=== PATIENT | male | born 1960 | race Caucasian/White ===

== ENCOUNTER 2017-11-21 15:53 | Emergency (ER) | payer OTHER ==
[~2017-11-21] VITALS: Ht 180.3 cm; Wt 107.5 kg
[2017-11-21 15:56] VITALS: PULSE 90; TEMP 36.7; Ht 180.3 cm; Wt 107.5 kg
--- NOTE | 2017-11-21 16:18 | EMERGENCY ROOM VISIT NOTE ---
History Report prepared by Lisa: Ramon Sampson Under the Supervision of: Dr. Ben Aaron M.D. First contact with patient: 16:08 Chief Complaint: OTHER COMPLAINT Stated Complaint: KNEE AND HERNIA History of Present Illness The patient is a 57 year old male who presents to the Emergency Room due to complaints of constant left knee pain that began yesterday after he slipped in the mud. Patient states that his body twisted when he slipped and his son caught him before he fell. He describes the knee pain as "burning". Patient adds that the pain radiates down his left leg. Patient adds that he has had a hernia since last May that he was worried would "burst" after the slipping incident. Patient states that the hernia was in mild pain after the fall. He awaiting to see his doctor about the hernia. He states that he has never seen a surgeon for his hernia. Patient states that he takes Oxycodone for pain. He adds that he has a history of a "bad liver". He denies a history of ulcers. Patient states that his last normal bowel movement was this morning. Patient adds that he sometimes has to push hard to have a bowel movement. Patient denies abdominal pain. Patient adds that his doctor for his knee is located in [place]. Source of History: patient Onset: Yesterday Position: leg (left), knee (left) Quality: burning Timing: constant Modifying Factors (Relieving): other (None) Associated Symptoms: No abdominal pain Review of Systems See HPI for pertinent positives and negatives. A total of ten systems were reviewed and were otherwise negative. Past Medical & Surgical Medical Problems: (1) Arthritis (2) Gout (3) Liver cirrhosis Family History No pertinent family history Social History Smoking Status: Never Smoker Alcohol Use: none Marital Status: Housing Status: lives with significant other Current/Historical Medications Scheduled Allopurinol (Allopurinol), 300 MG PO QAM Baclofen (Lioresal), 10 MG PO BID Furosemide (Lasix), 20 MG PO QAM Omeprazole (Prilosec), 20 MG PO QAM Spironolactone (Aldactone), 50 MG PO QAM Triamcinolone Acet (Triamcinolone Acetonide), 1 APPLN TOP BID Scheduled PRN Ondansetron Hcl (Zofran), 4 MG PO Q6H PRN for Nausea Oxycodone Hcl (Oxycodone Hcl), 15 MG PO Q4H PRN for Pain Allergies Coded Allergies: Hydrocodone (Verified Allergy, Severe, GI SYMPTOMS, 11/21/17) Ketorolac Tromethamine (Verified Allergy, Intermediate, makes sick, ) Penicillins (Verified Allergy, Unknown, 11/21/17) Tramadol (Verified Adverse Reaction, Unknown, vomiting, 11/21/17) Physical Exam Vital Signs Date Time Temp Pulse Resp B/P (MAP) Pulse Ox O2 Delivery O2 Flow Rate FiO2 11/21/17 17:25 18 115/75 95 Room Air 11/21/17 15:56 36.7 90 18 144/61 97 Room Air Physical Exam GENERAL: Awake, alert, well-appearing, in no distress HENT: Normocephalic, atraumatic. Oropharynx unremarkable. Dry mucous membranes EYES: Normal conjunctiva. Sclera non-icteric. NECK: Supple. No nuchal rigidity. FROM. No JVD. RESPIRATORY: Clear to auscultation. CARDIAC: Regular rate, normal rhythm. Extremities warm and well perfused. Pulses equal. ABDOMEN: Soft, easily reducible left indirect inguinal hernia. No tenderness to palpation. No rebound or guarding. No masses. RECTAL: Deferred. MUSCULOSKELETAL: Chest examination reveals no tenderness. The back is symmetrical on inspection without obvious abnormality. There is no CVA tenderness to palpation. No joint edema. LOWER EXTREMITIES: Mild tenderness of left knee to medial aspect. Positive James's sign. Calves are equal size bilaterally and non-tender. No edema. No discoloration. NEURO: Normal sensorium. No sensory or motor deficits noted. SKIN: No rash or jaundice noted. Medical Decision & Procedures ER Provider Diagnostic Interpretation: Radiology results as stated below per my review and radiologist interpretation: L KNEE 3 VIEWS HISTORY: 57 years-old Male left knee pain, twisting acute left knee pain status post twisting injury COMPARISON: Left knee radiographs 03/31/2016 TECHNIQUE: 3 views of the left knee FINDINGS: Tricompartmental osteoarthritis is noted, mild within the lateral compartment and moderate within the medial and patellofemoral compartments, progressed from comparison. Spurring of the tibial spines. Small knee joint effusion. No acute fracture or dislocation. No opaque foreign body. IMPRESSION: 1. Small joint effusion without fracture. 2. Tricompartmental osteoarthritis, progressed from comparison study. The above report was generated using voice recognition software. It may contain grammatical, syntax or spelling errors. Electronically signed by: Ranulfo Miles M.D. 11/21/2017 5:10 PM Medications Administered Medications (Trade) Dose Ordered Sig/Geovani Route Start Time Stop Time Status Last Admin Dose Admin Lidocaine (Lidoderm Patch 5%) 1 patch NOW STAT TD 11/21/17 17:18 11/21/17 17:20 DC 11/21/17 17:27 1 PATCH ED Course 1605: The patient was evaluated in room B2. A complete history and physical exam was performed. 1741: I reevaluated the patient. Discussed results and discharge instructions. He verbalized understanding and agreement. The patient is ready for discharge. Medical Decision I reviewed the patient's past medical history, medications, and the nursing notes as described above. The patient's presentation and history were concerning for fracture, dislocation , and meniscal injury. The patient is 57 y/o gentleman with a pmhx of cirrhosis presents to the emergency department with c/o of left knee pain and left inguinal hernia after nearly falling, slipping in the mud yesterday per HPI. On arrival the patient is relatively well-appearing in NAD, AFVSS. On exam the patient has a soft reducible left inguinal hernia that is NTTP. No discoloration. Left knee with mild ttp to medial aspect with FROM that causes mild pain. +James sign c/w likely meniscal injury. Xray negative for fx. Plan for outpatient f/u. Findings and plan for follow-up reviewed with patient. Patient agreeable and d/c'd per discharge instructions. Medication Reconcilliation Current Medication List: was personally reviewed by me Blood Pressure Screening Patient's blood pressure: Normal blood pressure Blood pressure disposition: Did not require urgent referral Impression Primary Impression: Left knee sprain Additional Impression: Left inguinal hernia Scribe Attestation The scribe's documentation has been prepared under my direction and personally reviewed by me in its entirety. I confirm that the note above accurately reflects all work, treatment, procedures, and medical decision making performed by me. Departure Information Dispostion Home / Self-Care Referrals No Doctor, Assigned (PCP) Leandro Lopez D.O. Davidson, Matthew D. D.O. Forms HOME CARE DOCUMENTATION FORM, IMPORTANT VISIT INFORMATION, WORK / SCHOOL INSTRUCTIONS Patient Instructions ED Hernia Inguinal, ED Meniscal Injury Knee Poss, ED Sprain Knee, [facility] Additional Instructions Please follow up with your primary care physician in the next 1-3 days for re- evaluation. We will also give you contact information for general surgery to have your inguinal hernia evaluated and also for orthopedics to reevaluate your knee if pain persist. Otherwise, your exam and xray did not show signs of an emergent condition at this time. Continue your current medications. Lidoderm patch for additional knee pain relief. Drink plenty of fluids to ensure hydration. Return to the emergency department for worsening symptoms as described in the accompanying instructions. Problem Qualifiers
[2017-11-21] MEDS ORDERED: SPIR25TA89 PO (17:04)
[2017-11-21] MEDS ORDERED: OXY/15 PO (17:04)
[2017-11-21] MEDS ORDERED: BACL1TAB PO (17:04)
[2017-11-21] MEDS ORDERED: ALL300 PO (17:04)
[2017-11-21] MEDS ORDERED: FURO-85 PO (17:04)
[2017-11-21] MEDS ORDERED: OMEP20CA9 PO (17:04)
[2017-11-21] MEDS ORDERED: TRMCR515 TOP (17:04)
[2017-11-21] MEDS ORDERED: ONDA4TAB46 PO (17:04)
--- NOTE | 2017-11-21 17:11 | DIAGNOSTIC IMAGING REPORT ---
L KNEE 3 VIEWS HISTORY: 57 years-old Male left knee pain, twisting acute left knee pain status post twisting injury COMPARISON: Left knee radiographs 03/31/2016 TECHNIQUE: 3 views of the left knee FINDINGS: Tricompartmental osteoarthritis is noted, mild within the lateral compartment and moderate within the medial and patellofemoral compartments, progressed from comparison. Spurring of the tibial spines. Small knee joint effusion. No acute fracture or dislocation. No opaque foreign body. IMPRESSION: 1. Small joint effusion without fracture. 2. Tricompartmental osteoarthritis, progressed from comparison study. The above report was generated using voice recognition software. It may contain grammatical, syntax or spelling errors. Electronically signed by: Ranulfo Miles M.D. 11/21/2017 5:10 PM Dictated Date/Time: 11/21/2017 5:08 PM
[2017-11-21] MEDS ORDERED: LIDODERM (LIDOCAINE) PATCH 5% TD STA (17:18)
[2017-11-21 17:25] VITALS: BP 115/75; O2SAT 95
== END 2017-11-21 17:47 | disposition home or self-care (01) ==
LOC: C.EDB 15:56
DX: S83.92XA Sprain of unspecified site of left knee, initial encounter (principal); W18.40XA Slipping, tripping and stumbling without falling, unspecified, initial encounter; K40.90 Unilateral inguinal hernia, without obstruction or gangrene, not specified as recurrent; M10.9 Gout, unspecified; K74.60 Unspecified cirrhosis of liver; Z79.899 Other long term (current) drug therapy; Z88.0 Allergy status to penicillin; Z88.5 Allergy status to narcotic agent; Z88.8 Allergy status to other drugs, medicaments and biological substances; M17.12 Unilateral primary osteoarthritis, left knee

== ENCOUNTER 2019-09-16 08:20 | Observation (INO) ==
[2019-09-16] MEDS ORDERED: MoRPHine SULFATE 10 MG/ML CARP/VIAL IV STA (08:33)
--- NOTE | 2019-09-16 08:42 | Emergency Department Note ---
History of Present Illness General Chief complaint: Dental/Oral Stated complaint: DRY SOCKET, CONGESTION IN CHEST S/P 12 TEETH EXTRA Time Seen by Provider: 09/16/19 08:26 History of Present Illness Maximum Pain Intensity: 10 This is a 59-year-old male that presents to the emergency department via private vehicle with complaints of "dry socket, congestion and chest status post 12 teeth extracted". The patient stated this past Wednesday his dentist, Dr. Guevara, extracted all of the patient's lower dentition. This was 12 teeth. Patient has been doing well and doing the salt water rinses as directed and was on clindamycin for his upper teeth but notes that now he had an increase of pain and swelling into the neck. Pain is a 10/10. He has been taking oxycodone as he was previously prescribed without relief. He is also been using Chloraseptic spray. He is concerned that now he has dry socket. He notes intermittent fever/chills. He also states he has had chest congestion for the past 1 to 2 months. There is a cough with this. There is some shortness of breath. No chest pain at rest but there is with the cough. He denies smoking. Home Medications Home Medications Medication Instructions Recorded Confirmed Type allopurinol 300 mg PO QAM 05/28/18 09/16/19 History baclofen 10 mg PO BID 05/28/18 09/16/19 History omeprazole 20 mg PO QAM 05/28/18 09/16/19 History oxycodone 15 mg PO Q4H PRN 05/28/18 09/16/19 History triamcinolone acetonide 1 applic TOPICAL BID PRN 05/28/18 09/16/19 History acetaminophen [Tylenol 8 Hour] 1,300 mg PO Q12H PRN 09/16/19 09/16/19 History Allergies Allergy/AdvReac Type Severity Reaction Status Date / Time hydrocodone Allergy Severe GI SYMPTOMS Verified 09/16/19 09:07 ketorolac Allergy Intermediate makes sick Verified 09/16/19 09:07 Penicillins Allergy Unknown Unknown Verified 09/16/19 09:07 tramadol AdvReac Intermediate vomiting Verified 09/16/19 09:07 Past Med/Surg History Medical History Alcoholism (Acute) Arthritis (Chronic) Chronic pain syndrome Cirrhosis (Acute) Gout (Chronic) Hepatitis C (Acute) Surgical History (Updated 09/16/19 @ 11:15 by Micky Hung PA-C) Hx of tooth extraction Family History Mother Diabetes Brother Liver disease Social History Preferred Language: Cuban Communication Ability: Effective 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 Beliefs That Will Affect Care: None Current Living Situation: Spouse Other Information That Helps Us Care for You: No Feels Safe at Home: Yes Safety Concerns: Feels Safe At This Time Smoking Status: Never smoker Second Hand Exposure: No ; Hx Alcohol Use: No Hx Substance Use: Yes substance use type: opiates and prescription drug Substance Use Type Other:: prescribed oxycodone Last Used Substance: Just Prior to Arrival Review of Systems A total of 10 systems reviewed and were otherwise negative Physical Exam Vital Signs Vital Signs - 24 hr 09/16/19 08:24 09/16/19 09:02 09/16/19 10:41 Temperature 36.9 C Temperature Source Oral Pulse Rate 98 H Pulse Rate [Finger] 84 84 Pulse Rhythm [Finger] Regular Regular Respiratory Rate 20 18 18 Respiratory Effort / Characteristics Non-Labored Spontaneous Non-Labored Non-Labored Respiratory Depth Normal Normal Normal Respiratory Pattern Blood Pressure 208/68 H Blood Pressure [Left Arm] 141/84 H 138/61 Blood Pressure Mean 114 Blood Pressure Mean [Left Arm] 103 86 Blood Pressure Position [Left Arm] Sitting Sitting Pulse Oximetry 96 95 96 Oxygen Delivery Method Room Air Room Air Room Air Sepsis Recent Fever Within 48 Hours No Sepsis New/Unexplained Change in Mental Status No Sepsis Action Taken by Nursing No Action Required 09/16/19 11:33 Temperature Temperature Source Pulse Rate Pulse Rate [Finger] 94 H Pulse Rhythm [Finger] Regular Respiratory Rate 22 Respiratory Effort / Characteristics Non-Labored Spontaneous Respiratory Depth Normal Respiratory Pattern Regular Blood Pressure Blood Pressure [Left Arm] 146/84 H Blood Pressure Mean Blood Pressure Mean [Left Arm] 104 Blood Pressure Position [Left Arm] Lying Pulse Oximetry 96 Oxygen Delivery Method Room Air Sepsis Recent Fever Within 48 Hours Sepsis New/Unexplained Change in Mental Status Sepsis Action Taken by Nursing VITAL SIGNS - Vital signs and nursing notes were reviewed. Hypertensive, borderline tachycardic, afebrile. Otherwise stable. GENERAL -59-year-old male appearing his stated age who is in no acute distress. Communicates well with provider and answers questions appropriately. SKIN - Without rashes. No meningeal or petechial rash. There is edema noted to the neck that is visible once the radnall is lifted. It is not visible secondary to the randall when not lifted. HEAD - NC/AT. EYES - PERRL with EOMI bilaterally. Sclera anicteric. Palpebral conjunctiva pink and moist with no injection noted. EARS - No deformities of external structures noted on gross examination bilaterally. No pain elicited with palpation of the tragus bilaterally. External auditory canals without discharge or otorrhea. Tympanic membranes pearly orr without retraction or bulging. No fluid or purulent material visualized behind the TM. Handle of malleus, umbo, cone of light, pars tensa/flaccid all easily visualized. NOSE - Midline and without cyanosis. No epistaxis or purulent drainage noted. Septum midline without deviation or septal hematoma noted. MOUTH/OROPHARYNX - Without perioral cyanosis. Patient has a few superior denti tion left, and there is evidence of recent extraction of all of the patient's lower dentition. There is no bleeding. There is no evidence of dry socket. There is some yellowish biofilm-like substance in the anterior inferior lower sockets. NECK - Neck with FROM. Supple to palpation. There is tenderness as well as edema noted to the patient's bilateral anterior neck/cervical region. Bilateral anterior cervical lymphadenopathy noted. No nuchal rigidity. LUNGS - Chest wall symmetric without accessory muscle use, intercostals retractions, or central cyanosis. There is some mild wheezing/congestion noted bilaterally to auscultation. CARDIAC - RRR with S1/S2. No murmur, rubs, or gallops appreciated. EXTREMITIES - No clubbing or peripheral cyanosis. +5/5 strength noted in UE/LE bilaterally. NEUROLOGIC - Cranial nerves II through XII grossly intact. PSYCH - A&Ox3 and cooperates fully with examiner. Pt is very pleasant and interacts well with examiner. Course Administered Medications Clindamycin Phosphate 600 mg/ (Dextrose) 54 mls @ 100 mls/hr IV Q8H [facility] Stop: 09/18/19 11:14 Last Infusion: 09/16/19 12:10 Dose: 0 mls/hr Documented by: [id number] Admin: 09/16/19 11:41 Dose: 100 mls/hr Documented by: [id number] Acetaminophen (Ofirmev) 1,000 mg in 100 mls @ 400 mls/hr IV Q8 [facility] Stop: 09/17/19 06:14 Last Admin: 09/16/19 13:29 Dose: 400 mls/hr Documented by: [id number] Ioversol (Optiray 320 100ml) 92 ml IV ONCE PRN PRN Reason: Interaction Checking Stop: 09/20/19 10:09 Last Admin: 09/16/19 10:11 Dose: 92 ml Documented by: [id number] Sodium Chloride ([place] Nasal) 2 sprays NA QID [facility] Stop: 10/16/19 12:59 Last Admin: 09/16/19 13:35 Dose: 2 sprays Documented by: [id number] Discontinued Medications Sodium Chloride (Nss 1000ml) 1,000 mls @ 999 mls/hr IV .Q1H1M [facility] Stop: 09/16/19 10:30 Last Infusion: 09/16/19 10:46 Dose: 0 mls/hr Documented by: [id number] Admin: 09/16/19 09:43 Dose: 999 mls/hr Documented by: [id number] Lorazepam (Ativan) 1 mg in 2 mls @ 2 mls/min IV NOW STA Stop: 09/16/19 11:22 Last Admin: 09/16/19 11:41 Dose: 2 mls/min Documented by: [id number] Morphine Sulfate (Morphine Sulfate) 10 mg IV NOW STA Stop: 09/16/19 08:34 Last Admin: 09/16/19 08:50 Dose: 10 mg Documented by: [id number] Morphine Sulfate (Morphine Sulfate) 4 mg IV NOW STA Stop: 09/16/19 10:43 Last Admin: 09/16/19 10:46 Dose: 4 mg Documented by: [id number] Medical Decision Making Laboratory Data Result diagrams: 09/16/19 08:50 09/16/19 08:50 Lab Results 09/16/19 09/16/19 Range/Units 08:50 08:50 WBC 7.38 (4.8-10.8) K/uL RBC 3.77 L (4.7-6.1) M/uL Hgb 11.8 L (14.0-18.0) g/dL Hct 34.2 L (42-52) % MCV 90.7 (80-100) fL MCH 31.3 (25-34) pg MCHC 34.5 (32-36) g/dL RDW Std Deviation 44.3 (36.4-46.3) fL RDW Coeff of Bharat 13.7 (11.5-14.5) % Plt Count 226 (130-400) K/uL MPV 10.5 H (7.4-10.4) fL Immature Gran % (Auto) 0.1 % Neut % (Auto) 52.2 % Lymph % (Auto) 24.3 % [place] % (Auto) 13.6 % Eos % (Auto) 9.3 % Baso % (Auto) 0.5 % Immature Gran # (Auto) 0.01 (0.00-0.02) K/uL Neut # (Auto) 3.85 (1.4-6.5) K/uL Lymph # (Auto) 1.79 (1.2-3.4) K/uL [place] # (Auto) 1.00 H (0.11-0.59) K/uL Eos # (Auto) 0.69 H (0-0.5) K/uL Baso # (Auto) 0.04 (0-0.2) K/uL Sodium 139 (136-145) mmol/L Potassium 3.4 L (3.5-5.1) mmol/L Chloride 112 H (98-107) mmol/L Carbon Dioxide 22 (21-32) mmol/L Anion Gap 6.0 (3-11) BUN 26 H (7-18) mg/dl Creatinine 1.07 (0.6-1.4) mg/dl Est Cr Clr Drug Dosing 101.4 ml/min Est GFR ( Amer) 88.8 Est GFR (Non-Af Amer) 76.7 BUN/Creatinine Ratio 24.5 H (10-20) Glucose 103 H (70-99) mg/dl Calcium 9.2 (8.5-10.1) mg/dl Magnesium 2.1 (1.8-2.4) mg/dl Total Bilirubin 1.2 H (0.2-1) mg/dl AST 121 H (15-37) U/L ALT 74 (12-78) U/L Alkaline Phosphatase 66 (45-117) U/L Troponin I < 0.015 (0-0.045) ng/ml Total Protein 7.7 (6.4-8.2) gm/dl Albumin 3.9 (3.4-5.0) gm/dl Globulin 3.8 (2.5-4.0) gm/dl Albumin/Globulin Ratio 1.0 (0.9-2) Imaging Data Radiologist's Impression: XR chest 1V portable HISTORY: cough, chest congestion COMPARISON: Chest 05/28/2018. FINDINGS: The lungs are clear. Cardiac silhouette is normal in size. No pleural effusions. No pneumothorax. IMPRESSION: No acute process. ACT 112: Negative or not required by law. Electronically signed by: Rafael Carrizales M.D. 09/16/2019 9:[address] soft tissue neck w con HISTORY: Dental extraction Wednesday, increase of edema, jaw pain. Left neck pain and swelling. TECHNIQUE: Multiaxial CT images of the neck were performed following the use of intravenous contrast. COMPARISON STUDY: None. FINDINGS: Focal groundglass density within the right upper lobe anteriorly best seen on image 84. This measures 2.9 x 2.5 cm. The left lung apex is clear. The trachea is midline and patent. Degenerative changes within the cervical spine. The mastoid air cells are clear. No suspicious lytic are blastic osseous lesions. Near-complete opacification of the ethmoid air cells and moderate mucosal thickening of the maxillary sinuses containing small fluid levels. This is consistent with acute paranasal sinusitis. The orbits and visualized brain parenchyma are unremarkable. The major cervical vessels enhance normally. There are 2 hypodense lesions within the left lower lobe with the largest measuring 7 mm. Mildly enlarged bilateral submandibular lymph nodes. Dominant lymph node on the left measures 1.6 x 0.8 cm. These may also be reactive to the recent postoperative change. The parotid and submandibular glands are symmetric. Prevertebral soft tissues and the epiglottis are normal in thickness. The no loculated fluid collections to suggest an abscess. Multiple extracted multiple extracted teeth primarily within the mandible. Mild soft tissue swelling/edema surrounding and deep to the angle of the left hemimandible. This extends into the left parapharyngeal fat space this results in partial effacement of the left piriform sinus. However, the airway remains patent. There is a single root of the left distal mandibular molar remaining. The remaining portions of the tooth are extracted. There is a tiny incomplete fracture along the medial cortex of the body of the left hemimandible adjacent to the left over molar root within the left hemimandible. This is best seen on image 130. This is likely subacute as the edges appear to be partially sclerotic. IMPRESSION: 1. Acute paranasal sinusitis as described above. 2. No loculated fluid collections to suggest an abscess. 3. Status post multiple teeth extraction. 4. Mild soft tissue swelling/edema surrounding and deep to the angle of the left hemimandible. This extends into the left parapharyngeal fat space and results in partial effacement of the left piriform sinus. However, the airway remains patent. This may be reactive to the postsurgical change. Inflammatory/infectious process is considered less likely but not entirely excluded.. 5. Mildly enlarged left cervical/mandibular lymph nodes. This may be reactive. 6. There is a tiny incomplete fracture along the medial cortex of the body of the left hemimandible adjacent to the left over molar root within the left hemimandible. This is likely subacute as the edges appear to be partially sclerotic. ACT 112: Negative or not required by law. Electronically signed by: Rafael Carrizales M.D. 09/16/2019 10:27 AM MDM Narrative Patient was seen and evaluated as above in room a 11. Review was performed of nursing notes and vital signs. After obtaining a thorough history and physical examination the above work up was performed. He presents to us today status post complete dental extraction of the lower dentition this past Wednesday. He is hypertensive on exam. He is borderline tachycardic. He is afebrile here. He does appear to be in pain on exam. He is already prescribed oxycodone at home. Patient does have a fair amount of edema to the anterior neck. Although this certainly could be postoperative, given the patient's increase of pain over the past few days, and amount of edema, it is felt that further work-up is warranted. Labs were drawn. Chest x-ray was also obtained secondary to the patient's complaint of chest congestion for the past 1 to 2 months. Given that the patient is on chronic opioids, I did start with a morphine dose of 10 mg as he did appear to be in a fair amount of pain. Blood pressure was retaken and it tremendously improved, therefore I believe this is reflecting that he likely had his hypertensive presentation secondary to pain. I was then notified by the nursing staff that he would like something else for pain as the pain that began to wear off. 4 mg of morphine was ordered. CT scan was performed. Results as above. There is acute paranasal sinusitis, no abscess, as well as some soft tissue/edema surrounding the and deep to the angle of the left hemimandible. This does extend into the left parapharyngeal fat space and results in partial effacement of the left piriform sinus. Patient is quite tender in the left anterior neck. The swelling has began over the past few days and was not pr esent initially. Although this certainly could just be postoperative edema, given the patient's voice change, level of pain, and CT scan findings it is felt that further evaluation and management may be warranted in the inpatient setting. I discussed these findings with the attending physician as well as the on-call oral maxillofacial surgeon, Dr. Ahmadi. He will come to evaluate the patient. We were in agreement with plan. I spoke with the hospitalist team, IV clindamycin chosen. It was felt that given the patient's documented penicillin allergy I would refrain from attempting such in this setting. Fluids were also provided here. Please refer to further documentation regarding his stay. Case was discussed with the attending physician and we agreed upon management as well as admission. EKG was obtained as the patient was complaining of some congestion in the chest and this reveals normal sinus rhythm, rate of 82 bpm. No ectopy or ischemic change. QTc 481. I attest that I have personally reviewed the patient medication list. GCS: 15 In the evaluation and treatment of this patient, the following differential diagnoses were considered: Periapical Abscess, Osteonecrosis of the Jaw, Dental Fracture, Dental Caries, Gold's Angina, Vincent's Angina, Facial Cellulitis. Impression & Plan S/P tooth extraction, Neck swelling, Sinusitis Discharge Plan Visit Data *Final* Discharge Date/Time: 09/16/19 12:22 Chief Complaint: Dental/Oral Stated Complaint: DRY SOCKET, CONGESTION IN CHEST S/P 12 TEETH EXTRA ED Provider: [facility] ED Midlevel Provider: Micky Hung Discharge Problem: S/P tooth extraction, Neck swelling, Sinusitis Patient Disposition: Admitted As Inpatient Condition: Good Discharge Instructions Interventions: ED Discharge Assessment Last Done: 09/16/19 12:22
[2019-09-16 09:01] LABS: Basophils # (auto) 0.04 K/uL (0-0.2); Basophils % (auto) 0.5 %; Eosinophils # (auto) 0.69 K/uL (0-0.5); Eosinophils % (auto) 9.3 %; Hematocrit (blood only) 34.2 % (42-52); Hemoglobin 11.8 g/dL (14.0-18.0); Immature Granulocytes # (auto) 0.01 K/uL (0.00-0.02); Immature Granulocytes % (auto) 0.1 %; Lymphocytes # (auto) 1.79 K/uL (1.2-3.4); Lymphocytes % (auto) 24.3 %; Mean Corpuscular Hemoglobin 31.3 pg (25-34); Mean Corpuscular Hgb Conc 34.5 g/dL (32-36); Mean Corpuscular Volume 90.7 fL (80-100); Mean Platelet Volume 10.5 fL (7.4-10.4); Monocytes % (auto) 13.6 %; Neutrophils # (auto) 3.85 K/uL (1.4-6.5); Neutrophils % (auto) 52.2 %; Platelet Count 226 K/uL (130-400); RDW Coefficient of Variation 13.7 % (11.5-14.5); RDW Standard Deviation 44.3 fL (36.4-46.3); Red Blood Count 3.77 M/uL (4.7-6.1); White Blood Count 7.38 K/uL (4.8-10.8)
--- NOTE | 2019-09-16 09:23 | XRay Report ---
XR chest 1V portable HISTORY: cough, chest congestion COMPARISON: Chest 05/28/2018. FINDINGS: The lungs are clear. Cardiac silhouette is normal in size. No pleural effusions. No pneumot horax. IMPRESSION: No acute process. ACT 112: Negative or not required by law. Electronically signed by: Rafael Carrizales M.D. 09/16/2019 9:22 AM
[2019-09-16 09:27] LABS: Alanine Aminotransferase 74 U/L (12-78); Albumin Level 3.9 gm/dl (3.4-5.0); Aspartate Aminotransferase 121 U/L (15-37); BUN Creatinine Ratio 24.5 (10-20); Blood Urea Nitrogen 26 mg/dl (7-18); Calcium 9.2 mg/dl (8.5-10.1); Carbon Dioxide 22 mmol/L (21-32); Chloride 112 mmol/L (98-107); Creatinine Clr Calc Pharmacy 101.4 ml/min; Est GFR (African American) 88.8; Est GFR (Non-African American) 76.7; Glucose 103 mg/dl (70-99); Magnesium 2.1 mg/dl (1.8-2.4); Potassium 3.4 mmol/L (3.5-5.1); Sodium 139 mmol/L (136-145)
[2019-09-16] MEDS ORDERED: SODIUM CHLORIDE 0.9% 1000ML 1,000 ML IV SCH (09:30)
[2019-09-16 09:32] LABS: Alkaline Phosphatase 66 U/L (45-117); Bilirubin,Total 1.2 mg/dl (0.2-1); Globulin 3.8 gm/dl (2.5-4.0); Total Protein 7.7 gm/dl (6.4-8.2); Troponin I < 0.015 ng/ml (0-0.045)
[2019-09-16] MEDS ORDERED: IOVERSOL 100ml IV PRN (10:10)
--- NOTE | 2019-09-16 10:28 | CT Scan Report ---
CT soft tissue neck w con HISTORY: Dental extraction Samuel, increase of edema, jaw pain. Left neck pain and swelling. TECHNIQUE: Multiaxial CT images of the neck were performed following the use of intravenous contrast. COMPARISON STUDY: None. FINDINGS: Focal groundglass density within the right upper lobe anteriorly best seen on image 84. Thi s measures 2.9 x 2.5 cm. The left lung apex is clear. The trachea is midline and patent. Degenerative changes within the cervical spine. The mastoid air cells are clear. No suspicious lytic are blastic osseous lesions. Near-complete opacification of the ethmoid air cells and moderate mucosal thickening of the maxillary sinuses containing small fluid levels. This is consistent with acute paranasal sinu sitis. The orbits and visualized brain parenchyma are unremarkable. The major cervical vessels enhanc e normally. There are 2 hypodense lesions within the left lower lobe with the largest measuring 7 mm. Mildly enlarged bilateral submandibular lymph nodes. Dominant lymph node on the left measures 1.6 x 0.8 cm. These may also be reactive to the recent postoperative change. The parotid and submandibular glands are symmetric. Prevertebral soft tissues and the epiglottis are normal in thickness. The no lo culated fluid collections to suggest an abscess. Multiple extracted multiple extracted teeth primaril y within the mandible. Mild soft tissue swelling/edema surrounding and deep to the angle of the left hemimandible. This extends into the left parapharyngeal fat space this results in partial effacement of the left piriform sinus. However, the airway remains patent. There is a single root of the left di stal mandibular molar remaining. The remaining portions of the tooth are extracted. There is a tiny i ncomplete fracture along the medial cortex of the body of the left hemimandible adjacent to the left over molar root within the left hemimandible. This is best seen on image 130. This is likely subacute as the edges appear to be partially sclerotic. IMPRESSION: 1. Acute paranasal sinusitis as described above. 2. No loculated fluid collections to suggest an abscess. 3. Status post multiple teeth extraction. 4. Mild soft tissue swelling/edema surrounding and deep to the angle of the left hemimandible. This e xtends into the left parapharyngeal fat space and results in partial effacement of the left piriform sinus. However, the airway remains patent. This may be reactive to the postsurgical change. Inflammat ory/infectious process is considered less likely but not entirely excluded.. 5. Mildly enlarged left cervical/mandibular lymph nodes. This may be reactive. 6. There is a tiny incomplete fracture along the medial cortex of the body of the left hemimandible a djacent to the left over molar root within the left hemimandible. This is likely subacute as the edge s appear to be partially sclerotic. ACT 112: Negative or not required by law. Electronically signed by: Rafael Carrizales M.D. 09/16/2019 10:27 AM
[2019-09-16] MEDS ORDERED: MoRPHine SULFATE 4 MG/ML 1 ML CARP\\VIAL IV STA (10:42)
--- NOTE | 2019-09-16 11:01 | Emergency Department Note ---
ED Visit Note This patient comes in as described above. He has complaint of some left-sided neck pain he has had recent teeth removal. We did do a CAT scan and there is some swelling without any definite abscess. My exam, he is well-appearing and appears in no distress. he does have some mild hoarseness other does have a sinus infection. We will give him IV Decadron as well as IV antibiotics. We have discussed case with Dr. Ahmadi from oral facial will also see him in the hospital. .
[2019-09-16] MEDS ORDERED: LORazepam 1 MG/2 ML VIAL IV STA (11:21)
[2019-09-16] MEDS: CLINDAMYCIN 600 MG in DEXTROSE 5% 50 ML IV SCH ×2 (11:41→19:51)
--- NOTE | 2019-09-16 12:16 | History & Physical Report ---
Date of Service September 16, 2019 Assessment & Plan (1) Neck swelling: Recent extraction of lower teeth. Now with submandibular swelling/pain. CT demonstrates soft tissue changes without apparent abscess. Reported allergy to penicillin. IV antibiotic therapy with clindamycin and levofloxacin. Consult Oral Maxillofacial Surgery. (2) Sinusitis: IV antibiotic therapy with clindamycin and levofloxacin. ? need for surgical intervention. Will await input from Oral Maxillofacial Surgery. (3) Cirrhosis: Compensated. (4) Gout: Quiescent. (5) Chronic pain syndrome: Chronic pain due to musculoskeletal problems. Intolerant of tramadol and ketorolac. Continue usual dose of oxycodone. Having significant facial / oral pain. IV acetaminophen x 3 doses while NPO. IV hydrocodone as needed for extremely severe pain not relieved by above measures. (6) DVT prophylaxis: Low risk for VTE per IMPROVE Risk Assessment Model. VTE prophylaxis not indicated. (7) Discharge planning issues: Anticipated discharge to home. Family Medicine follow-up with Dr. Robbie Elizabeth. History of Present Illness Chief Complaint: facial / jaw pain Primary Care Provider: Robbie Elizabeth, 59-year-old male followed by Dr. Robbie Elizabeth for Family Medicine. History of alcoholism in remission, cirrhosis, chronic pain syndrome on maintenance oxycodone, and other problems as noted below. Has been having problems with multiple dental caries. Extraction of an upper tooth was performed about 2 weeks ago; received a course of oral clindamycin. Lower teeth were extracted on September 11. Now experiencing severe submandibular pain as well as right maxillary pain. No fever, but experiencing some chills. He has tried using mouthwash without improvement. He continues taking his usual maintenance dose of oxycodone without relief. Allergies Allergy/AdvReac Type Severity Reaction Status Date / Time hydrocodone Allergy Severe GI SYMPTOMS Verified 09/16/19 09:07 ketorolac Allergy Intermediate makes sick Verified 09/16/19 09:07 Penicillins Allergy Unknown Unknown Verified 09/16/19 09:07 tramadol AdvReac Intermediate vomiting Verified 09/16/19 09:07 Home Medications Home Medications Medication Instructions Recorded Confirmed Type allopurinol 300 mg PO QAM 05/28/18 09/16/19 History baclofen 10 mg PO BID 05/28/18 09/16/19 History furosemide 20 mg PO QAM 05/28/18 09/16/19 History omeprazole 20 mg PO QAM 05/28/18 09/16/19 History ondansetron HCl 4 mg PO Q6H PRN 05/28/18 09/16/19 History oxycodone 15 mg PO Q4H PRN 05/28/18 09/16/19 History triamcinolone acetonide 1 applic TOPICAL BID PRN 05/28/18 09/16/19 History acetaminophen [Tylenol 8 Hour] 1,300 mg PO Q12H PRN 09/16/19 09/16/19 History Past Med/Surg History Medical History Alcoholism (Acute) Arthritis (Chronic) Chronic pain syndrome Cirrhosis (Acute) Gout (Chronic) Hepatitis C (Acute) Surgical History (Updated 09/16/19 @ 11:15 by Micky Hung PA-C) Hx of tooth extraction Family History (Updated 09/16/19 @ 12:23 by Jacky Chacon MD) Mother Diabetes Brother Liver disease Social History (Updated 09/16/19 @ 12:23 by Jacky Chacon MD) Preferred Language: Urdu Feels Safe at Home: Yes Smoking Status: Never smoker Hx Alcohol Use: Yes (alcoholism in remission) Review of Systems Constitutional: + chills and + weight gain; no fever Eyes: no diplopia and no worsening vision chronic problems with left eye due to trauma Ear, Nose, Mouth, Throat: as per Subjective / HPI Respiratory: + cough; no dyspnea Cardiovascular: no chest pain Gastrointestinal: no nausea, no vomiting, no constipation, no diarrhea/loose stools, no blood in stools and no melena Genitourinary: + urinary hesitancy; no dysuria and no hematuria Musculoskeletal: + joint pain Integumentary: no rash and no new lesions Neurologic: no headache(s) Endocrine: no polydipsia and no polyuria Hematologic / Lymphatic: + easy bleeding; no easy bruising and no lymphadenopathy Physical Exam Constitutional: WD/WN, vitals as above no acute distress Eyes: + anicteric sclerae left pupil eccentric; right pupil round, reactive ENMT: poor dentition; multiple caries; submandibular tenderness Neck: trachea midline, no thyromegaly Respiratory: Auscultation: + rhonchi and + wheezes Cardiovascular: Rate/Rhythm: regular rate Heart Sounds: no gallop, no murmur and no cardiac rub Vessels: no JVD Extremities: normal capillary refill; no calf tenderness and no edema Gastrointestinal (Abdomen): normal bowel sounds, soft, nontender, no hepatosplenomegaly Musculoskeletal: Head/Neck/Chest: neck supple Extremities: no cyanosis and no clubbing Skin: no rashes, warm and dry Psychiatric: Orientation: alert and oriented x 3 Affect: euthymic affect Lymphatic: + cervical lymphadenopathy Results & Data Vital Signs (Past 12 Hours) Vital Signs Temp Pulse Pulse Resp BP BP Pulse Ox 09/16/19 11:33 94 H 22 146/84 H 96 09/16/19 10:41 84 18 138/61 96 09/16/19 09:02 84 18 141/84 H 95 09/16/19 08:24 36.9 C 98 H 20 208/68 H 96 Laboratory Results Laboratory Results - last 24 hr 09/16/19 09/16/19 08:50 08:50 WBC 7.38 RBC 3.77 L Hgb 11.8 L Hct 34.2 L MCV 90.7 MCH 31.3 MCHC 34.5 RDW Std Deviation 44.3 RDW Coeff of Bharat 13.7 Plt Count 226 MPV 10.5 H Immature Gran % (Auto) 0.1 Neut % (Auto) 52.2 Lymph % (Auto) 24.3 Bonner % (Auto) 13.6 Eos % (Auto) 9.3 Baso % (Auto) 0.5 Immature Gran # (Auto) 0.01 Neut # (Auto) 3.85 Lymph # (Auto) 1.79 Bonner # (Auto) 1.00 H Eos # (Auto) 0.69 H Baso # (Auto) 0.04 Sodium 139 Potassium 3.4 L Chloride 112 H Carbon Dioxide 22 Anion Gap 6.0 BUN 26 H Creatinine 1.07 Est Cr Clr Drug Dosing 101.4 Est GFR ( Amer) 88.8 Est GFR (Non-Af Amer) 76.7 BUN/Creatinine Ratio 24.5 H Glucose 103 H Calcium 9.2 Magnesium 2.1 Total Bilirubin 1.2 H AST 121 H ALT 74 Alkaline Phosphatase 66 Troponin I < 0.015 Total Protein 7.7 Albumin 3.9 Globulin 3.8 Albumin/Globulin Ratio 1.0 Diagnostic Findings PORTABLE CHEST X-RAY FINDINGS: The lungs are clear. Cardiac silhouette is normal in size. No pleural effusions. No pneumothorax. IMPRESSION: No acute process. ACT 112: Negative or not required by law. Electronically signed by: Rafael Carrizales M.D. 09/16/2019 9:[address] SOFT TISSUE NECK FINDINGS: Focal groundglass density within the right upper lobe anteriorly best seen on image 84. This measures 2.9 x 2.5 cm. The left lung apex is clear. The trachea is midline and patent. Degenerative changes within the cervical spine. The mastoid air cells are clear. No suspicious lytic are blastic osseous lesions. Near-complete opacification of the ethmoid air cells and moderate mucosal thickening of the maxillary sinuses containing small fluid levels. This is consistent with acute paranasal sinusitis. The orbits and visualized brain parenchyma are unremarkable. The major cervical vessels enhance normally. There are 2 hypodense lesions within the left lower lobe with the largest measuring 7 mm. Mildly enlarged bilateral submandibular lymph nodes. Dominant lymph node on the left measures 1.6 x 0.8 cm. These may also be reactive to the recent postoperative change. The parotid and submandibular glands are symmetric. Prevertebral soft tissues and the epiglottis are normal in thickness. The no loculated fluid collections to suggest an abscess. Multiple extracted multiple extracted teeth primarily within the mandible. Mild soft tissue swelling/edema surrounding and deep to the angle of the left hemimandible. This extends into the left parapharyngeal fat space this results in partial effacement of the left piriform sinus. However, the airway remains patent. There is a single root of the left distal mandibular molar remaining. The remaining portions of the tooth are extracted. There is a tiny incomplete fracture along the medial cortex of the body of the left hemimandible adjacent to the left over molar root within the left hemimandible. This is best seen on image 130. This is likely subacute as the edges appear to be partially sclerotic. IMPRESSION: 1. Acute paranasal sinusitis as described above. 2. No loculated fluid collections to suggest an abscess. 3. Status post multiple teeth extraction. 4. Mild soft tissue swelling/edema surrounding and deep to the angle of the left hemimandible. This extends into the left parapharyngeal fat space and results in partial effacement of the left piriform sinus. However, the airway remains patent. This may be reactive to the postsurgical change. Inflammatory/infectious process is considered less likely but not entirely excluded.. 5. Mildly enlarged left cervical/mandibular lymph nodes. This may be reactive. 6. There is a tiny incomplete fracture along the medial cortex of the body of the left hemimandible adjacent to the left over molar root within the left hemimandible. This is likely subacute as the edges appear to be partially sclerotic. ACT 112: Negative or not required by law. Electronically signed by: Rafael Carrizales M.D. 09/16/2019 10:27 AM ECG Additional Comments: EKG performed at 0840 reviewed and demonstrated NSR at 80 / min, no acute changes. Code Status & VTE Plan VTE Prophylaxis Plan VTE Prophylaxis will be ordered: No
[2019-09-16] MEDS ORDERED: ONDANSETRON INJ 2 MG/ML 2 ML VIAL IV PRN (12:51)
[2019-09-16] MEDS: ACETAMINOPHEN 1,000 MG/100 ML VIAL IV SCH ×2 (13:29→21:48)
[2019-09-16] MEDS: SODIUM CHLORIDE 0.65% NA SOLN 45 ML (OCEAN) SCH ×3 (13:35→19:52)
[2019-09-16] MEDS: D5W AND 1/2NSS + 20MEQ KCL 20 MEQ/1,000 ML BAG IV SCH ×2 (13:54→20:59)
[2019-09-16] MEDS ORDERED: LEVOFLOXACIN/D5W 750 MG/150 ML BAG IV SCH (14:00)
--- NOTE | 2019-09-16 17:42 | Surgery Consultation ---
Date of Consultation Sep 16 2019 Oral Maxillofacial surgery Consult Present Complaint: left submandibular edema and acute sinus congestion. A detailed oral exam was completed. Soft tissue---all the tissue is WNL, evidence of recent dental extractions of lower teeth Sep 11 and upper right cuspid tooth in late August 2019. Oral Care---Overall oral care is fair Occlusion---Class I with many missing teeth ( all lower teeth) TMJ exam---No pop, clicking, pain, good ROM Periodontal exam--- healing extraction sites, no evidence of gingival or dental (post op infection) The soft tissue of the tongue, floor of mouth, gingival, palate (hard/soft) all WNL. Soft edema and tenderness left submandibular area and angle of the left jaw. This swelling is very soft, no abscess formation, no area for drainage. Neck is supple, FROM, Able to extend and flex neck w/o difficulty, no masses, no abnormalities other then the soft tissue reaction to recent dental extractions The lower left wisdom tooth (by history and CT scan evidence) looks to have been a difficult extraction, The most likely cause of his swelling and left submandibular gland tenderness. Sinus---He has a history of chronic sinus issues, He relates to an increase in symptoms of congestion, discharge and facial pressure after the August extraction of upper right cuspid tooth (# 6). This tooth is NOT related to the maxillary sinus. Plan: I reviewed the CT scan personally and agree with the report. There is no indication for any surgical intervention at this time ( no drainable pus)--The IV antibiotics should resolve the swelling/edema and help with the acute exacerbation of the sinus issues. The use of sinus nasal spray OCEAN 2 spray at least 3-4 x a day in each nostril is important in the management of the sinus issues. Arrangements for future ENT evaluation for considerations a endoscopic nasal procedure for the pansinusitis would be appropriate. I will follow Dr Flores as long as he is an in-patient. Once his symptoms begin to improve out patient management can be considered with oral antibiotics and continuation of the ocean nasal spray. September 16, 2019 History of Present Illness Attending Physician: Jakcy Chacon MD Allergies Allergy/AdvReac Type Severity Reaction Status Date / Time hydrocodone Allergy Severe GI SYMPTOMS Verified 09/16/19 09:07 ketorolac Allergy Intermediate makes sick Verified 01/11/20 09:07 Penicillins Allergy Unknown Unknown Verified 09/16/19 09:07 tramadol AdvReac Intermediate vomiting Verified 09/16/19 09:07 Home Medications Home Medications Medication Instructions Recorded Confirmed Type allopurinol 300 mg PO QAM 05/28/18 09/16/19 History baclofen 10 mg PO BID 05/28/18 09/16/19 History omeprazole 20 mg PO QAM 05/28/18 09/16/19 History oxycodone 15 mg PO Q4H PRN 05/28/18 09/16/19 History triamcinolone acetonide 1 applic TOPICAL BID PRN 05/28/18 09/16/19 History acetaminophen [Tylenol 8 Hour] 1,300 mg PO Q12H PRN 09/16/19 09/16/19 History Patient History Medical History Alcoholism (Acute) Arthritis (Chronic) Chronic pain syndrome Cirrhosis (Acute) Gout (Chronic) Hepatitis C (Acute) Surgical History (Updated 09/16/19 @ 11:15 by Micky Hung PA-C) Hx of tooth extraction Family History Mother Diabetes Brother Liver disease Social History Preferred Language: Ukrainian Communication Ability: Effective Director Internal Communications Required: No Beliefs That Will Affect Care: None Current Living Situation: Spouse Other Information That Helps Us Care for You: No Feels Safe at Home: Yes Safety Concerns: Feels Safe At This Time Smoking Status: Never smoker Second Hand Exposure: No ; Hx Alcohol Use: No Hx Substance Use: Yes substance use type: opiates and prescription drug Substance Use Type Other:: prescribed oxycodone Last Used Substance: Just Prior to Arrival Results & Data Vital Signs (Past 12 Hours) Vital Signs Temp Pulse Pulse Resp BP BP Pulse Ox 09/16/19 15:01 36.7 C 73 16 123/70 94 09/16/19 12:54 37.4 C 76 14 124/73 95 09/16/19 11:33 94 H 22 146/84 H 96 09/16/19 10:41 84 18 138/61 96 09/16/19 09:02 84 18 141/84 H 95 09/16/19 08:24 36.9 C 98 H 20 208/68 H 96 PG Care Time/CCT Total # of Minutes Spent Total Time Spent with Patient: Total time spent is greater than 50% in coordination of care (as documented) at patient's floor/unit and/or counseling patient:
[2019-09-16] MEDS: OXYCODONE HCL IR 5 MG TAB (IMMEDIATE RELEASE) PO PRN (18:00)
[2019-09-16] MEDS: HYDROmorphone INJ 2 MG/ML SYR/VIAL IV PRN (19:51)
[2019-09-16] MEDS: BACLOFEN 10 MG TAB PO SCH (21:47)
[2019-09-17] MEDS: OXYCODONE HCL IR 5 MG TAB (IMMEDIATE RELEASE) PO PRN ×3 (02:32→11:50)
[2019-09-17] MEDS: D5W AND 1/2NSS + 20MEQ KCL 20 MEQ/1,000 ML BAG IV SCH (03:29)
[2019-09-17] MEDS: HYDROmorphone INJ 2 MG/ML SYR/VIAL IV PRN ×2 (03:31→09:42)
[2019-09-17] MEDS: CLINDAMYCIN 600 MG in DEXTROSE 5% 50 ML IV SCH (03:35)
[2019-09-17] MEDS: ACETAMINOPHEN 1,000 MG/100 ML VIAL IV SCH (05:32)
--- NOTE | 2019-09-17 05:53 | Electrocardiogram Report ---
Test Reason : Blood Pressure : / mmHG Vent. Rate : 082 BPM Atrial Rate : 082 BPM P-R Int : 148 ms QRS Dur : 080 ms QT Int : 412 ms P-R-T Axes : 012 013 024 degrees QTc Int : 481 ms Normal sinus rhythm Prolonged QT Abnormal ECG When compared with ECG of 06-JUL-2008 10:20, T wave amplitude has decreased in Anterolateral leads QT has lengthened Confirmed by Daniel Reese ([id number]) on 09/17/2019 5:53:26 AM Referred By: REFERRED SELF Confirmed By:Daniel Reese
[2019-09-17] MEDS: BACLOFEN 10 MG TAB PO SCH (07:53)
[2019-09-17] MEDS: SODIUM CHLORIDE 0.65% NA SOLN 45 ML (OCEAN) SCH (07:54)
[2019-09-17] MEDS ORDERED: CLINDAMYCIN 600 MG in DEXTROSE 5% 50 ML IV SCH (08:00)
[2019-09-17] MEDS ORDERED: allopurinoL 300 MG TAB PO SCH (09:00)
[2019-09-17] MEDS ORDERED: PANTOprazole 40 MG TAB PO SCH (09:00)
[2019-09-17] MEDS ORDERED: FUROSEMIDE 20 MG TAB PO SCH (09:00)
--- NOTE | 2019-09-17 09:01 | Hospitalist Progress Note ---
Date of Service September 17, 2019 Assessment & Plan (1) Neck swelling: Recent extraction of lower teeth. Now with submandibular swelling/pain. CT demonstrates soft tissue changes without apparent abscess. Reported allergy to penicillin. IV antibiotic therapy with clindamycin, Levaquin DCd for prolonged QTc. Dr Ahmadi on case Inpatient stutus, likely her 2 more MNs (2) Sinusitis: DC on 7 days clindamycin po, f/u c pcp, ent outpatient (3) Cirrhosis: Compensated. (4) Gout: Quiescent. (5) Chronic pain syndrome: Chronic pain due to musculoskeletal problems. Intolerant of tramadol and ketorolac. Continue usual dose of oxycodone. Having significant facial / oral pain. (6) DVT prophylaxis: Low risk for VTE per IMPROVE Risk Assessment Model. VTE prophylaxis not indicated. (7) Discharge planning issues: Anticipated discharge to home today. Family Medicine follow-up with Dr. Robbie Elizabeth. Outpatient ENT eval Follow up DDS labs checked ROS-No Headache, No Visual Changes, No Nausea, No Vomiting, No Fever, No Chills, No Neck Pain or Stiffness, No Chest Pain, No Palpitations, No SOB, No REYES, No Cough, No Sputum, No Wheezing, No Abdominal Pain, No Diarrhea, No Hematemesis, No Hemoptysis, No Unexpected Weight Loss, No Flank pain, No Melena, No Hematochezia, No Frequency, No Urgency, No Burning, No Hematuria, No Rashes, No Diaphoresis. Appetite is Normal, Sore mouth Physical Exam Gen-AAO x 3, NAD, Afebrile, obese Head-NCAT, EOMI, PERRLA, Anicteric Sclera, No Posterior Pharyngeal Erythema Neck-Supple, No JVD, No Thyromegaly, No Masses, No LAD, No Bruits Lungs-Clear to Auscultation Bilaterally, No Rales, No Rhonchi, No Wheezing, No Crepitus Chest-No S4, +S1, +S2, No S3, No Murmurs, No Rubs, No Gallops, No Ectopy Abdomen-Soft, Bowel Sounds Present, Non Tender, Non Distended, No Hepatomegaly, No Splenomegaly, No Palpable Masses, No Rebound, No Rigidity, No Guarding Musculoskeletal-Full Range of Motion Bilaterally, No CVAT Extremities-No Cyanosis, No Clubbing, No Edema Nuero-Cranial Nerves II-XII grossly intact, Motor WNL, DTRs WNL, Strength WNL, Non Focal Psych-Normal Mood Results & Data Vital Signs (Past 12 Hours) Vital Signs Temp Pulse Resp BP Pulse Ox 09/16/19 23:15 36.6 C 68 18 132/76 95
--- NOTE | 2019-09-17 09:12 | Discharge Summary ---
Date of Service September 17, 2019 Admission HPI Per Admitting Provider 59-year-old male followed by Dr. Robbie Elizabeth for [facility] Medicine. History of alcoholism in remission, cirrhosis, chronic pain syndrome on maintenance oxycodone, and other problems as noted below. Has been having problems with multiple dental caries. Extraction of an upper tooth was performed about 2 weeks ago; received a course of oral clindamycin. Lower teeth were extracted on September 11. Now experiencing severe submandibular pain as well as right maxillary pain. No fever, but experiencing some chills. He has tried using mouthwash without improvement. He continues taking his usual maintenance dose of oxycodone without relief. Admission Exam Per Admitting Provider Constitutional: WD/WN, vitals as above no acute distress Eyes: + anicteric sclerae left pupil eccentric; right pupil round, reactive ENMT: poor dentition; multiple caries; submandibular tenderness Neck: trachea midline, no thyromegaly Respiratory: Auscultation: + rhonchi and + wheezes Cardiovascular: Rate/Rhythm: regular rate Heart Sounds: no gallop, no murmur and no cardiac rub Vessels: no JVD Extremities: normal capillary refill; no calf tenderness and no edema Gastrointestinal (Abdomen): normal bowel sounds, soft, nontender, no hepatosplenomegaly Musculoskeletal: Head/Neck/Chest: neck supple Extremities: no cyanosis and no clubbing Skin: no rashes, warm and dry Psychiatric: Orientation: alert and oriented x 3 Affect: euthymic affect Lymphatic: + cervical lymphadenopathy Principal Diagnosis Oral pain from tooth extraction (1) Neck swelling: (2) Sinusitis: (3) Cirrhosis: (4) Gout: (5) Chronic pain syndrome: Discharge Exam Gen-AAO x 3, NAD, Afebrile, obese Head-NCAT, EOMI, PERRLA, Anicteric Sclera, No Posterior Pharyngeal Erythema Neck-Supple, No JVD, No Thyromegaly, No Masses, No LAD, No Bruits Lungs-Clear to Auscultation Bilaterally, No Rales, No Rhonchi, No Wheezing, No Crepitus Chest-No S4, +S1, +S2, No S3, No Murmurs, No Rubs, No Gallops, No Ectopy Abdomen-Soft, Bowel Sounds Present, Non Tender, Non Distended, No Hepatomegaly, No Splenomegaly, No Palpable Masses, No Rebound, No Rigidity, No Guarding Musculoskeletal-Full Range of Motion Bilaterally, No CVAT Extremities-No Cyanosis, No Clubbing, No Edema Nuero-Cranial Nerves II-XII grossly intact, Motor WNL, DTRs WNL, Strength WNL, Non Focal Psych-Normal Mood Discharge Data Allergies Allergy/AdvReac Type Severity Reaction Status Date / Time hydrocodone Allergy Severe GI SYMPTOMS Verified 09/16/19 09:07 ketorolac Allergy Intermediate makes sick Verified 09/16/19 09:07 Penicillins Allergy Unknown Unknown Verified 09/16/19 09:07 tramadol AdvReac Intermediate vomiting Verified 09/16/19 09:07 Consultations 09/16/19 11:06 ED Decision to Admit Stat 09/16/19 12:51 Consult Oromaxillofacial Surgery Routine Ordered Studies 09/16/19 08:33 CT soft tissue neck w con Stat Current Diagnoses Chronic pain syndrome (09/16/19) Chronic sinusitis, unspecified (09/16/19) Unspecified cirrhosis of liver (09/16/19) Gout, unspecified (09/16/19) Localized swelling, mass and lump, neck (09/16/19) Encounter for administrative examinations, unspecified (09/16/19) Encounter for prophylactic measures, unspecified (09/16/19) Allergies hydrocodone Allergy (Severe, Verified 09/16/19 09:07) GI SYMPTOMS ketorolac Allergy (Intermediate, Verified 09/16/19 09:07) makes sick Penicillins Allergy (Unknown, Verified 09/16/19 09:07) Unknown tramadol Adverse Reaction (Intermediate, Verified 09/16/19 09:07) vomiting Height/Weight/Isolation Height 5 ft 11 in Weight 122.4 kg Chemistry 09/16/19 08:50 Sodium 139 Potassium 3.4 L Chloride 112 H Carbon Dioxide 22 Anion Gap 6.0 BUN 26 H Creatinine 1.07 Glucose 103 H Hospital Course (1) Neck swelling: Recent extraction of lower teeth. Now with submandibular swelling/pain. CT demonstrates soft tissue changes without apparent abscess. Reported allergy to penicillin. IV antibiotic therapy with clindamycin, Levaquin DCd for prolonged QTc. DC on PO Clnda x [address] Ahmadi on case, no surgery needed (2) Sinusitis: DC on 7 days clindamycin po, f/u c pcp, ent outpatient Titus Nasal, Netti pot or Navage (3) Cirrhosis: Compensated. (4) Gout: Quiescent. (5) Chronic pain syndrome: Chronic pain due to musculoskeletal problems. Intolerant of tramadol and ketorolac. Continue usual dose of oxycodone. Having significant facial / oral pain. (6) DVT prophylaxis: Low risk for VTE per IMPROVE Risk Assessment Model. VTE prophylaxis not indicated. (7) Discharge planning issues: Anticipated discharge to home today. Family Medicine follow-up with Dr. Robbie Elizabeth. Outpatient ENT eval Follow up c DDS labs checked Total Time Total Time Spent Total Time Spent (In Minutes): 40 mins Total Time Includes: Examination of the Patient, Discharge Planning, Medication Reconciliation and Communication With Other Providers Discharge Plan Discharge Items Patient Disposition: Home - Self-Care Reason For Visit: MANDIBULAR SOFT TISSUE INFECTION Discharge Diagnosis: Oral pain from tooth extraction (1) Neck swelling: (2) Sinusitis: (3) Cirrhosis: (4) Gout: (5) Chronic pain syndrome: Condition on Discharge: Good Activity: Resume your previous activity Lifting: Gradually increase as tolerated Bathing: No limitations Sexual Activity: When tolerated Exercise/Sports: Gradually increase as tolerated Driving/Machine Use: No limitations Weightbearing: Full weightbearing Non-emergency contact: Primary Care Provider and Surgeon Call non-emergency contact if: you have any medication questions Follow-up/Referrals: Robbie Elizabeth, DO [Primary Care Provider] - Diet: Regular Addtl Attending Provider Instructions: Call Dr Elizabeth for an appointment and Ear, Nose, and Throat referral Pending Studies at Discharge: No Stand-Alone Forms: My [facility] [employer], Smoking Cessation, Opioid Pain Management Medications and DC Order Prescriptions: New sodium chloride [Saline Mist] 0.65 % Aerosol,Sheldon 2 spry NA QID Qty: 10 RF: 0 clindamycin HCl 300 mg capsule 300 mg PO Q6H 7 Days Qty: 28 RF: 0 clindamycin HCl 300 mg capsule 300 mg PO Q6H 7 Days Qty: 28 RF: 0 Continued oxycodone 15 mg Tablet 15 mg PO Q4H PRN (Reason: Pain) RF: 0 baclofen 10 mg Tablet 10 mg PO BID RF: 0 omeprazole 20 mg Capsule,Delayed Release(Dr/Ec) 20 mg PO QAM RF: 0 allopurinol 300 mg Tablet 300 mg PO QAM RF: 0 triamcinolone acetonide 0.025 % Cream 1 applic TOPICAL BID PRN (Reason: Itching) RF: 0 acetaminophen [Tylenol 8 Hour] 650 mg Tablet Extended Release 1,300 mg PO Q12H PRN (Reason: Pain) RF: 0 Discharge Orders: Discharge Order (Routine); Ordered 09/17/19 Ordered By: Eric Jung Admission Data Admit Date/Time: 09/16/19 12:41 Attending Provider: Eric Jung Admit Provider: Jacky Chacon Primary Care Provider: Robbie Elizabeth Other Providers: Jacky Chacon ; Cortez Ahmadi
== END 2019-09-17 12:15 | disposition home or self-care (01) ==
LOC: 3N 08:20 → ED 08:20 → 3N 12:22 → SUATTDRO 12:41

== ENCOUNTER 2019-10-09 13:18 | Inpatient (IN) ==
[2019-10-09] MEDS ORDERED: LORazepam 1 MG/2 ML VIAL IV STA ×2 (14:05→15:26)
--- NOTE | 2019-10-09 14:27 | Electrocardiogram Report ---
Test Reason : Blood Pressure : / mmHG Vent. Rate : 091 BPM Atrial Rate : 091 BPM P-R Int : 140 ms QRS Dur : 078 ms QT Int : 390 ms P-R-T Axes : 042 048 054 degrees QTc Int : 479 ms Poor data quality, interpretation may be adversely affected Normal sinus rhythm Normal ECG When compared with ECG of 16-SEP-2019 08:40, Nonspecific T wave abnormality no longer evident in Inferior leads Confirmed by Nitesh Alfaro ([id number]) on 10/09/2019 2:27:10 PM Referred By: Confirmed By:Nitehs Alfaro
--- NOTE | 2019-10-09 14:36 | Emergency Department Note ---
Entered by Dino Lim acting as a scribe for History of Present Illness General Chief complaint: Hypertension Stated complaint: BLOOD PRESSURE HIGH, DRUG REACTION Time Seen by Provider: 10/09/19 13:52 Source: patient Limitations: no limitations History of Present Illness Onset (ago): hour(s) (RN ADMIT) Location: head Pain Consistency: + constant Maximum Pain Intensity: 8 Quality: + constant Associated symptoms: no headaches and no nausea/vomiting The patient is a 59 year old male who presents to the Emergency Room after being referred to the ED by ENT. The patient states he was in the ED last week and was admitted. He states he takes Bactrim for muscle spasms. He notes he was given steroids for his sinuses. He notes he follows with RE Lopez, for his sinuses. He states he was in the ENT office today and was referred to the ED because he had a high BP. The patient denies having headaches, nausea, vomiting, history of high BP, and taking medications for his BP. He states his PCP is Dr. Elizabeth. Home Medications Home Medications Medication Instructions Recorded Confirmed Type allopurinol 300 mg PO QAM 05/28/18 10/09/19 History baclofen 10 mg PO BID 05/28/18 10/09/19 History omeprazole 20 mg PO QAM 05/28/18 10/09/19 History oxycodone 15 mg PO QID PRN 05/28/18 10/09/19 History triamcinolone acetonide 1 applic TOPICAL BID PRN 05/28/18 10/09/19 History acetaminophen [Tylenol 8 Hour] 1,300 mg PO Q12H PRN 09/16/19 10/09/19 History sodium chloride [Saline Mist] 2 spry NA QID #10 ml 09/17/19 10/09/19 Rx albuterol sulfate 2 puff INHALATION Q4 PRN 10/09/19 10/09/19 History ferrous sulfate 325 mg PO DAILY 10/09/19 10/09/19 History fluticasone propionate [Flonase 2 spray INTRANASAL DAILY PRN 10/09/19 10/09/19 History Allergy Relief] Allergies Allergy/AdvReac Type Severity Reaction Status Date / Time hydrocodone Allergy Severe GI SYMPTOMS Verified 10/09/19 15:14 ketorolac Allergy Intermediate makes sick Verified 10/09/19 15:14 Penicillins Allergy Unknown Unknown Verified 10/09/19 15:14 tramadol AdvReac Intermediate vomiting Verified 10/09/19 15:14 Past Med/Surg History Medical History 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) last reported drink in 2008 Arthritis (Chronic) Chronic pain syndrome Gout (Chronic) Hepatitis C (Acute) Surgical History (Updated 10/09/19 @ 18:04 by Mercy Cary PA-C) H/O hernia repair Hx of tooth extraction Family History Mother Diabetes Brother Liver disease Social History Preferred Language: Guamanian Communication Ability: Effective Calibration Checker Required: No Beliefs That Will Affect Care: None Current Living Situation: Spouse Other Information That Helps Us Care for You: No Feels Safe at Home: Yes Safety Concerns: Feels Safe At This Time Smoking Status: Unknown if ever smoked Hx Alcohol Use: No Hx Substance Use: Yes substance use type: opiates Substance Use Type Other:: prescribed oxycodone Last Used Substance: Hours (ago) Last Used Substance Other:: prescribed oxy QID Review of Systems See HPI for pertinent positives & negatives. and A total of 10 systems reviewed and were otherwise negative Physical Exam Vital Signs Vital Signs - 24 hr 10/09/19 13:35 10/09/19 14:05 10/09/19 16:30 Temperature 37.3 C Temperature Source Oral Pulse Rate 101 H Pulse Rate [Finger] 93 H Respiratory Rate 20 22 Respiratory Effort / Characteristics Non-Labored Spontaneous Accessory Muscle Use Gasping/Agonal Respiratory Depth Normal Respiratory Pattern Regular Blood Pressure 161/75 H Blood Pressure [Right Arm] 135/75 Blood Pressure Mean 103 Blood Pressure Mean [Right Arm] 95 Blood Pressure Position [Right Arm] Lying Pulse Oximetry 95 96 94 Oxygen Delivery Method Room Air Room Air Room Air Sepsis Recent Fever Within 48 Hours No Sepsis Action Taken by Nursing No Action Required GENERAL: Patient is awake, alert, and in no acute distress.the patient is mildly anxious appearing but overall comfortable. EYES: The conjunctivae are clear. The pupils are round and reactive. EARS, NOSE, MOUTH AND THROAT: The nose is without any evidence of any deformity. Mucous membranes are moist.Tongue is midline NECK: The neck is nontender and supple. RESPIRATORY: Normal respiratory effort is noted. There is no evidence of wheezing rhonchi or rales to auscultation. CARDIOVASCULAR: Regular rate and rhythm noted. There no murmurs rubs or gallops normal S1 normal S2 GASTROINTESTINAL: The abdomen is soft. Bowel sounds are present in all quadrants. Abdomen is nontender. MUSCULOSKELETAL/EXTREMITIES: There is no evidence of gross deformity. Full range of motion is noted in the hips and shoulders. SKIN: There is no obvious evidence of any rash. There are no petechiae, pallor or cyanosis noted. NEUROLOGIC: Patient is awake alert and oriented x3. Patellar tendon reflexes are 3+ bilaterally. Course Course 1400: The patient was evaluated in room A11B, and a complete history and physical examination were performed. 1414: I spoke with GWEN Lopez. He states the patient is not normally as fidgety and anxious. Jessica states the patient has a history fo alcohol use and is prescription medication use. Jessica states the patient had pain going into his left shoulder and Jessica was concerned for a heart attack. 1549: I discussed the patient's case with Mercy Simmons PA-C. Dr. Phuong Simmons Hospitalist, will evaluate the patient for further management. Administered Medications Lorazepam (Ativan) 1 mg in 2 mls @ 2 mls/min IV Q4H PRN PRN Reason: Agitation Stop: 11/08/19 17:24 Last Admin: 10/09/19 20:36 Dose: 2 mls/min Documented by: [id number] Sodium Bicarbonate 75 meq/ (Dextrose) 1,075 mls @ 100 mls/hr IV .[id number] Stop: 11/08/19 19:11 Last Admin: 10/09/19 20:08 Dose: 100 mls/hr Documented by: [id number] Oxycodone HCl (Roxicodone Immediate Rel) 10 mg PO QID PRN PRN Reason: Pain Stop: 10/23/19 19:25 Last Admin: 10/09/19 20:38 Dose: 10 mg Documented by: [id number] Discontinued Medications Lorazepam (Ativan) 1 mg in 2 mls @ 2 mls/min IV NOW STA Stop: 10/09/19 14:06 Last Admin: 10/09/19 14:37 Dose: 2 mls/min Documented by: [id number] Lorazepam (Ativan) 1 mg in 2 mls @ 2 mls/min IV NOW STA Stop: 10/09/19 15:27 Last Admin: 10/09/19 15:31 Dose: 2 mls/min Documented by: [id number] Sodium Chloride (Nss 1000ml) 1,000 mls @ 999 mls/hr IV .Q1H1M ONE Stop: 10/09/19 16:35 Last Infusion: 10/09/19 16:55 Dose: 0 mls/hr Documented by: [id number] Admin: 10/09/19 15:55 Dose: 999 mls/hr Documented by: [id number] Sodium Chloride (Nss 1000ml) 1,000 mls @ 999 mls/hr IV .Q1H1M ONE Stop: 10/09/19 16:49 Last Infusion: 10/09/19 17:37 Dose: 0 mls/hr Documented by: [id number] Admin: 10/09/19 16:54 Dose: 999 mls/hr Documented by: [id number] Medical Decision Making Differential Diagnosis Differential diagnoses includes but is not limited to acute coronary syndrome, myocardial infarction, pericarditis, pulmonary embolus, aortic dissection, pneumonia, pneumothorax, musculoskeletal, shingles, esophageal. Medical Records Attestation: I reviewed the patient's medical records. Home Medications Current Medication List: was personally reviewed by me Laboratory Data Attestation: I reviewed the patient's lab results. Result diagrams: 10/09/19 14:24 10/09/19 14:24 Lab Results 10/09/19 10/09/19 10/09/19 Range/Units 14:24 14:24 14:24 WBC 10.37 (4.8-10.8) K/uL RBC 3.97 L (4.7-6.1) M/uL Hgb 12.4 L (14.0-18.0) g/dL Hct 35.8 L (42-52) % MCV 90.2 (80-100) fL MCH 31.2 (25-34) pg MCHC 34.6 (32-36) g/dL RDW Std Deviation 42.7 (36.4-46.3) fL RDW Coeff of Bharat 13.0 (11.5-14.5) % Plt Count 283 (130-400) K/uL MPV 10.2 (7.4-10.4) fL Immature Gran % (Auto) 0.2 % Neut % (Auto) 66.6 % Lymph % (Auto) 24.0 % [place] % (Auto) 8.3 % Eos % (Auto) 0.6 % Baso % (Auto) 0.3 % Immature Gran # (Auto) 0.02 (0.00-0.02) K/uL Neut # (Auto) 6.91 H (1.4-6.5) K/uL Lymph # (Auto) 2.49 (1.2-3.4) K/uL [place] # (Auto) 0.86 H (0.11-0.59) K/uL Eos # (Auto) 0.06 (0-0.5) K/uL Baso # (Auto) 0.03 (0-0.2) K/uL ESR (0-14) mm/hr PT 11.9 (9.0-12.0) Seconds INR 1.2 H (0.9-1.1) APTT 26.9 (21.0-31.0) Seconds PTT Ratio 1.0 Sodium 136 (136-145) mmol/L Potassium 4.3 (3.5-5.1) mmol/L Chloride 107 (98-107) mmol/L Carbon Dioxide 17 L (21-32) mmol/L Anion Gap 12.0 H (3-11) BUN 71 H (7-18) mg/dl Creatinine 4.55 H* (0.6-1.4) mg/dl Est Cr Clr Drug Dosing 23.1 ml/min Est GFR ( Amer) 15.4 Est GFR (Non-Af Amer) 13.3 BUN/Creatinine Ratio 15.5 (10-20) Glucose 100 H (70-99) mg/dl Osmolality (280-300) mOsm/kg Calcium 9.6 (8.5-10.1) mg/dl Magnesium 2.8 H (1.8-2.4) mg/dl Total Bilirubin 1.0 (0.2-1) mg/dl AST 141 H (15-37) U/L ALT 75 (12-78) U/L Alkaline Phosphatase 84 (45-117) U/L Troponin I < 0.015 (0-0.045) ng/ml C-Reactive Protein 2.38 H (0-0.29) mg/dl Total Protein 8.9 H (6.4-8.2) gm/dl Albumin 5.1 H (3.4-5.0) gm/dl Globulin 3.8 (2.5-4.0) gm/dl Albumin/Globulin Ratio 1.3 (0.9-2) Procalcitonin (0-0.5) ng/ml TSH 1.330 (0.300-4.500) uIu/ml Urine Color Urine Appearance (Clear) Urine pH (4.5-7.5) Ur Specific [place] (1.000-1.030) Urine Protein (Negative) Urine Glucose (UA) (Negative) Urine Ketones (Negative) Urine Blood (Negative) Urine Nitrite (Negative) Urine Bilirubin (Negative) Urine Urobilinogen (Negative) Ur Leukocyte Esterase (Negative) Urine WBC (Auto) (0-5) /hpf Urine RBC (Auto) (0-4) /hpf U Hyaline Cast (Auto) (0-5) /lpf U Epithel Cells (Auto) (0-5) /lpf Urine Bacteria (Auto) (Negative) Ur Random Creatinine mg/dl U Random Total Protein (0-11.9) mg/dl Ur Random Sodium mmol/L Protein/Creatinin Ratio (0-0.2) Salicylates (2.8-20) mg/dl Urine Opiates Screen (Neg) Ur Methadone, Qual (Neg) Acetaminophen (10-30) ug/ml Urine Barbiturates (Neg) Ur Phencyclidine (PCP) (Neg) U Amphetamin/Meth Scrn (Neg) MDMA (Ecstasy) Screen (Neg) U Benzodiazepines Scrn (Neg) Ur Cocaine Metabolite (Neg) U Marijuana (THC) Screen (Neg) Ethyl Alcohol mg/dL (0-3) mg/dl 10/09/19 10/09/19 10/09/19 Range/Units 14:24 14:24 14:24 WBC (4.8-10.8) K/uL RBC (4.7-6.1) M/uL Hgb (14.0-18.0) g/dL Hct (42-52) % MCV (80-100) fL MCH (25-34) pg MCHC (32-36) g/dL RDW Std Deviation (36.4-46.3) fL RDW Coeff of Bharat (11.5-14.5) % Plt Count (130-400) K/uL MPV (7.4-10.4) fL Immature Gran % (Auto) % Neut % (Auto) % Lymph % (Auto) % [place] % (Auto) % Eos % (Auto) % Baso % (Auto) % Immature Gran # (Auto) (0.00-0.02) K/uL Neut # (Auto) (1.4-6.5) K/uL Lymph # (Auto) (1.2-3.4) K/uL [place] # (Auto) (0.11-0.59) K/uL Eos # (Auto) (0-0.5) K/uL Baso # (Auto) (0-0.2) K/uL ESR 32 H (0-14) mm/hr PT (9.0-12.0) Seconds INR (0.9-1.1) APTT (21.0-31.0) Seconds PTT Ratio Sodium (136-145) mmol/L Potassium (3.5-5.1) mmol/L Chloride (98-107) mmol/L Carbon Dioxide (21-32) mmol/L Anion Gap (3-11) BUN (7-18) mg/dl Creatinine (0.6-1.4) mg/dl Est Cr Clr Drug Dosing ml/min Est GFR ( Amer) Est GFR (Non-Af Amer) BUN/Creatinine Ratio (10-20) Glucose (70-99) mg/dl Osmolality (280-300) mOsm/kg Calcium (8.5-10.1) mg/dl Magnesium (1.8-2.4) mg/dl Total Bilirubin (0.2-1) mg/dl AST (15-37) U/L ALT (12-78) U/L Alkaline Phosphatase (45-117) U/L Troponin I (0-0.045) ng/ml C-Reactive Protein Cancelled (0-0.29) mg/dl Total Protein (6.4-8.2) gm/dl Albumin (3.4-5.0) gm/dl Globulin (2.5-4.0) gm/dl Albumin/Globulin Ratio (0.9-2) Procalcitonin (0-0.5) ng/ml TSH (0.300-4.500) uIu/ml Urine Color Urine Appearance (Clear) Urine pH (4.5-7.5) Ur Specific [place] (1.000-1.030) Urine Protein (Negative) Urine Glucose (UA) (Negative) Urine Ketones (Negative) Urine Blood (Negative) Urine Nitrite (Negative) Urine Bilirubin (Negative) Urine Urobilinogen (Negative) Ur Leukocyte Esterase (Negative) Urine WBC (Auto) (0-5) /hpf Urine RBC (Auto) (0-4) /hpf U Hyaline Cast (Auto) (0-5) /lpf U Epithel Cells (Auto) (0-5) /lpf Urine Bacteria (Auto) (Negative) Ur Random Creatinine mg/dl U Random Total Protein (0-11.9) mg/dl Ur Random Sodium mmol/L Protein/Creatinin Ratio (0-0.2) Salicylates < 1.7 L (2.8-20) mg/dl Urine Opiates Screen (Neg) Ur Methadone, Qual (Neg) Acetaminophen 2 L (10-30) ug/ml Urine Barbiturates (Neg) Ur Phencyclidine (PCP) (Neg) U Amphetamin/Meth Scrn (Neg) MDMA (Ecstasy) Screen (Neg) U Benzodiazepines Scrn (Neg) Ur Cocaine Metabolite (Neg) U Marijuana (THC) Screen (Neg) Ethyl Alcohol mg/dL (0-3) mg/dl 10/09/19 10/09/19 10/09/19 Range/Units 14:24 14:30 14:30 WBC (4.8-10.8) K/uL RBC (4.7-6.1) M/uL Hgb (14.0-18.0) g/dL Hct (42-52) % MCV (80-100) fL MCH (25-34) pg MCHC (32-36) g/dL RDW Std Deviation (36.4-46.3) fL RDW Coeff of Bharat (11.5-14.5) % Plt Count (130-400) K/uL MPV (7.4-10.4) fL Immature Gran % (Auto) % Neut % (Auto) % Lymph % (Auto) % [place] % (Auto) % Eos % (Auto) % Baso % (Auto) % Immature Gran # (Auto) (0.00-0.02) K/uL Neut # (Auto) (1.4-6.5) K/uL Lymph # (Auto) (1.2-3.4) K/uL [place] # (Auto) (0.11-0.59) K/uL Eos # (Auto) (0-0.5) K/uL Baso # (Auto) (0-0.2) K/uL ESR (0-14) mm/hr PT (9.0-12.0) Seconds INR (0.9-1.1) APTT (21.0-31.0) Seconds PTT Ratio Sodium (136-145) mmol/L Potassium (3.5-5.1) mmol/L Chloride (98-107) mmol/L Carbon Dioxide (21-32) mmol/L Anion Gap (3-11) BUN (7-18) mg/dl Creatinine (0.6-1.4) mg/dl Est Cr Clr Drug Dosing ml/min Est GFR ( Amer) Est GFR (Non-Af Amer) BUN/Creatinine Ratio (10-20) Glucose (70-99) mg/dl Osmolality (280-300) mOsm/kg Calcium (8.5-10.1) mg/dl Magnesium (1.8-2.4) mg/dl Total Bilirubin (0.2-1) mg/dl AST (15-37) U/L ALT (12-78) U/L Alkaline Phosphatase (45-117) U/L Troponin I (0-0.045) ng/ml C-Reactive Protein (0-0.29) mg/dl Total Protein (6.4-8.2) gm/dl Albumin (3.4-5.0) gm/dl Globulin (2.5-4.0) gm/dl Albumin/Globulin Ratio (0.9-2) Procalcitonin (0-0.5) ng/ml TSH (0.300-4.500) uIu/ml Urine Color Dark Yellow Urine Appearance Clear (Clear) Urine pH 5.0 (4.5-7.5) Ur Specific [place] 1.026 (1.000-1.030) Urine Protein 1+ H (Negative) Urine Glucose (UA) Negative (Negative) Urine Ketones Trace H (Negative) Urine Blood 3+ H (Negative) Urine Nitrite Negative (Negative) Urine Bilirubin Negative (Negative) Urine Urobilinogen Negative (Negative) Ur Leukocyte Esterase Trace H (Negative) Urine WBC (Auto) 1-5 (0-5) /hpf Urine RBC (Auto) 0-4 (0-4) /hpf U Hyaline Cast (Auto) 5-10 H (0-5) /lpf U Epithel Cells (Auto) 0-5 (0-5) /lpf Urine Bacteria (Auto) Negative (Negative) Ur Random Creatinine mg/dl U Random Total Protein (0-11.9) mg/dl Ur Random Sodium mmol/L Protein/Creatinin Ratio (0-0.2) Salicylates (2.8-20) mg/dl Urine Opiates Screen Pos H (Neg) Ur Methadone, Qual Neg (Neg) Acetaminophen (10-30) ug/ml Urine Barbiturates Neg (Neg) Ur Phencyclidine (PCP) Neg (Neg) U Amphetamin/Meth Scrn Neg (Neg) MDMA (Ecstasy) Screen Pos H (Neg) U Benzodiazepines Scrn Neg (Neg) Ur Cocaine Metabolite Neg (Neg) U Marijuana (THC) Screen Neg (Neg) Ethyl Alcohol mg/dL < 3.0 (0-3) mg/dl 10/09/19 10/09/19 10/09/19 Range/Units 14:30 14:30 14:34 WBC (4.8-10.8) K/uL RBC (4.7-6.1) M/uL Hgb (14.0-18.0) g/dL Hct (42-52) % MCV (80-100) fL MCH (25-34) pg MCHC (32-36) g/dL RDW Std Deviation (36.4-46.3) fL RDW Coeff of Bharat (11.5-14.5) % Plt Count (130-400) K/uL MPV (7.4-10.4) fL Immature Gran % (Auto) % Neut % (Auto) % Lymph % (Auto) % [place] % (Auto) % Eos % (Auto) % Baso % (Auto) % Immature Gran # (Auto) (0.00-0.02) K/uL Neut # (Auto) (1.4-6.5) K/uL Lymph # (Auto) (1.2-3.4) K/uL [place] # (Auto) (0.11-0.59) K/uL Eos # (Auto) (0-0.5) K/uL Baso # (Auto) (0-0.2) K/uL ESR (0-14) mm/hr PT (9.0-12.0) Seconds INR (0.9-1.1) APTT (21.0-31.0) Seconds PTT Ratio Sodium (136-145) mmol/L Potassium (3.5-5.1) mmol/L Chloride (98-107) mmol/L Carbon Dioxide (21-32) mmol/L Anion Gap (3-11) BUN (7-18) mg/dl Creatinine (0.6-1.4) mg/dl Est Cr Clr Drug Dosing ml/min Est GFR ( Amer) Est GFR (Non-Af Amer) BUN/Creatinine Ratio (10-20) Glucose (70-99) mg/dl Osmolality (280-300) mOsm/kg Calcium (8.5-10.1) mg/dl Magnesium (1.8-2.4) mg/dl Total Bilirubin (0.2-1) mg/dl AST (15-37) U/L ALT (12-78) U/L Alkaline Phosphatase (45-117) U/L Troponin I (0-0.045) ng/ml C-Reactive Protein (0-0.29) mg/dl Total Protein (6.4-8.2) gm/dl Albumin (3.4-5.0) gm/dl Globulin (2.5-4.0) gm/dl Albumin/Globulin Ratio (0.9-2) Procalcitonin 0.23 (0-0.5) ng/ml TSH (0.300-4.500) uIu/ml Urine Color Urine Appearance (Clear) Urine pH (4.5-7.5) Ur Specific [place] (1.000-1.030) Urine Protein (Negative) Urine Glucose (UA) (Negative) Urine Ketones (Negative) Urine Blood (Negative) Urine Nitrite (Negative) Urine Bilirubin (Negative) Urine Urobilinogen (Negative) Ur Leukocyte Esterase (Negative) Urine WBC (Auto) (0-5) /hpf Urine RBC (Auto) (0-4) /hpf U Hyaline Cast (Auto) (0-5) /lpf U Epithel Cells (Auto) (0-5) /lpf Urine Bacteria (Auto) (Negative) Ur Random Creatinine 346.0 mg/dl U Random Total Protein 63.9 H (0-11.9) mg/dl Ur Random Sodium 19 Cancelled mmol/L Protein/Creatinin Ratio 0.2 (0-0.2) Salicylates (2.8-20) mg/dl Urine Opiates Screen (Neg) Ur Methadone, Qual (Neg) Acetaminophen (10-30) ug/ml Urine Barbiturates (Neg) Ur Phencyclidine (PCP) (Neg) U Amphetamin/Meth Scrn (Neg) MDMA (Ecstasy) Screen (Neg) U Benzodiazepines Scrn (Neg) Ur Cocaine Metabolite (Neg) U Marijuana (THC) Screen (Neg) Ethyl Alcohol mg/dL (0-3) mg/dl 10/09/19 Range/Units 14:34 WBC (4.8-10.8) K/uL RBC (4.7-6.1) M/uL Hgb (14.0-18.0) g/dL Hct (42-52) % MCV (80-100) fL MCH (25-34) pg MCHC (32-36) g/dL RDW Std Deviation (36.4-46.3) fL RDW Coeff of Bharat (11.5-14.5) % Plt Count (130-400) K/uL MPV (7.4-10.4) fL Immature Gran % (Auto) % Neut % (Auto) % Lymph % (Auto) % [place] % (Auto) % Eos % (Auto) % Baso % (Auto) % Immature Gran # (Auto) (0.00-0.02) K/uL Neut # (Auto) (1.4-6.5) K/uL Lymph # (Auto) (1.2-3.4) K/uL [place] # (Auto) (0.11-0.59) K/uL Eos # (Auto) (0-0.5) K/uL Baso # (Auto) (0-0.2) K/uL ESR (0-14) mm/hr PT (9.0-12.0) Seconds INR (0.9-1.1) APTT (21.0-31.0) Seconds PTT Ratio Sodium (136-145) mmol/L Potassium (3.5-5.1) mmol/L Chloride (98-107) mmol/L Carbon Dioxide (21-32) mmol/L Anion Gap (3-11) BUN (7-18) mg/dl Creatinine (0.6-1.4) mg/dl Est Cr Clr Drug Dosing ml/min Est GFR ( Amer) Est GFR (Non-Af Amer) BUN/Creatinine Ratio (10-20) Glucose (70-99) mg/dl Osmolality 310 H (280-300) mOsm/kg Calcium (8.5-10.1) mg/dl Magnesium (1.8-2.4) mg/dl Total Bilirubin (0.2-1) mg/dl AST (15-37) U/L ALT (12-78) U/L Alkaline Phosphatase (45-117) U/L Troponin I (0-0.045) ng/ml C-Reactive Protein (0-0.29) mg/dl Total Protein (6.4-8.2) gm/dl Albumin (3.4-5.0) gm/dl Globulin (2.5-4.0) gm/dl Albumin/Globulin Ratio (0.9-2) Procalcitonin (0-0.5) ng/ml TSH (0.300-4.500) uIu/ml Urine Color Urine Appearance (Clear) Urine pH (4.5-7.5) Ur Specific [place] (1.000-1.030) Urine Protein (Negative) Urine Glucose (UA) (Negative) Urine Ketones (Negative) Urine Blood (Negative) Urine Nitrite (Negative) Urine Bilirubin (Negative) Urine Urobilinogen (Negative) Ur Leukocyte Esterase (Negative) Urine WBC (Auto) (0-5) /hpf Urine RBC (Auto) (0-4) /hpf U Hyaline Cast (Auto) (0-5) /lpf U Epithel Cells (Auto) (0-5) /lpf Urine Bacteria (Auto) (Negative) Ur Random Creatinine mg/dl U Random Total Protein (0-11.9) mg/dl Ur Random Sodium mmol/L Protein/Creatinin Ratio (0-0.2) Salicylates (2.8-20) mg/dl Urine Opiates Screen (Neg) Ur Methadone, Qual (Neg) Acetaminophen (10-30) ug/ml Urine Barbiturates (Neg) Ur Phencyclidine (PCP) (Neg) U Amphetamin/Meth Scrn (Neg) MDMA (Ecstasy) Screen (Neg) U Benzodiazepines Scrn (Neg) Ur Cocaine Metabolite (Neg) U Marijuana (THC) Screen (Neg) Ethyl Alcohol mg/dL (0-3) mg/dl Imaging Data Radiologist's Impression: Radiology results as stated below per my review and the radiologist's interpretation: SINGLE VIEW CHEST CLINICAL HISTORY: Cough. Chest congestion. FINDINGS: 2 AP, portable, upright chest radiographs are compared to study dated 09/16/2019. Correlation is made with CT of the neck dated 09/16/2019. The cardiomediastinal silhouette is unremarkable. Chronic interstitial thickening is similar to previous. No airspace consolidation or large pleural effusion is identified. No pneumothorax is seen. The bony thorax is grossly intact. IMPRESSION: 1. No acute cardiopulmonary abnormality. 2. A right apical groundglass focus was seen on the recent neck CT. Correlation with a chest CT is recommended to document resolution. ACT 112: Negative or not required by law. Electronically signed by: Smooth Hernandez M.D. 10/09/2019 2:[address] head/brain wo con CLINICAL HISTORY: 59 years-old Male with altered. Acutely altered mental status TECHNIQUE: Multiple axial CT images of the head were obtained without contrast. A dose lowering technique was utilized adhering to the principles of ALARA. COMPARISON: CT soft tissue neck 09/16/2019 FINDINGS: No acute intracranial hemorrhage, midline shift, intracranial mass, hydrocephalus, territorial ischemia or abnormal extra-axial collection. The calvarium is intact. Mastoid air cells are clear. Moderate mucosal thickening of the visualized ethmoid air cells with air-fluid level of the right sphenoid sinus. Soft tissues and orbits are unremarkable. IMPRESSION: No acute intracranial abnormality. ACT 112: Negative or not required by law. The above report was generated using voice recognition software. It may contain grammatical, syntax or spelling errors. Electronically signed by: Ranulfo Miles M.D. 10/09/2019 3:[address] chest wo con CT DOSE: 3196.76 mGy.cm CLINICAL HISTORY: 59 years-old Male with chest mass. Acute chest congestion with possible chest mass TECHNIQUE: Multiaxial CT images of the chest were performed without contrast. A dose lowering technique was utilized adhering to the principles of ALARA. COMPARISON: CT abdomen and pelvis of same day, CT soft tissue neck 09/16/2019 FINDINGS: There is near complete resolution of the previously described groundglass opacity of the anterior segment right upper lobe which previously measured approximately 3.2 cm. Now there is a linear area of pleural parenchymal scarring within this distribution measuring 3.1 cm. No suspicious mass identified. No pneumothorax, pleural effusion or overt pulmonary edema. Patchy consolidative and bronchovascular distribution of nodular and tree-in-bud opacities about the right lower lobe. The remaining lung berrios appear clear. Central airways are patent. Unremarkable thyroid. Mildly prominent subcarinal lymph nodes are likely reactive. Trace pericardial effusion. Mild coronary arterial calcifications. No thoracic aortic aneurysm. No acute abnormality of the imaged upper abdomen. Hepatic steatosis. Indeterminate 5 mm hypodense focus of the hepatic dome. Soft tissues are unremarkable. Degenerative changes of the shoulders and spine. No suspicious bone lesions or acute fracture. IMPRESSION: 1. Near complete resolution of the previously noted groundglass opacity of the anterior segment right upper lobe, now with minimal linear pleural parenchymal scarring within this distribution. 2. Right lower lobe opacities suggest bronchopneumonia with bronchiolitis. 3. Hepatic steatosis. 4. No pleural effusion. ACT 112: Negative or not required by law. Electronically signed by: Ranulfo Miles M.D. 10/09/2019 4:31 PM ABDOMEN AND PELVIS CT WITHOUT CONTRAST CT DOSE: HISTORY: Acute renal failure. TECHNIQUE: Multiaxial CT images of the abdomen and pelvis were performed without contrast. A dose lowering technique was utilized adhering to the principles of ALARA. COMPARISON STUDY: Abdomen and pelvis CT 05/28/2018. FINDINGS: Patchy nodular groundglass densities within the right lower lobe. No pneumoperitoneum. No pneumatosis. Mild motion artifact. No suspicious lytic are blastic osseous lesions. Mild hepatic steatosis. The unenhanced gallbladder, spleen, adrenal glands, pancreas, and kidneys appear unremarkable. No renal or ureteral stones. No hydronephrosis. No retroperitoneal lymphadenopathy. Surgical clips within the left inguinal region. The unenhanced bladder is unremarkable. Suboptimal evaluation for bowel pathology due to the lack of intravenous and oral contrast. However, there is no definite bowel wall thickening or obstruction. IMPRESSION: 1. Suboptimal study due to the motion artifact. 2. No definite bowel wall thickening or obstruction. 3. No renal or ureteral stones. No hydronephrosis. 4. Hepatic steatosis. 5. Patchy densities within the right lower lobe likely representing pneumonia. ACT 112: Negative or not required by law. Electronically signed by: Rafael Carrizales M.D. 10/09/2019 4:32 PM ECG Data Attestation: I personally reviewed and interpreted this ECG as follows: Indication: + chest pain Rate (beats per minute): 91 Rhythm: + normal sinus ECG ST segments: + Nonspecific ST abnormalities (inferior and lateral) ECG Findings: no PACs and no PVCs Comparison ECG Date: from (09/16/19) Change: no significant change Blood Pressure Blood Pressure Findings: Elevated blood pressure Blood Pressure Disposition: Referred to patients primary care provider TATIANA Narrative The patient is a 59-year-old male who presented to the emergency department with alteration in mental status. The patient was recently being treated for sinusitis. He was at the ENT office for follow-up when the provider noticed the patient was acting very erratically. According to his significant other he has been very agitated and having difficulty throughout the last few days. The patient did not have a fever. He has no meningismus. He is awake alert and oriented x3 to my exam. He does show signs of psychomotor agitation and is currently on steroids. He was also found to have signs of renal failure on laboratory studies. I discussed the patient's laboratory and radiographic studies with him. He was treated with IV fluids in the emergency department. Because of his condition I discussed this case with the on-call [facility] hospitalist group. Additional information was obtained from the provider at the ENT office. I discussed the patient's condition with his significant other as well. Impression & Plan Acute renal failure, Hypertension, Dehydration, Chest pain Discharge Plan Visit Data *Final* Discharge Date/Time: 10/09/19 18:22 Chief Complaint: Hypertension Stated Complaint: BLOOD PRESSURE HIGH, DRUG REACTION ED Provider: Nitesh Cummings Discharge Problem: Acute renal failure, Hypertension, Dehydration, Chest pain Patient Disposition: Admitted As Inpatient Discharge Instructions Interventions: ED Discharge Assessment Last Done: 10/09/19 18:22 Discharge Problem: Acute renal failure Qualifiers: Acute renal failure type: unspecified Qualified Code(s): N17.9 - Acute kidney failure, unspecified The scribe's documentation has been prepared under my direction and personally reviewed by me in its entirety. I confirm that the note above accurately reflects all work, treatment, procedures, and medical decision making performed by me.
[2019-10-09 14:45] LABS: Basophils # (auto) 0.03 K/uL (0-0.2); Basophils % (auto) 0.3 %; Eosinophils # (auto) 0.06 K/uL (0-0.5); Eosinophils % (auto) 0.6 %; Hematocrit (blood only) 35.8 % (42-52); Hemoglobin 12.4 g/dL (14.0-18.0); Immature Granulocytes # (auto) 0.02 K/uL (0.00-0.02); Immature Granulocytes % (auto) 0.2 %; Lymphocytes # (auto) 2.49 K/uL (1.2-3.4); Mean Corpuscular Hemoglobin 31.2 pg (25-34); Mean Corpuscular Hgb Conc 34.6 g/dL (32-36); Mean Corpuscular Volume 90.2 fL (80-100); Mean Platelet Volume 10.2 fL (7.4-10.4); Monocytes # (auto) 0.86 K/uL (0.11-0.59); Monocytes % (auto) 8.3 %; Neutrophils # (auto) 6.91 K/uL (1.4-6.5); Neutrophils % (auto) 66.6 %; Platelet Count 283 K/uL (130-400); RDW Standard Deviation 42.7 fL (36.4-46.3); Red Blood Count 3.97 M/uL (4.7-6.1); White Blood Count 10.37 K/uL (4.8-10.8)
--- NOTE | 2019-10-09 14:45 | XRay Report ---
SINGLE VIEW CHEST CLINICAL HISTORY: Cough. Chest congestion. FINDINGS: 2 AP, portable, upright chest radiographs are compared to study dated 09/16/2019. Correlatio n is made with CT of the neck dated 09/16/2019. The cardiomediastinal silhouette is unremarkable. Safety Associate juan antonio interstitial thickening is similar to previous. No airspace consolidation or large pleural effusi on is identified. No pneumothorax is seen. The bony thorax is grossly intact. IMPRESSION: 1. No acute cardiopulmonary abnormality. 2. A right apical groundglass focus was seen on the recent neck CT. Correlation with a chest CT is re commended to document resolution. ACT 112: Negative or not required by law. Electronically signed by: Smooth Hernandez M.D. 10/09/2019 2:44 PM
[2019-10-09 14:55] LABS: INR 1.2 (0.9-1.1); Partial Thromboplastin Time 26.9 Seconds (21.0-31.0); Prothrombin Time 11.9 Seconds (9.0-12.0)
[2019-10-09 14:59] LABS: Appearance Urine Clear (Clear); Bacteria Urine Automated Negative (Negative); Blood Urine 3+ (Negative); Color Urine Dark Yellow; Epithelial Cell Urine Auto 0-5 /lpf (0-5); Glucose Urine UA Negative (Negative); Ketones Urine Trace (Negative); Leukocyte Esterase Urine Trace (Negative); Nitrite Urine Negative (Negative); Protein Urine 1+ (Negative); Specific Gravity Urine 1.026 (1.000-1.030); Urobilinogen Urine Negative (Negative)
[2019-10-09 15:02] LABS: Acetaminophen 2 ug/ml (10-30); Salicylate < 1.7 mg/dl (2.8-20)
[2019-10-09 15:07] LABS: Bilirubin Urine Negative (Negative); Ictotest Urine Negative (Negative)
[2019-10-09 15:25] LABS: RBC Urine Automated 0-4 /hpf (0-4)
[2019-10-09 15:31] LABS: Amphetamines+Metham, Urine Neg (Neg); Barbiturates, Urine Neg (Neg); Benzodiazepine, Urine Neg (Neg); Cocaine, Urine Neg (Neg); MDMA (Ecstacy), Urine Pos (Neg); Methadone, Urine Neg (Neg); Opiate, Urine Pos (Neg); Phencyclidine, Urine Neg (Neg)
[2019-10-09 15:33] LABS: Alanine Aminotransferase 75 U/L (12-78); Albumin Level 5.1 gm/dl (3.4-5.0); Aspartate Aminotransferase 141 U/L (15-37); C Reactive Protein 2.38 mg/dl (0-0.29); Calcium 9.6 mg/dl (8.5-10.1); Chloride 107 mmol/L (98-107); Creatinine Clr Calc Pharmacy 23.1 ml/min; Est GFR (African American) 15.4; Est GFR (Non-African American) 13.3; Glucose 100 mg/dl (70-99)
[2019-10-09 15:34] LABS: Albumin Globulin Ratio 1.3 (0.9-2); Alkaline Phosphatase 84 U/L (45-117); BUN Creatinine Ratio 15.5 (10-20); Blood Urea Nitrogen 71 mg/dl (7-18); Carbon Dioxide 17 mmol/L (21-32); Globulin 3.8 gm/dl (2.5-4.0); Magnesium 2.8 mg/dl (1.8-2.4); Potassium 4.3 mmol/L (3.5-5.1); Sodium 136 mmol/L (136-145); Total Protein 8.9 gm/dl (6.4-8.2); Troponin I < 0.015 ng/ml (0-0.045)
[2019-10-09] MEDS ORDERED: SODIUM CHLORIDE 0.9% 1000ML 1,000 ML IV ONE ×2 (15:35→15:49)
--- NOTE | 2019-10-09 15:55 | CT Scan Report ---
CT head/brain wo con CLINICAL HISTORY: 59 years-old Male with altered. Acutely altered mental status TECHNIQUE: Multiple axial CT images of the head were obtained without contrast. A dose lowering tech nique was utilized adhering to the principles of ALARA. COMPARISON: CT soft tissue neck 09/16/2019 FINDINGS: No acute intracranial hemorrhage, midline shift, intracranial mass, hydrocephalus, territorial ischem ia or abnormal extra-axial collection. The calvarium is intact. Mastoid air cells are clear. Moderate mucosal thickening of the visualized ethmoid air cells with air-fluid level of the right sphenoid sinus. Soft tissues and orbits are unrem arkable. IMPRESSION: No acute intracranial abnormality. ACT 112: Negative or not required by law. The above report was generated using voice recognition software. It may contain grammatical, syntax o r spelling errors. Electronically signed by: Ranulfo Miles M.D. 10/09/2019 3:54 PM
--- NOTE | 2019-10-09 16:32 | CT Scan Report ---
CT chest wo con CT DOSE: 3196.76 mGy.cm CLINICAL HISTORY: 59 years-old Male with chest mass. Acute chest congestion with possible chest mass TECHNIQUE: Multiaxial CT images of the chest were performed without contrast. A dose lowering techni que was utilized adhering to the principles of ALARA. COMPARISON: CT abdomen and pelvis of same day, CT soft tissue neck 09/16/2019 FINDINGS: There is near complete resolution of the previously described groundglass opacity of the anterior seg ment right upper lobe which previously measured approximately 3.2 cm. Now there is a linear area of p leural parenchymal scarring within this distribution measuring 3.1 cm. No suspicious mass identified. No pneumothorax, pleural effusion or overt pulmonary edema. Patchy consolidative and bronchovascular distribution of nodular and tree-in-bud opacities about the right lower lobe. The remaining lung fie lds appear clear. Central airways are patent. Unremarkable thyroid. Mildly prominent subcarinal lymph nodes are likely reactive. Trace pericardial effusion. Mild coronary arterial calcifications. No thoracic aortic aneurysm. No acute abnormality of the imaged upper abdomen. Hepatic steatosis. Indeterminate 5 mm hypodense focus of the hepatic dome. Soft tissues are unremarkable. Degenerative changes of the shoulders and spine. No suspicious bone l esions or acute fracture. IMPRESSION: 1. Near complete resolution of the previously noted groundglass opacity of the anterior segment right upper lobe, now with minimal linear pleural parenchymal scarring within this distribution. 2. Right lower lobe opacities suggest bronchopneumonia with bronchiolitis. 3. Hepatic steatosis. 4. No pleural effusion. ACT 112: Negative or not required by law. Electronically signed by: Ranulfo Miles M.D. 10/09/2019 4:31 PM
--- NOTE | 2019-10-09 16:33 | CT Scan Report ---
ABDOMEN AND PELVIS CT WITHOUT CONTRAST CT DOSE: HISTORY: Acute renal failure. TECHNIQUE: Multiaxial CT images of the abdomen and pelvis were performed without contrast. A dose lo wering technique was utilized adhering to the principles of ALARA. COMPARISON STUDY: Abdomen and pelvis CT 05/28/2018. FINDINGS: Patchy nodular groundglass densities within the right lower lobe. No pneumoperitoneum. No p neumatosis. Mild motion artifact. No suspicious lytic are blastic osseous lesions. Mild hepatic steat osis. The unenhanced gallbladder, spleen, adrenal glands, pancreas, and kidneys appear unremarkable. No renal or ureteral stones. No hydronephrosis. No retroperitoneal lymphadenopathy. Surgical clips wi thin the left inguinal region. The unenhanced bladder is unremarkable. Suboptimal evaluation for lakes[place] l pathology due to the lack of intravenous and oral contrast. However, there is no definite bowel wal l thickening or obstruction. IMPRESSION: 1. Suboptimal study due to the motion artifact. 2. No definite bowel wall thickening or obstruction. 3. No renal or ureteral stones. No hydronephrosis. 4. Hepatic steatosis. 5. Patchy densities within the right lower lobe likely representing pneumonia. ACT 112: Negative or not required by law. Electronically signed by: Rafael Carrizales M.D. 10/09/2019 4:32 PM
--- NOTE | 2019-10-09 17:11 | History & Physical Report ---
Date of Service October 09, 2019 Assessment & Plan (1) Abnormal behavior: This is a 59-year-old male with a PMH of pansinusitis, history of alcoholism in remission, chronic pain syndrome on oxycodone, chronic HCV, cirrhosis, BPH and other medical problems listed below who presents from [facility] [place] with abnormal behavior and was found to have acute kidney injury. -Erratic behavior, constant movement, limited attention span, diaphoresis and mood changes since completing 7 day bactrim course 4 days ago. Also recently completed prednisone taper as of Oct 01 -H/o alcoholism and drug use but U tox negative for etoh, cocaine, marijuana, PCP. Positive for opiates (prescribed for chronic pain) and MDMA- denies use, awaiting reference labs -CT head without acute abnormality -Evidence of metabolic acidosis per BMP with anion gap of 12, bicarb of 17 -In the setting of acute renal failure. ABG, blood cultures, procalcitonin, lactate, serum osm and urine labwork pending per discussion with nephro -Holding Baclofen. Decrease Oxycodone from 15 to 10mg QID PRN. Ativan 1mg Q4H PRN for agitation (2) Acute renal failure: Cr of 4.55 (baseline Cr ~0.7), BUN of 71 -In setting of recent 7d Bactrim course, completed 4 days ago. Concern for intri nsic kidney injury -Given 2L NSS in ED. Continue fluids with D5W + 75 meq of bicarb, per discussion with Dr. Gallegos -Urine Na, protein to creat ratio, urine eosinophils pending -Bladder scan pending to evaluate for obstruction but no renal or ureteral stones or hydronephrosis on CT abd/pelvis (3) Sinusitis: Recently treated for delaney sinusitis when admitted with clinda and levaquin. Discharged on Clinda and then transitioned to 7 day Bactrim course due clinda resistance on sinus culture -Discussed with ENT who do not recommend further abx at this time -Will need follow up for discussion of nasal and sinus surgical endoscopy at [place] following admission (4) Alcoholism in remission: Serum etoh negative. Denies drink since 2008 -History of cirrhosis. No ascites on exam, CT abd/pelvis with mild hepatic steatosis (5) Chronic pain syndrome: Reduced oxycodone dose to 10mg QID PRN while receiving IV ativan -Continue to montior closely DVT Ppx: SQ heparin Code status: FULL PCP: Elaine Elizabeth Dispo: Admitted to [facility]. Plan to return home once medically stable. Patient seen in collaboration with Dr. Bhatt. Please see addendum. History of Present Illness Chief Complaint: Agitation, mood changes, RICK Primary Care Provider: Robbie Elizabeth DO This is a 59-year-old male with a PMH of pansinusitis, history of alcoholism in remission, chronic pain syndrome on oxycodone, chronic HCV, cirrhosis, BPH and other medical problems listed below who presents from ENT clinic with hypertension and abnormal behavior. Patient was admitted to our service a month ago for left submandibular edema and acute sinusitis. Was evaluated by oral maxillofacial surgery about left neck swelling, which was felt to be an reaction to recent tooth extraction. Was discharged on 7-day course of p.o. clindamycin. Patient followed up with ENT at [facility], found to be resistant to clindamycin and was switched to 7-day course of Bactrim, which patient completed on October 05. Also completed prednisone taper on October 01. Ever since completion of Bactrim 4 days ago, patient has been acting erratically and "cannot sit still". Has been anxious and agitated but denies any confusion or acute pain. Has chronic pain syndrome for which he is prescribed oxycodone HCL 15mg QID PRN and received a refill yesterday, per PDMP review. Denies any recent alcohol or drug use including cocaine, heroin or ecstasy. monitors medication and states he has been receiving 4 oxycodone pills a day as usual. Denies any NSAID use or ingestion of other unusual substances. Endorses chills, intermittent sweating, anxiety and agitation. Also denies decreased urinary output despite drinking adequate amount of fluids. Normal appetite. Denies any fever, lightheadedness, visual changes, coughing, chest pain, palpitations, shortness of breath, wheezing, nausea, vomiting, abdominal pain, diarrhea or constipation. Allergies Allergy/AdvReac Type Severity Reaction Status Date / Time hydrocodone Allergy Severe GI SYMPTOMS Verified 10/09/19 15:14 ketorolac Allergy Intermediate makes sick Verified 10/09/19 15:14 Penicillins Allergy Unknown Unknown Verified 10/09/19 15:14 tramadol AdvReac Intermediate vomiting Verified 10/09/19 15:14 Home Medications Home Medications Medication Instructions Recorded Confirmed Type allopurinol 300 mg PO QAM 05/28/18 10/09/19 History baclofen 10 mg PO BID 05/28/18 10/09/19 History omeprazole 20 mg PO QAM 05/28/18 10/09/19 History oxycodone 15 mg PO QID PRN 05/28/18 10/09/19 History triamcinolone acetonide 1 applic TOPICAL BID PRN 05/28/18 10/09/19 History acetaminophen [Tylenol 8 Hour] 1,300 mg PO Q12H PRN 09/16/19 10/09/19 History sodium chloride [Saline Mist] 2 spry NA QID #10 ml 09/17/19 10/09/19 Rx albuterol sulfate 2 puff INHALATION Q4 PRN 10/09/19 10/09/19 History ferrous sulfate 325 mg PO DAILY 10/09/19 10/09/19 History fluticasone propionate [Flonase 2 spray INTRANASAL DAILY PRN 10/09/19 10/09/19 History Allergy Relief] Past Med/Surg History Medical History 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) last reported drink in 2008 Arthritis (Chronic) Chronic pain syndrome Gout (Chronic) Hepatitis C (Acute) Surgical History (Updated 10/09/19 @ 18:04 by Mercy Cary PA-C) H/O hernia repair Hx of tooth extraction Family History Mother Diabetes Brother Liver disease Social History Preferred Language: Hong Konger Communication Ability: Effective Datastage Developer Required: No Beliefs That Will Affect Care: None Current Living Situation: Spouse Other Information That Helps Us Care for You: No Feels Safe at Home: Yes Safety Concerns: Feels Safe At This Time Smoking Status: Unknown if ever smoked Hx Alcohol Use: No Hx Substance Use: Yes substance use type: opiates Substance Use Type Other:: prescribed oxycodone Last Used Substance: Hours (ago) Last Used Substance Other:: prescribed oxy QID Review of Systems Review of Systems: At least ten systems reviewed and negative except as noted in the HPI. Physical Exam Physical Exam: General Appearance: WD/WN, vitals as above, obese, appears anxious, difficulty paying attention to questions, pleasant, constantly fidgeting during interview Head: normocephalic, atraumatic Eyes: normal inspection, PERRL, conjunctivae normal, anicteric sclerae ENT: external ear and nose normal, oropharynx normal Neck: trachea midline, no thyromegaly normal visual inspection Respiratory: lungs clear to auscultation, no wheeze, rales, rhonchi. Normal insp/exp effort, no accessory muscle use Cardiovascular: regular rate, rhythm, no murmur, normal peripheral pulses. Vessels: no JVD or carotid bruit Chest: normal inspection of chest Abdomen/GI: normal bowel sounds, soft, nontender, no hepatosplenomegaly Extremities/Musculoskelatal: no cyanosis or clubbing, extremities motor strength 5/5 Neurologic: PERRL, EOMI, accommodation nl, no face palsy, no dysarthria, CN's II-XI intact bilaterally and moves all extremities Psychiatric: A+Ox4, anxious and easily distracted, moving constantly, difficulty paying attention unless directly addressed Skin: no rashes, normal color, warm/dry Results & Data Vital Signs (Past 12 Hours) Vital Signs Temp Pulse Pulse Resp BP BP Pulse Ox 10/09/19 16:30 93 H 22 135/75 94 10/09/19 14:05 96 10/09/19 13:35 37.3 C 101 H 20 161/75 H 95 Laboratory Results Short CBC 10/09/19 Range/Units 14:24 WBC 10.37 (4.8-10.8) K/uL Hgb 12.4 L (14.0-18.0) g/dL Hct 35.8 L (42-52) % Plt Count 283 (130-400) K/uL BMP 10/09/19 14:24 Sodium 136 Potassium 4.3 Chloride 107 Carbon Dioxide 17 L BUN 71 H Creatinine 4.55 H* Glucose 100 H Calcium 9.6 Cardiac Enzymes 10/09/19 Range/Units 14:24 Troponin I < 0.015 (0-0.045) ng/ml Liver Function 10/09/19 Range/Units 14:24 Total Bilirubin 1.0 (0.2-1) mg/dl AST 141 H (15-37) U/L ALT 75 (12-78) U/L Alkaline Phosphatase 84 (45-117) U/L Albumin 5.1 H (3.4-5.0) gm/dl Urine 10/09/19 Range/Units 14:30 Urine Color Dark Yellow Urine Appearance Clear (Clear) Urine pH 5.0 (4.5-7.5) Ur Specific [place] 1.026 (1.000-1.030) Urine Protein 1+ H (Negative) Urine Glucose (UA) Negative (Negative) Diagnostic Findings Head CT: IMPRESSION: No acute intracranial abnormality. CXR: IMPRESSION: 1. No acute cardiopulmonary abnormality. 2. A right apical groundglass focus was seen on the recent neck CT. Correlation with a chest CT is recommended to document resolution. CT chest: IMPRESSION: 1. Near complete resolution of the previously noted groundglass opacity of the anterior segment right upper lobe, now with minimal linear pleural parenchymal scarring within this distribution. 2. Right lower lobe opacities suggest bronchopneumonia with bronchiolitis. 3. Hepatic steatosis. 4. No pleural effusion. CT abd/pelvis: IMPRESSION: 1. Suboptimal study due to the motion artifact. 2. No definite bowel wall thickening or obstruction. 3. No renal or ureteral stones. No hydronephrosis. 4. Hepatic steatosis. 5. Patchy densities within the right lower lobe likely representing pneumonia. ECG Rhythm: normal sinus Supervising Physician Co-Signing Physician Notes Care coordinated with Mercy Cary PA-C. Agree with above note. Patient seen and examined. Please refer to her notes for full details. Vital signs reviewed. Physical exam: General exam: Drowsy. Not in acute distress. CVS: S1 and S2 heard, regular rate and rhythm, no murmurs. RS: Clear to auscultation, no wheezing or crackles. ABD: Soft, bowel sounds present, nontender, no distention. RABBLER: drowsy EXT: No edema, no erythema. Labs: Reviewed. Assessment and plan: 59 Y M who recently in hospital for sinusitis and left mandibular edema thought to be from recent tooth extraction and was discharged on clindamycin followed with ENT. Clindamycin was changed to bactrim based on cultures and finished the bactrim one week course about 4 days ago. Last few days he was having some erratic behaviour as per . Was sweating. Went to ENT office because hios erratic behaviour and eleavted BP was sent to ER. In the Er received ativan and currently drowsy. LAbs showed cr 4.5. As per no fevers. He was taking his pain pills daily and he took them yesterday and also today morning. Acute metabolic encephalopathy secondary to Rick and meds(On oxycodone and baclofen ) Rick mostly from recent bactrim use Anion gap metabolic acidosis from Rick Bladder scan Young cat placement Bicarb drip as per nephrology close monitor follow labs closely Hx of alcoholism but in remission. Other diagnosis and plan of care as per Luis Daniel Madrid PA-C. Jitendra diane MD. (1) Acute renal failure Acute renal failure type: unspecified Qualified Code(s): N17.9 - Acute kidney failure, unspecified
[2019-10-09 17:31] LABS: Protein Creatinine Ratio Urine 0.2 (0-0.2); Total Protein Urine Random 63.9 mg/dl (0-11.9)
[2019-10-09 17:55] LABS: Base Excess ABG -10.1 mEq/L (-9-1.8); HCO3 ABG 15 mmol/L (19-24); Oxygen Saturation ABG 96.1 % (90-95); PCO2 ABG 33 mmHg (35-46); PO2 ABG 86 mmHg (80-95); pH ABG 7.29 (7.35-7.45)
[2019-10-09] MEDS ORDERED: ACETAMINOPHEN 325 MG TAB PO PRN (19:12)
[2019-10-09] MEDS: SODIUM BICARBONATE 8.4% 75 MEQ in DEXTROSE 5% 1,000 ML IV SCH (20:08)
[2019-10-09] MEDS: LORazepam 1 MG/2 ML VIAL IV PRN (20:36)
[2019-10-09] MEDS: OXYCODONE HCL IR 5 MG TAB (IMMEDIATE RELEASE) PO PRN (20:38)
[2019-10-09 21:02] LABS: Allen Test POS (Pos)
--- NOTE | 2019-10-09 21:21 | Hospitalist Progress Note ---
Date of Service October 09, 2019 Subjective Question of pneumonia on Ct scan. Afebrile. No leukocytsois. Will monitor for n ow and may start abx if develops symptoms. Results & Data ([facility]) Vital Signs (Past 12 Hours) Vital Signs Temp Pulse Pulse Resp BP BP Pulse Ox 10/09/19 19:00 36.5 C 90 20 149/67 H 95 10/09/19 18:00 99 H 20 147/69 H 95 10/09/19 16:30 93 H 22 135/75 94 10/09/19 14:05 96 10/09/19 13:35 37.3 C 101 H 20 161/75 H 95
[2019-10-09] MEDS: SODIUM CHLORIDE 0.65% NA SOLN 45 ML (OCEAN) SCH (23:25)
[2019-10-10] MEDS: LORazepam 1 MG/2 ML VIAL IV PRN ×3 (01:25→14:10)
[2019-10-10] MEDS: OXYCODONE HCL IR 5 MG TAB (IMMEDIATE RELEASE) PO PRN ×4 (01:57→22:25)
[2019-10-10] MEDS: SODIUM BICARBONATE 8.4% 75 MEQ in DEXTROSE 5% 1,000 ML IV SCH (06:22)
[2019-10-10 07:43] LABS: Hemoglobin 11.5 g/dL (14.0-18.0); Mean Corpuscular Hemoglobin 31.2 pg (25-34); Mean Corpuscular Hgb Conc 33.8 g/dL (32-36); Mean Corpuscular Volume 92.1 fL (80-100); Mean Platelet Volume 9.9 fL (7.4-10.4); Platelet Count 232 K/uL (130-400); RDW Coefficient of Variation 13.3 % (11.5-14.5); RDW Standard Deviation 44.7 fL (36.4-46.3); Red Blood Count 3.69 M/uL (4.7-6.1); White Blood Count 6.78 K/uL (4.8-10.8)
[2019-10-10 08:21] LABS: BUN Creatinine Ratio 31.1 (10-20); Calcium 8.9 mg/dl (8.5-10.1); Creatinine Clr Calc Pharmacy 62.2 ml/min; Est GFR (African American) 50.8; Est GFR (Non-African American) 43.8; Potassium 4.1 mmol/L (3.5-5.1)
--- NOTE | 2019-10-10 08:56 | Nephrology Consultation ---
Date of Consultation October 10, 2019 Assessment & Plan (1) Acute renal failure: baseline creatinine 0.7; presenting creatinine 4.6. improving prerenal process w/ creatinine down to 1.7 today after 2LNS then 75 mEq/L Na bicarbonate in D5W at 100 mL/hr. oxycodone and baclofen clearances both decrease w/ renal impairment; ? if w/ his renal failure his customary regimen was suddenly became enough to cause MS/behavior changes; no evidence of respiratory depression however such as one would expect to see w/ marked increase on plasma oxycodone concentration. -daily bmp -strict I/O -cont nsaid and nephrotoxin avoidance Present on Admission?: Yes (2) Metabolic acidosis: improving/resolved with bicarb rich fluid. AG now wnl; likely was from ketoacidosis +/- renal failure -at this point change to normosol d/t hyperchloremia and since acidemia resolved Present on Admission?: Yes (3) Abnormal behavior: ? related to higher oxycodone/baclofen serum concentrations as above; else per primary service -defer to primary service consideration of modifying dosages of these meds temporarily until renal function normalizes --baclofen on hold and oxy dose reduced Present on Admission?: Yes History of Present Illness Reason for Consultation: acidosis, RICK Requesting Physician: Dr Baca Attending Physician: Mi Frederick, DO History of Present Illness 59 y/o M whom I'm asked to see for acidosis and rick was admitted last evening for RICK after he was sent from ENT clinic w/ HTN and erratic behavior/agitation. PMH includes pansinusitis, alcoholic cirrhosis, EtOH abuse in remission, chronic pain on oxycodone, chronic HCV, protstatic hypertrophy, gout. His baseline creatinine is 0.7; His presenting creatinine was 4.6 w/ bicarb 17. He does have a hx of substance abuse as above and including past use of cocaine but screens for this were negative; denies hx of recent use of these or of ecstasy. Denies nsaid use. Admitted here 1 month back for L submandibular edema and sinusitis; ENT f/u was for monitoring of L neck swelling attributed to recent tooth extraction. He finished a prednisone taper on 10/01/29; finished a course of bactrim on 10/05/19. ever since completing bactrim he reported anxiety, agitation, chills, inability " to sit still." No n/v/F/voiding complaints/diarrhea. Has been taking oxycodone per routine as OP; monitored luz maria sely by his on this given substance hx. Allergies Allergy/AdvReac Type Severity Reaction Status Date / Time hydrocodone Allergy Severe GI SYMPTOMS Verified 10/09/19 15:14 ketorolac Allergy Intermediate makes sick Verified 10/09/19 15:14 Penicillins Allergy Unknown Unknown Verified 10/09/19 15:14 tramadol AdvReac Intermediate vomiting Verified 10/09/19 15:14 Home Medications Home Medications Medication Instructions Recorded Confirmed Type allopurinol 300 mg PO QAM 05/28/18 10/09/19 History baclofen 10 mg PO BID 05/28/18 10/09/19 History omeprazole 20 mg PO QAM 05/28/18 10/09/19 History oxycodone 15 mg PO QID PRN 05/28/18 10/09/19 History triamcinolone acetonide 1 applic TOPICAL BID PRN 05/28/18 10/09/19 History acetaminophen [Tylenol 8 Hour] 1,300 mg PO Q12H PRN 09/16/19 10/09/19 History sodium chloride [Saline Mist] 2 spry NA QID #10 ml 09/17/19 10/09/19 Rx albuterol sulfate 2 puff INHALATION Q4 PRN 10/09/19 10/09/19 History ferrous sulfate 325 mg PO DAILY 10/09/19 10/09/19 History fluticasone propionate [Flonase 2 spray INTRANASAL DAILY PRN 10/09/19 10/09/19 History Allergy Relief] Patient History Medical History 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) last reported drink in 2008 Arthritis (Chronic) Chronic pain syndrome Gout (Chronic) Hepatitis C (Acute) Surgical History (Updated 10/09/19 @ 18:04 by Mercy Cary PA-C) H/O hernia repair Hx of tooth extraction Family History Mother Diabetes Brother Liver disease Social History Preferred Language: Citizen Of [place] Communication Ability: Effective Wardrobe Manager Required: No Beliefs That Will Affect Care: None Current Living Situation: Spouse Other Information That Helps Us Care for You: No Feels Safe at Home: Yes Safety Concerns: Feels Safe At This Time Smoking Status: Unknown if ever smoked Hx Alcohol Use: No Hx Substance Use: Yes substance use type: opiates Substance Use Type Other:: prescribed oxycodone Last Used Substance: Hours (ago) Last Used Substance Other:: prescribed oxy QID Review of Systems Review of Systems: All systems reviewed & are unremarkable except as noted in HPI & below and Other (ROS limited by pt concentration/perseverance) Constitutional: + chills, + anorexia and + insomnia; no fever and no body aches Eyes: no worsening vision Ear, Nose, Mouth, Throat: no ear pain, no dizziness, no sore throat and no dysphagia Respiratory: no cough and no dyspnea Cardiovascular: no chest pain, no palpitations and no edema Gastrointestinal: no heartburn and no change in bowel habits Genitourinary: no dysuria, no difficulty urinating, no urinary frequency, no urinary hesitancy and no decreased urination Musculoskeletal: + neck pain; no back pain, no stiffness, no myalgia, no muscle weakness and no body aches Integumentary: no rash Neurologic: no gait abnormality, no unsteadiness, no generalized weakness, no lack of coordination, no headache(s) and no confusion Psychiatric: + behavioral changes, + anxiety and + difficulty concentrating; no confusion and no substance abuse Physical Exam Constitutional: well developed, well nourished, + obese, + altered mental status (agitated, can't sit/stay seated; follows me down hallway) and cooperative Eyes: EOM intact bilaterally ENMT: Ears: no external ear abnormality Nose: no external nose abnormality Mouth: + dry oral mucous membranes Neck: no nuchal rigidity Respiratory: normal respiratory effort; no respiratory distress and no labored breathing Auscultation: lungs clear to auscultation bilaterally and + dim inished lung sounds Cardiovascular: RRR, no murmur, no edema Gastrointestinal (Abdomen): Inspection/Auscultation: normal bowel sounds Percussion/Palpation: abdomen soft; abdomen nontender Musculoskeletal: no cyanosis or clubbing, extremities motor strength 5/5 Extremities: strength 5/5 throughout Skin: no rashes, warm and dry Neurologic: [place], fluent speech, no tremor Psychiatric: Orientation: alert, oriented x 3 and cooperative Eye Contact: good eye contact Speech: + pressured speech Affect: + anxious affect Mood: + anxious mood Thought Process: + tangential thought process, + looseness of associations and + perseveration Thought Content: + obsessions Insight: + limited insight Judgement: + limited judgement Genitourinary: no fitzgerald Results & Data Vital Signs (Past 12 Hours) Vital Signs Temp Pulse Pulse Resp BP Pulse Ox 10/10/19 07:42 36.5 C 87 20 135/73 98 10/10/19 00:08 105 H 10/09/19 23:51 103 H 10/09/19 23:35 36.6 C 92 H 20 137/67 94 Laboratory Results 10/10/19 07:23 10/10/19 07:23 Urine dipstick 1+ protein, 3+ blood, trace ketones and LE. pr/creat 200 ABG last evening 7.29/33/ 86/ 15 on RA ESR 32 serum osms 310 last evening AG 12 > 6 Diagnostic Findings cxr 1. No acute cardiopulmonary abnormality. 2. A right apical groundglass focus was seen on the recent neck CT. Correlation with a chest CT is recommended to document resolution. head CT no acute IC abnormality chest CT non con There is near complete resolution of the previously described groundglass opacity of the anterior segment right upper lobe which previously measured approximately 3.2 cm. Now there is a linear area of pleural parenchymal scarring within this distribution measuring 3.1 cm. No suspicious mass identified. No pneumothorax, pleural effusion or overt pulmonary edema. Patchy consolidative and bronchovascular distribution of nodular and tree-in-bud opacities about the right lower lobe. The remaining lung berrios appear clear. Central airways are patent. Unremarkable thyroid. Mildly prominent subcarinal lymph nodes are likely reactive. Trace pericardial effusion. Mild coronary arterial calcifications. No thoracic aortic aneurysm. No acute abnormality of the imaged upper abdomen. Hepa tic steatosis. Indeterminate 5 mm hypodense focus of the hepatic dome. Soft tissues are unremarkable. Degenerative changes of the shoulders and spine. No suspicious bone lesions or acute fracture. IMPRESSION: 1. Near complete resolution of the previously noted groundglass opacity of the anterior segment right upper lobe, now with minimal linear pleural parenchymal scarring within this distribution. 2. Right lower lobe opacities suggest bronchopneumonia with bronchiolitis. 3. Hepatic steatosis. 4. No pleural effusion CT abd/pelvis non con FINDINGS: Patchy nodular groundglass densities within the right lower lobe. No pneumoperitoneum. No pneumatosis. Mild motion artifact. No suspicious lytic are blastic osseous lesions. Mild hepatic steatosis. The unenhanced gallbladder, spleen, adrenal glands, pancreas, and kidneys appear unremarkable. No renal or ureteral stones. No hydronephrosis. No retroperitoneal lymphadenopathy. Surgical clips within the left inguinal region. The unenhanced bladder is unremarkable. Suboptimal evaluation for bowel pathology due to the lack of intravenous and or al contrast. However, there is no definite bowel wall thickening or obstruction. IMPRESSION: 1. Suboptimal study due to the motion artifact. 2. No definite bowel wall thickening or obstruction. 3. No renal or ureteral stones. No hydronephrosis. 4. Hepatic steatosis. 5. Patchy densities within the right lower lobe likely representing pneumonia. (1) Acute renal failure Acute renal failure type: unspecified Qualified Code(s): N17.9 - Acute kidney failure, unspecified
[2019-10-10] MEDS: SODIUM CHLORIDE 0.65% NA SOLN 45 ML (OCEAN) SCH ×4 (09:11→20:48)
[2019-10-10] MEDS: ALBUTEROL HFA 8 GM INHALER INH PRN ×3 (09:41→22:26)
[2019-10-10] MEDS: NORMOSOL-R 1,000 ML IV SCH ×2 (09:43→20:13)
--- NOTE | 2019-10-10 18:59 | Hospitalist Progress Note ---
Date of Service October 10, 2019 Assessment & Plan (1) Abnormal behavior: Increase in prevalence of abnormal behaviors and anxiety per . Recent course of prednisone followed by a course of Bactrim resulting in RICK that has improved with fluids overnight. The patient is still exhibiting impulsivity but he is mentating well. Theoretically his RICK may have prevented clearance of some of the medications he is taking contributing to his abnormal behavior and altered mentation in recent days. This is expected to improve with improvement in renal failure. was at bedside and all questions were answered. He is notably on oxycodone for chronic pain and has a history of alcoholism and drug use. Urine tox screen was negative for everything but opiates. (2) Acute renal failure: Appreciate nephrology recommendations. Will stop bicarb now as acidosis has resolved and switch to Normosol with repeat BMP in the morning. RICK is improved. Continue to trend BMP and avoid nephrotoxic substances. Renally dose meds as needed. (3) Metabolic acidosis: Resolved with bicarb drip overnight. (4) Sinusitis: Recently treated for delaney sinusitis when admitted with clinda and levaquin. Discharged on Clinda and then transitioned to 7 day Bactrim course due clinda resistance on sinus culture. This likely contributed to his RICK. -Admitting provider discussed with ENT who do not recommend further abx at this time -Will need follow up for discussion of nasal and sinus surgical endoscopy at [place] following admission (5) Alcoholism in remission: Serum etoh negative. Denies drink since 2008 -History of cirrhosis. No ascites on exam, CT abd/pelvis with mild hepatic steatosis (6) Liver cirrhosis: History of treated hepatitis C virus and history of alcoholism. Compensated. (7) Chronic pain syndrome: Reduced oxycodone dose to 10mg QID PRN while receiving IV ativan. Patient is improved and feels the difference. Will restart home regimen of baclofen 10 twice daily and oxycodone 15 mg p.o. 4 times daily as needed pain. (8) DVT prophylaxis: DVT Ppx: SQ heparin Code status: FULL Dispo-remain on telemetry 1 more night. Mi Frederick [facility]. Subjective 59-year-old man who is jumpy and fidgety and difficult to obtain history from. He has tangential speech and storytelling. states his abnormal behavior and tangential stories have been worsening and he has been not been sleeping well. He has intermittent confusion. Overall he appears better today and renal function has improved. He is tolerating p.o. and denies any worsening acute pain. He does have chronic pain that is managed with oxycodone and baclofen. Review of Systems Review of Systems: All systems reviewed & are unremarkable except as noted in Subjective Physical Exam Physical Exam: CONSTITUTIONAL: WNWD, vitals as above, generally well- appearing, hyperactive EYES: normal conjunctivae, no scleral icterus, multiple missing teeth ENT: external ear and nose normal, MMM RESPIRATORY: clear to auscultation bilaterally, no crackles, rales or wheezes, normal respiratory effort CARDIOVASCULAR: regular rate and rhythm, S1 and 2 heard without murmurs, gallops or rubs, no JVD, no peripheral edema GASTROINTESTINAL: normal bowel sounds, soft, nontender, nondistended, no guarding. MUSCULOSKELETAL: strength 5/5 throughout, head is normocephalic and atraumatic, ambulatory SKIN: warm and dry NEUROLOGIC: CN 2-12 grossly intact, normal cognition, normal speech, +hyperactivity PSYCHIATRIC: alert cooperative and oriented to person, place and time. Results & Data ([facility]) Vital Signs (Past 12 Hours) Vital Signs Temp Pulse Pulse Resp BP Pulse Ox 10/10/19 16:00 87 10/10/19 13:47 122 H 18 142/84 H 95 10/10/19 08:00 73 10/10/19 07:42 36.5 C 87 20 135/73 98 Laboratory Results Short CBC 10/10/19 Range/Units 07:23 WBC 6.78 (4.8-10.8) K/uL Hgb 11.5 L (14.0-18.0) g/dL Hct 34.0 L (42-52) % Plt Count 232 (130-400) K/uL BMP 10/10/19 07:23 Sodium 139 Potassium 4.1 Chloride 111 H Carbon Dioxide 22 BUN 53 H Creatinine 1.70 H D Glucose 128 H Calcium 8.9 Medications Administered Current Inpatient Medications Acetaminophen (Tylenol) 650 mg PO Q4H PRN PRN Reason: Pain or Fever Stop: 11/08/19 19:11 Albuterol (Ventolin Hfa) 2 puffs INH Q4 PRN PRN Reason: Shortness Of Breath Or Wheezin Stop: 11/08/19 19:11 Last Admin: 10/10/19 17:07 Dose: 2 puffs Documented by: Lorazepam (Ativan) 1 mg in 2 mls @ 2 mls/min IV Q4H PRN PRN Reason: Agitation Stop: 11/08/19 17:24 Last Admin: 10/10/19 14:10 Dose: 2 mls/min Documented by: Parenteral Electrolytes (Normosol-R) 1,000 mls @ 125 mls/hr IV .Q8H [facility] Stop: 11/09/19 09:44 Last Admin: 10/10/19 09:43 Dose: 125 mls/hr Documented by: Oxycodone HCl (Roxicodone Immediate Rel) 10 mg PO QID PRN PRN Reason: Pain Stop: 10/23/19 19:25 Last Admin: 10/10/19 17:02 Dose: 10 mg Documented by: Sodium Chloride ([place] Nasal) 2 sprays NA QID LEVI Stop: 11/08/19 20:59 Last Admin: 10/10/19 17:02 Dose: 2 sprays Documented by: (1) Acute renal failure Acute renal failure type: unspecified Qualified Code(s): N17.9 - Acute kidney failure, unspecified
[2019-10-11 05:40] LABS: Hemoglobin 10.4 g/dL (14.0-18.0); Mean Corpuscular Hemoglobin 30.6 pg (25-34); Mean Corpuscular Hgb Conc 33.5 g/dL (32-36); Mean Corpuscular Volume 91.2 fL (80-100); Platelet Count 202 K/uL (130-400); RDW Coefficient of Variation 13.2 % (11.5-14.5); RDW Standard Deviation 44.3 fL (36.4-46.3); White Blood Count 5.78 K/uL (4.8-10.8)
[2019-10-11 06:26] LABS: BUN Creatinine Ratio 34.8 (10-20); Calcium 8.8 mg/dl (8.5-10.1); Creatinine Clr Calc Pharmacy 106.2 ml/min; Est GFR (African American) 95.3; Est GFR (Non-African American) 82.2; Potassium 3.7 mmol/L (3.5-5.1)
[2019-10-11] MEDS: SODIUM CHLORIDE 0.65% NA SOLN 45 ML (OCEAN) SCH ×3 (07:36→17:01)
[2019-10-11] MEDS ORDERED: PANTOprazole 40 MG TAB PO SCH (09:00)
[2019-10-11] MEDS ORDERED: BACLOFEN 10 MG TAB PO SCH (09:00)
[2019-10-11] MEDS: OXYCODONE HCL IR 5 MG TAB (IMMEDIATE RELEASE) PO PRN ×2 (09:03→16:59)
[2019-10-11] MEDS: ALBUTEROL HFA 8 GM INHALER INH PRN (09:03)
--- NOTE | 2019-10-11 12:21 | Hospitalist Progress Note ---
Date of Service October 11, 2019 Assessment & Plan (1) Acute metabolic encephalopathy: Admitted with confusion, hypervigilant, agitation, severe anxiety/behavior change Possible metabolic encephalopathy due to combination of, metabolic acidosis, decreased clearance of patient's chronic pain meds oxycodone and baclofen also feels patient had severe psychomotor agitation secondary to prednisone which was started for acute sinusitis/bronchitis acute renal has resolved, metabolic acidosis corrected Symptom has completely resolved, awake and oriented, conversing appropriately, no confusion, no agitation noted-mental status to approximate baseline present at bedside, comfortable with current improvement of patient's behavior changes, Feels patient is at his baseline mental status, Stable to be discharged home today (2) Acute renal failure: Baseline creatinine 0.7, presented with creatinine 4.6 with metabolic acidosis, possible combination of dehydration/recent antibiotic treatment with Bactrim Appreciate input from nephrology, patient treated with IV fluids, later bicarb drip, creatinine improved to:1.01 today with resolution of anion gap, no metabolic acidosis Stable to be discharged home, Bactrim listed in the allergy profile (3) Metabolic acidosis: Anion gap metabolic acidosis, secondary to acute renal failure, appreciate input from nephrology, patient treated with bicarb drip, this morning resolution of acidosis normal anion gap, bicarb drip discontinued, stable to be discharged home (4) Sinusitis: Recently treated for delaney sinusitis when admitted with clinda and levaquin. Discharged on Clinda and then transitioned to 7 day Bactrim course due clinda resistance on sinus culture. This likely contributed to his RICK. -Admitting provider discussed with ENT who do not recommend further abx at this time -Will need follow up for discussion of nasal and sinus surgical endoscopy at [place] Patient developed severe psychomotor agitation with prednisone, acute renal failure with metabolic acidosis with Bactrim, both of the meds are added to patient's allergy profile/adverse reaction (5) Alcoholism in remission: Serum etoh negative. Denies drink since 2008 -History of cirrhosis. No ascites on exam, CT abd/pelvis with mild hepatic steatosis (6) Liver cirrhosis: History of treated hepatitis C virus and history of alcoholism. Compensated. (7) Chronic pain syndrome: Resumed home regimen of baclofen 10 twice daily and oxycodone 15 mg p.o. 4 times daily as needed pain. (8) DVT prophylaxis: DVT Ppx: SQ heparin Code status: FULL Disposition: Stable to be discharged home today Subjective awake , alert and oriented no sign of confusion or behavioral disturbance noted eager to be discharged home denies of any pain or discomfort renal function back to baseline Review of Systems Review of Systems: All systems reviewed & are unremarkable except as noted in HPI & below At least ten systems reviewed and negative except as noted in the HPI. Psychiatric: no behavioral changes, no anxiety and no confusion Physical Exam Constitutional: WD/WN, vitals as above no acute distress Eyes: PERRL, conjunctivae normal, anicteric sclerae ENMT: external ear and nose normal, oropharynx normal Neck: trachea midline, no thyromegaly Respiratory: normal respiratory effort, lungs clear to auscultation Cardiovascular: RRR, no murmur, no edema Gastrointestinal (Abdomen): normal bowel sounds, soft, nontender, no hepatosplenomegaly Musculoskeletal: no cyanosis or clubbing, extremities motor strength 5/5 Skin: no rashes, warm and dry Neurologic: PERRL, EOMI, accommodation nl, no face palsy, no dysarthria Psychiatric: Orientation: alert and oriented x 3 Affect: euthymic affect Results & Data ([facility]) Vital Signs (Past 12 Hours) Vital Signs Temp Pulse Pulse Resp BP Pulse Ox 10/11/19 11:20 37.1 C 89 18 135/75 94 10/11/19 08:33 79 10/11/19 07:25 36.2 C L 98 H 20 129/65 95 10/11/19 03:41 36.8 C 95 H 20 140/76 97 (1) Acute renal failure Acute renal failure type: unspecified Qualified Code(s): N17.9 - Acute kidney failure, unspecified
--- NOTE | 2019-10-11 17:48 | Discharge Summary ---
Date of Service October 11, 2019 Admission HPI Per Admitting Provider This is a 59-year-old male with a PMH of pansinusitis, history of alcoholism in remission, chronic pain syndrome on oxycodone, chronic HCV, cirrhosis, BPH and other medical problems listed below who presents from ENT clinic with hypertension and abnormal behavior. Patient was admitted to our service a month ago for left submandibular edema and acute sinusitis. Was evaluated by oral maxillofacial surgery about left neck swelling, which was felt to be an reaction to recent tooth extraction. Was discharged on 7-day course of p.o. clindamycin. Patient followed up with ENT at [facility], found to be resistant to clindamycin and was switched to 7-day course of Bactrim, which patient completed on October 05. Also completed prednisone taper on October 01. Ever since completion of Bactrim 4 days ago, patient has been acting erratically and "cannot sit still". Has been anxious and agitated but denies any confusion or acute pain. Has chronic pain syndrome for which he is prescribed oxycodone HCL 15mg QID PRN and received a refill yesterday, per PDMP review. Denies any recent alcohol or drug use including cocaine, heroin or ecstasy. monitors medication and states he has been receiving 4 oxycodone pills a day as usual. Denies any NSAID use or ingestion of other unusual substances. Endorses chills, intermittent sweating, anxiety and agitation. Also denies decreased urinary output despite drinking adequate amount of fluids. Normal appetite. Denies any fever, lightheadedness, visual changes, coughing, chest pain, palpitations, shortness of breath, wheezing, nausea, vomiting, abdominal pain, diarrhea or constipation. Principal Diagnosis Acute renal failure: Resolved Confusion/agitation, possible secondary to metabolic acidosis/renal failure: Resolved Discharge Exam Constitutional WD/WN, vitals as above no acute distress Eyes PERRL, conjunctivae normal, anicteric sclerae ENMT external ear and nose normal, oropharynx normal Neck trachea midline, no thyromegaly Respiratory normal respiratory effort, lungs clear to auscultation Cardiovascular RRR, no murmur, no edema Gastrointestinal (Abdomen) normal bowel sounds, soft, nontender, no hepatosplenomegaly Musculoskeletal no cyanosis or clubbing, extremities motor strength 5/5 Skin no rashes, warm and dry Neurologic PERRL, EOMI, accommodation nl, no face palsy, no dysarthria Psychiatric Orientation: alert and oriented x 3 Affect: euthymic affect Discharge Data Allergies Allergy/AdvReac Type Severity Reaction Status Date / Time hydrocodone Allergy Severe GI SYMPTOMS Verified 10/09/19 15:14 ketorolac Allergy Intermediate makes sick Verified 10/09/19 15:14 Penicillins Allergy Unknown Unknown Verified 10/09/19 15:14 sulfamethoxazole AdvReac Severe confusion Verified 10/11/19 16:52 [From Bactrim] trimethoprim [From Bactrim] AdvReac Severe confusion Verified 10/11/19 16:52 tramadol AdvReac Intermediate vomiting Verified 10/09/19 15:14 prednisone AdvReac Confusion Verified 10/11/19 18:02 Consultations 10/09/19 15:49 ED Decision to Admit Stat 10/09/19 17:28 Consult Nephrology Routine Ordered Studies 10/09/19 14:15 CT head/brain wo con Stat 10/09/19 15:35 CT chest wo con Stat 10/09/19 15:41 CT abd pelvis wo con Stat Hospital Course (1) Acute metabolic encephalopathy: Admitted with confusion, hypervigilant, agitation, severe anxiety/behavior change Possible metabolic encephalopathy due to combination of, metabolic acidosis, decreased clearance of patient's chronic pain meds oxycodone and baclofen also feels patient had severe psychomotor agitation secondary to prednisone which was started for acute sinusitis/bronchitis acute renal has resolved, metabolic acidosis corrected Symptom has completely resolved, awake and oriented, conversing appropriately, no confusion, no agitation noted-mental status to approximate baseline present at bedside, comfortable with current improvement of patient's behavior changes, Feels patient is at his baseline mental status, Stable to be discharged home today (2) Acute renal failure: Baseline creatinine 0.7, presented with creatinine 4.6 with metabolic acidosis, possible combination of dehydration/recent antibiotic treatment with Bactrim Appreciate input from nephrology, patient treated with IV fluids, later bicarb drip, creatinine improved to:1.01 today with resolution of anion gap, no metabolic acidosis Stable to be discharged home, Bactrim listed in the allergy profile (3) Metabolic acidosis: Anion gap metabolic acidosis, secondary to acute renal failure, appreciate input from nephrology, patient treated with bicarb drip, this morning resolution of acidosis normal anion gap, bicarb drip discontinued, stable to be discharged home (4) Sinusitis: Recently treated for delaney sinusitis when admitted with clinda and levaquin. Discharged on Clinda and then transitioned to 7 day Bactrim course due clinda resistance on sinus culture. This likely contributed to his RIKC. -Admitting provider discussed with ENT who do not recommend further abx at this time -Will need follow up for discussion of nasal and sinus surgical endoscopy at [place] Patient developed severe psychomotor agitation with prednisone, acute renal failure with metabolic acidosis with Bactrim, both of the meds are added to patient's allergy profile/adverse reaction (5) Alcoholism in remission: Serum etoh negative. Denies drink since 2008 -History of cirrhosis. No ascites on exam, CT abd/pelvis with mild hepatic steatosis (6) Liver cirrhosis: History of treated hepatitis C virus and history of alcoholism. Compensated. (7) Chronic pain syndrome: Resumed home regimen of baclofen 10 twice daily and oxycodone 15 mg p.o. 4 times daily as needed pain. (8) DVT prophylaxis: DVT Ppx: SQ heparin Code status: FULL Disposition: Stable to be discharged home today Total Time Total Time Spent Total Time Spent (In Minutes): Approximately 35 minutes Total Time Includes: Examination of the Patient, Discharge Planning and Medication Reconciliation Discharge Plan Discharge Items Patient Disposition: Home - Self-Care Reason For Visit: RICK, AGITATION Discharge Diagnosis: Acute renal failure: Resolved Confusion/agitation, possible secondary to metabolic acidosis/renal failure: Resolved Activity: Resume your previous activity Non-emergency contact: Primary Care Provider Call non-emergency contact if: you have any medication questions Follow-up/Referrals: Robbie Elizabeth DO [Primary Care Provider] - 10/16/19 1:05 pm Diet: Low Sodium (2gm) Addtl Attending Provider Instructions: Do not take Bactrim: For any future infection Added to your allergy list: Please update your pharmacy and family physician Do not take high-dose aspirin, Advil, Aleve, Motrin, naproxen, ibuprofen- disorder drugs can cause worsening of your kidney function/kidney failure Pending Studies at Discharge: No Stand-Alone Forms: My [employer], Smoking Cessation Medications and DC Order Prescriptions: Continued albuterol sulfate 90 mcg/actuation HFA aerosol inhaler 2 puff INHALATION Q4 PRN (Reason: Shortness Of Breath Or Wheezing) RF: 0 fluticasone propionate [Flonase Allergy Relief] 50 mcg/actuation spray,suspension 2 spray INTRANASAL DAILY PRN (Reason: Nasal Congestion) RF: 0 ferrous sulfate 325 mg (65 mg iron) Tablet 325 mg PO DAILY RF: 0 oxycodone 15 mg Tablet 15 mg PO QID PRN (Reason: Pain) RF: 0 baclofen 10 mg Tablet 10 mg PO BID RF: 0 omeprazole 20 mg Capsule,Delayed Release(Dr/Ec) 20 mg PO QAM RF: 0 allopurinol 300 mg Tablet 300 mg PO QAM RF: 0 triamcinolone acetonide 0.025 % Cream 1 applic TOPICAL BID PRN (Reason: Itching) RF: 0 acetaminophen [Tylenol 8 Hour] 650 mg Tablet Extended Release 1,300 mg PO Q12H PRN (Reason: Pain) RF: 0 sodium chloride [Saline Mist] 0.65 % Aerosol,[place] 2 spry NA QID Qty: 10 RF: 0 Discharge Orders: Discharge Order (Routine); Ordered 10/11/19 Ordered By: Amanda Deutsch Admission Data Admit Date/Time: 10/09/19 16:46 Attending Provider: Amanda Deutsch Admit Provider: Jitendra Baca Primary Care Provider: Robbie Elizabeth Other Providers: Jitendra Baca ; Bridgette Gallegos Other Interventions: Discharge Summary Assessment (RN) Last Done: 10/11/19 17:46 DC Date/Time DO NOT enter until pt leaves facility: 10/11/19 18:03
[2019-10-13 09:29] LABS: Codeine Urine NEGATIVE ng/mL (<50); Hydrocodone Urine NEGATIVE ng/mL (<50); Hydromor Urine NEGATIVE ng/mL (<50); MDA negative; MDEA negative; MDMA (Ecstasy) Urine, Confirm negative; Morphine Urine NEGATIVE ng/mL (<50); Norhydrocodone Conf Ur NEGATIVE ng/mL (<50); Noroxycodone Urine 550 ng/mL (<50); Oxycodone Urine 245 ng/mL (<50); Oxymorph Urine NEGATIVE ng/mL (<50)
== END 2019-10-11 18:03 | disposition home or self-care (01) | DRG 682 ==
LOC: ED 13:18 → 2N 16:46 → SUATTDRO 16:46 → 2N 18:22

== ENCOUNTER 2022-03-09 12:55 | Inpatient (IN) ==
[2022-03-09] MEDS ORDERED: LORazepam 2 MG/1 ML VIAL IV STA ×2 (13:14→13:23)
[2022-03-09] MEDS ORDERED: MULTI-VITAMIN INFUSION 10 ML, THIAMINE HCL 100 MG, FOLIC ACID 1 MG in SODIUM CHLORIDE 0... IV ONE (13:17)
[2022-03-09] MEDS ORDERED: SODIUM CHLORIDE 0.9% 1000ML 1,000 ML IV ONE (13:17)
[2022-03-09 14:02] LABS: Basophils # (auto) 0.02 K/uL (0-0.2); Basophils % (auto) 0.2 %; Hematocrit (blood only) 41.1 % (42-52); Hemoglobin 14.4 g/dL (14.0-18.0); Immature Granulocytes # (auto) 0.03 K/uL (0.00-0.02); Immature Granulocytes % (auto) 0.2 %; Lymphocytes # (auto) 1.05 K/uL (1.2-3.4); Lymphocytes % (auto) 8.1 %; Mean Corpuscular Hemoglobin 30.7 pg (25-34); Mean Corpuscular Volume 87.6 fL (80-100); Mean Platelet Volume 10.6 fL (7.4-10.4); Monocytes # (auto) 0.84 K/uL (0.11-0.59); Monocytes % (auto) 6.5 %; Neutrophils # (auto) 11.02 K/uL (1.4-6.5); Platelet Count 336 K/uL (130-400); RDW Coefficient of Variation 13.7 % (11.5-14.5); RDW Standard Deviation 43.8 fL (36.4-46.3); Red Blood Count 4.69 M/uL (4.7-6.1); White Blood Count 12.96 K/uL (4.8-10.8)
[2022-03-09 14:05] LABS: Albumin Globulin Ratio 1.4 (0.9-2); Albumin Level 5.1 gm/dl (3.4-5.0); Bilirubin,Total 1.3 mg/dl (0.2-1.0); Calcium 9.9 mg/dl (8.5-10.1); Creatinine Clr Calc Pharmacy 24.3 ml/min; Est GFR (African American) 19.2 ml/min; Est GFR (Non-African American) 16.5 ml/min; Globulin 3.7 gm/dl (2.5-4.0); Potassium 4.1 mmol/L (3.5-5.1); Total Protein 8.8 gm/dl (6.0-8.3)
[2022-03-09 14:14] LABS: Amphetamines+Metham, Urine Neg (Neg); Barbiturates, Urine Neg (Neg); Benzodiazepine, Urine Neg (Neg); Cocaine, Urine Neg (Neg); MDMA (Ecstacy), Urine Neg (Neg); Methadone, Urine Neg (Neg); Opiate, Urine Neg (Neg); Phencyclidine, Urine Neg (Neg)
--- NOTE | 2022-03-09 14:39 | CT Scan Report ---
CT head/brain wo con CLINICAL HISTORY: 61 years-old Male with AMS. Acutely altered mental status TECHNIQUE: Multiple axial CT images of the head were obtained without contrast. A dose lowering tech nique was utilized adhering to the principles of ALARA. CT DOSE: 687.98 mGy.cm COMPARISON: Head CT 10/09/2019. FINDINGS: No acute intracranial hemorrhage, midline shift, intracranial mass, hydrocephalus, territorial ischem ia or abnormal extra-axial collection. The calvarium is intact. The mastoid air cells are clear. Moderate to extensive mucosal thickening o f the paranasal sinuses with aerosolized secretions of the maxillary sinuses. Unremarkable soft tissu es and orbits. IMPRESSION: 1. No acute intracranial abnormality. 2. Paranasal sinus disease as above. ACT 112: Negative or not required by law. The above report was generated using voice recognition software. It may contain grammatical, syntax o r spelling errors. Electronically signed by: Eulalio Miles M.D. 03/09/2022 2:37 PM
[2022-03-09] MEDS ORDERED: MAGNESIUM HYDROXIDE SUSP 30 ML UDC PO PRN (15:33)
[2022-03-09] MEDS ORDERED: ACETAMINOPHEN 325 MG TAB PO PRN ×2 (15:33→16:24)
[2022-03-09] MEDS: SODIUM CHLORIDE 0.9% 1000ML 1,000 ML IV SCH ×2 (15:41→19:53)
--- NOTE | 2022-03-09 15:57 | History & Physical Report ---
Date of Service March 09, 2022 Assessment & Plan (1) Acute metabolic encephalopathy: Plan: #. Acute metabolic encephalopathy #. RICK #. Increased blood lactic acid level Patient was aggressive/belligerent at presentation which worsened requiring Ativan 2 mg IV x2 for sedation in the ED. 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 Also had vomiting multiple times since yesterday evening. Patient was found to have RICK likely prerenal given hemoconcentration in admitting labs and presentation scenario. Patient does have history of belligerent behavior with RICK in the past per chart review. Admitting CT head with no acute finding Admitting CTAP: Pending Admitting creatinine of 3.76, BUN 64, outpatient chart review with creatinine baseline around 0.9 Admitting lactate 2.2, follow until normal Admitting CPK 969, follow in a.m. Hemoconcentration noted in the admitting lab, follow-up labs in a.m. f/u procal BMP in a.m., continue with IV fluids, continue to monitor. #. Other chronic medical conditions: Gout, reflux esophagitis, chronic sinusitis Continue with/resume home meds as and when able. Hold neuropsychotropic drugs until mentation clears #. Diet n.p.o. except for meds until mental status improves, then advance diet as tolerated. #. DVT prophylaxis: Heparin #. Full code History of Present Illness Chief Complaint: aggressive behaviour Primary Care Provider: Robbie Elizabeth DO 61-year-old gentleman with PMH of RICK associated with metabolic encephalopathy/aggressive behavior, gout, chronic sinusitis, hypertrophy of both inferior nasal turbinates, reflux esophagitis, chronic viral hepatitis C, BPH with obstruction/LUTS, cervical DDD, history of alcohol abuse and chronic pain syndrome on Oxycodone (10-15 mg TID) presented to our hospital 03/09 with complaint of agitation/? Delirium and was found to have RICK. At bedside exam, patient was sedated due to agitated behavior at presentation, on 3 L nasal cannula oxygen, most of the information were obtained from ER physician, RN, chart review and patient's over the phone. Apparently patient was very agitated/delirious but was fairly conversive and cooperative at the beginning and was mentioning that " his RICK" is a problem for his behavior. Due to worsening agitation, patient was given 2 mg IV Ativan x2. Upon chart review, patient had behavioral agitation during his presentation with RICK in October 2019. Per ER doctor patient has not had any alcohol in last 2 weeks and has not been drinking much in the last 2 years. Outpatient chart review with creatinine around 0.9. Patient does not use home oxygen. ROS could not be elaborated due to patient's sedated status. Per patient's , patient had been out in the sun in the last 3 days prior to arrival and he easily gets very sweaty requiring change of clothes very frequently. Also patient had some cough with sputum a week ago prior to arrival but has improved in the last few days. Also according to his , patient was confused with bizarre behavior since yesterday evening and was also complaining of cramps everywhere. Patient also had multiple vomiting since yesterday evening, concern of noting blood in the vomitus once. Per his , patient does not smoke tobacco, occasionally drinks [but not like before, was "heavy drinker" in the past], last drink was 2 weeks ago, no use of recreational drugs. Patient does have allergies to Bactrim, penicillin, tramadol. Patient does have a history of cocaine abuse and alcohol abuse. Patient does have history of total right knee replacement. Full code, per discussion with patient's . Allergies Allergy/AdvReac Type Severity Reaction Status Date / Time hydrocodone Allergy Severe GI SYMPTOMS Verified 03/09/22 15:41 ketorolac Allergy Intermediate makes sick Verified 03/09/22 15:41 Penicillins Allergy Unknown Unknown Verified 03/09/22 15:41 prednisone AdvReac Severe Confusion Verified 03/09/22 15:41 sulfamethoxazole AdvReac Severe confusion Verified 03/09/22 15:41 [From Bactrim] trimethoprim [From Bactrim] AdvReac Severe confusion Verified 03/09/22 15:41 tramadol AdvReac Intermediate vomiting Verified 03/09/22 15:41 Home Medications Medication Instructions Recorded Confirmed Type allopurinol 300 mg tablet 300 mg PO QAM 05/28/18 10/09/19 History baclofen 10 mg tablet 10 mg PO BID 05/28/18 10/09/19 History omeprazole 20 mg capsule,delayed 20 mg PO QAM 05/28/18 10/09/19 History release oxycodone 15 mg tablet 15 mg PO QID PRN 05/28/18 10/09/19 History triamcinolone acetonide 0.025 % 1 applic TOPICAL BID PRN 05/28/18 10/09/19 History topical cream acetaminophen 650 mg 1,300 mg PO Q12H PRN 09/16/19 10/09/19 History tablet,extended release (Tylenol 8 Hour) sodium chloride 0.65 % nasal spray 2 spry NA QID #10 ml 09/17/19 10/09/19 Rx aerosol (Saline Mist) albuterol sulfate 90 mcg/actuation 2 puff INHALATION Q4 PRN 10/09/19 10/09/19 History aerosol inhaler ferrous sulfate 325 mg (65 mg 325 mg PO DAILY 10/09/19 10/09/19 History iron) tablet fluticasone propionate 50 2 spray INTRANASAL DAILY PRN 10/09/19 10/09/19 History mcg/actuation nasal spray,suspension (Flonase Allergy Relief) oxycodone 10 mg tablet 10 mg PO TID PRN 03/09/22 03/09/22 History 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 Arthritis Chronic pain syndrome Gout Hepatitis C Surgical History (Updated 10/09/19 @ 18:04 by Mercy Cary PA-C) H/O hernia repair Hx of tooth extraction Family History Mother Diabetes Brother Liver disease Social History Smoking Status: Former smoker Second Hand Exposure: No; Hx Alcohol Use: No Hx Substance Use: Yes Last Used Substance: Hours (ago) Last Used Substance Other:: prescribed oxy QID Substance Use Type Other:: prescribed oxycodone Preferred Language: Filipino Communication Ability: Effective 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 NAD, on 3L NC O2. HEENT: No pallor, no icterus. Anisocoria (lt pupil irregular). Oral mucosa moist. NECK: No JVD, no neck masses. HEART: S1 and S2 heard. Regular rate and rhythm. No murmur, no gallop. RESPIRATORY SYSTEM: Normal AP diameter. No accessory muscle use. No wheezing, no crackles. ABDOMEN: Soft, bowel sounds present, no grimmacing, no distention. CENTRAL NERVOUS SYSTEM: No facial droop. Rest n/a EXTREMITIES: No edema, no erythema seen. Rt knee healed surgical scar. Results & Data Results & Data ([facility]) Vital Signs (Past 12 Hours) Vital Signs Temp Pulse Pulse Resp BP BP Pulse Ox 03/09/22 14:32 80 16 131/68 94 03/09/22 13:57 85 16 113/75 94 03/09/22 12:42 37.5 C 116 H 115 H 16 134/82 134/82 94 Code Status & VTE Plan VTE Prophylaxis Plan VTE Prophylaxis will be ordered: Yes
--- NOTE | 2022-03-09 16:18 | CT Scan Report ---
ABDOMEN AND PELVIS CT WITHOUT CONTRAST CT DOSE: 1372.10 mGy.cm HISTORY: Acute renal failure ARF, elevated lactate, AMS TECHNIQUE: Multiaxial CT images of the abdomen and pelvis were performed without contrast. A dose lo wering technique was utilized adhering to the principles of ALARA. COMPARISON STUDY: CT abdomen and pelvis 10/09/2019 FINDINGS: Limited study secondary to upper extremity positioning contrast. Mild cardiomegaly with trace pericar dial effusion. Trace pleural effusions with mild subsegmental bibasilar atelectasis. There is no pneu matosis or pneumoperitoneum. The unenhanced spleen, pancreas, gallbladder, adrenal glands and liver appear unremarkable. There is a subcentimeter hypodensity of the hepatic dome which is too small to characterize however appears st able and is likely benign. Punctate nonobstructing calculus of the superior pole right kidney. No ureteral calculi or hydronephr osis. No significant perinephric inflammatory stranding. Mild prostamegaly. Decompressed urinary blad roxanne with mild wall thickening and perivesicular stranding. Surgical clips anterior to the urinary mirna dder and left inguinal distribution. Atherosclerosis of the abdominal aorta without aneurysm. No lymp hadenopathy identified. Mild nonspecific distal esophageal wall thickening. No bowel obstruction or bowel wall thickening. Mi ld fecal retention. The appendix is not definitively seen. No secondary signs of acute appendicitis. Unremarkable soft tissues. Gynecomastia. Degenerative changes of the spine, pelvis and hips. Endplate irregularity at T10-T11 is unchanged from the prior study and likely on a degenerative basis IMPRESSION: 1. Right nephrolithiasis. No ureteral calculi or hydronephrosis. 2. No bowel obstruction or bowel wall thickening. 3. Additional findings as above. ACT 112: Negative or not required by law. The above report was generated using voice recognition software. It may contain grammatical, syntax o r spelling errors. Electronically signed by: Eulalio Miles M.D. 03/09/2022 4:16 PM
[2022-03-09] MEDS: SODIUM CHLORIDE 0.65% NA SOLN 45 ML (OCEAN) SCH ×2 (17:02→19:50)
[2022-03-09] MEDS: HEPARIN SOD 5,000 UNIT/0.5 ML VIAL SQ SCH (19:50)
[2022-03-09] MEDS: BACLOFEN 10 MG TAB PO SCH (19:50)
[2022-03-09] MEDS: oxyCODONE HCL IR 5 MG TAB (IMMEDIATE RELEASE) PO PRN (22:58)
[2022-03-09] MEDS: LORazepam 0.5 MG in SYRINGE 0.25 ML IV PRN (23:08)
[2022-03-10] MEDS: SODIUM CHLORIDE 0.9% 1000ML 1,000 ML IV SCH ×2 (01:07→05:45)
[2022-03-10] MEDS: LORazepam 0.5 MG in SYRINGE 0.25 ML IV PRN (06:19)
[2022-03-10] MEDS: oxyCODONE HCL IR 5 MG TAB (IMMEDIATE RELEASE) PO PRN ×3 (06:23→23:06)
[2022-03-10 06:53] LABS: Hemoglobin 12.2 g/dL (14.0-18.0); Mean Corpuscular Hemoglobin 30.5 pg (25-34); Mean Corpuscular Hgb Conc 33.9 g/dL (32-36); Mean Platelet Volume 9.7 fL (7.4-10.4); Platelet Count 224 K/uL (130-400); RDW Coefficient of Variation 13.8 % (11.5-14.5); RDW Standard Deviation 45.3 fL (36.4-46.3); White Blood Count 8.77 K/uL (4.8-10.8)
[2022-03-10 07:25] LABS: BUN Creatinine Ratio 34.9 (10-20); Calcium 8.6 mg/dl (8.5-10.1); Creatinine Clr Calc Pharmacy 55.3 ml/min; Est GFR (African American) 50.4 ml/min; Est GFR (Non-African American) 43.5 ml/min; Magnesium 2.3 mg/dl (1.7-2.4); Phosphorus 2.8 mg/dl (2.5-4.9)
[2022-03-10 07:51] LABS: Estimated Average Glucose 100 mg/dl; Hemoglobin A1C 5.1 % (4.5-5.6)
[2022-03-10] MEDS: FERROUS SULFATE 325 MG TAB PO SCH (08:57)
[2022-03-10] MEDS: allopurinoL 300 MG TAB PO SCH (08:57)
[2022-03-10] MEDS: SODIUM CHLORIDE 0.65% NA SOLN 45 ML (OCEAN) SCH ×4 (08:58→20:18)
[2022-03-10] MEDS: HEPARIN SOD 5,000 UNIT/0.5 ML VIAL SQ SCH ×2 (08:58→20:18)
[2022-03-10] MEDS: PANTOprazole 40 MG TAB PO SCH (08:58)
[2022-03-10] MEDS: BACLOFEN 10 MG TAB PO SCH ×2 (08:58→20:18)
[2022-03-10] MEDS ORDERED: OLANZapine 10 MG/2.1 ML SDV IM STA (09:18)
[2022-03-10] MEDS ORDERED: LORazepam 1 MG in SYRINGE 0.5 ML IV PRN ×2 (09:39→11:00)
--- NOTE | 2022-03-10 19:39 | Hospitalist Progress Note ---
Date of Service March 10, 2022 Assessment & Plan (1) Acute metabolic encephalopathy: Plan: RICK Patient was aggressive/belligerent at presentation which worsened requiring Ativan 2 mg IV x2 for sedation in the ED. 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 Also had vomiting multiple times since yesterday evening. Patient does have history of belligerent behavior with RICK in the past per chart review. Creatinine on admission 3.7, creatinine baseline around 0.9 Received IVF creatinine improved to 1.6 today Continue monitor BMP Acute metabolic encephalopathy Mostly due to RICK in the setting of narcotic CT head showed no acute intracranial abnormality. Clinically improved Elevated lactic acid Mostly due to elevate creatinine No evidence of infection Procalcitonin negative received IVF Lactic acid normalized Nausea/vomiting CT abd/plevis showed No bowel obstruction or bowel wall thickening. diet advanced, tolerated clinically stable Other chronic medical conditions: Gout, reflux esophagitis, chronic sinusitis Continue with/resume home meds as and when able. DVT prophylaxis: Heparin Full code Disposition Will discharge once medically stable PT/OT eval Admission and Anticipated Discharge Date Admission Date: March 09, 2022 Subjective Pt was seen and examined for follow up of RICK Lying in bed with no acute distress This morning staff said pt was agitated, but when i saw him he was calm and follow command He was not too happy because he was on clear liquid diet and had a fitzgerald I spoke to she said pt has not been himself in the past week said that pt sweat alot and drink alot of water due to dry mouth Pt said that since his PCP cut down from his narcotic that he has been having more spasm and pain said that she was testing today negative for COVID 19 Denies any chest pain, palpitation, dizziness and SOB Review of Systems Review of Systems: All systems reviewed & are unremarkable except as noted in Subjective Physical Exam Physical Exam: General- No acute distress Head- atraumatic Eyes- PERRL, EOMI, ENT- oropharynx clear Neck- supple, no JVD Lungs- clear to auscultation Heart- regular rhythm; no murmur Abdomen- normal bowel sounds, soft, nontender Extremities- no calf tenderness Neuro- alert, oriented x 3; PERRL, EOMI; no facial palsy; no dysarthria Skin- warm & dry Results & Data Results & Data ([facility]) Vital Signs (Past 12 Hours) Vital Signs Temp Pulse Pulse Resp BP BP Pulse Ox 03/10/22 15:49 70 03/10/22 15:28 36.7 C 65 20 129/62 98 03/10/22 11:03 36.7 C 71 18 156/71 H 98 03/10/22 07:44 77 03/10/22 07:41 37.3 C 74 18 144/65 H 93
--- NOTE | 2022-03-10 21:13 | Electrocardiogram Report ---
Test Reason : Blood Pressure : / mmHG Vent. Rate : 100 BPM Atrial Rate : 100 BPM P-R Int : 130 ms QRS Dur : 076 ms QT Int : 374 ms P-R-T Axes : 059 051 053 degrees QTc Int : 482 ms Poor data quality, interpretation may be adversely affected Normal sinus rhythm Prolonged QT Abnormal ECG When compared with ECG of 09-OCT-2019 13:47, No significant change was found Confirmed by Daniel Reese ([id number]) on 03/10/2022 9:12:47 PM Referred By: REFERRED SELF Confirmed By:Daniel Reese
--- NOTE | 2022-03-11 06:46 | Emergency Department Note ---
ED Provider Note CHIEF COMPLAINT: [] HISTORY OF PRESENT ILLNESS: This [] patient presents to the emergency department [] REVIEW OF SYSTEMS: A review of systems was performed with positives and pertinent negatives listed in the history of present illness. 10 systems were reviewed and are otherwise negative. ALLERGIES: see below MEDICATIONS: see below PMH: see below SOCIAL HISTORY: see below DDx: [] PHYSICAL EXAM: Vital signs reviewed. General: Well-appearing, in no significant distress. HEENT: No scleral icterus, PERRLA, neck supple. Atraumatic. Cardiovascular: Regular rate and rhythm, no extra sounds. Pulmonary: Clear to auscultation bilaterally, normal work of breathing. Abdomen: Soft, nontender, nondistended, positive bowel sounds. Musculoskeletal: Atraumatic, no peripheral edema. Neurologic: Patient awake alert and oriented x 3, speech is clear Skin: Warm, dry, no rash EMERGENCY DEPARTMENT COURSE/MDM: [] MONITORING: An order for cardiac monitoring was placed and the patient is noted to be in a [] at [] beats per minute. RADIOLOGY: EKG: DISPOSITION: 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 Arthritis Chronic pain syndrome Gout Hepatitis C Surgical History (Updated 10/09/19 @ 18:04 by Mercy Cary PA-C) H/O hernia repair Hx of tooth extraction Family History Mother Diabetes Brother Liver disease Social History Smoking Status: Unknown if ever smoked Preferred Language: Andorran Communication Ability: Effective Conveyor Tender Required: No Beliefs That Will Affect Care: None marital status: Current Living Situation: Spouse Current Living Situation Comment: Couldn't provide assessment information due to somulence. How many Children do You have: 2 Feels Safe at Home: Yes Assistive Devices: Cane and Walker Allergies Allergies Allergy/AdvReac Type Severity Reaction Status Date / Time hydrocodone Allergy Severe GI SYMPTOMS Verified 03/09/22 15:41 ketorolac Allergy Intermediate makes sick Verified 03/09/22 15:41 Penicillins Allergy Unknown Unknown Verified 03/09/22 15:41 prednisone AdvReac Severe Confusion Verified 03/09/22 15:41 sulfamethoxazole AdvReac Severe confusion Verified 03/09/22 15:41 [From Bactrim] trimethoprim [From Bactrim] AdvReac Severe confusion Verified 03/09/22 15:41 tramadol AdvReac Intermediate vomiting Verified 03/09/22 15:41 Home Meds Home Medications Medication Instructions Recorded Confirmed allopurinol 300 mg tablet 300 mg PO QAM 05/28/18 03/09/22 baclofen 10 mg tablet 10 mg PO BID 05/28/18 03/09/22 omeprazole 20 mg capsule,delayed 20 mg PO QAM 05/28/18 03/09/22 release oxycodone 15 mg tablet 15 mg PO DAILY PRN 05/28/18 03/09/22 triamcinolone acetonide 0.025 % 1 applic TOPICAL BID PRN 05/28/18 03/09/22 topical cream acetaminophen 650 mg 1,300 mg PO Q12H PRN 09/16/19 03/09/22 tablet,extended release (Tylenol 8 Hour) albuterol sulfate 90 mcg/actuation 2 puff INHALATION Q4 PRN 10/09/19 03/09/22 aerosol inhaler ferrous sulfate 325 mg (65 mg 325 mg PO DAILY 10/09/19 03/09/22 iron) tablet fluticasone propionate 50 2 spray INTRANASAL DAILY PRN 10/09/19 03/09/22 mcg/actuation nasal spray,suspension (Flonase Allergy Relief) oxycodone 10 mg tablet 10 mg PO TID PRN 03/09/22 03/09/22 Previous Rx's Medication Instructions Recorded sodium chloride 0.65 % nasal spray 2 spry NA QID #10 ml 09/17/19 aerosol (Saline Mist) Results & Data (ED) Laboratory Data Result diagrams: 03/10/22 06:28 03/10/22 06:28 Lab Results 03/09/22 03/09/22 03/09/22 Range/Units 13:13 13:13 13:13 WBC 12.96 H (4.8-10.8) K/uL RBC 4.69 L (4.7-6.1) M/uL Hgb 14.4 (14.0-18.0) g/dL Hct 41.1 L (42-52) % MCV 87.6 (80-100) fL MCH 30.7 (25-34) pg MCHC 35.0 (32-36) g/dL RDW Std Deviation 43.8 (36.4-46.3) fL RDW Coeff of Bharat 13.7 (11.5-14.5) % Plt Count 336 (130-400) K/uL MPV 10.6 H (7.4-10.4) fL Immature Gran % (Auto) 0.2 % Neut % (Auto) 85.0 % Lymph % (Auto) 8.1 % [place] % (Auto) 6.5 % Eos % (Auto) 0.0 % Baso % (Auto) 0.2 % Neut # (Auto) 11.02 H (1.4-6.5) K/uL Lymph # (Auto) 1.05 L (1.2-3.4) K/uL [place] # (Auto) 0.84 H (0.11-0.59) K/uL Eos # (Auto) 0.00 (0-0.5) K/uL Baso # (Auto) 0.02 (0-0.2) K/uL Immature Gran # (Auto) 0.03 H (0.00-0.02) K/uL Sodium 142 (136-145) mmol/L Potassium 4.1 (3.5-5.1) mmol/L Chloride 106 (98-107) mmol/L Carbon Dioxide 17 L (21-32) mmol/L Anion Gap 19 H (3-11) BUN 64 H (6-23) mg/dl Creatinine 3.76 H (0.6-1.4) mg/dl Est Cr Clr Drug Dosing 24.3 ml/min Est GFR ( Amer) 19.2 ml/min Est GFR (Non-Af Amer) 16.5 ml/min BUN/Creatinine Ratio 17.0 (10-20) Glucose 144 H (70-99(Fasting)) mg/dl Lactate (0.4-2.0) mmol/L Calcium 9.9 (8.5-10.1) mg/dl Total Bilirubin 1.3 H (0.2-1.0) mg/dl AST 45 H (13-39) U/L ALT 31 (7-52) U/L Alkaline Phosphatase 77 (34-104) U/L Total Creatine Kinase 969 H (30-223) U/L Total Protein 8.8 H (6.0-8.3) gm/dl Albumin 5.1 H (3.4-5.0) gm/dl Globulin 3.7 (2.5-4.0) gm/dl Albumin/Globulin Ratio 1.4 (0.9-2) Procalcitonin (0-0.5) ng/ml Urine Opiates Screen (Neg) Ur Methadone, Qual (Neg) Urine Barbiturates (Neg) Ur Phencyclidine (PCP) (Neg) U Amphetamin/Meth Scrn (Neg) MDMA (Ecstasy) Screen (Neg) U Benzodiazepines Scrn (Neg) Ur Cocaine Metabolite (Neg) U Marijuana (THC) Screen (Neg) Ethyl Alcohol mg/dL < 10.0 (<10.0) mg/dl SARS-CoV-2, RNA, NAAT (NEGATIVE) 03/09/22 03/09/22 03/09/22 Range/Units 13:13 13:23 13:29 WBC (4.8-10.8) K/uL RBC (4.7-6.1) M/uL Hgb (14.0-18.0) g/dL Hct (42-52) % MCV (80-100) fL MCH (25-34) pg MCHC (32-36) g/dL RDW Std Deviation (36.4-46.3) fL RDW Coeff of Bharat (11.5-14.5) % Plt Count (130-400) K/uL MPV (7.4-10.4) fL Immature Gran % (Auto) % Neut % (Auto) % Lymph % (Auto) % [place] % (Auto) % Eos % (Auto) % Baso % (Auto) % Neut # (Auto) (1.4-6.5) K/uL Lymph # (Auto) (1.2-3.4) K/uL [place] # (Auto) (0.11-0.59) K/uL Eos # (Auto) (0-0.5) K/uL Baso # (Auto) (0-0.2) K/uL Immature Gran # (Auto) (0.00-0.02) K/uL Sodium (136-145) mmol/L Potassium (3.5-5.1) mmol/L Chloride (98-107) mmol/L Carbon Dioxide (21-32) mmol/L Anion Gap (3-11) BUN (6-23) mg/dl Creatinine (0.6-1.4) mg/dl Est Cr Clr Drug Dosing ml/min Est GFR ( Amer) ml/min Est GFR (Non-Af Amer) ml/min BUN/Creatinine Ratio (10-20) Glucose (70-99(Fasting)) mg/dl Lactate 2.2 H* (0.4-2.0) mmol/L Calcium (8.5-10.1) mg/dl Total Bilirubin (0.2-1.0) mg/dl AST (13-39) U/L ALT (7-52) U/L Alkaline Phosphatase (34-104) U/L Total Creatine Kinase (30-223) U/L Total Protein (6.0-8.3) gm/dl Albumin (3.4-5.0) gm/dl Globulin (2.5-4.0) gm/dl Albumin/Globulin Ratio (0.9-2) Procalcitonin 0.27 (0-0.5) ng/ml Urine Opiates Screen (Neg) Ur Methadone, Qual (Neg) Urine Barbiturates (Neg) Ur Phencyclidine (PCP) (Neg) U Amphetamin/Meth Scrn (Neg) MDMA (Ecstasy) Screen (Neg) U Benzodiazepines Scrn (Neg) Ur Cocaine Metabolite (Neg) U Marijuana (THC) Screen (Neg) Ethyl Alcohol mg/dL (<10.0) mg/dl SARS-CoV-2, RNA, NAAT NEGATIVE (NEGATIVE) 03/09/22 Range/Units 13:40 WBC (4.8-10.8) K/uL RBC (4.7-6.1) M/uL Hgb (14.0-18.0) g/dL Hct (42-52) % MCV (80-100) fL MCH (25-34) pg MCHC (32-36) g/dL RDW Std Deviation (36.4-46.3) fL RDW Coeff of Bharat (11.5-14.5) % Plt Count (130-400) K/uL MPV (7.4-10.4) fL Immature Gran % (Auto) % Neut % (Auto) % Lymph % (Auto) % [place] % (Auto) % Eos % (Auto) % Baso % (Auto) % Neut # (Auto) (1.4-6.5) K/uL Lymph # (Auto) (1.2-3.4) K/uL [place] # (Auto) (0.11-0.59) K/uL Eos # (Auto) (0-0.5) K/uL Baso # (Auto) (0-0.2) K/uL Immature Gran # (Auto) (0.00-0.02) K/uL Sodium (136-145) mmol/L Potassium (3.5-5.1) mmol/L Chloride (98-107) mmol/L Carbon Dioxide (21-32) mmol/L Anion Gap (3-11) BUN (6-23) mg/dl Creatinine (0.6-1.4) mg/dl Est Cr Clr Drug Dosing ml/min Est GFR ( Amer) ml/min Est GFR (Non-Af Amer) ml/min BUN/Creatinine Ratio (10-20) Glucose (70-99(Fasting)) mg/dl Lactate (0.4-2.0) mmol/L Calcium (8.5-10.1) mg/dl Total Bilirubin (0.2-1.0) mg/dl AST (13-39) U/L ALT (7-52) U/L Alkaline Phosphatase (34-104) U/L Total Creatine Kinase (30-223) U/L Total Protein (6.0-8.3) gm/dl Albumin (3.4-5.0) gm/dl Globulin (2.5-4.0) gm/dl Albumin/Globulin Ratio (0.9-2) Procalcitonin (0-0.5) ng/ml Urine Opiates Screen Neg (Neg) Ur Methadone, Qual Neg (Neg) Urine Barbiturates Neg (Neg) Ur Phencyclidine (PCP) Neg (Neg) U Amphetamin/Meth Scrn Neg (Neg) MDMA (Ecstasy) Screen Neg (Neg) U Benzodiazepines Scrn Neg (Neg) Ur Cocaine Metabolite Neg (Neg) U Marijuana (THC) Screen Neg (Neg) Ethyl Alcohol mg/dL (<10.0) mg/dl SARS-CoV-2, RNA, NAAT (NEGATIVE) Administered Medications Allopurinol (Allopurinol 300 Mg Tab) 300 mg PO QAM LEVI Stop: 04/09/22 08:59 Last Admin: 03/10/22 08:57 Dose: Not Given Documented by: [id number] Baclofen (Baclofen 10 Mg Tab) 10 mg PO BID [facility] Stop: 04/08/22 20:59 Last Admin: 03/10/22 20:18 Dose: 10 mg Documented by: [id number] Admin: 03/10/22 08:58 Dose: 10 mg Documented by: [id number] Admin: 03/09/22 19:50 Dose: Not Given Documented by: [id number] Ferrous Sulfate (Ferrous Sulfate 325 Mg Tab) 325 mg PO DAILY [facility] Stop: 04/09/22 08:59 Last Admin: 03/10/22 08:57 Dose: 325 mg Documented by: [id number] Heparin Sodium (Porcine) (Heparin Sod 5,000 Unit/0.5 Ml Vial) 5,000 units SQ Q12 [facility] Stop: 04/08/22 20:59 Last Admin: 03/10/22 20:18 Dose: 5,000 units Documented by: [id number] Admin: 03/10/22 08:58 Dose: Not Given Documented by: [id number] Admin: 03/09/22 19:50 Dose: Not Given Documented by: [id number] Lorazepam 1 mg/ Syringe 1 mls @ 2 mls/min IV Q4H PRN PRN Reason: Anxiety/agitation Stop: 04/09/22 10:59 Last Admin: 03/10/22 20:18 Dose: 2 mls/min Documented by: [id number] Oxycodone HCl (Oxycodone Hcl Ir 5 Mg Tab (Immediate Release)) 10 mg PO TID PRN PRN Reason: Pain Stop: 03/23/22 16:34 Last Admin: 03/10/22 23:06 Dose: 10 mg Documented by: [id number] Admin: 03/10/22 14:38 Dose: 10 mg Documented by: [id number] Pantoprazole Sodium (Pantoprazole 40 Mg Tab) 40 mg PO QAM [facility] Stop: 04/09/22 08:59 Last Admin: 03/10/22 08:58 Dose: 40 mg Documented by: [id number] Sodium Chloride (Sodium Chloride 0.65% Na Soln 45 Ml ([place])) 1 sprays NA QID [facility] Stop: 04/08/22 16:59 Last Admin: 03/10/22 20:18 Dose: Not Given Documented by: [id number] Admin: 03/10/22 16:09 Dose: 1 sprays Documented by: [id number] Admin: 03/10/22 12:07 Dose: 1 sprays Documented by: [id number] Admin: 03/10/22 08:58 Dose: Not Given Documented by: [id number] Admin: 03/09/22 19:50 Dose: Not Given Documented by: [id number] Admin: 03/09/22 17:02 Dose: Not Given Documented by: [id number] Discontinued Medications Sodium Chloride (Nss 1000ml) 1,000 mls @ 999 mls/hr IV .Q1H1M ONE Stop: 03/09/22 14:17 Last Infusion: 03/09/22 16:45 Dose: 0 mls/hr Documented by: [id number] Admin: 03/09/22 13:21 Dose: 999 mls/hr Documented by: [id number] Multivitamins 10 ml/ Thiamine HCl 100 mg/ Folic Acid 1 mg/Sodium Chloride 1,011.2 mls @ 1,011.2 mls/hr IV .Q1H ONE Stop: 03/09/22 14:16 Last Infusion: 03/09/22 16:45 Dose: 0 mls/hr Documented by: [id number] Admin: 03/09/22 13:54 Dose: 1,011.2 mls/hr Documented by: [id number] Sodium Chloride (Nss 1000ml) 1,000 mls @ 200 mls/hr IV .Q5H LEVI Stop: 03/10/22 11:14 Last Infusion: 03/10/22 10:49 Dose: 0 mls/hr Documented by: [id number] Admin: 03/10/22 05:45 Dose: 200 mls/hr Documented by: [id number] Infusion: 03/10/22 05:45 Dose: 200 mls/hr Documented by: [id number] Admin: 03/10/22 01:07 Dose: 200 mls/hr Documented by: [id number] Infusion: 03/10/22 00:53 Dose: 200 mls/hr Documented by: [id number] Admin: 03/09/22 19:53 Dose: 200 mls/hr Documented by: [id number] Infusion: 03/09/22 19:53 Dose: 200 mls/hr Documented by: [id number] Admin: 03/09/22 15:41 Dose: 200 mls/hr Documented by: [id number] Lorazepam 0.5 mg/ Syringe 0.5 mls @ 2 mls/min IV Q6H PRN PRN Reason: Anxiety/agitation Stop: 03/10/22 17:04 Last Admin: 03/10/22 06:19 Dose: 2 mls/min Documented by: [id number] Admin: 03/09/22 23:08 Dose: 2 mls/min Documented by: [id number] Lorazepam (Lorazepam 2 Mg/1 Ml Vial) 2 mg IV NOW STA; Protocol Stop: 03/09/22 13:15 Last Admin: 03/09/22 13:21 Dose: 2 mg Documented by: [id number] Lorazepam (Lorazepam 2 Mg/1 Ml Vial) 2 mg IV NOW STA; Protocol Stop: 03/09/22 13:24 Last Admin: 03/09/22 13:24 Dose: 2 mg Documented by: [id number] Olanzapine (Olanzapine 10 Mg/2.1 Ml Sdv) 5 mg IM NOW STA Stop: 03/10/22 09:19 Last Admin: 03/10/22 09:47 Dose: 5 mg Documented by: [id number] Oxycodone HCl (Oxycodone Hcl Ir 5 Mg Tab (Immediate Release)) 5 mg PO TID PRN PRN Reason: Pain Stop: 03/23/22 16:34 Last Admin: 03/10/22 06:23 Dose: 5 mg Documented by: [id number] Admin: 03/09/22 22:58 Dose: 5 mg Documented by: [id number] Discharge Plan Visit Data Chief Complaint: Altered Mental Status ED Provider: Radha Holliday Patient Disposition: Admitted As Inpatient Discharge Instructions Interventions: ED Discharge Assessment Last Done: 03/09/22 16:09
[2022-03-11 06:59] LABS: BUN Creatinine Ratio 34.9 (10-20); Calcium 8.8 mg/dl (8.5-10.1); Est GFR (Non-African American) 94.9 ml/min; Potassium 4.1 mmol/L (3.5-5.1)
[2022-03-11] MEDS: oxyCODONE HCL IR 5 MG TAB (IMMEDIATE RELEASE) PO PRN ×2 (08:19→13:38)
[2022-03-11] MEDS: FERROUS SULFATE 325 MG TAB PO SCH (08:20)
[2022-03-11] MEDS: BACLOFEN 10 MG TAB PO SCH (08:20)
[2022-03-11] MEDS: PANTOprazole 40 MG TAB PO SCH (08:20)
[2022-03-11] MEDS: SODIUM CHLORIDE 0.65% NA SOLN 45 ML (OCEAN) SCH ×2 (08:20→12:10)
[2022-03-11] MEDS: HEPARIN SOD 5,000 UNIT/0.5 ML VIAL SQ SCH (08:20)
[2022-03-11] MEDS: allopurinoL 300 MG TAB PO SCH (08:20)
--- NOTE | 2022-03-11 11:44 | Discharge Summary ---
Date of Service March 11, 2022 Admission HPI Per Admitting Provider 61-year-old gentleman with PMH of RICK associated with metabolic encephalopathy/aggressive behavior, gout, chronic sinusitis, hypertrophy of both inferior nasal turbinates, reflux esophagitis, chronic viral hepatitis C, BPH with obstruction/LUTS, cervical DDD, history of alcohol abuse and chronic pain syndrome on Oxycodone (10-15 mg TID) presented to our hospital 03/09 with complaint of agitation/? Delirium and was found to have RICK. At bedside exam, patient was sedated due to agitated behavior at presentation, on 3 L nasal cannula oxygen, most of the information were obtained from ER physician, RN, chart review and patient's over the phone. Apparently patient was very agitated/delirious but was fairly conversive and cooperative at the beginning and was mentioning that " his RICK" is a problem for his behavior. Due to worsening agitation, patient was given 2 mg IV Ativan x2. Upon chart review, patient had behavioral agitation during his presentation with RICK in October 2019. Per ER doctor patient has not had any alcohol in last 2 weeks and has not been drinking much in the last 2 years. Outpatient chart review with creatinine around 0.9. Patient does not use home oxygen. ROS could not be elaborated due to patient's sedated status. Per patient's , patient had been out in the sun in the last 3 days prior to arrival and he easily gets very sweaty requiring change of clothes very freq uently. Also patient had some cough with sputum a week ago prior to arrival but has improved in the last few days. Also according to his , patient was confused with bizarre behavior since yesterday evening and was also complaining of cramps everywhere. Patient also had multiple vomiting since yesterday evening, concern of noting blood in the vomitus once. Per his , patient does not smoke tobacco, occasionally drinks [but not like before, was "heavy drinker" in the past], last drink was 2 weeks ago, no use of recreational drugs. Patient does have allergies to Bactrim, penicillin, tramadol. Patient does have a history of cocaine abuse and alcohol abuse. Patient does have history of total right knee replacement. Full code, per discussion with patient's . Admission Exam Per Admitting Provider GENERAL: Sedated. NAD, on 3L NC O2. HEENT: No pallor, no icterus. Anisocoria (lt pupil irregular). Oral mucosa moist. NECK: No JVD, no neck masses. HEART: S1 and S2 heard. Regular rate and rhythm. No murmur, no gallop. RESPIRATORY SYSTEM: Normal AP diameter. No accessory muscle use. No wheezing, no crackles. ABDOMEN: Soft, bowel sounds present, no grimmacing, no distention. CENTRAL NERVOUS SYSTEM: No facial droop. Rest n/a EXTREMITIES: No edema, no erythema seen. Rt knee healed surgical scar. Principal Diagnosis Metabolic encephalopathy Acute kidney injury Discharge Exam Constitutional + well hydrated; no acute distress Eyes PERRL, conjunctivae normal, anicteric sclerae ENMT external ear and nose normal, oropharynx normal Respiratory normal respiratory effort, lungs clear to auscultation Cardiovascular Rate/Rhythm: regular rate and regular rhythm S1 S2 Gastrointestinal (Abdomen) normal bowel sounds, soft, nontender, no hepatosplenomegaly Musculoskeletal No pedal edema Neurologic PERRL, EOMI, accommodation nl, no face palsy, no dysarthria Psychiatric A+Ox3, euthymic affect Discharge Data Allergies Allergy/AdvReac Type Severity Reaction Status Date / Time hydrocodone Allergy Severe GI SYMPTOMS Verified 03/09/22 15:41 ketorolac Allergy Intermediate makes sick Verified 03/09/22 15:41 Penicillins Allergy Unknown Unknown Verified 03/09/22 15:41 prednisone AdvReac Severe Confusion Verified 03/09/22 15:41 sulfamethoxazole AdvReac Severe confusion Verified 03/09/22 15:41 [From Bactrim] trimethoprim [From Bactrim] AdvReac Severe confusion Verified 03/09/22 15:41 tramadol AdvReac Intermediate vomiting Verified 03/09/22 15:41 Consultations 03/09/22 15:14 ED Decision to Admit Stat Ordered Studies 03/09/22 13:32 CT head/brain wo con Stat 03/09/22 15:01 CT abd pelvis wo con Stat Hospital Course (1) Acute metabolic encephalopathy: RICK Patient was aggressive/belligerent at presentation which worsened requiring Ativan 2 mg IV x2 for sedation in the ED. Patient was out in the sun 3 days in a row prior to presentation, gets very sweaty with need to change clothes frequently per his . Also had vomiting multiple times since the day prior to resentation Patient does have history of belligerent behavior with RICK in the past per chart review. Creatinine on admission 3.7, creatinine baseline around 0.9 Received IVF RICK resolved. Cr is 0.86 today Acute metabolic encephalopathy Mostly due to RICK in the setting of narcotic CT head showed no acute intracranial abnormality. Resolved Patient advised to stop taking oxycodone 15mg daily prn and only take the oxycodone 10mg tid prn as he was taking in the hospital Elevated lactic acid Likely due to RICK Lactate mildly elevated at 2.2 No evidence of infection Procalcitonin negative Lactic acid normalized with IVF Nausea/vomiting CT abd/plevis showed No bowel obstruction or bowel wall thickening. Resolved Tolerating diet well Other chronic medical conditions: Gout, reflux esophagitis, chronic sinusitis Continue with/resume home meds as and when able. Total Time Total Time Spent Total Time Spent (In Minutes): 45 Total Time Includes: Examination of the Patient, Discharge Planning and Medication Reconciliation Discharge Plan Discharge Items Patient Disposition: Home - Self-Care Reason For Visit: AGGRESSIVE BEHAVIOR Discharge Diagnosis: Metabolic encephalopathy Acute kidney injury Activity: Resume your previous activity Non-emergency contact: Primary Care Provider Call non-emergency contact if: you have any medication questions and your symptoms worsen Follow-up/Referrals: Robbie Elizabeth DO [Primary Care Provider] - (Date & Time 03/16/2022 10:00 AM Provider Robbie Elizabeth DO Department [facility] ) Diet: Heart Healthy Addtl Attending Provider Instructions: Mr Saunders You were brought to the hospital due to change in your normal behavior. You were evaluated and noted to have acute kidney injury. This was managed and the acute kidney injury resolved. Please ensure follow up with your Primary Doctor. Please stop taking the oxycodone 15mg for now. Continue taking only the ox ycodone 10mg as needed until follow up with your Primary Doctor. It was a pleasure taking care of you. Pending Studies at Discharge: No Stand-Alone Forms: My [facility] [employer], Smoking Cessation Medications and DC Order Prescriptions: Continued albuterol sulfate 90 mcg/actuation HFA aerosol inhaler 2 puff INHALATION Q4 PRN (Reason: Shortness Of Breath Or Wheezing) RF: 0 fluticasone propionate [Flonase Allergy Relief] 50 mcg/actuation spray,suspension 2 spray INTRANASAL DAILY PRN (Reason: Nasal Congestion) RF: 0 ferrous sulfate 325 mg (65 mg iron) Tablet 325 mg PO DAILY RF: 0 baclofen 10 mg Tablet 10 mg PO BID RF: 0 omeprazole 20 mg Capsule,Delayed Release(Dr/Ec) 20 mg PO QAM RF: 0 allopurinol 300 mg Tablet 300 mg PO QAM RF: 0 triamcinolone acetonide 0.025 % Cream 1 applic TOPICAL BID PRN (Reason: Itching) RF: 0 acetaminophen [Tylenol 8 Hour] 650 mg Tablet Extended Release 1,300 mg PO Q12H PRN (Reason: Pain) RF: 0 Saline Mist 0.65 % Aerosol,[place] 2 spry NA QID Qty: 10 RF: 0 oxycodone 10 mg tablet 10 mg PO TID PRN (Reason: Pain) RF: 0 Discontinued oxycodone 15 mg Tablet 15 mg PO DAILY PRN (Reason: Pain) RF: 0 Discharge Orders: Discharge Order (Routine); Ordered 03/11/22 Ordered By: Rosario Lundberg Admission Data Admit Date/Time: 03/09/22 15:34 Attending Provider: Rosario Lundberg I. Admit Provider: Annie Gonzalez Primary Care Provider: Robbie Elizabeth Other Providers: Annie Gonzalez ; Aster Amezquita ; [facility] Other Interventions: Discharge Summary Assessment (RN) Last Done: 03/11/22 12:07
== END 2022-03-11 13:53 | disposition home or self-care (01) | DRG 682 ==
LOC: ED 12:55 → SUATTDRO 15:34 → 2N 15:34

== ENCOUNTER 2022-03-30 18:44 | Inpatient (IN) ==
[2022-03-30] MEDS ORDERED: MIDAZOLAM HCL 5 MG/ML VIAL ONE (18:54)
[2022-03-30 19:12] LABS: Basophils # (auto) 0.04 K/uL (0-0.2); Basophils % (auto) 0.5 %; Hemoglobin 12.5 g/dl (14.0-18.0); Immature Granulocytes # (auto) 0.03 K/uL (0.00-0.02); Immature Granulocytes % (auto) 0.3 %; Lymphocytes # (auto) 0.79 K/uL (1.2-3.4); Mean Corpuscular Hemoglobin 30.6 pg (25.0-34.0); Mean Corpuscular Hgb Conc 34.7 g/dL (32.0-36.0); Mean Platelet Volume 10.1 fL (9.4-12.4); Monocytes # (auto) 0.62 K/uL (0.24-0.82); Monocytes % (auto) 7.1 %; Neutrophils # (auto) 7.26 K/uL (1.4-6.5); Neutrophils % (auto) 83.1 %; Platelet Count 250 K/uL (130-400); RDW Coefficient of Variation 13.2 % (11.5-14.5); RDW Standard Deviation 42.3 fL (36.4-46.3); Red Blood Count 4.09 M/uL (4.63-6.08); White Blood Count 8.74 K/ul (4.8-10.8)
[2022-03-30 19:32] LABS: Acetaminophen < 3 ug/ml (10-30); Salicylate < 3.0 mg/dl (3.0-30)
--- NOTE | 2022-03-30 19:34 | Emergency Department Note ---
History of Present Illness General Chief complaint: Mental Health Evaluation Time Seen by Provider: 03/30/22 18:49 Source: EMS History of Present Illness Provider complaint: Mental Health evaluation 61-year-old male presents emergency department via EMS for mental health evaluation. Per EMS the patient was very aggressive and breaking things at his home so making suicidal threats as well as homicidal threats against his . Patient was given Versed prior to arrival due to his aggressive behavior. Home Medications Medication Instructions Recorded Confirmed Type allopurinol 300 mg tablet 300 mg PO QAM 05/28/18 03/30/22 History omeprazole 20 mg capsule,delayed 20 mg PO QAM 05/28/18 03/30/22 History release triamcinolone acetonide 0.025 % 1 applic topical BID PRN Itching 05/28/18 03/30/22 History topical cream albuterol sulfate 90 mcg/actuation 2 puff inhalation Q4 PRN Shortness 10/09/19 03/30/22 History aerosol inhaler Of Breath Or Wheezing fluticasone propionate 50 2 spray intranasal DAILY 10/09/19 03/30/22 History mcg/actuation nasal spray,suspension (Flonase Allergy Relief) oxycodone 10 mg tablet 10 mg PO Q6H PRN Pain 03/09/22 03/30/22 History baclofen 20 mg tablet 20 mg PO TID 03/30/22 03/30/22 History duloxetine 20 mg capsule,delayed 20 mg PO QAM 03/30/22 03/30/22 History release tajjumfp-gcnwfxoe-cemfj acid 400 1 tab PO DAILY 03/30/22 03/30/22 History mcg-vit K 20 mcg-lycop 300 mcg tablet (Men's Multivitamin) Allergies Allergy/AdvReac Type Severity Reaction Status Date / Time hydrocodone Allergy Severe GI SYMPTOMS Verified 03/30/22 21:05 ketorolac Allergy Intermediate makes sick Verified 03/30/22 21:05 Penicillins Allergy Unknown HAPPENED Verified 03/30/22 21:05 A CHILD prednisone AdvReac Severe Confusion Verified 03/30/22 21:05 sulfamethoxazole AdvReac Severe confusion Verified 03/30/22 21:05 [From Bactrim] trimethoprim [From Bactrim] AdvReac Severe confusion Verified 03/30/22 21:05 tramadol AdvReac Intermediate vomiting Verified 03/30/22 21:05 NSAIDS (Non-Steroidal AdvReac Unknown D/T LIVER Verified 03/30/22 21:05 Anti-Inflamma ISSUES 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 How many Children do You have: 2 Feels Safe at Home: No Is there a partner from a previous relationship who is making you feel unsafe now?: No Assistive Devices: Cane and Walker Review of Systems Unobtainable due to mental health condition Physical Exam Vital Signs Vital Signs - 24 hr 03/30/22 18:50 03/30/22 19:11 03/30/22 19:41 Temperature 37.8 C H Temperature Source Axillary Pulse Rate 95 H Pulse Rate [Bilateral Apical] 89 86 Respiratory Rate 27 H 20 20 Respiratory Effort / Characteristics Non-Labored Spontaneous Respiratory Depth Normal Respiratory Pattern Regular Blood Pressure 164/98 H Blood Pressure [Left Arm] 150/74 H Blood Pressure Mean 120 Blood Pressure Mean [Left Arm] 99 Blood Pressure Position Lying Pulse Oximetry 96 95 95 Oxygen Delivery Method Room Air Room Air Room Air Sepsis Recent Fever Within 48 Hours No Sepsis New/Unexplained Change in Mental Status N/A Sepsis Action Taken by Nursing No Action Required 03/30/22 20:37 03/30/22 21:12 Temperature Temperature Source Pulse Rate Pulse Rate [Bilateral Apical] 86 80 Respiratory Rate 20 20 Respiratory Effort / Characteristics Respiratory Depth Respiratory Pattern Blood Pressure Blood Pressure [Left Arm] 137/68 159/76 H Blood Pressure Mean Blood Pressure Mean [Left Arm] 91 103 Blood Pressure Position Pulse Oximetry 96 96 Oxygen Delivery Method Room Air Room Air Sepsis Recent Fever Within 48 Hours Sepsis New/Unexplained Change in Mental Status Sepsis Action Taken by Nursing Physical Exam GENERAL: Patient is somnolent status post administration of Versed via EMS. HENT: Exam performed. - Head: Normocephalic and atraumatic. - Right Ear: External ear normal. No mastoid tenderness. - Left Ear: External ear normal. No mastoid tenderness. - Mouth/Throat: The oropharynx is clear and moist. No trismus in the jaw. No dental abscesses or uvula swelling. No oropharyngeal exudate or tonsillar abscesses. EYES:Pupils are equal, round, and reactive to light CV: Normal rate, regular rhythm, normal heart sounds and intact distal pulses. There is no peripheral edema. Palpable radial pulses bue. PULM/CHEST: Effort normal and breath sounds normal. No respiratory distress. No stridor. He has no wheezes. He has no rales. - Chest Wall: He exhibits no tenderness. ABD: The abdomen is soft. Bowel sounds are normal. He has no distension. No mass is present. There is no tenderness. There is no rebound, no guarding, no Guy's sign and no tenderness at McBurney's point. Rovsig negative. MUSC/SKEL: Normal range of motion. There is no peripheral edema, tenderness or deformity. LYMPH: No cervical adenopathy. NEURO: GCS eye subscore is 2. GCS verbal subscore is 2. GCS motor subscore is 5. Course Course 1848: The patient was evaluated in room A5. A complete history and physical exam was performed Cardiac monitoring: An order was placed for continuous cardiac monitoring. The monitor shows a rate of 90 with sinus rhythm 2049: Vital signs stable. Patient's labs show an elevated creatinine level greater than baseline. Discussed case with Dr. Marcie Valedz [facility] hospitalist who will evaluate the patient for admission. Medical Decision Making Laboratory Data Result diagrams: 03/30/22 18:58 03/30/22 18:58 Lab Results 03/30/22 03/30/22 03/30/22 Range/Units 18:58 18:58 18:58 WBC 8.74 (4.8-10.8) K/ul RBC 4.09 L (4.63-6.08) M/uL Hgb 12.5 L (14.0-18.0) g/dl Hct 36.0 L (40.1-51.0) % MCV 88.0 (80.0-100.0) fL MCH 30.6 (25.0-34.0) pg MCHC 34.7 (32.0-36.0) g/dL RDW Std Deviation 42.3 (36.4-46.3) fL RDW Coeff of Bharat 13.2 (11.5-14.5) % Plt Count 250 (130-400) K/uL MPV 10.1 (9.4-12.4) fL Immature Gran % (Auto) 0.3 % Neut % (Auto) 83.1 % Lymph % (Auto) 9.0 % [place] % (Auto) 7.1 % Eos % (Auto) 0.0 % Baso % (Auto) 0.5 % Neut # (Auto) 7.26 H (1.4-6.5) K/uL Lymph # (Auto) 0.79 L (1.2-3.4) K/uL [place] # (Auto) 0.62 (0.24-0.82) K/uL Eos # (Auto) 0.00 (0-0.50) K/uL Baso # (Auto) 0.04 (0-0.2) K/uL Immature Gran # (Auto) 0.03 H (0.00-0.02) K/uL Sodium 142 (136-145) mmol/L Potassium 3.3 L (3.5-5.1) mmol/L Chloride 109 H (98-107) mmol/L Carbon Dioxide 21 (21-32) mmol/L Anion Gap 12 H (3-11) BUN 34 H (6-23) mg/dl Creatinine 2.14 H (0.6-1.4) mg/dl Est Cr Clr Drug Dosing Not Reportable Est GFR ( Amer) 37.9 ml/min Est GFR (Non-Af Amer) 32.7 ml/min BUN/Creatinine Ratio 15.9 (10-20) Glucose 164 H (70-99(Fasting)) mg/dl Calcium 9.7 (8.5-10.1) mg/dl Total Bilirubin 1.5 H (0.2-1.0) mg/dl AST 72 H (13-39) U/L ALT 46 (7-52) U/L Alkaline Phosphatase 74 (34-104) U/L Total Protein 7.8 (6.0-8.3) gm/dl Albumin 4.5 (3.4-5.0) gm/dl Globulin 3.3 (2.5-4.0) gm/dl Albumin/Globulin Ratio 1.4 (0.9-2) TSH 0.572 (0.300-4.500) uIu/ml Salicylates (3.0-30) mg/dl Acetaminophen (10-30) ug/ml Ethyl Alcohol mg/dL (<10.0) mg/dl SARS-CoV-2, RNA, NAAT (NEGATIVE) 03/30/22 03/30/22 03/30/22 Range/Units 18:58 18:58 19:10 WBC (4.8-10.8) K/ul RBC (4.63-6.08) M/uL Hgb (14.0-18.0) g/dl Hct (40.1-51.0) % MCV (80.0-100.0) fL MCH (25.0-34.0) pg MCHC (32.0-36.0) g/dL RDW Std Deviation (36.4-46.3) fL RDW Coeff of Bharat (11.5-14.5) % Plt Count (130-400) K/uL MPV (9.4-12.4) fL Immature Gran % (Auto) % Neut % (Auto) % Lymph % (Auto) % [place] % (Auto) % Eos % (Auto) % Baso % (Auto) % Neut # (Auto) (1.4-6.5) K/uL Lymph # (Auto) (1.2-3.4) K/uL [place] # (Auto) (0.24-0.82) K/uL Eos # (Auto) (0-0.50) K/uL Baso # (Auto) (0-0.2) K/uL Immature Gran # (Auto) (0.00-0.02) K/uL Sodium (136-145) mmol/L Potassium (3.5-5.1) mmol/L Chloride (98-107) mmol/L Carbon Dioxide (21-32) mmol/L Anion Gap (3-11) BUN (6-23) mg/dl Creatinine (0.6-1.4) mg/dl Est Cr Clr Drug Dosing Est GFR ( Amer) ml/min Est GFR (Non-Af Amer) ml/min BUN/Creatinine Ratio (10-20) Glucose (70-99(Fasting)) mg/dl Calcium (8.5-10.1) mg/dl Total Bilirubin (0.2-1.0) mg/dl AST (13-39) U/L ALT (7-52) U/L Alkaline Phosphatase (34-104) U/L Total Protein (6.0-8.3) gm/dl Albumin (3.4-5.0) gm/dl Globulin (2.5-4.0) gm/dl Albumin/Globulin Ratio (0.9-2) TSH (0.300-4.500) uIu/ml Salicylates < 3.0 L (3.0-30) mg/dl Acetaminophen < 3 L (10-30) ug/ml Ethyl Alcohol mg/dL < 10.0 (<10.0) mg/dl SARS-CoV-2, RNA, NAAT NEGATIVE (NEGATIVE) Imaging Data Radiologist's Impression: Head CT 03/30/22 18:51 CT OF THE HEAD WITHOUT CONTRAST CLINICAL HISTORY: Altered mental status. COMPARISON STUDY: Head CT March 09, 2022. CT DOSE: 2719.00 mGycm TECHNIQUE: Helical axial images of the head were obtained without IV contrast. Automated exposure control was utilized for the study. A dose lowering technique was utilized adhering to the principles of ALARA. FINDINGS: This exam is mildly compromised by artifact. No acute intracranial hemorrhage, midline shift or mass effect is present. Ventricular system is stable. Slight asymmetry of the lateral ventricles is unchanged and likely congenital. Basal cisterns are patent. There are no extra axial collections. There are no findings to suggest acute dural sinus thrombosis or acute territorial infarct. Appearance of the brain is unchanged. Moderate ethmoid sinus mucosal thickening is noted. There are secretions within the bilateral maxillary sinuses with tiny left maxillary sinus air-fluid level. These findings have improved since CT of March 09, 2022. No acute calvarial fracture IMPRESSION: 1. No acute intracranial findings. 2. Interval improvement in paranasal sinus disease since CT of March 09, 2022. ACT 112: Negative or not required by law. Electronically signed by: Cain Sanchez M.D. 03/30/2022 7:40 PM ECG Data Indication: + other (ams) Rate (beats per minute): 94 Rhythm: + normal sinus ECG Intervals/blocks: + Normal QRS, + Normal [place] and + Normal QT-c ECG ST segments: + Normal ST segments ECG Findings: + PVCs MDM Narrative Vital signs stable. Patient's labs show an elevated creatinine level greater than baseline. [facility] who will evaluate the patient for admission. Impression & Plan Acute renal failure, Aggressive behavior, Suicidal ideation Discharge Plan Visit Data Chief Complaint: Mental Health Evaluation ED Provider: Ajay Mckay Discharge Problem: Acute renal failure, Aggressive behavior, Suicidal ideation Patient Disposition: Admitted As Inpatient Forms Stand Alone Forms: My [facility], Suicide Prevention Resources Prescriptions Prescriptions: No Action albuterol sulfate 90 mcg/actuation HFA aerosol inhaler 2 puff INHALATION Q4 PRN (Reason: Shortness Of Breath Or Wheezing) fluticasone propionate [Flonase Allergy Relief] 50 mcg/actuation spray,suspension 2 spray INTRANASAL DAILY omeprazole 20 mg Capsule,Delayed Release(Dr/Ec) 20 mg PO QAM allopurinol 300 mg Tablet 300 mg PO QAM triamcinolone acetonide 0.025 % Cream 1 applic TOPICAL BID PRN (Reason: Itching) Rx Instructions: APPLY NEEDED AND DIRECTED TO LEGS oxycodone 10 mg tablet 10 mg PO Q6H PRN (Reason: Pain) baclofen 20 mg tablet 20 mg PO TID duloxetine 20 mg capsule,delayed release(DR/EC) 20 mg PO QAM Men's Multivitamin 400-20-300 mcg Tablet 1 tab PO DAILY Referrals Referrals: Robibe Elizabeth DO [Primary Care Provider] -
[2022-03-30 19:35] LABS: Alanine Aminotransferase 46 U/L (7-52); Albumin Globulin Ratio 1.4 (0.9-2); Albumin Level 4.5 gm/dl (3.4-5.0); Alkaline Phosphatase 74 U/L (34-104); Anion Gap 12 (3-11); Aspartate Aminotransferase 72 U/L (13-39); BUN Creatinine Ratio 15.9 (10-20); Bilirubin,Total 1.5 mg/dl (0.2-1.0); Blood Urea Nitrogen 34 mg/dl (6-23); Calcium 9.7 mg/dl (8.5-10.1); Carbon Dioxide 21 mmol/L (21-32); Chloride 109 mmol/L (98-107); Est GFR (African American) 37.9 ml/min; Est GFR (Non-African American) 32.7 ml/min; Globulin 3.3 gm/dl (2.5-4.0); Glucose 164 mg/dl (70-99(Fasting)); Potassium 3.3 mmol/L (3.5-5.1); Sodium 142 mmol/L (136-145); Total Protein 7.8 gm/dl (6.0-8.3)
--- NOTE | 2022-03-30 19:42 | CT Scan Report ---
CT OF THE HEAD WITHOUT CONTRAST CLINICAL HISTORY: Altered mental status. COMPARISON STUDY: Head CT March 09, 2022. CT DOSE: 2719.00 mGycm TECHNIQUE: Helical axial images of the head were obtained without IV contrast. Automated exposure con trol was utilized for the study. A dose lowering technique was utilized adhering to the principles o f ALARA. FINDINGS: This exam is mildly compromised by artifact. No acute intracranial hemorrhage, midline shif t or mass effect is present. Ventricular system is stable. Slight asymmetry of the lateral ventricles is unchanged and likely congenital. Basal cisterns are patent. There are no extra axial collections. There are no findings to suggest acute dural sinus thrombosis or acute territorial infarct. Appearan ce of the brain is unchanged. Moderate ethmoid sinus mucosal thickening is noted. There are secretion s within the bilateral maxillary sinuses with tiny left maxillary sinus air-fluid level. These findin gs have improved since CT of March 09, 2022. No acute calvarial fracture IMPRESSION: 1. No acute intracranial findings. 2. Interval improvement in paranasal sinus disease since CT of March 09, 2022. ACT 112: Negative or not required by law. Electronically signed by: Cain Sanchez M.D. 03/30/2022 7:40 PM
[2022-03-30] MEDS ORDERED: ACETAMINOPHEN 325 MG TAB PO PRN (22:41)
[2022-03-30] MEDS ORDERED: NITROGLYCERIN SL 0.4 MG/TAB TAB SL PRN (22:41)
[2022-03-30] MEDS ORDERED: CEFEPIME 2,000 MG in SYRINGE 0 ML IV STA (22:41)
[2022-03-30] MEDS ORDERED: ALBUTEROL HFA 8 GM INHALER INH PRN (22:41)
[2022-03-30] MEDS ORDERED: TRIAMCINOLONE ACET 0.025% CR 15 GM TUBE TOP PRN (22:41)
[2022-03-30] MEDS ORDERED: POLYETHYLENE (MIRALAX) 17 GM PACK PO PRN (22:41)
[2022-03-30] MEDS: SODIUM CHLORIDE 0.9% 1000ML 1,000 ML IV SCH (23:11)
[2022-03-30] MEDS ORDERED: LORazepam 1 MG in SYRINGE 0.5 ML IV PRN (23:17)
[2022-03-30] MEDS ORDERED: LORazepam 0.5 MG TAB PO PRN (23:17)
[2022-03-31] MEDS: LORazepam 2 MG/1 ML VIAL IV PRN ×2 (00:14→08:03)
--- NOTE | 2022-03-31 01:20 | History and Physical Report ---
DATE OF ADMISSION: 03/30/2022. CHIEF COMPLAINT: Agitation, confusion. HISTORY OF PRESENT ILLNESS: A 61-year-old male with past medical history significant for gout, history of chronic sinusitis, uncomplicated asthma, reflux esophagitis, chronic viral hepatitis C, BPH, degenerative disc disease, history of alcohol abuse, seems to be in remission, history of chronic pain syndrome, history of immunity to hepatitis B, history of cocaine abuse, who lives with his , presents with confusion, hallucinations, symptoms of aggressive behavior. The patient was recently in the hospital, was with metabolic encephalopathy with aggressive behavior, and found to be in RICK, thought encephalopathy from RICK and possible with medications. He was discharged home. said he initially did fine after going home. As per for one whole week he slept.Then he started to feel better and wanted go outside the house. In he sun he started to get sweating and started drinking a lot of water and he started getting confused. Since last couple of days, he is seeing some lady and he was thinking of hurting himself, running under the train and seems also was threatening the as per the ER. says he also had fever.He was eating okay. As per whenever he gets this episode, he is constipated and has difficulty micturating. The says, recently on 03/16/2022 his baclofen was upped to 20 mg and he was also started on duloxetine. EMS was called today for his aggressive behavior and he was given Versed and currently is sleeping. As per the , he did not go anywhere, they do not have car and is not drinking alcohol and did not do any drugs. Could not get any history from the patient as currently he is sedated. ALLERGIES: NSAIDS, HYDROCODONE, KETOROLAC, PENICILLINS, PREDNISONE, BACTRIM, TRAMADOL. PAST MEDICAL HISTORY: As mentioned above. PAST SURGICAL HISTORY: Right knee arthroplasty, right carpal tunnel surgery, colonoscopy, EGD, EGD with biopsy, laparoscopic left inguinal hernia repair. MEDICATIONS: The patient is on albuterol 2 puffs inhalation q. 4 hours p.r.n., allopurinol 300 mg p.o. a.m., baclofen 20 mg p.o. t.i.d., duloxetine 20 mg p.o. a.m., Flonase 2 sprays intranasal daily, multivitamins 1 tablet p.o. daily, omeprazole 20 mg p.o. a.m., oxycodone 10 mg p.o. q. 6 hours p.r.n., triamcinolone topical b.i.d. p.r.n. FAMILY HISTORY: Significant for father has alcoholism, arthritis, gout: Mother has diabetes, alcoholism; brother has alcoholism. SOCIAL HISTORY: , no smoking. Currently, no alcohol. Currently no drugs. REVIEW OF SYSTEMS: Unobtainable as the patient is sedated. PHYSICAL EXAMINATION: GENERAL: The patient is drowsy. VITAL SIGNS: Temperature 37.8, pulse 86, respiratory rate 20, blood pressure 126/66, oxygen 97% on room air. HEENT: Atraumatic. No facial droop seen. NECK: No JVD or neck masses seen. CARDIOVASCULAR: S1 and S2 heard. Regular rate and rhythm. No murmur, no gallop. RESPIRATORY SYSTEM: Normal AP diameter. No accessory muscle use. No wheezing, crackles. ABDOMEN: Soft, bowel sounds present, nontender, no distention. CENTRAL NERVOUS SYSTEM: Currently sedated. On touching, the patient seems to getting anxious and shaky. EXTREMITIES: No edema, no erythema. LABORATORY DATA: WBC 8.7, hemoglobin 12.5, hematocrit 36, platelets 250. Sodium 142, potassium 3.3, chloride 109, bicarbonate 21, BUN 34, creatinine 2.1, serum glucose 164, calcium 9.7, total bilirubin 1.5, AST 72, ALT 46, alkaline phosphatase 74. TSH 0.5. Salicylate less than 3, acetaminophen less than 3, ethyl alcohol less than 10. SARS-CoV-2 rapid test negative. IMAGING DATA: CT of the head, no acute findings. EKG: Sinus rhythm with occasional PVCs at a rate of 94, prolonged QTc at 482. ASSESSMENT AND PLAN: A 61-year-old male presents with confusion and agitation. 1. Confusion, agitation, recent metabolic encephalopathy, was admitted in the hospital recently. Having hallucinations.He has some mild fever, rule out infection. Empirically started on cefepime. Ordered blood cultures and urine cultures. May need lumbar puncture. Neurology consulted. CT head is okay. Also, this could be from medications. Recently, his baclofen was upped to 20 mg. We are holding baclofen. He was recently started on duloxetine, questionable underlying bipolar disorder causing manic episodes. Also holding also oxycodone, could be contributing. Closely monitor in the [employer] tele. IV fluids. We will also consult psych. 2. Acute kidney injury. Getting fluids. We will follow the repeat labs in the a.m. If worsening, we will consult nephrology . 3. History of gout. Continue allopurinol. 4. History of GERD. Continue omeprazole. 5. History of chronic pain syndrome. We are holding oxycodone, baclofen can restart at low-dose if needed. 6. History of hepatitis C. Needs followup. 7. History of cocaine abuse, history of alcohol abuse. Seems not taking them currently. We will follow the urine drug screen. 8. Deep venous thrombosis prophylaxis: Placed on sequential compression devices for now. DISPOSITION: Closely monitor in the [employer] tele. Level 1 full code. Expect to discharge home and follow with family doctor. Social service to help with discharge planning. Job ID: [id number]
[2022-03-31 06:08] LABS: Basophils # (auto) 0.06 K/uL (0-0.2); Basophils % (auto) 0.7 %; Eosinophils % (auto) 1.1 %; Hematocrit (blood only) 37.2 % (40.1-51.0); Hemoglobin 12.4 g/dl (14.0-18.0); Immature Granulocytes # (auto) 0.02 K/uL (0.00-0.02); Immature Granulocytes % (auto) 0.2 %; Lymphocytes # (auto) 2.29 K/uL (1.2-3.4); Mean Corpuscular Hemoglobin 30.2 pg (25.0-34.0); Mean Corpuscular Hgb Conc 33.3 g/dL (32.0-36.0); Mean Corpuscular Volume 90.5 fL (80.0-100.0); Mean Platelet Volume 10.2 fL (9.4-12.4); Monocytes # (auto) 1.11 K/uL (0.24-0.82); Monocytes % (auto) 12.1 %; Neutrophils # (auto) 5.58 K/uL (1.4-6.5); Neutrophils % (auto) 60.9 %; Platelet Count 224 K/uL (130-400); RDW Coefficient of Variation 13.2 % (11.5-14.5); RDW Standard Deviation 43.7 fL (36.4-46.3); Red Blood Count 4.11 M/uL (4.63-6.08); White Blood Count 9.16 K/ul (4.8-10.8)
[2022-03-31 06:53] LABS: Calcium 9.4 mg/dl (8.5-10.1); Creatinine Clr Calc Pharmacy 68.7 ml/min; Est GFR (African American) 68.6 ml/min; Est GFR (Non-African American) 59.2 ml/min; Magnesium 2.5 mg/dl (1.7-2.4); Potassium 3.5 mmol/L (3.5-5.1)
[2022-03-31] MEDS: SODIUM CHLORIDE 0.9% 1000ML 1,000 ML IV SCH ×3 (07:10→21:58)
[2022-03-31] MEDS ORDERED: oxyCODONE HCL IR 5 MG TAB (IMMEDIATE RELEASE) ONE (07:59)
[2022-03-31] MEDS: oxyCODONE HCL IR 5 MG TAB (IMMEDIATE RELEASE) PO PRN (08:03)
[2022-03-31] MEDS ORDERED: CEFEPIME 2,000 MG in SYRINGE 0 ML IV SCH (09:00)
[2022-03-31] MEDS ORDERED: CEFEPIME 1,000 MG in SYRINGE 0 ML IV SCH (09:00)
[2022-03-31] MEDS: CEFEPIME 2,000 MG/20 ML VIAL ONE ×2 (09:16→09:22)
[2022-03-31] MEDS: allopurinoL 300 MG TAB PO SCH (09:21)
[2022-03-31] MEDS: CEROVITE ADV FORMULA TAB PO SCH (09:21)
[2022-03-31] MEDS: PANTOprazole 40 MG TAB PO SCH (09:22)
[2022-03-31] MEDS: FLUTICASONE PROPIONATE NA SPR 16 GM BTL SCH (09:23)
--- NOTE | 2022-03-31 12:32 | Neurology Consultation ---
Date of Consultation March 31, 2022 Assessment & Plan (1) Acute metabolic encephalopathy: 1. MRI brain with and without - r/o stroke/lesions 2. EEG- if not already ordered 3. trend CK over time 4. baclofen ? if was taking ( abruptly stopped)? 5. check thiamine level, b12, folate, TSH if not already done 6. psychiatry involved. Supervising Physician Co-Signing Physician Notes A 61 year year old male admitted with behavioral changes, confusion, hypersomnolence, and encephalopathy. Recently admitted for metabollic encephalopathy and RICK. Ck elevated on admission concerning rhabdomyolysis possibly from being down. Recommend IVF and trending CK. Ddx includes encephalitis Vs FTD Vs substance induce or pharmacy Vs psychiatric. Recent CT abdomen and pelvis review - No mass. Recommend MRI brain w/wo to evaluate for signs of enhancement or PRES Recommend routine EEG Blood cultures pending Recommend checking sed rate, crp, RPR, lyme, anti-TPO, thiamine, folic acid, lactic acid, procalcitonin Psychiatric recommendations noted History of Present Illness Reason for Consultation: confusion, hallucination, Requesting Physician: Anshul Pantoja MD Attending Physician: Anshul Pantoja MD History of Present Illness Jacky is a 61 year old male with PMH- gout, chronic sinusitis, uncomplicated asthma, reflux esophagitis, chronic viral hepatitis C, BPH, DDD, history of alcohol abuse, seems to be in remission, chronic pain syndrome, immunity to hepatitis B, history of cocaine abuse, who lives with his , presents to [facility] 03/31/22 with confusion, hallucinations, symptoms of aggressive behavior. He w as recently in the hospital, was with metabolic encephalopathy with aggressive behavior, and found to be in RICK, thought encephalopathy from RICK and possible with medications. He was discharged home and initially did fine after going home but slept for a whole week. Then he started to feel better and wanted go outside the house. In he sun he started to sweat and started drinking a lot of water and he started getting confused. Since last couple of days, he is seeing some lady and he was thinking of hurting himself, running under the train and seems also was threatening the . He also had fever .He was eating okay. when he gets this episode, he is constipated and has difficulty micturating. He was on baclofen 03/16/2022 which was upped to 20 mg and he was also started on duloxetine. They do not have car and is not drinking alcohol and did not do any drugs. He is sleeping when entering he room but awakes easily. He is very cooperative and does not seem to be delirious His only complain is leg pain which he states is chronic. Allergies Allergy/AdvReac Type Severity Reaction Status Date / Time hydrocodone Allergy Severe GI SYMPTOMS Verified 03/30/22 21:05 ketorolac Allergy Intermediate makes sick Verified 03/30/22 21:05 Penicillins Allergy Unknown HAPPENED Verified 03/30/22 21:05 A CHILD prednisone AdvReac Severe Confusion Verified 03/30/22 21:05 sulfamethoxazole AdvReac Severe confusion Verified 03/30/22 21:05 [From Bactrim] trimethoprim [From Bactrim] AdvReac Severe confusion Verified 03/30/22 21:05 tramadol AdvReac Intermediate vomiting Verified 03/30/22 21:05 NSAIDS (Non-Steroidal AdvReac Unknown D/T LIVER Verified 03/30/22 21:05 Anti-Inflamma ISSUES Home Medications Medication Instructions Recorded Confirmed Type allopurinol 300 mg tablet 300 mg PO QAM 05/28/18 03/30/22 History omeprazole 20 mg capsule,delayed 20 mg PO QAM 05/28/18 03/30/22 History release triamcinolone acetonide 0.025 % 1 applic topical BID PRN Itching 05/28/18 03/30/22 History topical cream albuterol sulfate 90 mcg/actuation 2 puff inhalation Q4 PRN Shortness 10/09/19 03/30/22 History aerosol inhaler Of Breath Or Wheezing fluticasone propionate 50 2 spray intranasal DAILY 10/09/19 03/30/22 History mcg/actuation nasal spray,suspension (Flonase Allergy Relief) oxycodone 10 mg tablet 10 mg PO Q6H PRN Pain 03/09/22 03/30/22 History baclofen 20 mg tablet 20 mg PO TID 03/30/22 03/30/22 History duloxetine 20 mg capsule,delayed 20 mg PO QAM 03/30/22 03/30/22 History release jgwjbusk-twihwkax-vhark acid 400 1 tab PO DAILY 03/30/22 03/30/22 History mcg-vit K 20 mcg-lycop 300 mcg tablet (Men's Multivitamin) Patient History Medical History 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 Arthritis Chronic pain syndrome Delirium Gout Hepatitis C Surgical History H/O hernia repair Hx of tooth extraction Family History Mother Diabetes Brother Liver disease Social History Smoking Status: Unknown if ever smoked Preferred Language: Czech Communication Ability: Effective Vest Maker Required: No Beliefs That Will Affect Care: None marital status: Current Living Situation: Spouse Current Living Situation Comment: Couldn't provide assessment information due to somulence. How many Children do You have: 2 Feels Safe at Home: Yes Assistive Devices: Cane and Walker Review of Systems Review of Systems: All systems reviewed & are unremarkable except as noted in HPI & below Physical Exam Physical Exam: Physical Exam: Constitutional: appearance nourished, healthy Ears, Nose, Mouth and Throat: mucous membranes moist, no injection and skin normal, eyes normal Cardiovascular: normal S-1 and S-2 and regular rate and rhythm Respiratory: course breath sounds Musculoskeletal: no peripheral edema Skin: no stigmata of neurocutaneous disease noted and normal and intact Eyes: extraocular muscles intact (EOMI) and pupils equal, round and reactive to light (PERRL) NEUROLOGIC EXAMINATION: Mental status: Alert and interactive he knows he is in [facility] Oriented to person Speech fluent with no evidence of aphasia Cranial Nerves smile eye brow raise symmetric Reflexes: Deep tendon reflexes were symmetrical decreased through out Sensory: light cool vibration intact Coordination: finger to nose Gait/Stance: Posture lying in bed Motor: Negative for pronator drift of out stretched arms with eyes closed. Strength: hand sr. consultant biceps triceps 5/5, hip flex 5/5 plantar flex ext 5/5 Results & Data ([facility]) Vital Signs (Past 12 Hours) Vital Signs Pulse Resp BP Pulse Ox O2 Del Method 03/31/22 07:00 84 22 125/62 98 Room Air 03/31/22 05:15 67 18 135/75 100 Room Air 03/31/22 05:00 76 18 113/68 96 Room Air Laboratory Results Abnormal lab results 03/30/22 03/30/22 03/30/22 Range/Units 18:58 18:58 18:58 RBC 4.09 L (4.63-6.08) M/uL Hgb 12.5 L (14.0-18.0) g/dl Hct 36.0 L (40.1-51.0) % Neut # (Auto) 7.26 H (1.4-6.5) K/uL Lymph # (Auto) 0.79 L (1.2-3.4) K/uL Rooks # (Auto) (0.24-0.82) K/uL Immature Gran # (Auto) 0.03 H (0.00-0.02) K/uL Potassium 3.3 L (3.5-5.1) mmol/L Chloride 109 H (98-107) mmol/L Anion Gap 12 H (3-11) BUN 34 H (6-23) mg/dl Creatinine 2.14 H (0.6-1.4) mg/dl BUN/Creatinine Ratio (10-20) Glucose 164 H (70-99(Fasting)) mg/dl Magnesium (1.7-2.4) mg/dl Total Bilirubin 1.5 H (0.2-1.0) mg/dl Direct Bilirubin (0-0.2) mg/dl AST 72 H (13-39) U/L Total Creatine Kinase (30-223) U/L Salicylates < 3.0 L (3.0-30) mg/dl Acetaminophen < 3 L (10-30) ug/ml 03/31/22 03/31/22 03/31/22 Range/Units 05:27 05:27 12:53 RBC 4.11 L (4.63-6.08) M/uL Hgb 12.4 L (14.0-18.0) g/dl Hct 37.2 L (40.1-51.0) % Neut # (Auto) (1.4-6.5) K/uL Lymph # (Auto) (1.2-3.4) K/uL Rooks # (Auto) 1.11 H (0.24-0.82) K/uL Immature Gran # (Auto) (0.00-0.02) K/uL Potassium (3.5-5.1) mmol/L Chloride 108 H (98-107) mmol/L Anion Gap (3-11) BUN 34 H (6-23) mg/dl Creatinine (0.6-1.4) mg/dl BUN/Creatinine Ratio 26.0 H (10-20) Glucose (70-99(Fasting)) mg/dl Magnesium 2.5 H (1.7-2.4) mg/dl Total Bilirubin 2.0 H (0.2-1.0) mg/dl Direct Bilirubin 0.5 H (0-0.2) mg/dl AST 91 H (13-39) U/L Total Creatine Kinase 1525 H (30-223) U/L Salicylates (3.0-30) mg/dl Acetaminophen (10-30) ug/ml Diagnostic Findings CT head-No acute intracranial findings. Interval improvement in paranasal sinus disease since CT of March 09, 2022.
--- NOTE | 2022-03-31 12:42 | Hospitalist Progress Note ---
Date of Service March 31, 2022 Assessment & Plan (1) Aggressive behavior: Plan: - reportedly from , acting aggressive and bizarre behavior - could be related to recent medication changes and dehydration - will hold baclofen and duloxetine at this time - patient has psychomotor agitation but is otherwise cooperative with exam - denies SI/HI - is able to recall events accurately laid out in H&P HPI - psychiatry evaluation pending (2) Acute renal failure: Plan: - Cr 2.1 on admission with baseline around 0.9 - likely due to dehydration - receiving IVF - Cr improved to 1.31 with IVF indicating likely prerenal etiology - continue IVF for now - strict I/O (3) Elevated LFTs: Plan: - elevated AST top 72 - denies recent alcohol use as does - could be in the setting of mild rhabdo due to dehydration - will repeat LFTs and get CK - if still elevated, consider RUQ US although has had evidence of hepatic steatosis on previous CT scans - monitor for now Plan DVT ppx: lovenox Full Code Anshul Pantoja MD Hospital Medicine Admission and Anticipated Discharge Date Admission Date: March 30, 2022 Subjective A 61-year-old male with past medical history significant for gout, history of chronic sinusitis, uncomplicated asthma, reflux esophagitis, chronic viral hepatitis C, BPH, degenerative disc disease, history of alcohol use disorder that seems to be in remission, history of chronic pain syndrome, history of cocaine use disorder who lives with his , presents with confusion, hallucinations, symptoms of aggressive behavior. Recently increased baclofen 10-->20mg, started duloxetine. Appears to have been dehydrated and may have acute delierum/agitation from medication increase and dehydration. Found to have RICK. Patient has psychomotor agitation on exam. Reports remember events of yesterday and says he is not trying to hurt himself and that was not his plan for going under the bridge. Denied chest pain, fevers or chills, nausea or vomiting, diarrhea. Acknowledges above medications changes. Says he and his got into an argument when he tried to go inside to get cool and she told him to go back outside, which he noted was hot. Otherwise, he is oriented x4, waiting for psychiatrist evaluation. Review of Systems Review of Systems: All systems reviewed & are unremarkable except as noted in Subjective Physical Exam Constitutional: + obese Eyes: PERRL, conjunctivae normal, anicteric sclerae ENMT: external ear and nose normal, oropharynx normal Neck: trachea midline, no thyromegaly Respiratory: normal respiratory effort, lungs clear to auscultation Cardiovascular: RRR, no murmur, no edema Gastrointestinal (Abdomen): normal bowel sounds, soft, nontender, no hepatosplenomegaly Musculoskeletal: no cyanosis or clubbing, extremities motor strength 5/5 Skin: no rashes, warm and dry Neurologic: patellar DTR's 2+ bilat, sensation intact and PERRL, EOMI, accommodation nl, no face palsy, no dysarthria Psychiatric: Orientation: alert and oriented x 3 Eye Contact: good eye contact Motor Behavior: steady gait and station and + psychomotor agitation Speech: + loud speech Affect: + elated affect Suicidal Thoughts: denies suicidal thoughts Cognition: recent memory grossly intact Results & Data Results & Data ([facility]) Vital Signs (Past 12 Hours) Vital Signs Pulse Resp BP Pulse Ox O2 Del Method 03/31/22 07:00 84 22 125/62 98 Room Air 03/31/22 05:15 67 18 135/75 100 Room Air 03/31/22 05:00 76 18 113/68 96 Room Air Laboratory Results Short CBC 03/30/22 03/31/22 Range/Units 18:58 05:27 WBC 8.74 9.16 (4.8-10.8) K/ul Hgb 12.5 L 12.4 L (14.0-18.0) g/dl Hct 36.0 L 37.2 L (40.1-51.0) % Plt Count 250 224 (130-400) K/uL BMP 03/30/22 03/31/22 18:58 05:27 Sodium 142 142 Potassium 3.3 L 3.5 Chloride 109 H 108 H Carbon Dioxide 21 27 BUN 34 H 34 H Creatinine 2.14 H 1.31 D Glucose 164 H 93 Calcium 9.7 9.4 Liver Function 03/30/22 Range/Units 18:58 Total Bilirubin 1.5 H (0.2-1.0) mg/dl AST 72 H (13-39) U/L ALT 46 (7-52) U/L Alkaline Phosphatase 74 (34-104) U/L Albumin 4.5 (3.4-5.0) gm/dl Medications Administered Current Inpatient Medications Acetaminophen (Acetaminophen 325 Mg Tab) 650 mg PO Q4H PRN PRN Reason: Pain or Fever Stop: 04/29/22 22:40 Last Admin: 03/31/22 00:14 Dose: 650 mg Albuterol (Albuterol Hfa 8 Gm Inhaler) 2 puffs INH Q4 PRN PRN Reason: Shortness Of Breath Or Wheezing Stop: 04/29/22 22:40 Allopurinol (Allopurinol 300 Mg Tab) 300 mg PO QAM [facility] Stop: 04/30/22 08:59 Last Admin: 03/31/22 09:21 Dose: 300 mg Fluticasone Propionate (Fluticasone Propionate Na Spr 16 Gm Btl) 2 sprays NA DAILY LEVI Stop: 04/30/22 08:59 Last Admin: 03/31/22 09:23 Dose: 2 sprays Sodium Chloride (Nss 1000ml) 1,000 mls @ 125 mls/hr IV .Q8H LEVI Stop: 04/29/22 22:40 Last Admin: 03/31/22 07:10 Dose: 125 mls/hr Lorazepam 1 mg/ Syringe 1 mls @ 2 mls/min IV Q4H PRN PRN Reason: Anxiety/Agitation Stop: 04/29/22 23:16 Cefepime HCl 2,000 mg/ Syringe 20 mls @ 5 mls/min IV Q12H [facility]; Protocol Stop: 04/02/22 08:59 Last Admin: 03/31/22 09:24 Dose: Not Given Lorazepam (Lorazepam 0.5 Mg Tab) 0.5 mg PO HS PRN PRN Reason: Insomnia Stop: 04/29/22 23:16 Lorazepam (Lorazepam 2 Mg/1 Ml Vial) 1 mg IV Q4H PRN PRN Reason: ANXIETY/AGITATION Stop: 04/29/22 23:29 Last Admin: 03/31/22 08:03 Dose: 1 mg Multivitamins/Minerals (Cerovite Adv Formula Tab) 1 tab PO DAILY LEVI Stop: 04/30/22 08:59 Last Admin: 03/31/22 09:21 Dose: 1 tab Nitroglycerin (Nitroglycerin Sl 0.4 Mg/Tab Tab) 0.4 mg SL UD PRN PRN Reason: Chest Pain Stop: 04/29/22 22:40 Oxycodone HCl (Oxycodone Hcl Ir 5 Mg Tab (Immediate Release)) 10 mg PO Q6 PRN PRN Reason: Pain Stop: 04/14/22 07:50 Last Admin: 03/31/22 08:03 Dose: 10 mg Pantoprazole Sodium (Pantoprazole 40 Mg Tab) 40 mg PO QAM [facility] Stop: 04/30/22 08:59 Last Admin: 03/31/22 09:22 Dose: 40 mg Polyethylene Glycol (Polyethylene (Miralax) 17 Gm Pack) 17 gm PO DAILY PRN PRN Reason: Constipation Stop: 04/29/22 22:40 Triamcinolone Acetonide (Triamcinolone Acet 0.025% Cr 15 Gm Tube) 1 appln TOP BID PRN PRN Reason: Itching Stop: 04/29/22 22:40 (1) Acute renal failure Acute renal failure type: unspecified Qualified Code(s): N17.9 - Acute kidney failure, unspecified
[2022-03-31 13:38] LABS: Albumin Level 3.9 gm/dl (3.4-5.0); Bilirubin Direct 0.5 mg/dl (0-0.2); Total Protein 6.6 gm/dl (6.0-8.3)
--- NOTE | 2022-03-31 14:37 | Electrocardiogram Report ---
Test Reason : Blood Pressure : / mmHG Vent. Rate : 094 BPM Atrial Rate : 094 BPM P-R Int : 146 ms QRS Dur : 082 ms QT Int : 386 ms P-R-T Axes : 016 047 058 degrees QTc Int : 482 ms Sinus rhythm with occasional Premature ventricular complexes Prolonged QT Abnormal ECG When compared with ECG of 09-MAR-2022 13:28, Premature ventricular complexes are now Present Confirmed by Bello Blackwell ([id number]) on 03/31/2022 2:36:34 PM Referred By: REFERRED SELF Confirmed By:Bello Blackwell
--- NOTE | 2022-03-31 15:53 | Psychiatric Consultation ---
Date of Consultation March 31, 2022 Impression / Recommendations Impression 61-year-old man with history of metabolic encephalopathy in the context of RICK re-presents on 302 warrant with visual hallucinations, statements of SI/HI and behavioral dysregulation consistent with likely agitated delirium. We will keep 302 warrant for now until a psychiatric liaison can confirm no known psychiatric history and rule out any history of BPAD/acute ean with his . Agree with holding duloxetine. (1) Delirium: Plan - Would limit use of lorazepam as this can worsen acute delirium -Continue medical workup to rule out and treat any underlying causes contributing to potential delirium, avoid or limit use of deliriogenic medications (benzodiazepines, opioids, anticholinergics) -Continue with delirium prevention measures: raising blinds during the day, closing at night, frequent re-orientation, contact with family/friends, explaining procedures/nursing care measures prior to physical contact, correct any hearing and visual impairments -For behavioral emergency: olanzapine 5 mg po or IM x 1 (DO NOT exceed 10mg per 24 hours, check EKG if IM dose required, NEVER co-administer with IM or IV benzodiazepines). -Psych liason to get collateral -Requires 1-on-1 on medical floor due to 302 warrant, cannot leave AMA; will re- eval necessity of warrant once collateral history confirmed, if symptoms driven by underlying medical condition then warrant will need to be dispositioned Risk Factors Assessment Do You Have Access To A Gun?: No Psych History Identifying Data 61-year-old man with multiple chronic medical conditions and history of recent admission for metabolic encephalopathy in early March 2022 due to MELANY who presented on a 302 warrant for agitated behavior and statements of SI and HI admitted medically due to concern for acute kidney injury. Psychiatry consulted for risk assessment and recommendations. Chief Complaint "I might have said something to the graphic arts technician about my dog and I going down by the tracks but I would never do that I was just frustrated with all this medical stuff". History of Present Illness Jacky presented to the ED via EMS on a 302 warrant after altered behavior at home, reportedly significantly different from his typical baseline, and making statements of SI and HI towards his with whom he lives. The 302 petition was completed by his Jackelin and reads "Has been very delusional. 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 March 09 2022 due to heat. 3rd today due to being in heat for 3 days with no sleep. Very dehydrated drinks gallons of water for dehydration which makes the cramps worse. Today 03-30-22, he was seeing his mom and been talking to brother for 2 days. He seen the witch of today and his solution was to jump in front of the train." His 's 302 petitioning statement sounds like he was experiencing visual hallucinations at home prior to presenting to the ED. On route to the ED he became very agitated requiring sedating medication. Review of hospitalist H&P his endorsed he had a possible fever in recent days possible dehydration with increased water consumption constipation difficulty with urination and recent medication changes including increase in baclofen and initiation of duloxetine 20 mg daily. Per collateral from his there is no concern for any recent substance use. Today Jacky presents initially sleeping but awakens with my verbal prompts. He is oriented to being in the hospital knows the city month and year. He cannot recall becoming agitated and denies that this would have occurred. He did describe to the psychiatric liaison that sometimes he and his get into arguments and says he may have gotten upset at her but denies making any specific threats to harm her. He also adamantly denies any current suicidal thoughts stating that he has a new granddaughter and many reasons to live. States that he made the statement of "going down by the tracks" because he is frustrated with his medical conditions and frequent kidney issues but adamantly denies that he would ever attempt suicide. He denies any symptoms of depression or anxiety. Denies any prior attempts or any history of prior psychiatric hospitalization. Firmed his baclofen was recently increased and that he recently started Cymbalta. He is eager to leave but understands that the medical team wants to continue to monitor his kidneys and ensure his health is improving. He denies any current visual or auditory hallucinations. 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 Agrees to let psychiatric liaison contact his for further collateral. Past Psychiatric History Outpatient Services: none Previous Psych Admissions: Denies Do You Have Access To A Gun?: No History of Previous Suicide Attempt: No Allergies Allergy/AdvReac Type Severity Reaction Status Date / Time hydrocodone Allergy Severe GI SYMPTOMS Verified 03/30/22 21:05 ketorolac Allergy Intermediate makes sick Verified 03/30/22 21:05 Penicillins Allergy Unknown HAPPENED Verified 03/30/22 21:05 A CHILD prednisone AdvReac Severe Confusion Verified 03/30/22 21:05 sulfamethoxazole AdvReac Severe confusion Verified 03/30/22 21:05 [From Bactrim] trimethoprim [From Bactrim] AdvReac Severe confusion Verified 03/30/22 21:05 tramadol AdvReac Intermediate vomiting Verified 03/30/22 21:05 NSAIDS (Non-Steroidal AdvReac Unknown D/T LIVER Verified 03/30/22 21:05 Anti-Inflamma ISSUES Home Medications Medication Instructions Recorded Confirmed Type allopurinol 300 mg tablet 300 mg PO QAM 05/28/18 03/30/22 History omeprazole 20 mg capsule,delayed 20 mg PO QAM 05/28/18 03/30/22 History release triamcinolone acetonide 0.025 % 1 applic topical BID PRN Itching 05/28/18 03/30/22 History topical cream albuterol sulfate 90 mcg/actuation 2 puff inhalation Q4 PRN Shortness 10/09/19 03/30/22 History aerosol inhaler Of Breath Or Wheezing fluticasone propionate 50 2 spray intranasal DAILY 10/09/19 03/30/22 History mcg/actuation nasal spray,suspension (Flonase Allergy Relief) oxycodone 10 mg tablet 10 mg PO Q6H PRN Pain 03/09/22 03/30/22 History baclofen 20 mg tablet 20 mg PO TID 03/30/22 03/30/22 History duloxetine 20 mg capsule,delayed 20 mg PO QAM 03/30/22 03/30/22 History release imdiznjv-hwwsezsf-ssrgs acid 400 1 tab PO DAILY 03/30/22 03/30/22 History mcg-vit K 20 mcg-lycop 300 mcg tablet (Men's Multivitamin) Family History Father had a history of depression and alcohol use disorder and attempted suicide Substance Abuse History Endorses history of significant alcohol use in the past but none for greater than 10 years. Denies any other current substance use. Personal History Living Arrangements: Home Employment Status: Disabled Marital Status: Beliefs That Will Affect Care: None Patient History Medical History 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 Arthritis Chronic pain syndrome Delirium Gout Hepatitis C Surgical History H/O hernia repair Hx of tooth extraction Family History Mother Diabetes Brother Liver disease Social History Smoking Status: Unknown if ever smoked Preferred Language: Croatian Communication Ability: Effective Director Bioinformatics Required: No Beliefs That Will Affect Care: None marital status: Current Living Situation: Spouse Current Living Situation Comment: Couldn't provide assessment information due to somulence. How many Children do You have: 2 Feels Safe at Home: Yes Assistive Devices: Cane and Walker Physical Exam Psychiatric: Orientation: alert and oriented x 3 Apperance: + disheveled Eye Contact: + fair eye contact Motor Behavior: + psychomotor agitation; n EPS and n tremor Speech: + loud speech; + abnormal rate/rhythm/volume of speech (fast but non pressured) Affect: + labile affect (elevated) Mood: no depressed mood, no anxious mood and no irritable mood Thought Process: + tangential thought process and + looseness of associations Thought Content: reality based without delusions Suicidal Thoughts: denies suicidal thoughts Homicidal Thoughts: denies homicidal thoughts Hallucinations: no auditory hallucinations and no visual hallucinations Cognition: remote memory grossly intact and language grossly intact; + recent memory not intact and + attention not intact Estimated Intelligence: consistent with education level Insight: + impaired insight Judgement: + impaired judgement Vital Signs (Past 24 Hours): Last Vital Signs Temp 37.8 C H 03/30/22 18:50 Pulse 81 03/31/22 14:50 Resp 20 03/31/22 14:50 BP 125/62 03/31/22 07:00 Pulse Ox 100 03/31/22 14:50 O2 Del Method 03/31/22 14:50 Review of Systems All systems reviewed & are unremarkable except as noted in HPI & below Results & Data (PSY) Laboratory Results Normal sodium and normal ammonia, QTC 482 MS on EKG from 03/30/2022 Medications Administered Acetaminophen (Acetaminophen 325 Mg Tab) 650 mg PO Q4H PRN PRN Reason: Pain or Fever Stop: 04/29/22 22:40 Last Admin: 03/31/22 00:14 Dose: 650 mg Documented By: SHAQUILLE Allopurinol (Allopurinol 300 Mg Tab) 300 mg PO QAM LEVI Stop: 04/30/22 08:59 Last Admin: 03/31/22 09:21 Dose: 300 mg Documented By: MAHAD Fluticasone Propionate (Fluticasone Propionate Na Spr 16 Gm Btl) 2 sprays NA DAILY LEVI Stop: 04/30/22 08:59 Last Admin: 03/31/22 09:23 Dose: 2 sprays Documented By: MAHAD Sodium Chloride (Nss 1000ml) 1,000 mls @ 125 mls/hr IV .Q8H LEVI Stop: 04/29/22 22:40 Last Admin: 03/31/22 14:34 Dose: 125 mls/hr Documented By: Infusion: 03/31/22 14:21 Dose: 0 mls/hr Documented By: Admin: 03/31/22 07:10 Dose: 125 mls/hr Documented By: Infusion: 03/31/22 07:10 Dose: 125 mls/hr Documented By: Admin: 03/30/22 23:11 Dose: 125 mls/hr Documented By: SHAQUILLE Lorazepam (Lorazepam 2 Mg/1 Ml Vial) 1 mg IV Q4H PRN PRN Reason: ANXIETY/AGITATION Stop: 04/29/22 23:29 Last Admin: 03/31/22 08:03 Dose: 1 mg Documented By: Admin: 03/31/22 00:14 Dose: 1 mg Documented By: SHAQUILLE Multivitamins/Minerals (Cerovite Adv Formula Tab) 1 tab PO DAILY LEVI Stop: 04/30/22 08:59 Last Admin: 03/31/22 09:21 Dose: 1 tab Documented By: MAHAD Oxycodone HCl (Oxycodone Hcl Ir 5 Mg Tab (Immediate Release)) 10 mg PO Q6 PRN PRN Reason: Pain Stop: 04/14/22 07:50 Last Admin: 03/31/22 08:03 Dose: 10 mg Documented By: MAHAD Pantoprazole Sodium (Pantoprazole 40 Mg Tab) 40 mg PO QAM LEVI Stop: 04/30/22 08:59 Last Admin: 03/31/22 09:22 Dose: 40 mg Documented By: MAHAD Coding Level of Care Code 10035 Inpt Consult Level 3 Diagnoses Delirium R41.0
[2022-03-31] MEDS ORDERED: OLANZapine 10 MG/2.1 ML SDV IM PRN (16:10)
[2022-04-01 03:36] LABS: Appearance Urine Clear (Clear); Bacteria Urine Automated Negative (Negative); Bilirubin Urine Negative (Negative); Blood Urine Negative (Negative); Color Urine Dark Yellow; Glucose Urine UA Negative (Negative); Ketones Urine Trace (Negative); Leukocyte Esterase Urine Negative (Negative); Nitrite Urine Negative (Negative); Protein Urine 1+ (Negative); RBC Urine Automated 0-4 /hpf (0-4); Specific Gravity Urine 1.031 (1.000-1.030); Urobilinogen Urine Negative (Negative)
[2022-04-01] MEDS: oxyCODONE HCL IR 5 MG TAB (IMMEDIATE RELEASE) PO PRN ×3 (04:02→22:15)
[2022-04-01 04:25] LABS: Amphetamines+Metham, Urine Pos (Neg); Barbiturates, Urine Neg (Neg); Benzodiazepine, Urine Pos (Neg); Cocaine, Urine Neg (Neg); MDMA (Ecstacy), Urine Pos (Neg); Methadone, Urine Neg (Neg); Opiate, Urine Neg (Neg); Phencyclidine, Urine Neg (Neg)
[2022-04-01 05:52] LABS: Basophils # (auto) 0.04 K/uL (0-0.2); Basophils % (auto) 0.8 %; Eosinophils # (auto) 0.23 K/uL (0-0.50); Eosinophils % (auto) 4.4 %; Hematocrit (blood only) 33.7 % (40.1-51.0); Hemoglobin 11.6 g/dl (14.0-18.0); Immature Granulocytes # (auto) 0.02 K/uL (0.00-0.02); Immature Granulocytes % (auto) 0.4 %; Lymphocytes # (auto) 1.22 K/uL (1.2-3.4); Lymphocytes % (auto) 23.3 %; Mean Corpuscular Hemoglobin 30.7 pg (25.0-34.0); Mean Corpuscular Hgb Conc 34.4 g/dL (32.0-36.0); Mean Corpuscular Volume 89.2 fL (80.0-100.0); Mean Platelet Volume 10.6 fL (9.4-12.4); Monocytes # (auto) 0.47 K/uL (0.24-0.82); Neutrophils # (auto) 3.25 K/uL (1.4-6.5); Neutrophils % (auto) 62.1 %; Platelet Count 178 K/uL (130-400); RDW Coefficient of Variation 13.1 % (11.5-14.5); RDW Standard Deviation 42.7 fL (36.4-46.3); Red Blood Count 3.78 M/uL (4.63-6.08); White Blood Count 5.23 K/ul (4.8-10.8)
[2022-04-01 06:31] LABS: Albumin Globulin Ratio 1.3 (0.9-2); Albumin Level 3.5 gm/dl (3.4-5.0); BUN Creatinine Ratio 27.1 (10-20); Calcium 8.5 mg/dl (8.5-10.1); Creatinine Clr Calc Pharmacy 105.9 ml/min; Est GFR (African American) 110.5 ml/min; Est GFR (Non-African American) 95.4 ml/min; Globulin 2.7 gm/dl (2.5-4.0); Magnesium 1.9 mg/dl (1.7-2.4); Phosphorus 2.3 mg/dl (2.5-4.9); Total Protein 6.2 gm/dl (6.0-8.3)
[2022-04-01 06:38] LABS: Folate (Folic Acid) 17.91 ng/ml (>5.38)
[2022-04-01] MEDS: SODIUM CHLORIDE 0.9% 1000ML 1,000 ML IV SCH ×3 (06:45→23:34)
[2022-04-01] MEDS: POTASSIUM CHLORIDE CRTAB 20 MEQ TABCR PO SCH ×2 (09:00→14:32)
[2022-04-01] MEDS: allopurinoL 300 MG TAB PO SCH (09:01)
[2022-04-01] MEDS: CEROVITE ADV FORMULA TAB PO SCH (09:02)
[2022-04-01] MEDS: ENOXAPARIN INJ 40 MG/0.4 ML SYR SQ SCH (09:02)
[2022-04-01] MEDS: PANTOprazole 40 MG TAB PO SCH (09:03)
[2022-04-01] MEDS: FLUTICASONE PROPIONATE NA SPR 16 GM BTL SCH (09:08)
--- NOTE | 2022-04-01 13:39 | Psychiatric Progress Note ---
Date of Service April 01, 2022 Impression / Recommendations Impression 61-year-old man with history of metabolic encephalopathy in the context of RICK. Diagnostically consistent with acute delirium, no history of psychiatric symptoms and no further visual hallucinations, SI or HI since receiving medical treatment. Would continue to monitor for possible alcohol withdrawal given reported history of use, amount and frequency unclear, per his 's collateral. Given that he has no underlying psychiatric conditions, no current SI/HI/ean/nor psychosis I have disposition'd his 302 and he remains willing to continue to receive voluntary medical treatment. He is safe for discharge from a psychiatric standpoint once medically stable, acute risk of self-harm is low given denial of SI and no prior attempts or depression symptoms and acute risk of harm to others is low given denial of HI and no evidence of aggression now that delirium is being treated. Given his delirium he does not currently have decision making capacity regarding leaving AMA as he cannot state any of the risks/benefits/alternatives/state a clear choice or provide rationale but this would need to be re-evaluated as his delirium improves. (1) Delirium: Plan -Consider AWSS/monitor for signs of alcohol withdrawal given unclear recent use, if showing signs of withdrawal then would advise using lorazepam per protocol -Continue medical workup to rule out and treat any underlying causes contributing to potential delirium, avoid or limit use of deliriogenic medications (benzodiazepines, opioids, anticholinergics) -Continue with delirium prevention measures: raising blinds during the day, closing at night, frequent re-orientation, contact with family/friends, explaining procedures/nursing care measures prior to physical contact, correct any hearing and visual impairments -For behavioral emergency: olanzapine 5 mg po or IM x 1 (DO NOT exceed 10mg per 24 hours, check EKG if IM dose required, NEVER co-administer with IM or IV benzodiazepines). -Psych liason to get collateral -No longer requires 1-on-1, no longer on 302, cannot leave AMA as does not have decision making capacity Risk Factors Assessment Do You Have Access To A Gun?: No Interval History Identifying Information 61-year-old man with multiple chronic medical conditions and history of recent admission for metabolic encephalopathy in early March 2022 due to MELANY who presented on a 302 warrant for agitated behavior and statements of SI and HI admitted medically due to concern for acute kidney injury. Chief Complaint "I'm good". Review of Systems Notes slept last night, eating Subjective Subjective Patient was seen & assessed and interval progress reviewed. Jacky reports his mood is "good". He is fully alert and oriented. He is laying in bed appears to have less psychomotor agitation today and his voice is softer. He continues to deny suicidal ideation and homicidal ideation again stating strong deterrent to this/reason for living as his new granddaughter and family. I asked him again about alcohol use he continues to deny any recent alcohol or other substance use. He remains eager to leave the hospital and wonders how much longer he will need to stay but is in agreement with continuing to seek treatment for his kidney injury. He is otherwise unable to describe why he is in the hospital, benefits of continuing to receive care, any risks of not receiving care, any alternatives, or any risks of returning home. Collateral information from his that the psychiatric liaison gathered was reviewed. Notable for no psychiatric history other than his 's concern that he may have been drinking within the last week as his son brought him a jug of liquor. He has no prior history of any suicide attempts. Further collateral per psych liason note on 03/31/22. Physical Exam Psychiatric Orientation: alert and oriented x 3 Apperance: appropriately dressed and appropriately groomed Eye Contact: good eye contact Motor Behavior: no abnormal motor movements Speech: normal rate/rhythm/volume of speech Affect: euthymic affect Mood: no depressed mood, no anxious mood and no irritable mood Thought Process: + concrete thought process Thought Content: reality based without delusions Suicidal Thoughts: denies suicidal thoughts Homicidal Thoughts: denies homicidal thoughts Hallucinations: no auditory hallucinations and no visual hallucinations Cognition: remote memory grossly intact and language grossly intact; + recent memory not intact and + attention not intact Estimated Intelligence: consistent with education level Insight: + impaired insight Judgement: + impaired judgement Vital Signs (Past 24 Hours) Last Vital Signs Temp 36.8 C 04/01/22 11:22 Pulse 63 04/01/22 11:22 Resp 20 04/01/22 11:22 BP 153/99 H 04/01/22 11:22 Pulse Ox 99 04/01/22 11:22 O2 Del Method 04/01/22 06:00 Results & Data ([facility]) Laboratory Results Laboratory Results - last 24 hr 04/01/22 04/01/22 04/01/22 03:16 03:16 03:16 WBC RBC Hgb Hct MCV MCH MCHC RDW Std Deviation RDW Coeff of Bharat Plt Count MPV Immature Gran % (Auto) Neut % (Auto) Lymph % (Auto) Osborne % (Auto) Eos % (Auto) Baso % (Auto) Neut # (Auto) Lymph # (Auto) Osborne # (Auto) Eos # (Auto) Baso # (Auto) Immature Gran # (Auto) Sodium Potassium Chloride Carbon Dioxide Anion Gap BUN Creatinine Est Cr Clr Drug Dosing Est GFR ( Amer) Est GFR (Non-Af Amer) BUN/Creatinine Ratio Glucose Calcium Phosphorus Magnesium Total Bilirubin AST ALT Alkaline Phosphatase Total Creatine Kinase Total Protein Albumin Globulin Albumin/Globulin Ratio Vitamin B12 Folate Urine Color Dark Yellow Urine Appearance Clear Urine pH 6.0 Ur Specific [place] 1.031 H Urine Protein 1+ H Urine Glucose (UA) Negative Urine Ketones Trace H Urine Blood Negative Urine Nitrite Negative Urine Bilirubin Negative Urine Urobilinogen Negative Ur Leukocyte Esterase Negative Urine WBC (Auto) 1-5 Urine RBC (Auto) 0-4 U Hyaline Cast (Auto) 1-5 U Epithel Cells (Auto) 5-10 H Urine Bacteria (Auto) Negative Urine Opiates Screen Neg Ur Methadone, Qual Neg Urine Barbiturates Neg Ur Phencyclidine (PCP) Neg U Amphetamines Confirm Pending U Amphetamin/Meth Scrn Pos H U Methamphetamin Confrm Pending Urine MDEA Pending MDMA (Ecstasy) Screen Pos H MDMA Pending Urine MDMA Pending U OH-Alprazolam Confrm Pending U Benzodiazepines Scrn Pos H 7-Amino Clonazepam Pending Ur Nordiazepam Confirm Pending U OH-ethylflurazepam Pending U Lorazepam Cnf GC/MS Pending U Oxazepam Confm GC/MS Pending Ur Temazepam Confirm Pending U OH-Triazolam Confirm Pending U OH-Midazolam Confirm Pending Ur Cocaine Metabolite Neg U Marijuana (THC) Screen Pos H U Marijuana THC Carboxy Pending Drug Screen Comment Pending 04/01/22 04/01/22 04/01/22 05:18 05:18 05:18 WBC 5.23 RBC 3.78 L Hgb 11.6 L Hct 33.7 L MCV 89.2 MCH 30.7 MCHC 34.4 RDW Std Deviation 42.7 RDW Coeff of Bharat 13.1 Plt Count 178 MPV 10.6 Immature Gran % (Auto) 0.4 Neut % (Auto) 62.1 Lymph % (Auto) 23.3 Osborne % (Auto) 9.0 Eos % (Auto) 4.4 Baso % (Auto) 0.8 Neut # (Auto) 3.25 Lymph # (Auto) 1.22 Osborne # (Auto) 0.47 Eos # (Auto) 0.23 Baso # (Auto) 0.04 Immature Gran # (Auto) 0.02 Sodium 139 Potassium 3.0 L Chloride 109 H Carbon Dioxide 23 Anion Gap 7 BUN 23 Creatinine 0.85 D Est Cr Clr Drug Dosing 105.9 Est GFR ( Amer) 110.5 Est GFR (Non-Af Amer) 95.4 BUN/Creatinine Ratio 27.1 H Glucose 114 H Calcium 8.5 Phosphorus 2.3 L Magnesium 1.9 Total Bilirubin 1.0 D AST 65 H ALT 47 Alkaline Phosphatase 58 Total Creatine Kinase 599 H Total Protein 6.2 Albumin 3.5 Globulin 2.7 Albumin/Globulin Ratio 1.3 Vitamin B12 563 Folate 17.91 Urine Color Urine Appearance Urine pH Ur Specific [place] Urine Protein Urine Glucose (UA) Urine Ketones Urine Blood Urine Nitrite Urine Bilirubin Urine Urobilinogen Ur Leukocyte Esterase Urine WBC (Auto) Urine RBC (Auto) U Hyaline Cast (Auto) U Epithel Cells (Auto) Urine Bacteria (Auto) Urine Opiates Screen Ur Methadone, Qual Urine Barbiturates Ur Phencyclidine (PCP) U Amphetamines Confirm U Amphetamin/Meth Scrn U Methamphetamin Confrm Urine MDEA MDMA (Ecstasy) Screen MDMA Urine MDMA U OH-Alprazolam Confrm U Benzodiazepines Scrn 7-Amino Clonazepam Ur Nordiazepam Confirm U OH-ethylflurazepam U Lorazepam Cnf GC/MS U Oxazepam Confm GC/MS Ur Temazepam Confirm U OH-Triazolam Confirm U OH-Midazolam Confirm Ur Cocaine Metabolite U Marijuana (THC) Screen U Marijuana THC Carboxy Drug Screen Comment Current Inpatient Medications Current Inpatient Medications: Current Inpatient Medications Acetaminophen (Acetaminophen 325 Mg Tab) 650 mg PO Q4H PRN PRN Reason: Pain or Fever Stop: 04/29/22 22:40 Last Admin: 03/31/22 00:14 Dose: 650 mg Albuterol (Albuterol Hfa 8 Gm Inhaler) 2 puffs INH Q4 PRN PRN Reason: Shortness Of Breath Or Wheezing Stop: 04/29/22 22:40 Allopurinol (Allopurinol 300 Mg Tab) 300 mg PO QAM ON LICENSE OF [facility] Stop: 04/30/22 08:59 Last Admin: 04/01/22 09:01 Dose: 300 mg Enoxaparin Sodium (Enoxaparin Inj 40 Mg/0.4 Ml Syr) 40 mg SQ QAM LEVI Stop: 05/01/22 08:59 Last Admin: 04/01/22 09:02 Dose: 40 mg Fluticasone Propionate (Fluticasone Propionate Na Spr 16 Gm Btl) 2 sprays NA DAILY LEVI Stop: 04/30/22 08:59 Last Admin: 04/01/22 09:08 Dose: Not Given Sodium Chloride (Nss 1000ml) 1,000 mls @ 125 mls/hr IV .Q8H LEVI Stop: 04/29/22 22:40 Last Admin: 04/01/22 06:45 Dose: 125 mls/hr Multivitamins/Minerals (Cerovite Adv Formula Tab) 1 tab PO DAILY LEVI Stop: 04/30/22 08:59 Last Admin: 04/01/22 09:02 Dose: 1 tab Nitroglycerin (Nitroglycerin Sl 0.4 Mg/Tab Tab) 0.4 mg SL UD PRN PRN Reason: Chest Pain Stop: 04/29/22 22:40 Olanzapine (Olanzapine 10 Mg/2.1 Ml Sdv) 5 mg IM Q6 PRN PRN Reason: Agitation Stop: 04/30/22 17:59 Oxycodone HCl (Oxycodone Hcl Ir 5 Mg Tab (Immediate Release)) 10 mg PO Q6 PRN PRN Reason: Pain Stop: 04/14/22 07:50 Last Admin: 04/01/22 04:02 Dose: 10 mg Pantoprazole Sodium (Pantoprazole 40 Mg Tab) 40 mg PO QAM LEVI Stop: 04/30/22 08:59 Last Admin: 04/01/22 09:03 Dose: 40 mg Polyethylene Glycol (Polyethylene (Miralax) 17 Gm Pack) 17 gm PO DAILY PRN PRN Reason: Constipation Stop: 04/29/22 22:40 Potassium Chloride (Potassium Chloride Crtab 20 Meq Tabcr) 40 meq PO Q6H LEVI Stop: 04/01/22 14:16 Last Admin: 04/01/22 09:00 Dose: 40 meq Triamcinolone Acetonide (Triamcinolone Acet 0.025% Cr 15 Gm Tube) 1 appln TOP BID PRN PRN Reason: Itching Stop: 04/29/22 22:40
[2022-04-01 15:11] LABS: Appearance Urine Clear (Clear); Bacteria Urine Automated Negative (Negative); Bilirubin Urine Negative (Negative); Blood Urine Negative (Negative); Color Urine Dark Yellow; Epithelial Cell Urine Auto 0-5 /lpf (0-5); Glucose Urine UA Negative (Negative); Ketones Urine Trace (Negative); Leukocyte Esterase Urine Negative (Negative); Nitrite Urine Negative (Negative); Protein Urine Trace (Negative); Specific Gravity Urine 1.026 (1.000-1.030); Urobilinogen Urine Negative (Negative)
--- NOTE | 2022-04-01 15:15 | Electroencephalogram ---
EEG Procedure Note Date of Service April 01, 2022 Start / End Times Start Time: 08:31 End Time: 08:51 Referring Physician Herb Moses DO History A 61-year-old male admitted with episodes of confusion, agitation, and autonomic instability. EEG performed for evaluation epileptiform activity. Home Medication List Medication Instructions Recorded Confirmed Type allopurinol 300 mg tablet 300 mg PO QAM 05/28/18 03/30/22 History omeprazole 20 mg capsule,delayed 20 mg PO QAM 05/28/18 03/30/22 History release triamcinolone acetonide 0.025 % 1 applic topical BID PRN Itching 05/28/18 03/30/22 History topical cream albuterol sulfate 90 mcg/actuation 2 puff inhalation Q4 PRN Shortness 10/09/19 03/30/22 History aerosol inhaler Of Breath Or Wheezing fluticasone propionate 50 2 spray intranasal DAILY 10/09/19 03/30/22 History mcg/actuation nasal spray,suspension (Flonase Allergy Relief) oxycodone 10 mg tablet 10 mg PO Q6H PRN Pain 03/09/22 03/30/22 History baclofen 20 mg tablet 20 mg PO TID 03/30/22 03/30/22 History duloxetine 20 mg capsule,delayed 20 mg PO QAM 03/30/22 03/30/22 History release vvqzysnk-jspmrfji-yfaqu acid 400 1 tab PO DAILY 03/30/22 03/30/22 History mcg-vit K 20 mcg-lycop 300 mcg tablet (Men's Multivitamin) Inpatient Medication List Acetaminophen (Acetaminophen 325 Mg Tab) 650 mg PO Q4H PRN PRN Reason: Pain or Fever Stop: 04/29/22 22:40 Last Admin: 03/31/22 00:14 Dose: 650 mg Documented By: SHAQUILLE Allopurinol (Allopurinol 300 Mg Tab) 300 mg PO QAM [facility] Stop: 04/30/22 08:59 Last Admin: 04/01/22 09:01 Dose: 300 mg Documented By: Admin: 03/31/22 09:21 Dose: 300 mg Documented By: MAHAD Enoxaparin Sodium (Enoxaparin Inj 40 Mg/0.4 Ml Syr) 40 mg SQ QAM [facility] Stop: 05/01/22 08:59 Last Admin: 04/01/22 09:02 Dose: 40 mg Documented By: GOGO Fluticasone Propionate (Fluticasone Propionate Na Spr 16 Gm Btl) 2 sprays NA DAILY LEVI Stop: 04/30/22 08:59 Last Admin: 04/01/22 09:08 Dose: Not Given Documented By: Admin: 03/31/22 09:23 Dose: 2 sprays Documented By: MAHAD Sodium Chloride (Nss 1000ml) 1,000 mls @ 125 mls/hr IV .Q8H LEVI Stop: 04/29/22 22:40 Last Admin: 04/01/22 14:00 Dose: 125 mls/hr Documented By: Infusion: 04/01/22 14:00 Dose: 0 mls/hr Documented By: Admin: 04/01/22 06:45 Dose: 125 mls/hr Documented By: Infusion: 04/01/22 04:56 Dose: 0 mls/hr Documented By: Admin: 03/31/22 21:58 Dose: 125 mls/hr Documented By: Infusion: 03/31/22 21:58 Dose: 0 mls/hr Documented By: Admin: 03/31/22 14:34 Dose: 125 mls/hr Documented By: Infusion: 03/31/22 14:21 Dose: 0 mls/hr Documented By: Admin: 03/31/22 07:10 Dose: 125 mls/hr Documented By: Infusion: 03/31/22 07:10 Dose: 125 mls/hr Documented By: Admin: 03/30/22 23:11 Dose: 125 mls/hr Documented By: SHAQUILLE Multivitamins/Minerals (Cerovite Adv Formula Tab) 1 tab PO DAILY LEVI Stop: 04/30/22 08:59 Last Admin: 04/01/22 09:02 Dose: 1 tab Documented By: Admin: 03/31/22 09:21 Dose: 1 tab Documented By: MAHAD Oxycodone HCl (Oxycodone Hcl Ir 5 Mg Tab (Immediate Release)) 10 mg PO Q6 PRN PRN Reason: Pain Stop: 04/14/22 07:50 Last Admin: 04/01/22 04:02 Dose: 10 mg Documented By: Admin: 03/31/22 08:03 Dose: 10 mg Documented By: MAHAD Pantoprazole Sodium (Pantoprazole 40 Mg Tab) 40 mg PO QAM LEVI Stop: 04/30/22 08:59 Last Admin: 04/01/22 09:03 Dose: 40 mg Documented By: Admin: 03/31/22 09:22 Dose: 40 mg Documented By: MAHAD Discontinued Medications Cefepime HCl (Cefepime 2,000 Mg/20 Ml Vial) Confirm Administered Dose 2,000 mg .ROUTE .STK-MED ONE Stop: 03/31/22 09:05 Last Admin: 03/31/22 09:22 Dose: 2,000 mg Documented By: MAHAD Cefepime HCl 2,000 mg/ Syringe 20 mls @ 5 mls/min IV NOW STA; Protocol Stop: 03/30/22 22:44 Last Admin: 03/30/22 23:05 Dose: 5 mls/min Documented By: SHAQUILLE Cefepime HCl 2,000 mg/ Syringe 20 mls @ 5 mls/min IV Q12H LEVI; Protocol Stop: 04/02/22 08:59 Last Admin: 03/31/22 09:24 Dose: Not Given Documented By: MAHAD Lorazepam (Lorazepam 2 Mg/1 Ml Vial) 1 mg IV Q4H PRN PRN Reason: ANXIETY/AGITATION Stop: 04/29/22 23:29 Last Admin: 03/31/22 08:03 Dose: 1 mg Documented By: Admin: 03/31/22 00:14 Dose: 1 mg Documented By: SHAQUILLE Midazolam HCl (Midazolam Hcl 5 Mg/Ml Vial) Confirm Administered Dose 10 mg .ROUTE .STK-MED ONE Stop: 03/30/22 18:55 Last Admin: 03/31/22 19:22 Dose: Not Given Documented By: AFSHIN Oxycodone HCl (Oxycodone Hcl Ir 5 Mg Tab (Immediate Release)) Confirm Administered Dose 10 mg .ROUTE .STK-MED ONE Stop: 03/31/22 08:00 Last Admin: 03/31/22 08:03 Dose: Not Given Documented By: MAHAD Potassium Chloride (Potassium Chloride Crtab 20 Meq Tabcr) 40 meq PO Q6H LEVI Stop: 04/01/22 14:16 Last Admin: 04/01/22 14:32 Dose: 40 meq Documented By: Admin: 04/01/22 09:00 Dose: 40 meq Documented By: GOGO Description This is a 21 electrode EEG with a single channel dedicated to limited EKG. The electrodes were placed in accordance with the International 10-20 system. REPORT: At the onset of the EEG the patient appears drowsy. The background is symmetric with a normal anterior to posterior gradient. The posterior dominant rhythm is 8.5-9 Hz. Drowsiness is characterized by increased theta activity, roving eye movements,reduced blink rate, decreased myogenic artifact. photic stimulation does not induce any abnormalities. No stage 2 sleep transients are seen. No epileptiform discharges are noted. Interpretation REPORT: This is a normal drowsy routine EEG. There is no evidence of focal slowing or epileptiform activity.
--- NOTE | 2022-04-01 17:46 | Hospitalist Progress Note ---
Date of Service April 01, 2022 Assessment & Plan (1) Aggressive behavior: Plan: - reportedly from , acting aggressive and bizarre behavior - could be related to recent medication changes and dehydration - cont to hold baclofen and add back duloxetine now-noted chronic neck pain - denies SI/HI -302 was removed -patient is not delirious at this point and is oriented. -will want to speak with regarding how things looks from her perspective tomorrow prior to discharging him home. (2) Delirium: Plan: Appears to be resolved. Patient is following commands and is oriented at this time. Plan as above. (3) Acute renal failure: Plan: - Cr 2.1 on admission with baseline around 0.9 - likely due to dehydration - receiving IVF - creat has resolved to 0.85 - continue IVF for now given elevated CK 600 - strict I/O (4) Elevated LFTs: Plan: - elevated AST top 72 - denies recent alcohol use as does - could be in the setting of mild rhabdo due to dehydration - will repeat LFTs and get CK - if still elevated, consider RUQ US although has had evidence of hepatic steatosis on previous CT scans - monitor for now--likely just repeat in outpatient setting when he is improved. Plan DVT ppx: lovenox Full Code Dispo-transfer off tele, psych removed 302 at this point. Likely to home tomorrow pending feedback and clinical picture. 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 Recently increased baclofen 10-->20mg, started duloxetine. Appears to have been dehydrated and may have acute delierum/agitation from medication increase and dehydration. Found to have RICK. Agitation appears to have resolved and he is calm and oriented today. Recalls the events that led him to the hospital. Suspects his medication changes and dehydration because it was hot outside and he was clearing out his shed, had something to do with his agitation. He also notes that he is upset that a doctor has been trying to wean down his oxycodone which he had at 15mg five times daily. He reports that over the past 6 months, his doctors have taken him to 10mg QID and "this doesn't even touch my pain." He reports chronic MSK aches and pains. Denies any SI or HI and 302 was removed by psych today. Review of Systems Review of Systems: All systems were reviewed and negative except as indicated above. Physical Exam Physical Exam: CONSTITUTIONAL: WNWD, vitals as above, generally well-appeari ng, NAD EYES: pupils are round and eequal bilaterally, normal conjunctivae, no scleral icterus, ENT: external ear and nose normal, MMM NECK: trachea midline, RESPIRATORY: clear to auscultation bilaterally, no crackles, rales or wheezes, normal respiratory effort CARDIOVASCULAR: regular rate and rhythm, S1 and 2 heard without murmurs, gallops or rubs, no JVD, no peripheral edema CHEST: inspection of chest was normal GASTROINTESTINAL: soft, nontender, ND, no guarding MUSCULOSKELETAL: strength 5/5 throughout, head is normocephalic and atraumatic SKIN: warm and dry NEUROLOGIC: CN 2-12 grossly intact, no sensory deficit, normal cognition, normal speech, no tremor PSYCHIATRIC: alert cooperative and oriented to person, place and time. Euthymic mood, makes good eye contact, language grossly intact, recent and remote memory grossly intact. Results & Data Results & Data ([facility]) Vital Signs (Past 12 Hours) Vital Signs Temp Pulse Pulse Resp BP BP Pulse Ox 04/01/22 11:22 36.8 C 63 20 153/99 H 99 04/01/22 10:00 71 23 132/75 98 04/01/22 09:00 65 19 98 04/01/22 08:00 67 22 135/73 96 04/01/22 07:00 69 21 98 04/01/22 06:00 67 22 137/76 98 O2 Del Method 04/01/22 11:22 04/01/22 10:00 04/01/22 09:00 04/01/22 08:00 04/01/22 07:00 04/01/22 06:00 Room Air Laboratory Results Short CBC 04/01/22 Range/Units 05:18 WBC 5.23 (4.8-10.8) K/ul Hgb 11.6 L (14.0-18.0) g/dl Hct 33.7 L (40.1-51.0) % Plt Count 178 (130-400) K/uL BMP 04/01/22 05:18 Sodium 139 Potassium 3.0 L Chloride 109 H Carbon Dioxide 23 BUN 23 Creatinine 0.85 D Glucose 114 H Calcium 8.5 Cardiac Enzymes 04/01/22 Range/Units 05:18 Total Creatine Kinase 599 H (30-223) U/L Liver Function 04/01/22 Range/Units 05:18 Total Bilirubin 1.0 D (0.2-1.0) mg/dl AST 65 H (13-39) U/L ALT 47 (7-52) U/L Alkaline Phosphatase 58 (34-104) U/L Albumin 3.5 (3.4-5.0) gm/dl Urine 04/01/22 04/01/22 Range/Units 03:16 14:42 Urine Color Dark Yellow Dark Yellow Urine Appearance Clear Clear (Clear) Urine pH 6.0 6.0 (4.5-7.5) Ur Specific [place] 1.031 H 1.026 (1.000-1.030) Urine Protein 1+ H Trace H (Negative) Urine Glucose (UA) Negative Negative (Negative) Medications Administered Current Inpatient Medications Acetaminophen (Acetaminophen 325 Mg Tab) 650 mg PO Q4H PRN PRN Reason: Pain or Fever Stop: 04/29/22 22:40 Last Admin: 03/31/22 00:14 Dose: 650 mg Albuterol (Albuterol Hfa 8 Gm Inhaler) 2 puffs INH Q4 PRN PRN Reason: Shortness Of Breath Or Wheezing Stop: 04/29/22 22:40 Allopurinol (Allopurinol 300 Mg Tab) 300 mg PO QAM [facility] Stop: 04/30/22 08:59 Last Admin: 04/01/22 09:01 Dose: 300 mg Enoxaparin Sodium (Enoxaparin Inj 40 Mg/0.4 Ml Syr) 40 mg SQ QAM LEVI Stop: 05/01/22 08:59 Last Admin: 04/01/22 09:02 Dose: 40 mg Fluticasone Propionate (Fluticasone Propionate Na Spr 16 Gm Btl) 2 sprays NA DAILY LEVI Stop: 04/30/22 08:59 Last Admin: 04/01/22 09:08 Dose: Not Given Sodium Chloride (Nss 1000ml) 1,000 mls @ 125 mls/hr IV .Q8H LEVI Stop: 04/29/22 22:40 Last Admin: 04/01/22 14:00 Dose: 125 mls/hr Multivitamins/Minerals (Cerovite Adv Formula Tab) 1 tab PO DAILY LEVI Stop: 04/30/22 08:59 Last Admin: 04/01/22 09:02 Dose: 1 tab Nitroglycerin (Nitroglycerin Sl 0.4 Mg/Tab Tab) 0.4 mg SL UD PRN PRN Reason: Chest Pain Stop: 04/29/22 22:40 Olanzapine (Olanzapine 10 Mg/2.1 Ml Sdv) 5 mg IM Q6 PRN PRN Reason: Agitation Stop: 04/30/22 17:59 Oxycodone HCl (Oxycodone Hcl Ir 5 Mg Tab (Immediate Release)) 10 mg PO Q6 PRN PRN Reason: Pain Stop: 04/14/22 07:50 Last Admin: 04/01/22 16:36 Dose: 10 mg Pantoprazole Sodium (Pantoprazole 40 Mg Tab) 40 mg PO QAM LEVI Stop: 04/30/22 08:59 Last Admin: 04/01/22 09:03 Dose: 40 mg Polyethylene Glycol (Polyethylene (Miralax) 17 Gm Pack) 17 gm PO DAILY PRN PRN Reason: Constipation Stop: 04/29/22 22:40 Triamcinolone Acetonide (Triamcinolone Acet 0.025% Cr 15 Gm Tube) 1 appln TOP BID PRN PRN Reason: Itching Stop: 04/29/22 22:40 (1) Acute renal failure Acute renal failure type: unspecified Qualified Code(s): N17.9 - Acute kidney failure, unspecified
[2022-04-02 06:49] LABS: Albumin Globulin Ratio 1.3 (0.9-2); Albumin Level 3.5 gm/dl (3.4-5.0); Bilirubin,Total 0.8 mg/dl (0.2-1.0); Calcium 8.5 mg/dl (8.5-10.1); Creatinine Clr Calc Pharmacy 152.6 ml/min; Est GFR (African American) 128.4 ml/min; Est GFR (Non-African American) 110.8 ml/min; Globulin 2.6 gm/dl (2.5-4.0); Magnesium 1.6 mg/dl (1.7-2.4); Potassium 3.7 mmol/L (3.5-5.1); Total Protein 6.1 gm/dl (6.0-8.3)
[2022-04-02] MEDS ORDERED: DULoxetine HCL 20 MG CAP PO SCH (09:00)
[2022-04-02] MEDS: CEROVITE ADV FORMULA TAB PO SCH (09:17)
[2022-04-02] MEDS: allopurinoL 300 MG TAB PO SCH (09:17)
[2022-04-02] MEDS: ENOXAPARIN INJ 40 MG/0.4 ML SYR SQ SCH (09:18)
[2022-04-02] MEDS: PANTOprazole 40 MG TAB PO SCH (09:18)
[2022-04-02] MEDS: FLUTICASONE PROPIONATE NA SPR 16 GM BTL SCH (09:19)
[2022-04-02] MEDS: oxyCODONE HCL IR 5 MG TAB (IMMEDIATE RELEASE) PO PRN (09:24)
[2022-04-02] MEDS: SODIUM CHLORIDE 0.9% 1000ML 1,000 ML IV SCH (09:25)
[2022-04-02] MEDS: MAGNESIUM SULFATE / D5W 1 GM/100 ML BAG IV SCH ×2 (12:34→14:10)
[2022-04-02] MEDS ORDERED: GADOBUTROL 65ML VIAL IV ONE (13:28)
--- NOTE | 2022-04-02 13:50 | Magnetic Resonance Report ---
MRI OF THE BRAIN WITHOUT AND WITH IV CONTRAST CLINICAL HISTORY: r/o stroke, new lesions after acute agitation/delirium. COMPARISON STUDY: Head CT March 30, 2022. TECHNIQUE: Utilizing a 1.5 Shana magnet and dedicated coil, multiplanar, multiecho imaging of the br ain was performed pre and postcontrast administration. IV administration of 9 mL of Gadavist contras t was uneventful. FINDINGS: There are no foci of restricted diffusion to suggest acute infarct. No acute intracranial h emorrhage, midline shift or mass effect is present. Ventricular system is unremarkable. Basal cistern s are patent. There are no extra axial collections. Flow-voids for the major intracranial vessels are present. There is no intracranial mass or pathologic enhancement. A few small white matter T2 hyperi ntense foci are noted. These are doubtful significance. Calvarial signal is normal. Moderate ethmoid sinus mucosal thickening is present. There is mild mucosal thickening of the remainder of the sinuses . Small amount of fluid within the inferior left mastoid air cells is present. IMPRESSION: 1. No acute intracranial findings. 2. No intracranial mass or pathologic enhancement. 3. Sinus mucosal thickening, as above. ACT 112: Negative or not required by law. Electronically signed by: Cain Sanchez M.D. 04/02/2022 1:48 PM
--- NOTE | 2022-04-02 14:59 | Communication Note ---
Date of Service: April 02, 2022 MRI brain was completed with and wiithout contrast. No acute intracranial findings. No intracranial mass or pathologic enhancement. Sinus mucosal thickening, as above. EEG - awake and drowsy - This is a normal drowsy routine EEG. There is no evidence of focal slowing or epileptiform activity. The event was likely drug related and psychiatric issues. no further work up from neurology standpoint. will be available for questions concerns. no neurology follow up as out patient needed. I have discussed above patient with Dr Yumiko Page, and Joe Moses DO neurology
--- NOTE | 2022-04-02 15:25 | Discharge Summary ---
Date of Service April 02, 2022 Principal Diagnosis Acute delirium Chronic pain syndrome on chronic narcotic therapy Acute kidney injury Rhabdomyolysis Discharge Exam CONSTITUTIONAL: WNWD, vitals as above, generally well-appearing, NAD EYES: pupils are round and eequal bilaterally, normal conjunctivae, no scleral icterus, ENT: external ear and nose normal, MMM NECK: trachea midline, RESPIRATORY: clear to auscultation bilaterally, no crackles, rales or wheezes, normal respiratory effort CARDIOVASCULAR: regular rate and rhythm, S1 and 2 heard without murmurs, gallops or rubs, no JVD, no peripheral edema CHEST: inspection of chest was normal GASTROINTESTINAL: soft, nontender, ND, no guarding MUSCULOSKELETAL: strength 5/5 throughout, head is normocephalic and atraumatic SKIN: warm and dry NEUROLOGIC: CN 2-12 grossly intact, no sensory deficit, normal cognition, normal speech, no tremor PSYCHIATRIC: alert cooperative and oriented to person, place and time. Euthymic mood, makes good eye contact, language grossly intact, recent and remote memory grossly intact. Discharge Data Allergies Allergy/AdvReac Type Severity Reaction Status Date / Time hydrocodone Allergy Severe GI SYMPTOMS Verified 03/30/22 21:05 ketorolac Allergy Intermediate makes sick Verified 03/30/22 21:05 Penicillins Allergy Unknown HAPPENED Verified 03/30/22 21:05 A CHILD prednisone AdvReac Severe Confusion Verified 03/30/22 21:05 sulfamethoxazole AdvReac Severe confusion Verified 03/30/22 21:05 [From Bactrim] trimethoprim [From Bactrim] AdvReac Severe confusion Verified 03/30/22 21:05 tramadol AdvReac Intermediate vomiting Verified 03/30/22 21:05 NSAIDS (Non-Steroidal AdvReac Unknown D/T LIVER Verified 03/30/22 21:05 Anti-Inflamma ISSUES Consultations 03/30/22 20:49 ED Decision to Admit Stat 03/31/22 08:00 Consult Neurology Routine 03/31/22 09:00 Consult Psychiatry Routine Ordered Studies 03/30/22 18:51 CT head/brain wo con Stat 04/02/22 12:27 MR brain wo/w con Urgent Hospital Course (1) Aggressive behavior: (2) Delirium: (3) Acute renal failure: (4) Rhabdomyolysis: (5) Chronic pain syndrome: (6) Chronically on opiate therapy: Plan A 61-year-old male with past medical history significant for gout, history of chronic sinusitis, uncomplicated asthma, reflux esophagitis, chronic viral hepatitis C, BPH, degenerative disc disease, history of alcohol use disorder that seems to be in remission, history of chronic pain syndrome, history of cocaine use disorder who lives with his , presents with confusion, hallucinations, symptoms of aggressive behavior. Recently increased baclofen 10-->20mg, started duloxetine. Appears to have been dehydrated and may have acute delirium/agitation from medication increase and dehydration. Found to have RICK. He was treated with IV fluids and CK decreased and resolution of RICK was achieved. Neurology was consulted and recommended an EEG which was performed on 727 and revealed no evidence of focal slowing or epileptiform activity. A TSH was within normal limits and so was a vitamin B12 level. An MRI of the brain with and without IV contrast was performed revealing no acute intracranial abnormalities. At time of discharge he was hemodynamically stable and afebrile and mentating well. He was oriented x3 and discharged in stable condition with close primary care follow-up recommended. Avoidance of baclofen was recommended given the side effects of myalgias. He was advised to continue duloxetine as a new medication. I spoke with at discharge and reviewed all care plan. She verbalized understanding with intent to comply. She is the person in charge of his medical therapy. Total Time Total Time Spent Total Time Spent (In Minutes): 60 Discharge Plan Discharge Items Patient Disposition: Home - Self-Care Reason For Visit: CONFUSION Discharge Diagnosis: Acute delirium Chronic pain syndrome on chronic narcotic therapy Acute kidney injury Rhabdomyolysis Condition on Discharge: Good Activity: Resume your previous activity Non-emergency contact: Primary Care Provider Call non-emergency contact if: you have any medication questions, your symptoms worsen, your pain is not controlled, your pain is worsening, your pain is unusual for you and your pain is concerning for you Follow-up/Referrals: Robbie Elizabeth DO [Primary Care Provider] - (Date & Time 04/08/2022 2:20 PM Provider Robbie Elizabeth DO Department [facility] ) Diet: Regular Addtl Attending Provider Instructions: Please take all medications as instructed on discharge as below. Until you are seen by your primary care doctor on follow-up, please avoid taking baclofen. Please continue the duloxetine as previously described. It was a pleasure taking care of you! Please call if you have any questions or problems. You can reach a [facility] hospitalist on duty at [facility] 24 hours a day by calling [phone]. Take care of yourself. Mi Frederick DO [facility] Hospitalist Pending Studies at Discharge: No Stand-Alone Forms: My [facility] Medications and DC Order Prescriptions: Continued albuterol sulfate 90 mcg/actuation HFA aerosol inhaler 2 puff INHALATION Q4 PRN (Reason: Shortness Of Breath Or Wheezing) fluticasone propionate [Flonase Allergy Relief] 50 mcg/actuation spray,suspension 2 spray INTRANASAL DAILY omeprazole 20 mg Capsule,Delayed Release(Dr/Ec) 20 mg PO QAM allopurinol 300 mg Tablet 300 mg PO QAM triamcinolone acetonide 0.025 % Cream 1 applic TOPICAL BID PRN (Reason: Itching) Rx Instructions: APPLY NEEDED AND DIRECTED TO LEGS oxycodone 10 mg tablet 10 mg PO Q6H PRN (Reason: Pain) duloxetine 20 mg capsule,delayed release(DR/EC) 20 mg PO QAM Men's Multivitamin 400-20-300 mcg Tablet 1 tab PO DAILY Discontinued baclofen 20 mg tablet 20 mg PO TID Discharge Orders: Discharge Order (Routine); Ordered 04/02/22 Ordered By: Mi Frederick Admission Data Admit Date/Time: 03/30/22 21:58 Attending Provider: Mi Frederick Admit Provider: Jitendra Baca Primary Care Provider: Robbie Elizabeth Other Providers: Jitendra Baca ; Yuimko Page ; Sary Horne ; Donna Howard ; Moon Mosquera
== END 2022-04-02 16:25 | disposition home or self-care (01) | DRG 682 ==
LOC: ED 18:44 → SUATTDRO 21:58 → EDINP 21:58

== ENCOUNTER 2022-06-05 13:57 | Inpatient (IN) ==
[2022-06-05] MEDS ORDERED: HALOPERIDOL LACTATE 5 MG/ML 1 ML VIAL ONE ×2 (14:07→14:10)
[2022-06-05] MEDS ORDERED: LORazepam 2 MG/2 ML SYR ONE (14:09)
[2022-06-05] MEDS ORDERED: HALOPERIDOL LACTATE 5 MG/ML 1 ML VIAL IM STA (14:09)
[2022-06-05] MEDS ORDERED: LORazepam 2 MG/2 ML SYR IM SCH (14:09)
[2022-06-05] MEDS ORDERED: SODIUM CHLORIDE 0.9% 1000ML 1,000 ML IV SCH (14:15)
[2022-06-05] MEDS ORDERED: THIAMINE HCL 200 MG in SODIUM CHLORIDE 0.9% 50 ML IV STA (14:15)
[2022-06-05 14:31] LABS: Basophils # (auto) 0.08 K/uL (0-0.2); Basophils % (auto) 1.1 %; Eosinophils # (auto) 0.31 K/uL (0-0.50); Eosinophils % (auto) 4.4 %; Hematocrit (blood only) 36.2 % (40.1-51.0); Hemoglobin 12.8 g/dl (14.0-18.0); Immature Granulocytes # (auto) 0.03 K/uL (0.00-0.02); Immature Granulocytes % (auto) 0.4 %; Lymphocytes # (auto) 1.28 K/uL (1.2-3.4); Lymphocytes % (auto) 18.2 %; Mean Corpuscular Hemoglobin 30.9 pg (25.0-34.0); Mean Corpuscular Hgb Conc 35.4 g/dL (32.0-36.0); Mean Corpuscular Volume 87.4 fL (80.0-100.0); Monocytes # (auto) 0.84 K/uL (0.24-0.82); Monocytes % (auto) 11.9 %; Neutrophils # (auto) 4.51 K/uL (1.4-6.5); Platelet Count 291 K/uL (130-400); RDW Coefficient of Variation 12.9 % (11.5-14.5); RDW Standard Deviation 40.8 fL (36.4-46.3); Red Blood Count 4.14 M/uL (4.63-6.08); White Blood Count 7.05 K/ul (4.8-10.8)
--- NOTE | 2022-06-05 14:42 | Emergency Department Note ---
Impression & Plan Agitation requiring sedation protocol, Aggressive behavior, Combative behavior ED Provider Note NAME: ARVIND DELATORRE AGE: 62 SEX: M : 1960 ARRIVES VIA: Ambulance INFORMANT: Patient, EMS, Police ED PROVIDER(S): Nitesh Cummings DO CHIEF COMPLAINT: Altered mental status HPI: The patient is a 62-year-old male who presented to the emergency department after receiving ketamine for excited delirium and combative behavior. History is obtained from the police as well as prehospital personnel. The police were called because the patient's neighbors were complaining that he was being very loud and combative. When they arrived on scene he became very aggressive. The ambulance was summoned and the patient was evaluated quickly and found to be combative and in need of sedation. Medic command was called and the patient received 400 mg of ketamine IM. ROS: See above HPI for pertinent positives & negatives. A total of 10 systems reviewed and were otherwise negative. PAST MEDICAL HISTORY: See Below PAST SURGICAL HISTORY: See Below FAMILY HISTORY: See Below SOCIAL HISTORY: See Below HOME MEDICATIONS: See Below ALLERGIES: See Below VITALS: See Below PHYSICAL EXAMINATION: GENERAL: The patient is awake and looking around the room. He is very anxious appearing. EYES: The conjunctivae are clear. Pupils are round and reactive bilaterally however the left one is larger than the right with postsurgical changes appreciated. EARS, NOSE, MOUTH AND THROAT: The nose is without any evidence of any deformity. NECK: The neck is nontender and supple. RESPIRATORY: Normal respiratory effort is noted there is no evidence of wheezing rhonchi or rales CARDIOVASCULAR: Tachycardic rate with regular heart sounds were noted. There is no definite murmur. GASTROINTESTINAL: The abdomen is soft. Abdomen is nontender. MUSCULOSKELETAL/EXTREMITIES: There is no evidence of gross deformity full range of motion is noted in the hips and shoulders. SKIN: Skin is warm and dry. There is no significant pedal edema. NEUROLOGIC: Patient is moving all extremities well. He is fighting with security. He is not answering questions appropriately however given the recent administration of ketamine his mental status reflexes. PSYCH: Patient is not able to be evaluated from a psychiatric standpoint. MEDICAL DECISION MAKING: The patient is a 62-year-old male who presented to the emergency department for an evaluation of altered mental status. The patient was initially seen by the police who recognized the patient was [id number] agitated and combative. They called for an ambulance. The patient was treated for excited delirium with ketamine after calling medic demand. He was still very combative upon arrival and was treated further with sedation. The patient was a threat to himself as well as staff. The patient was reevaluated multiple times. On reevaluation he was much more calm. He had an initial medical clearance but the patient himself given his medications that he received was not able to be medically cleared in the emergency department. I discussed his condition with the on-call [facility]. They have agreed to evaluate the patient in the emergency department for further management and disposition. Triage Nursing notes reviewed. Prior medical records reviewed Vital Signs: reviewed and remarkable for elevated blood pressure. Differential diagnosis: Overdose, toxicologic, infection, hypoglycemia, electrolyte abnormalities, car diac sources, intracerebral event, neurologic, trauma, as well as other pathologies. ER treatment provided: See below Diagnostics interpreted by me: ECG: EKG was obtained in the emergency department. My interpretation is sinus rhythm at 92 bpm. PVCs were noted. This was compared to a tracing from March 30, 2022. No changes were noted. No acute ST segment abnormalities were noted. Cardiac Monitoring: An order was placed for continuous cardiac monitoring. The monitor shows a rate of 92 bpm with sinus rhythm. Laboratory studies: As stated above and show below. Imaging studies: See below Consultation(s): I discussed this case with Maida who is on-call for the [facility] group. ED COURSE: Procedures: none Critical Care: I have personally spent greater than 55 minutes of critical care time in the direct management of this patient. This includes bedside care, interpretation of diagnostic studies, and testing, discussion with consultants, patient, and family members, and other required patient management activities. This 55 minutes is in excess of all separately billable procedures. 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 Arthritis Chronic pain syndrome Delirium Gout Hepatitis C Surgical History H/O hernia repair Hx of tooth extraction Family History Mother Diabetes Brother Liver disease Social History Smoking Status: Never smoker Second Hand Exposure: No; Do You Dip or Chew Tobacco: No; Tobacco Cessation Education Requested by Patient: No Hx Alcohol Use: No Hx Substance Use: Yes Last Used Substance: Unknown Last Used Substance Other:: prescribed oxy QID Substance Use Type Other:: uds + for amphetamine/meth and MDMA Preferred Language: Ukrainian Communication Ability: Effective Intelligence Manager Required: No Beliefs That Will Affect Care: None marital status: Current Living Situation: Spouse Current Living Situation Comment: Couldn't provide assessment information due to somulence. How many Children do You have: 2 Other Information That Helps Us Care for You: No Feels Safe at Home: Yes Safety Concerns: Feels Safe At This Time Assistive Devices: Cane, Denture - Upper, Denture - Lower and Glasses Assistive Devices Comment: pt dentures don't fit and glasses are broken Allergies Allergies Allergy/AdvReac Type Severity Reaction Status Date / Time hydrocodone Allergy Severe GI SYMPTOMS Verified 03/30/22 21:05 ketorolac Allergy Intermediate makes sick Verified 03/30/22 21:05 Penicillins Allergy Unknown HAPPENED Verified 03/30/22 21:05 A CHILD prednisone AdvReac Severe Confusion Verified 03/30/22 21:05 sulfamethoxazole AdvReac Severe confusion Verified 03/30/22 21:05 [From Bactrim] trimethoprim [From Bactrim] AdvReac Severe confusion Verified 03/30/22 21:05 tramadol AdvReac Intermediate vomiting Verified 03/30/22 21:05 NSAIDS (Non-Steroidal AdvReac Unknown D/T LIVER Verified 03/30/22 21:05 Anti-Inflamma ISSUES Home Meds Home Medications Medication Instructions Recorded Confirmed allopurinol 300 mg tablet 300 mg PO QAM 05/28/18 06/05/22 omeprazole 20 mg capsule,delayed 20 mg PO QAM 05/28/18 06/05/22 release triamcinolone acetonide 0.025 % 1 applic topical BID PRN Itching 05/28/18 06/05/22 topical cream albuterol sulfate 90 mcg/actuation 2 puff inhalation Q4 PRN Shortness 10/09/19 06/05/22 aerosol inhaler Of Breath Or Wheezing fluticasone propionate 50 2 spray intranasal DAILY 10/09/19 06/05/22 mcg/actuation nasal spray,suspension (Flonase Allergy Relief) oxycodone 10 mg tablet 10 mg PO Q6H PRN Pain 03/09/22 06/05/22 duloxetine 20 mg capsule,delayed 20 mg PO QAM 03/30/22 06/05/22 release tnydaqxu-xcxatvwg-yyisf acid 400 1 tab PO DAILY 03/30/22 06/05/22 mcg-vit K 20 mcg-lycop 300 mcg tablet (Men's Multivitamin) Results & Data (ED) Vital Signs Vital Signs - 24 hr 06/05/22 14:24 06/05/22 15:25 06/05/22 15:27 Temperature 37.3 C Temperature Source Axillary Pulse Rate 108 H Pulse Rate [Apical] Pulse Rate from SpO2 Sensor Respiratory Rate 22 Blood Pressure 159/77 H Blood Pressure [Right Arm] Blood Pressure Mean 104 Blood Pressure Mean [Right Arm] Pulse Oximetry 100 88 L 94 Oxygen Delivery Method Room Air Room Air Nasal Cannula Oxygen Flow Rate 2 Sepsis Recent Fever Within 48 Hours No Sepsis New/Unexplained Change in Mental Status N/A Sepsis Action Taken by Nursing Physician Notified 06/05/22 16:10 06/05/22 14:06 06/05/22 14:54 Temperature Temperature Source Pulse Rate 118 H 98 H Pulse Rate [Apical] 80 Pulse Rate from SpO2 Sensor 111 H Respiratory Rate 21 25 H 24 Blood Pressure Blood Pressure [Right Arm] 127/72 Blood Pressure Mean Blood Pressure Mean [Right Arm] 90 Pulse Oximetry 95 87 L Oxygen Delivery Method Nasal Cannula Oxygen Flow Rate 2 Sepsis Recent Fever Within 48 Hours Sepsis New/Unexplained Change in Mental Status Sepsis Action Taken by Nursing 06/05/22 14:54 06/05/22 15:00 06/05/22 16:00 Temperature Temperature Source Pulse Rate 93 H 83 Pulse Rate [Apical] Pulse Rate from SpO2 Sensor 90 84 Respiratory Rate 26 H 21 Blood Pressure 127/72 Blood Pressure [Right Arm] Blood Pressure Mean 90 Blood Pressure Mean [Right Arm] Pulse Oximetry 91 95 Oxygen Delivery Method Oxygen Flow Rate Sepsis Recent Fever Within 48 Hours Sepsis New/Unexplained Change in Mental Status Sepsis Action Taken by [facility] Medications Current Medication List: was personally reviewed by me Laboratory Data Attestation: I reviewed the patient's lab results. Result diagrams: 06/06/22 05:34 06/06/22 05:34 Lab Results 09/30/22 09/30/22 09/30/22 Range/Units 14:08 14:08 14:08 WBC 7.05 (4.8-10.8) K/ul RBC 4.14 L (4.63-6.08) M/uL Hgb 12.8 L (14.0-18.0) g/dl Hct 36.2 L (40.1-51.0) % MCV 87.4 (80.0-100.0) fL MCH 30.9 (25.0-34.0) pg MCHC 35.4 (32.0-36.0) g/dL RDW Std Deviation 40.8 (36.4-46.3) fL RDW Coeff of Bharat 12.9 (11.5-14.5) % Plt Count 291 (130-400) K/uL MPV 10.0 (9.4-12.4) fL Immature Gran % (Auto) 0.4 % Neut % (Auto) 64.0 % Lymph % (Auto) 18.2 % Maverick % (Auto) 11.9 % Eos % (Auto) 4.4 % Baso % (Auto) 1.1 % Neut # (Auto) 4.51 (1.4-6.5) K/uL Lymph # (Auto) 1.28 (1.2-3.4) K/uL Maverick # (Auto) 0.84 H (0.24-0.82) K/uL Eos # (Auto) 0.31 (0-0.50) K/uL Baso # (Auto) 0.08 (0-0.2) K/uL Immature Gran # (Auto) 0.03 H (0.00-0.02) K/uL ESR (0-20) mm/hr PT 11.0 (9.0-12.0) Seconds INR 1.0 (0.9-1.1) APTT 29.0 (21.0-31.0) Seconds PTT Ratio 1.1 VBG pH (7.36-7.41) VBG pCO2 (38-50) mmHg VBG pO2 mmHg VBG HCO3 mmol/L VBG O2 Saturation % VBG Base Excess mEq/L Sodium 142 (136-145) mmol/L Potassium 5.4 H (3.5-5.1) mmol/L Chloride 110 H (98-107) mmol/L Carbon Dioxide 23 (21-32) mmol/L Anion Gap 9 (3-11) BUN 44 H (6-23) mg/dl Creatinine 1.45 H (0.6-1.4) mg/dl Est Cr Clr Drug Dosing Not Reportable Est GFR ( Amer) 60.2 ml/min Est GFR (Non-Af Amer) 52.0 ml/min BUN/Creatinine Ratio 30.3 H (10-20) Glucose 101 H (70-99(Fasting)) mg/dl Calcium 9.8 (8.5-10.1) mg/dl Magnesium 2.3 (1.7-2.4) mg/dl Total Bilirubin 1.2 H (0.2-1.0) mg/dl AST 38 (13-39) U/L ALT 23 (7-52) U/L Alkaline Phosphatase 66 (34-104) U/L Total Creatine Kinase 588 H (30-223) U/L Troponin I High Sens 7.2 (0-20) pg/ml C-Reactive Protein (0-0.5) mg/dl Total Protein 7.6 (6.0-8.3) gm/dl Albumin 4.7 (3.4-5.0) gm/dl Globulin 2.9 (2.5-4.0) gm/dl Albumin/Globulin Ratio 1.6 (0.9-2) Lipase 16 (11-82) U/L Procalcitonin (0-0.5) ng/ml Salicylates (3.0-30) mg/dl Acetaminophen (10-30) ug/ml Ethyl Alcohol mg/dL (<10.0) mg/dl SARS-CoV-2, RNA, NAAT (NEGATIVE) 06/05/22 06/05/22 06/05/22 Range/Units 14:08 14:08 14:34 WBC (4.8-10.8) K/ul RBC (4.63-6.08) M/uL Hgb (14.0-18.0) g/dl Hct (40.1-51.0) % MCV (80.0-100.0) fL MCH (25.0-34.0) pg MCHC (32.0-36.0) g/dL RDW Std Deviation (36.4-46.3) fL RDW Coeff of Bharat (11.5-14.5) % Plt Count (130-400) K/uL MPV (9.4-12.4) fL Immature Gran % (Auto) % Neut % (Auto) % Lymph % (Auto) % Maverick % (Auto) % Eos % (Auto) % Baso % (Auto) % Neut # (Auto) (1.4-6.5) K/uL Lymph # (Auto) (1.2-3.4) K/uL Maverick # (Auto) (0.24-0.82) K/uL Eos # (Auto) (0-0.50) K/uL Baso # (Auto) (0-0.2) K/uL Immature Gran # (Auto) (0.00-0.02) K/uL ESR (0-20) mm/hr PT (9.0-12.0) Seconds INR (0.9-1.1) APTT (21.0-31.0) Seconds PTT Ratio VBG pH (7.36-7.41) VBG pCO2 (38-50) mmHg VBG pO2 mmHg VBG HCO3 mmol/L VBG O2 Saturation % VBG Base Excess mEq/L Sodium (136-145) mmol/L Potassium (3.5-5.1) mmol/L Chloride (98-107) mmol/L Carbon Dioxide (21-32) mmol/L Anion Gap (3-11) BUN (6-23) mg/dl Creatinine (0.6-1.4) mg/dl Est Cr Clr Drug Dosing Est GFR ( Amer) ml/min Est GFR (Non-Af Amer) ml/min BUN/Creatinine Ratio (10-20) Glucose (70-99(Fasting)) mg/dl Calcium (8.5-10.1) mg/dl Magnesium (1.7-2.4) mg/dl Total Bilirubin (0.2-1.0) mg/dl AST (13-39) U/L ALT (7-52) U/L Alkaline Phosphatase (34-104) U/L Total Creatine Kinase (30-223) U/L Troponin I High Sens (0-20) pg/ml C-Reactive Protein (0-0.5) mg/dl Total Protein (6.0-8.3) gm/dl Albumin (3.4-5.0) gm/dl Globulin (2.5-4.0) gm/dl Albumin/Globulin Ratio (0.9-2) Lipase (11-82) U/L Procalcitonin (0-0.5) ng/ml Salicylates < 3.0 L (3.0-30) mg/dl Acetaminophen < 3 L (10-30) ug/ml Ethyl Alcohol mg/dL < 10.0 (<10.0) mg/dl SARS-CoV-2, RNA, NAAT NEGATIVE (NEGATIVE) 06/05/22 06/05/22 06/05/22 Range/Units 15:26 15:26 15:26 WBC (4.8-10.8) K/ul RBC (4.63-6.08) M/uL Hgb (14.0-18.0) g/dl Hct (40.1-51.0) % MCV (80.0-100.0) fL MCH (25.0-34.0) pg MCHC (32.0-36.0) g/dL RDW Std Deviation (36.4-46.3) fL RDW Coeff of Bharat (11.5-14.5) % Plt Count (130-400) K/uL MPV (9.4-12.4) fL Immature Gran % (Auto) % Neut % (Auto) % Lymph % (Auto) % Maverick % (Auto) % Eos % (Auto) % Baso % (Auto) % Neut # (Auto) (1.4-6.5) K/uL Lymph # (Auto) (1.2-3.4) K/uL Maverick # (Auto) (0.24-0.82) K/uL Eos # (Auto) (0-0.50) K/uL Baso # (Auto) (0-0.2) K/uL Immature Gran # (Auto) (0.00-0.02) K/uL ESR 8 (0-20) mm/hr PT (9.0-12.0) Seconds INR (0.9-1.1) APTT (21.0-31.0) Seconds PTT Ratio VBG pH 7.32 L (7.36-7.41) VBG pCO2 40 (38-50) mmHg VBG pO2 67 mmHg VBG HCO3 21 mmol/L VBG O2 Saturation 89.8 % VBG Base Excess -5.2 mEq/L Sodium (136-145) mmol/L Potassium (3.5-5.1) mmol/L Chloride (98-107) mmol/L Carbon Dioxide (21-32) mmol/L Anion Gap (3-11) BUN (6-23) mg/dl Creatinine (0.6-1.4) mg/dl Est Cr Clr Drug Dosing Est GFR ( Amer) ml/min Est GFR (Non-Af Amer) ml/min BUN/Creatinine Ratio (10-20) Glucose (70-99(Fasting)) mg/dl Calcium (8.5-10.1) mg/dl Magnesium (1.7-2.4) mg/dl Total Bilirubin (0.2-1.0) mg/dl AST (13-39) U/L ALT (7-52) U/L Alkaline Phosphatase (34-104) U/L Total Creatine Kinase (30-223) U/L Troponin I High Sens (0-20) pg/ml C-Reactive Protein 5.24 H (0-0.5) mg/dl Total Protein (6.0-8.3) gm/dl Albumin (3.4-5.0) gm/dl Globulin (2.5-4.0) gm/dl Albumin/Globulin Ratio (0.9-2) Lipase (11-82) U/L Procalcitonin (0-0.5) ng/ml Salicylates (3.0-30) mg/dl Acetaminophen (10-30) ug/ml Ethyl Alcohol mg/dL (<10.0) mg/dl SARS-CoV-2, RNA, NAAT (NEGATIVE) 06/05/22 Range/Units 15:26 WBC (4.8-10.8) K/ul RBC (4.63-6.08) M/uL Hgb (14.0-18.0) g/dl Hct (40.1-51.0) % MCV (80.0-100.0) fL MCH (25.0-34.0) pg MCHC (32.0-36.0) g/dL RDW Std Deviation (36.4-46.3) fL RDW Coeff of Bharat (11.5-14.5) % Plt Count (130-400) K/uL MPV (9.4-12.4) fL Immature Gran % (Auto) % Neut % (Auto) % Lymph % (Auto) % Maverick % (Auto) % Eos % (Auto) % Baso % (Auto) % Neut # (Auto) (1.4-6.5) K/uL Lymph # (Auto) (1.2-3.4) K/uL Maverick # (Auto) (0.24-0.82) K/uL Eos # (Auto) (0-0.50) K/uL Baso # (Auto) (0-0.2) K/uL Immature Gran # (Auto) (0.00-0.02) K/uL ESR (0-20) mm/hr PT (9.0-12.0) Seconds INR (0.9-1.1) APTT (21.0-31.0) Seconds PTT Ratio VBG pH (7.36-7.41) VBG pCO2 (38-50) mmHg VBG pO2 mmHg VBG HCO3 mmol/L VBG O2 Saturation % VBG Base Excess mEq/L Sodium (136-145) mmol/L Potassium (3.5-5.1) mmol/L Chloride (98-107) mmol/L Carbon Dioxide (21-32) mmol/L Anion Gap (3-11) BUN (6-23) mg/dl Creatinine (0.6-1.4) mg/dl Est Cr Clr Drug Dosing Est GFR ( Amer) ml/min Est GFR (Non-Af Amer) ml/min BUN/Creatinine Ratio (10-20) Glucose (70-99(Fasting)) mg/dl Calcium (8.5-10.1) mg/dl Magnesium (1.7-2.4) mg/dl Total Bilirubin (0.2-1.0) mg/dl AST (13-39) U/L ALT (7-52) U/L Alkaline Phosphatase (34-104) U/L Total Creatine Kinase (30-223) U/L Troponin I High Sens (0-20) pg/ml C-Reactive Protein (0-0.5) mg/dl Total Protein (6.0-8.3) gm/dl Albumin (3.4-5.0) gm/dl Globulin (2.5-4.0) gm/dl Albumin/Globulin Ratio (0.9-2) Lipase (11-82) U/L Procalcitonin 0.10 (0-0.5) ng/ml Salicylates (3.0-30) mg/dl Acetaminophen (10-30) ug/ml Ethyl Alcohol mg/dL (<10.0) mg/dl SARS-CoV-2, RNA, NAAT (NEGATIVE) Administered Medications Heparin Sodium (Porcine) (Heparin Sod 5,000 Unit/0.5 Ml Vial) 5,000 units SQ Q12 LEVI Stop: 07/05/22 20:59 Last Admin: 06/05/22 21:43 Dose: 5,000 units Documented By: ZAC Parenteral Electrolytes (Normosol-R) 1,000 mls @ 125 mls/hr IV .Q8H LEVI Stop: 07/05/22 19:44 Last Admin: 06/06/22 03:23 Dose: 125 mls/hr Documented By: Infusion: 06/06/22 03:23 Dose: 125 mls/hr Documented By: Admin: 06/05/22 19:49 Dose: 125 mls/hr Documented By: ZAC Discontinued Medications Haloperidol Lactate (Haloperidol Lactate 5 Mg/Ml 1 Ml Vial) Confirm Administered Dose 5 mg .ROUTE .STK-MED ONE Stop: 06/05/22 14:08 Last Admin: 06/05/22 14:14 Dose: Not Given Documented By: ML Haloperidol Lactate (Haloperidol Lactate 5 Mg/Ml 1 Ml Vial) Confirm Administered Dose 5 mg .ROUTE .STK-MED ONE Stop: 06/05/22 14:11 Last Admin: 06/05/22 14:14 Dose: Not Given Documented By: ML Haloperidol Lactate (Haloperidol Lactate 5 Mg/Ml 1 Ml Vial) 10 mg IM NOW STA Stop: 06/05/22 14:10 Last Admin: 06/05/22 14:13 Dose: 10 mg Documented By: ML Sodium Chloride (Nss 1000ml) 1,000 mls @ 999 mls/hr IV .Q1H1M LEVI Stop: 06/05/22 15:15 Last Infusion: 06/05/22 15:17 Dose: 0 mls/hr Documented By: Admin: 06/05/22 14:16 Dose: 999 mls/hr Documented By: MARILIN Thiamine HCl 200 mg/ Sodium (Chloride) 52 mls @ 208 mls/hr IV NOW STA Stop: 06/05/22 14:16 Last Infusion: 06/05/22 16:24 Dose: 0 mls/hr Documented By: Admin: 06/05/22 16:09 Dose: 208 mls/hr Documented By: DAR Parenteral Electrolytes (Normosol-R) 1,000 mls @ 100 mls/hr IV .Q10H [facility] Stop: 06/06/22 19:31 Last Admin: 06/05/22 19:49 Dose: Not Given Documented By: ZAC Lorazepam (Lorazepam 2 Mg/2 Ml Syr) Confirm Administered Dose 2 mg .ROUTE .STK- MED ONE Stop: 06/05/22 14:10 Last Admin: 06/05/22 14:14 Dose: 2 mg Documented By: DAR Lorazepam (Lorazepam 2 Mg/2 Ml Syr) 2 mg IM 1409 [facility] Stop: 06/05/22 14:10 Last Admin: 06/05/22 15:34 Dose: Not Given Documented By: DAR Imaging Data Radiologist's Impression: Chest X-Ray 06/05/22 14:09 XR chest 1V portable CLINICAL HISTORY: AMS TECHNIQUE: Single frontal radiograph of the chest was obtained. Comparison: Comparison is made to chest radiograph 10/09/2019 FINDINGS: No lines and tubes are seen. Cardiomegaly is noted. Prominence and cephalization of the vasculature is seen. No evidence of pleural effusion or pneumothorax. IMPRESSION: Irregular with mild pulmonary edema. ACT 112: Negative or not required by law. Electronically signed by: Arnaud Ham M.D. 06/05/2022 3:[address] 06/05/22 14:09 CT SCAN OF THE BRAIN WITHOUT IV CONTRAST CLINICAL HISTORY: Change in mental status. COMPARISON STUDY: CT of the brain dated 03/30/2022. TECHNIQUE: Unenhanced axial CT scan of the brain is performed from the vertex to the skull base. A dose lowering technique was utilized adhering to the principles of ALARA. CT DOSE: 1523.61 mGy.cm FINDINGS: Brain parenchyma: The brain parenchyma is normal in appearance. There is no hemorrhage, mass effect, or evidence of acute territorial ischemia by CT criteria. Vanegas-white matter differentiation is preserved. No extra-axial fluid collection is seen. Ventricles, sulci, cisterns: Normal in configuration. Intracranial vasculature: The visualized intracranial vasculature at the skull base is normal in appearance. Calvarium: Unremarkable. Sinuses and mastoids: There is subtotal opacification of the frontal and ethmoid sinuses. Mucosal thickening seen within the maxillary antra, noting air fluid level left. There is trace mucosal thickening within the sphenoid sinuses. The mastoid air cells are well pneumatized. Orbits: The bony orbits are grossly intact. IMPRESSION: 1. No acute intracranial abnormality. 2. Pansinus disease as above. ACT 112: Negative or not required by law. Electronically signed by: Smooth Hernandez M.D. 06/05/2022 2:57 PM Discharge Plan Visit Data Chief Complaint: Confusion Stated Complaint: AMS, TACHYCARDIA ED Provider: Nitesh Cummings Discharge Problem: Agitation requiring sedation protocol, Aggressive behavior, Combative behavior Patient Disposition: Admitted As Inpatient Discharge Instructions Interventions: ED Discharge Assessment Last Done: 06/05/22 18:10
[2022-06-05 14:43] LABS: Partial Thromboplastin Ratio 1.1
--- NOTE | 2022-06-05 14:58 | CT Scan Report ---
CT SCAN OF THE BRAIN WITHOUT IV CONTRAST CLINICAL HISTORY: Change in mental status. COMPARISON STUDY: CT of the brain dated 03/30/2022. TECHNIQUE: Unenhanced axial CT scan of the brain is performed from the vertex to the skull base. A d ose lowering technique was utilized adhering to the principles of ALARA. CT DOSE: 1523.61 mGy.cm FINDINGS: Brain parenchyma: The brain parenchyma is normal in appearance. There is no hemorrhage, mass effect, or evidence of acute territorial ischemia by CT criteria. Vanegas-white matter differentiation is preser ron. No extra-axial fluid collection is seen. Ventricles, sulci, cisterns: Normal in configuration. Intracranial vasculature: The visualized intracranial vasculature at the skull base is normal in appe arance. Calvarium: Unremarkable. Sinuses and mastoids: There is subtotal opacification of the frontal and ethmoid sinuses. Mucosal thi ckening seen within the maxillary antra, noting air fluid level left. There is trace mucosal thickeni ng within the sphenoid sinuses. The mastoid air cells are well pneumatized. Orbits: The bony orbits are grossly intact. IMPRESSION: 1. No acute intracranial abnormality. 2. Pansinus disease as above. ACT 112: Negative or not required by law. Electronically signed by: Smooth Hernandez M.D. 06/05/2022 2:57 PM
[2022-06-05 14:59] LABS: Acetaminophen < 3 ug/ml (10-30); Alanine Aminotransferase 23 U/L (7-52); Albumin Globulin Ratio 1.6 (0.9-2); Albumin Level 4.7 gm/dl (3.4-5.0); Alkaline Phosphatase 66 U/L (34-104); Anion Gap 9 (3-11); Aspartate Aminotransferase 38 U/L (13-39); BUN Creatinine Ratio 30.3 (10-20); Bilirubin,Total 1.2 mg/dl (0.2-1.0); Blood Urea Nitrogen 44 mg/dl (6-23); Calcium 9.8 mg/dl (8.5-10.1); Carbon Dioxide 23 mmol/L (21-32); Chloride 110 mmol/L (98-107); Creatine Kinase 588 U/L (30-223); Est GFR (African American) 60.2 ml/min; Globulin 2.9 gm/dl (2.5-4.0); Glucose 101 mg/dl (70-99(Fasting)); Lipase 16 U/L (11-82); Magnesium 2.3 mg/dl (1.7-2.4); Potassium 5.4 mmol/L (3.5-5.1); Salicylate < 3.0 mg/dl (3.0-30); Sodium 142 mmol/L (136-145); Total Protein 7.6 gm/dl (6.0-8.3)
[2022-06-05 15:12] LABS: Troponin I High Sensitivity 7.2 pg/ml (0-20)
[2022-06-05 15:36] LABS: Base Excess VBG -5.2 mEq/L; HCO3 VBG 21 mmol/L; Oxygen Saturation VBG 89.8 %; PCO2 VBG 40 mmHg (38-50); PO2 VBG 67 mmHg; pH VBG 7.32 (7.36-7.41)
--- NOTE | 2022-06-05 15:46 | History & Physical Report ---
Date of Service June 05, 2022 Assessment & Plan (1) Acute metabolic encephalopathy: (2) Aggressive behavior: (3) Rhabdomyolysis: (4) RICK (acute kidney injury): (5) Delirium: Plan: - Admit to ICU with amount of sedation which was given: Ketamine 400 mg IM by EMS then Haldol 10 mg IM, Ativan 2 mg IM in the ER upon arrival - Pt is currently sedated, unarousable by sternal rub, on 2 L O2 with sats at 97% - Normosol 100 mg /hr -Check blood cultures, follow urine culture -History of recent respiratory infection, possible sinus infection-can consider antibiotic therapy but currently will hold, WBC is 7.05 on admission, afebrile -RICK with creatinine of 1.45, BUN of 44, baseline creatinine of 0.6-0.9, other previous RICK bouts earlier this summer have resulted in creatinine as high as 4 -Rhabdomyolysis is mild, CK of 588, trend with a.m. labs, continue hydration -CRP elevated at 5.24 -Hold baclofen, possible that patient took 's prescription at home? This medication was previously stopped in March during his earlier admission as suspected cause of rhabdo -EKG reviewed-normal sinus rhythm, no ST wave changes, inversions, or signs of ischemia -CT of head is negative today -If worsening delirium consider neuro consult or EEG, last EEG done in March was negative for acute findings (6) Chronic pain syndrome: Plan: -Takes oxycodone at baseline, patient's cannot confirm if he took this medication today, await drug tox -Negative salicylate and Tylenol level (7) Elevated LFTs: Plan: -noted T bili of 1.2 -Trend with a.m. labs - Possible increased secondary to multiple sedatives given earlier today? (8) Alcoholism in remission: Plan: -History of such, stable, negative alcohol level DVT PPx: - teds, scds CODE: Full code Dispo: From home, likely to remain in the hospital x 1-2 days History of Present Illness Chief Complaint: agitation, AMS Primary Care Provider: Robbie Elizabeth, DO This is a 62 yo M with past medical history significant for gout, history of chronic sinusitis, uncomplicated asthma, reflux esophagitis, chronic viral hepatitis C, BPH, degenerative disc disease, history of alcohol abuse, seems to be in remission, history of chronic pain syndrome, history of immunity to hepatitis B, history of cocaine abuse, who lives with his , presents with confusion, and symptoms of aggressive behavior. The patient was recently in the hospital on two occasions for similar presentations: the first in early March 09-2021 was with metabolic encephalopathy with aggressive behavior, and found to be in RICK, thought encephalopathy from RICK and possible with medications. On 03/16/2022 his baclofen was upped to 20 mg and he was also started on duloxetine. Baclofen was suspected to have worsened rhabdomyolysis. Patient represented on 03/31 and admitted through 04/03 with similar presentation with confusion, aggressive behavior, elevated CK and rhabdomyolysis and RICK. At that time neurology was consulted and EEG was performed on 04/01 without any evidence of focal slowing or epileptiform activity. Baclofen was then advised to again be avoided. I spoke with his , Jackelin today. About 2 weeks ago he was having issues with swallowing and was choking on foods and felt like food was stuck. After aspiration pneumonia was ruled out by his PCP it was deemed that he had bronchitis. He had been taking robitussin, mucinex and tessalon pearls. Earlier on Wednesday noticed he was talking in his sleep and thought this was strange. His respiratory have overall improved, and he decided not following up with PCP on Wednesday from the cough. On Wednesday pt started drinking a lot more fluids. Today noticed he was sweating, increased confusion, yelling, uncomfortable and he starting drinking tons of fluid as he felt his muscles start cramping. He last slept Wednesday night. She reports he was hyperventilating, started getting agitated, and was screaming this morning. Neighbor called the police and reports it must have been very loud because doors and windows were shut. notes having her own Rx of baclofen and there are two 10 mg pills missing from her bottle and suspects that he took these. These medications were stopped im mid March due to suspected worsening rhabdomyolysis. She is unsure if he took his oxycodone or his other routine medications today. He did use the albuterol inhaler today as he has been more often due the cough previously mentioned. Allergies Allergy/AdvReac Type Severity Reaction Status Date / Time hydrocodone Allergy Severe GI SYMPTOMS Verified 03/30/22 21:05 ketorolac Allergy Intermediate makes sick Verified 03/30/22 21:05 Penicillins Allergy Unknown HAPPENED Verified 03/30/22 21:05 A CHILD prednisone AdvReac Severe Confusion Verified 03/30/22 21:05 sulfamethoxazole AdvReac Severe confusion Verified 03/30/22 21:05 [From Bactrim] trimethoprim [From Bactrim] AdvReac Severe confusion Verified 03/30/22 21:05 tramadol AdvReac Intermediate vomiting Verified 03/30/22 21:05 NSAIDS (Non-Steroidal AdvReac Unknown D/T LIVER Verified 03/30/22 21:05 Anti-Inflamma ISSUES Home Medications Medication Instructions Recorded Confirmed Type allopurinol 300 mg tablet 300 mg PO QAM 05/28/18 06/05/22 History omeprazole 20 mg capsule,delayed 20 mg PO QAM 05/28/18 06/05/22 History release triamcinolone acetonide 0.025 % 1 applic topical BID PRN Itching 05/28/18 06/05/22 History topical cream albuterol sulfate 90 mcg/actuation 2 puff inhalation Q4 PRN Shortness 10/09/19 06/05/22 History aerosol inhaler Of Breath Or Wheezing fluticasone propionate 50 2 spray intranasal DAILY 10/09/19 06/05/22 History mcg/actuation nasal spray,suspension (Flonase Allergy Relief) oxycodone 10 mg tablet 10 mg PO Q6H PRN Pain 03/09/22 06/05/22 History duloxetine 20 mg capsule,delayed 20 mg PO QAM 03/30/22 06/05/22 History release qrudadiz-aygrnuhy-kudmb acid 400 1 tab PO DAILY 03/30/22 06/05/22 History mcg-vit K 20 mcg-lycop 300 mcg tablet (Men's Multivitamin) 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 Arthritis Chronic pain syndrome Delirium Gout Hepatitis C Surgical History H/O hernia repair Hx of tooth extraction Family History Mother Diabetes Brother Liver disease Social History Smoking Status: Unknown if ever smoked Preferred Language: Mongolian Communication Ability: Effective Strain Technician Required: No Beliefs That Will Affect Care: None marital status: Current Living Situation: Spouse Current Living Situation Comment: Couldn't provide assessment information due to somulence. How many Children do You have: 2 Feels Safe at Home: Hesitant to Answer Assistive Devices: Cane and Walker Review of Systems Review of Systems: Unobtainable due to cognitive status and Unobtainable due to reduced consciousness Physical Exam Physical Exam: General: Asleep, sedated, no apparent distress Head: Normocephalic, atraumatic ENT: PERRL, pupils are pinpoint, no pharyngeal exudate, mucous membranes dry Chest: + Snoring, clear to auscultation, on 2 LPM NC with O2 sats at 97%, no adventitious breath sounds Cardiac: Regular rate and rhythm, no murmur, no JVD, normal peripheral pulses, good capillary refill Abdominal: NABS x 4 quadrants, soft, nondistended, nontender to palpation, no rebound or guarding Extremities: Normal inspection, no peripheral edema or erythema, calfs nontender to palpation Skin: Diaphoretic to touch, reduced skin turgor Neuro: Asleep, sedated, strength and sensory unable to be assessed secondary to sedation and reduced consciousness Results & Data Results & Data ([facility]) Vital Signs (Past 12 Hours) Vital Signs Temp Pulse Resp BP Pulse Ox O2 Del Method O2 Flow Rate 06/05/22 15:27 94 Nasal Cannula 2 06/05/22 15:25 88 L Room Air 06/05/22 14:24 37.3 C 108 H 22 159/77 H 100 Room Air Laboratory Results 06/05/22 06/05/22 06/05/22 15:26 15:26 15:26 WBC RBC Hgb Hct MCV MCH MCHC RDW Std Deviation RDW Coeff of Bharat Plt Count MPV Immature Gran % (Auto) Neut % (Auto) Lymph % (Auto) Stearns % (Auto) Eos % (Auto) Baso % (Auto) Neut # (Auto) Lymph # (Auto) Stearns # (Auto) Eos # (Auto) Baso # (Auto) Immature Gran # (Auto) ESR 8 PT INR APTT PTT Ratio VBG pH VBG pCO2 VBG pO2 VBG HCO3 VBG O2 Saturation VBG Base Excess Sodium Potassium Chloride Carbon Dioxide Anion Gap BUN Creatinine Est Cr Clr Drug Dosing Est GFR ( Amer) Est GFR (Non-Af Amer) BUN/Creatinine Ratio Glucose Calcium Magnesium Total Bilirubin AST ALT Alkaline Phosphatase Total Creatine Kinase Troponin I High Sens C-Reactive Protein 5.24 H Total Protein Albumin Globulin Albumin/Globulin Ratio Lipase Procalcitonin 0.10 Salicylates Acetaminophen Ethyl Alcohol mg/dL SARS-CoV-2, RNA, NAAT 06/05/22 06/05/22 06/05/22 15:26 14:34 14:08 WBC RBC Hgb Hct MCV MCH MCHC RDW Std Deviation RDW Coeff of Bharat Plt Count MPV Immature Gran % (Auto) Neut % (Auto) Lymph % (Auto) Stearns % (Auto) Eos % (Auto) Baso % (Auto) Neut # (Auto) Lymph # (Auto) Stearns # (Auto) Eos # (Auto) Baso # (Auto) Immature Gran # (Auto) ESR PT INR APTT PTT Ratio VBG pH 7.32 L VBG pCO2 40 VBG pO2 67 VBG HCO3 21 VBG O2 Saturation 89.8 VBG Base Excess -5.2 Sodium Potassium Chloride Carbon Dioxide Anion Gap BUN Creatinine Est Cr Clr Drug Dosing Est GFR ( Amer) Est GFR (Non-Af Amer) BUN/Creatinine Ratio Glucose Calcium Magnesium Total Bilirubin AST ALT Alkaline Phosphatase Total Creatine Kinase Troponin I High Sens C-Reactive Protein Total Protein Albumin Globulin Albumin/Globulin Ratio Lipase Procalcitonin Salicylates Acetaminophen Ethyl Alcohol mg/dL < 10.0 SARS-CoV-2, RNA, NAAT NEGATIVE 06/05/22 06/05/22 06/05/22 14:08 14:08 14:08 WBC RBC Hgb Hct MCV MCH MCHC RDW Std Deviation RDW Coeff of Bharat Plt Count MPV Immature Gran % (Auto) Neut % (Auto) Lymph % (Auto) Stearns % (Auto) Eos % (Auto) Baso % (Auto) Neut # (Auto) Lymph # (Auto) Stearns # (Auto) Eos # (Auto) Baso # (Auto) Immature Gran # (Auto) ESR PT 11.0 INR 1.0 APTT 29.0 PTT Ratio 1.1 VBG pH VBG pCO2 VBG pO2 VBG HCO3 VBG O2 Saturation VBG Base Excess Sodium 142 Potassium 5.4 H Chloride 110 H Carbon Dioxide 23 Anion Gap 9 BUN 44 H Creatinine 1.45 H Est Cr Clr Drug Dosing Not Reportable Est GFR ( Amer) 60.2 Est GFR (Non-Af Amer) 52.0 BUN/Creatinine Ratio 30.3 H Glucose 101 H Calcium 9.8 Magnesium 2.3 Total Bilirubin 1.2 H AST 38 ALT 23 Alkaline Phosphatase 66 Total Creatine Kinase 588 H Troponin I High Sens 7.2 C-Reactive Protein Total Protein 7.6 Albumin 4.7 Globulin 2.9 Albumin/Globulin Ratio 1.6 Lipase 16 Procalcitonin Salicylates < 3.0 L Acetaminophen < 3 L Ethyl Alcohol mg/dL SARS-CoV-2, RNA, NAAT 06/05/22 14:08 WBC 7.05 RBC 4.14 L Hgb 12.8 L Hct 36.2 L MCV 87.4 MCH 30.9 MCHC 35.4 RDW Std Deviation 40.8 RDW Coeff of Bharat 12.9 Plt Count 291 MPV 10.0 Immature Gran % (Auto) 0.4 Neut % (Auto) 64.0 Lymph % (Auto) 18.2 Stearns % (Auto) 11.9 Eos % (Auto) 4.4 Baso % (Auto) 1.1 Neut # (Auto) 4.51 Lymph # (Auto) 1.28 Stearns # (Auto) 0.84 H Eos # (Auto) 0.31 Baso # (Auto) 0.08 Immature Gran # (Auto) 0.03 H ESR PT INR APTT PTT Ratio VBG pH VBG pCO2 VBG pO2 VBG HCO3 VBG O2 Saturation VBG Base Excess Sodium Potassium Chloride Carbon Dioxide Anion Gap BUN Creatinine Est Cr Clr Drug Dosing Est GFR ( Amer) Est GFR (Non-Af Amer) BUN/Creatinine Ratio Glucose Calcium Magnesium Total Bilirubin AST ALT Alkaline Phosphatase Total Creatine Kinase Troponin I High Sens C-Reactive Protein Total Protein Albumin Globulin Albumin/Globulin Ratio Lipase Procalcitonin Salicylates Acetaminophen Ethyl Alcohol mg/dL SARS-CoV-2, RNA, NAAT Diagnostic Findings Chest X-Ray 06/05/22 14:09 XR chest 1V portable CLINICAL HISTORY: AMS TECHNIQUE: Single frontal radiograph of the chest was obtained. Comparison: Comparison is made to chest radiograph 10/09/2019 FINDINGS: No lines and tubes are seen. Cardiomegaly is noted. Prominence and cephalization of the vasculature is seen. No evidence of pleural effusion or pneumothorax. IMPRESSION: Irregular with mild pulmonary edema. ACT 112: Negative or not required by law. Electronically signed by: Arnaud Ham M.D. 06/05/2022 3:[address] 06/05/22 14:09 CT SCAN OF THE BRAIN WITHOUT IV CONTRAST CLINICAL HISTORY: Change in mental status. COMPARISON STUDY: CT of the brain dated 03/30/2022. TECHNIQUE: Unenhanced axial CT scan of the brain is performed from the vertex to the skull base. A dose lowering technique was utilized adhering to the principles of ALARA. CT DOSE: 1523.61 mGy.cm FINDINGS: Brain parenchyma: The brain parenchyma is normal in appearance. There is no hemorrhage, mass effect, or evidence of acute territorial ischemia by CT criteria. Vanegas-white matter differentiation is preserved. No extra-axial fluid collection is seen. Ventricles, sulci, cisterns: Normal in configuration. Intracranial vasculature: The visualized intracranial vasculature at the skull base is normal in appearance. Calvarium: Unremarkable. Sinuses and mastoids: There is subtotal opacification of the frontal and ethmoid sinuses. Mucosal thickening seen within the maxillary antra, noting air fluid level left. There is trace mucosal thickening within the sphenoid sinuses. The mastoid air cells are well pneumatized. Orbits: The bony orbits are grossly intact. IMPRESSION: 1. No acute intracranial abnormality. 2. Pansinus disease as above. ACT 112: Negative or not required by law. Electronically signed by: Smooth Hernandez M.D. 06/05/2022 2:57 PM Code Status & VTE Plan Code Status Full code -discussed with pts , Jackelin over the phone Supervising Physician Co-Signing Physician Notes Pt seen and examined by vt , care coordinated w/ Ela Urbina, pls refer to her note above for further detail. Pt is a 62 yo M w/ hx of gout, hx of chronic sinusitis, uncomplicated asthma, reflux esophagitis, chronic viral hepatitis C, BPH, degenerative disc disease, hx of alcohol abuse, seems to be in remission, history of chronic pain syndrome, hx of cocaine abuse, who lives with his , brought in by police due to agitation, aggression, confusion. Pt was given ketamine prior to arrival to ED, required restraints in ED and was given haldol and ativan. Currently patient is laying in bed, sleeping soundly, not able to be awoken by sternal rub or voice. Pupils are constricted, sluggishly reactive to light, left one larger - this is reported to be postsurg. change. Heart sounds regular. Skin is warm. Patient was admitted in March with metabolic encephalopathy. Likely secondary to medication. Current history obtained from . Reports recent difficulty swallowing also upper respiratory symptoms. Taking [id number] medications. Then developed difficulty with sleeping, started to sweat profusely, became confused. Per he also likely took baclofen from her medi cations. Previously it was recommended he does not use baclofen. Urine tox, UA, urine culture pending. CT head obtained as well as chest x-ray, not explaining his current clinical status. CRP elevated. Blood cultures ordered as well. Discussed with ICU, for now will closely monitor patient in ICU, will provide fluids for RICK, and for mild elevated CK as well. If mental status not improved, may need further evaluation with neurology/possible LP, and/or psychiatry. MD Nataliya
--- NOTE | 2022-06-05 15:49 | XRay Report ---
XR chest 1V portable CLINICAL HISTORY: AMS TECHNIQUE: Single frontal radiograph of the chest was obtained. Comparison: Comparison is made to chest radiograph 10/09/2019 FINDINGS: No lines and tubes are seen. Cardiomegaly is noted. Prominence and cephalization of the vasculature i s seen. No evidence of pleural effusion or pneumothorax. IMPRESSION: Irregular with mild pulmonary edema. ACT 112: Negative or not required by law. Electronically signed by: Arnaud Ham M.D. 06/05/2022 3:48 PM
[2022-06-05 17:09] LABS: Appearance Urine Clear (Clear); Bacteria Urine Automated Negative (Negative); Bilirubin Urine Negative (Negative); Blood Urine Negative (Negative); Color Urine Yellow; Glucose Urine UA Negative (Negative); Ketones Urine 1+ (Negative); Leukocyte Esterase Urine Negative (Negative); Nitrite Urine Negative (Negative); Protein Urine Trace (Negative); RBC Urine Automated 0-4 /hpf (0-4); Specific Gravity Urine 1.022 (1.000-1.030); Urobilinogen Urine Negative (Negative); pH Urine 5.5 (4.5-7.5)
[2022-06-05 17:20] LABS: Amphetamines+Metham, Urine Pos (Neg); Barbiturates, Urine Neg (Neg); Benzodiazepine, Urine Neg (Neg); Cocaine, Urine Neg (Neg); MDMA (Ecstacy), Urine Pos (Neg); Methadone, Urine Neg (Neg); Opiate, Urine Neg (Neg); Phencyclidine, Urine Neg (Neg)
[2022-06-05] MEDS ORDERED: OLANZapine 10 MG/2.1 ML SDV IM PRN (19:30)
[2022-06-05] MEDS ORDERED: ACETAMINOPHEN 325 MG TAB PO PRN (19:32)
[2022-06-05] MEDS ORDERED: ONDANSETRON INJ 2 MG/ML 2 ML VIAL IV PRN (19:32)
[2022-06-05] MEDS ORDERED: NORMOSOL-R 1,000 ML IV SCH (19:32)
[2022-06-05] MEDS ORDERED: ALBUTEROL HFA 8 GM INHALER INH PRN (19:32)
--- NOTE | 2022-06-05 19:46 | Critical Care Consultation ---
Date of Consultation June 05, 2022 Assessment & Plan (1) Acute metabolic encephalopathy: (2) Aggressive behavior: (3) RICK (acute kidney injury): (4) Delirium: (5) Chronic pain syndrome: (6) Elevated LFTs: (7) Alcoholism in remission: (8) Elevated CK: Plan Reason Critically Ill: 62 YOM presents to the ICU following sedation for acute delirium with aggressive behavior. Patient was sedated with 400mg IM Ketamine via EMS en route. He received another 2mg Ativan IM in the EMD. Patient is sedated. To ICU restraints placed, EtCO2 monitor respiratory, neurological, and behavioral status. Admitted on 302 Neuro - Acute delirium with aggressive behavior, chronic pain, sedated This is likely related to ingestion of medications or other agents. He is without fevers or seizure like activity at this time. Follow his nuerological status overnight with hopeful clearing in the morning. No urgent need for LP at this time. If no improvement or worsening then follow on with MRI and LP, await confirmatory Urine tox results. CAM ICU: Unable to test - Admitted on - TOX screen postive for Ectasy and Amphetamine- home medications of Cymbalta and oxycodone - - Hold further narcotics - Patient has previous encounters for the same in the setting of uremia and pharmacological influence- history of ETOH abuse in the past - ETCO2 monitoring - Continue with medical restraints per protocol at this time 2 point restraints with 3 if needed - IVF Normosol at 125ml/hour - If behavior needs further control tonight - Olanzapine 5mg, followed by midazolam and if agitated and dangerous will use Ketamine with Midaz - His PH is normal, with BUN of 44, tox screen as above- possible other induction of medications noted in chart review that consisted of baclofen - Non infectious appearing, normal WBC, without seizure, and without fever - Blood cultures pending - UA Negative - Will require time and dilution to clear Cardiac - No acute process NSR no ectopy and no need for vasopressors at this time - MAPS >65 - IVF as above Respiratory - No acute process - Continue Albuterol PRN when mentation improves - no PFTs in system GI - GERD, Chronic Hepatitis C - PO PPI in morning if mentation clears, if not change to IV - Diet as tolerated - No acute process RENAL/LYTES - HYPERKALEMIA, Elevated CK - K 5.4 on arrival repeat - downtrend to 4.5 - Normosol at 125 - Elevated CK mild at 500 without blood in urine- this is likely related to his combative behavior - No acute needs - Young placed to gravity ENDO - No acute needs - BG Goal <180mg/dl HEME - No acute needs ID - Chronic sinusitis - no fever, wbc not elevated - defer abx treatment LINES/IV ACCESS - PIV, Young Continue use of these lines DVT PROPHYLAXIS - SCDS, Heparin 5000 units sub q q12 DISPO I have personally spent 35 minutes of critical care time in the direct management of this patient. This is a life/limb threatening event. This includes time spent evaluating patient, direct bedside care, chart review, placing orders, interpretation of diagnostic studies, as well as other required patient management activities. This time is exclusive of all separately billable procedures, and separate from and in addition to any other critical care service time. Thank you for allowing us to participate in the care of this patient. Please refer to my attending physician's documentation for any further recommendations. History of Present Illness Reason for Consultation: Delirum with agressive behavior requiring sedation- End tidal CO2 and respiratory/neurological assessment Requesting Physician: Bennie An MD Attending Physician: Mike An MD History of Present Illness 62 YOM brought in by EMS on 302 for what was reported as him being delirious yelling and becoming combative and aggressive. Patient appears to have had this happen in the past with other medications and uremia. He has a remote history of alcohol misuse. This event appears to have been started with him having some URI symptoms which was preceded with him having difficulty swallowing. He started to take some mucinex and other OTC medications, however unsure which these were. He then began having difficulty sleeping, sweating, and confused. Reports also likely that he got into his spouse's baclofen. He was sedated with Ketamine and Ativan. Allergies Allergy/AdvReac Type Severity Reaction Status Date / Time hydrocodone Allergy Severe GI SYMPTOMS Verified 03/30/22 21:05 ketorolac Allergy Intermediate makes sick Verified 03/30/22 21:05 Penicillins Allergy Unknown HAPPENED Verified 03/30/22 21:05 A CHILD prednisone AdvReac Severe Confusion Verified 03/30/22 21:05 sulfamethoxazole AdvReac Severe confusion Verified 03/30/22 21:05 [From Bactrim] trimethoprim [From Bactrim] AdvReac Severe confusion Verified 03/30/22 21:05 tramadol AdvReac Intermediate vomiting Verified 03/30/22 21:05 NSAIDS (Non-Steroidal AdvReac Unknown D/T LIVER Verified 03/30/22 21:05 Anti-Inflamma ISSUES Home Medications Medication Instructions Recorded Confirmed Type allopurinol 300 mg tablet 300 mg PO QAM 05/28/18 06/05/22 History omeprazole 20 mg capsule,delayed 20 mg PO QAM 05/28/18 06/05/22 History release triamcinolone acetonide 0.025 % 1 applic topical BID PRN Itching 05/28/18 06/05/22 History topical cream albuterol sulfate 90 mcg/actuation 2 puff inhalation Q4 PRN Shortness 10/09/19 06/05/22 History aerosol inhaler Of Breath Or Wheezing fluticasone propionate 50 2 spray intranasal DAILY 10/09/19 06/05/22 History mcg/actuation nasal spray,suspension (Flonase Allergy Relief) oxycodone 10 mg tablet 10 mg PO Q6H PRN Pain 03/09/22 06/05/22 History duloxetine 20 mg capsule,delayed 20 mg PO QAM 03/30/22 06/05/22 History release vuewsxep-juohlfpa-nxacj acid 400 1 tab PO DAILY 03/30/22 06/05/22 History mcg-vit K 20 mcg-lycop 300 mcg tablet (Men's Multivitamin) Patient History Medical History 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 Arthritis Chronic pain syndrome Delirium Gout Hepatitis C Surgical History H/O hernia repair Hx of tooth extraction Family History Mother Diabetes Brother Liver disease Social History Smoking Status: Never smoker Second Hand Exposure: No; Hx Alcohol Use: No Hx Substance Use: Yes Last Used Substance: Unknown Last Used Substance Other:: prescribed oxy QID Substance Use Type Other:: uds + for amphetamine/meth and MDMA Preferred Language: Bengali Communication Ability: Effective Credentialing Specialist Required: No Beliefs That Will Affect Care: None marital status: Current Living Situation: Spouse Current Living Situation Comment: Couldn't provide assessment information due to somulence. How many Children do You have: 2 Feels Safe at Home: Yes Assistive Devices: Cane, Denture - Upper, Denture - Lower and Glasses Review of Systems Review of Systems: REVIEW OF SYSTEMS: Unable to be obtained secondary to sedation Physical Exam Physical Exam: PHYSICAL EXAM: General: sedated, currently calm ENT: PERRL sluggish, mucous membranes dry Neuro: Localizes pain, not following commands Chest: equal rise and fall of the chest, no accessory muscle use, no heaves or thrills, Clear to auscultation, on room air, Cardiac: Regular rate and rhythm, telemetry reviewed, skin warm dry, cap refill <3 seconds, peripheral pulses +2 no JVD, no murmur, no edema GI: NABS x 4 quadrants, soft, nontender to palpation, no rebound, guarding or tenderness : Young placed to gravity Extremities: Normal inspection, no peripheral edema or erythema, calfs nontender to palpation Psych: Normal mood and affect Skin: no rash or erythema Results & Data Results & Data ([facility]) Vital Signs (Past 12 Hours) Vital Signs Temp Pulse Pulse Resp BP BP Pulse Ox 06/05/22 17:55 74 23 118/67 97 06/05/22 16:10 80 21 127/72 95 06/05/22 15:27 94 06/05/22 15:25 88 L 06/05/22 14:24 37.3 C 108 H 22 159/77 H 100 O2 Del Method O2 Flow Rate 06/05/22 17:55 Nasal Cannula 2 06/05/22 16:10 Nasal Cannula 2 06/05/22 15:27 Nasal Cannula 2 06/05/22 15:25 Room Air 06/05/22 14:24 Room Air Laboratory Results Abnormal lab results 06/05/22 06/05/22 06/05/22 Range/Units 14:08 14:08 14:08 RBC 4.14 L (4.63-6.08) M/uL Hgb 12.8 L (14.0-18.0) g/dl Hct 36.2 L (40.1-51.0) % Glades # (Auto) 0.84 H (0.24-0.82) K/uL Immature Gran # (Auto) 0.03 H (0.00-0.02) K/uL VBG pH (7.36-7.41) Potassium 5.4 H (3.5-5.1) mmol/L Chloride 110 H (98-107) mmol/L Carbon Dioxide (21-32) mmol/L BUN 44 H (6-23) mg/dl Creatinine 1.45 H (0.6-1.4) mg/dl BUN/Creatinine Ratio 30.3 H (10-20) Glucose 101 H (70-99(Fasting)) mg/dl POC Glucose (70-99) mg/dl Total Bilirubin 1.2 H (0.2-1.0) mg/dl Total Creatine Kinase 588 H (30-223) U/L C-Reactive Protein (0-0.5) mg/dl Urine Protein (Negative) Urine Ketones (Negative) U Epithel Cells (Auto) (0-5) /lpf Salicylates < 3.0 L (3.0-30) mg/dl Acetaminophen < 3 L (10-30) ug/ml U Amphetamin/Meth Scrn (Neg) MDMA (Ecstasy) Screen (Neg) 06/05/22 06/05/22 06/05/22 Range/Units 15:26 15:26 16:35 RBC (4.63-6.08) M/uL Hgb (14.0-18.0) g/dl Hct (40.1-51.0) % Glades # (Auto) (0.24-0.82) K/uL Immature Gran # (Auto) (0.00-0.02) K/uL VBG pH 7.32 L (7.36-7.41) Potassium (3.5-5.1) mmol/L Chloride (98-107) mmol/L Carbon Dioxide (21-32) mmol/L BUN (6-23) mg/dl Creatinine (0.6-1.4) mg/dl BUN/Creatinine Ratio (10-20) Glucose (70-99(Fasting)) mg/dl POC Glucose (70-99) mg/dl Total Bilirubin (0.2-1.0) mg/dl Total Creatine Kinase (30-223) U/L C-Reactive Protein 5.24 H (0-0.5) mg/dl Urine Protein Trace H (Negative) Urine Ketones 1+ H (Negative) U Epithel Cells (Auto) 10-20 H (0-5) /lpf Salicylates (3.0-30) mg/dl Acetaminophen (10-30) ug/ml U Amphetamin/Meth Scrn (Neg) MDMA (Ecstasy) Screen (Neg) 06/05/22 06/05/22 06/05/22 Range/Units 16:35 19:58 20:40 RBC (4.63-6.08) M/uL Hgb (14.0-18.0) g/dl Hct (40.1-51.0) % Glades # (Auto) (0.24-0.82) K/uL Immature Gran # (Auto) (0.00-0.02) K/uL VBG pH (7.36-7.41) Potassium (3.5-5.1) mmol/L Chloride 112 H (98-107) mmol/L Carbon Dioxide 20 L (21-32) mmol/L BUN 39 H (6-23) mg/dl Creatinine (0.6-1.4) mg/dl BUN/Creatinine Ratio 41.1 H (10-20) Glucose 102 H (70-99(Fasting)) mg/dl POC Glucose 100 H (70-99) mg/dl Total Bilirubin (0.2-1.0) mg/dl Total Creatine Kinase (30-223) U/L C-Reactive Protein (0-0.5) mg/dl Urine Protein (Negative) Urine Ketones (Negative) U Epithel Cells (Auto) (0-5) /lpf Salicylates (3.0-30) mg/dl Acetaminophen (10-30) ug/ml U Amphetamin/Meth Scrn Pos H (Neg) MDMA (Ecstasy) Screen Pos H (Neg) Diagnostic Findings Chest X-Ray 06/05/22 14:09 XR chest 1V portable CLINICAL HISTORY: AMS TECHNIQUE: Single frontal radiograph of the chest was obtained. Comparison: Comparison is made to chest radiograph 10/09/2019 FINDINGS: No lines and tubes are seen. Cardiomegaly is noted. Prominence and cephalization of the vasculature is seen. No evidence of pleural effusion or pneumothorax. IMPRESSION: Irregular with mild pulmonary edema. ACT 112: Negative or not required by law. Electronically signed by: Arnaud Ham M.D. 06/05/2022 3:[address] 06/05/22 14:09 CT SCAN OF THE BRAIN WITHOUT IV CONTRAST CLINICAL HISTORY: Change in mental status. COMPARISON STUDY: CT of the brain dated 03/30/2022. TECHNIQUE: Unenhanced axial CT scan of the brain is performed from the vertex to the skull base. A dose lowering technique was utilized adhering to the principles of ALARA. CT DOSE: 1523.61 mGy.cm FINDINGS: Brain parenchyma: The brain parenchyma is normal in appearance. There is no hemorrhage, mass effect, or evidence of acute territorial ischemia by CT criteria. Vanegas-white matter differentiation is preserved. No extra-axial fluid collection is seen. Ventricles, sulci, cisterns: Normal in configuration. Intracranial vasculature: The visualized intracranial vasculature at the skull base is normal in appearance. Calvarium: Unremarkable. Sinuses and mastoids: There is subtotal opacification of the frontal and ethmoid sinuses. Mucosal thickening seen within the maxillary antra, noting air fluid level left. There is trace mucosal thickening within the sphenoid sinuses. The mastoid air cells are well pneumatized. Orbits: The bony orbits are grossly intact. IMPRESSION: 1. No acute intracranial abnormality. 2. Pansinus disease as above. ACT 112: Negative or not required by law. Electronically signed by: Smooth Hernandez M.D. 06/05/2022 2:57 PM Medications Administered Heparin Sodium (Porcine) (Heparin Sod 5,000 Unit/0.5 Ml Vial) 5,000 units SQ Q12 LEVI Stop: 07/05/22 20:59 Last Admin: 06/05/22 21:43 Dose: 5,000 units Documented By: ZAC Parenteral Electrolytes (Normosol-R) 1,000 mls @ 125 mls/hr IV .Q8H LEVI Stop: 07/05/22 19:44 Last Admin: 06/05/22 19:49 Dose: 125 mls/hr Documented By: ZAC Discontinued Medications Haloperidol Lactate (Haloperidol Lactate 5 Mg/Ml 1 Ml Vial) Confirm Administered Dose 5 mg .ROUTE .STK-MED ONE Stop: 06/05/22 14:08 Last Admin: 06/05/22 14:14 Dose: Not Given Documented By: ML Haloperidol Lactate (Haloperidol Lactate 5 Mg/Ml 1 Ml Vial) Confirm Administered Dose 5 mg .ROUTE .STK-MED ONE Stop: 06/05/22 14:11 Last Admin: 06/05/22 14:14 Dose: Not Given Documented By: ML Haloperidol Lactate (Haloperidol Lactate 5 Mg/Ml 1 Ml Vial) 10 mg IM NOW STA Stop: 06/05/22 14:10 Last Admin: 06/05/22 14:13 Dose: 10 mg Documented By: ML Sodium Chloride (Nss 1000ml) 1,000 mls @ 999 mls/hr IV .Q1H1M LEVI Stop: 06/05/22 15:15 Last Infusion: 06/05/22 15:17 Dose: 0 mls/hr Documented By: Admin: 06/05/22 14:16 Dose: 999 mls/hr Documented By: MARILIN Thiamine HCl 200 mg/ Sodium (Chloride) 52 mls @ 208 mls/hr IV NOW STA Stop: 06/05/22 14:16 Last Infusion: 06/05/22 16:24 Dose: 0 mls/hr Documented By: Admin: 06/05/22 16:09 Dose: 208 mls/hr Documented By: DAR Parenteral Electrolytes (Normosol-R) 1,000 mls @ 100 mls/hr IV .Q10H LEVI Stop: 06/06/22 19:31 Last Admin: 06/05/22 19:49 Dose: Not Given Documented By: ZAC Lorazepam (Lorazepam 2 Mg/2 Ml Syr) Confirm Administered Dose 2 mg .ROUTE .STK- MED ONE Stop: 06/05/22 14:10 Last Admin: 06/05/22 14:14 Dose: 2 mg Documented By: DAR Lorazepam (Lorazepam 2 Mg/2 Ml Syr) 2 mg IM 1409 [facility] Stop: 06/05/22 14:10 Last Admin: 06/05/22 15:34 Dose: Not Given Documented By: ML Coding Level of Care Code Critical Care 1st 30-74 mins Diagnoses Acute metabolic encephalopathy G93.41 Aggressive behavior R46.89 RICK (acute kidney injury) N17.9 Delirium R41.0 Chronic pain syndrome G89.4 Elevated LFTs R79.89 Alcoholism in remission F10.21 Elevated CK R74.8
[2022-06-05] MEDS: NORMOSOL-R 1,000 ML IV SCH (19:49)
[2022-06-05 20:26] LABS: Anion Gap 8 (3-11); BUN Creatinine Ratio 41.1 (10-20); Blood Urea Nitrogen 39 mg/dl (6-23); Calcium 9.2 mg/dl (8.5-10.1); Carbon Dioxide 20 mmol/L (21-32); Chloride 112 mmol/L (98-107); Est GFR (African American) 100.4 ml/min; Est GFR (Non-African American) 86.7 ml/min; Glucose 102 mg/dl (70-99(Fasting)); Potassium 4.5 mmol/L (3.5-5.1); Sodium 140 mmol/L (136-145)
[2022-06-05] MEDS: HEPARIN SOD 5,000 UNIT/0.5 ML VIAL SQ SCH (21:43)
--- NOTE | 2022-06-05 22:35 | Electrocardiogram Report ---
Test Reason : Blood Pressure : / mmHG Vent. Rate : 092 BPM Atrial Rate : 092 BPM P-R Int : 150 ms QRS Dur : 082 ms QT Int : 380 ms P-R-T Axes : 025 019 039 degrees QTc Int : 469 ms Sinus rhythm with Premature ventricular complexes or Fusion complexes Otherwise normal ECG When compared with ECG of 30-MAR-2022 18:57, No significant change Confirmed by Daniel Reese ([id number]) on 06/05/2022 10:34:52 PM Referred By: REFERRED SELF Confirmed By:Daniel Reese
[2022-06-05] MEDS ORDERED: FLUARIX QUADRIVALENT 0.5 ML SYR IM ONE (23:38)
[2022-06-06] MEDS: NORMOSOL-R 1,000 ML IV SCH (03:23)
--- NOTE | 2022-06-06 04:18 | Critical Care Progress Note ---
Date of Service June 06, 2022 Assessment & Plan (1) Acute metabolic encephalopathy: (2) Aggressive behavior: (3) RICK (acute kidney injury): (4) Delirium: (5) Chronic pain syndrome: (6) Elevated LFTs: (7) Alcoholism in remission: (8) Elevated CK: Plan Reason Critically Ill: 62 YOM presents to the ICU following sedation for acute delirium with aggressive behavior. Patient was sedated with 400mg IM Ketamine via EMS en route. He received another 2mg Ativan IM in the EMD. Patient is sedated. To ICU restraints placed, EtCO2 monitor respiratory, neurological, and behavioral status. Admitted on 302 Neuro - Acute delirium with aggressive behavior, chronic pain, sedated This is likely related to ingestion of medications or other agents. He is without fevers or seizure like activity at this time. Follow his neurological status overnight with hopeful clearing in the morning. No urgent need for LP at this time. If no improvement or worsening then follow on with MRI and LP, await confirmatory Urine tox results. - Admitted on 302 - TOX screen positive for Ectasy and Amphetamine- home medications of Cymbalta and oxycodone - Awake and cooperative this morning, out of restraints - no SI/Hallucinations - No deficits, no fever overnight, no seizures Cardiac - No acute process NSR no ectopy and no need for vasopressors at this time - MAPS >65 - IVF as above Respiratory - No acute process - Continue Albuterol PRN when mentation improves - no PFTs in system GI - GERD, Chronic Hepatitis C - PO PPI in morning if mentation clears, if not change to IV - Diet as tolerated - No acute process RENAL/LYTES - HYPERKALEMIA, Elevated CK - K 5.4 on arrival repeat - downtrend to 4.5 - Normosol at 125 - Elevated CK mild at 500 without blood in urine- this is likely related to his combative behavior - No acute needs - Young placed to gravity ENDO - No acute needs - BG Goal <180mg/dl HEME - No acute needs ID - Chronic sinusitis - no fever, wbc not elevated - defer abx treatment LINES/IV ACCESS - PIV, Young Continue use of these lines DVT PROPHYLAXIS - SCDS, Heparin 5000 units sub q q12 DISPO I have personally spent 30 minutes of critical care time in the direct management of this patient. This is a life/limb threatening event. This includes time spent evaluating patient, direct bedside care, chart review, placing orders, interpretation of diagnostic studies, as well as other required patient management activities. This time is exclusive of all separately billable procedures, and separate from and in addition to any other critical care service time. Thank you for allowing us to participate in the care of this patient. Please refer to my attending physician's documentation for any further recommendations. Admission and Anticipated Discharge Date Admission Date: June 05, 2022 Supervising Physician Co-Signing Physician Notes I have personally evaluated and examined this patient. I agree with assessment and plan of Gabino LONG. Patient is alert and oriented. Denies wanting to harm self or others. Reports he became agitated when police were questioning him and especially when he was physically restrained. Stable for downgrade out of ICU versus discharge. Subjective ICU Day #1 admitted for acute delirium and agressive behavior requiring sedation. Patient without any difficulty through PM, awoke around 0330 calm cooperative, is able to recall events from yesterday. Would like to go home today. He is without any SI, Hallucinations, will advance diet today. Transfer to floor if remaining in house. Critical care will sign off at this time. Review of Systems Review of Systems: REVIEW OF SYSTEMS: Constitutional: No fever, sweats or chills Eyes: No diplopia, no worsening or blurred vision ENT: normal hearing, no trouble swallowing, Respiratory: No cough, sputum, dyspnea at rest or on exertion Cardiovascular: No chest pain, tightness or palpitations Abdomen: No pain, nausea, vomiting, diarrhea or constipation Musculoskeletal: No joint pain, calf pain, swelling Neurologic: No weakness, numbness/tingling, or balance problems Psychiatric: No anxiety or depression Skin: No rash or itch Physical Exam Physical Exam: PHYSICAL EXAM: General: sedated, currently calm ENT: PERRL brisk mucous membranes dry Neuro: Localizes pain, not following commands Chest: equal rise and fall of the chest, no accessory muscle use, no heaves or thrills, Clear to auscultation, on room air, Cardiac: Regular rate and rhythm, telemetry reviewed, skin warm dry, cap refill <3 seconds, peripheral pulses +2 no JVD, no murmur, no edema GI: NABS x 4 quadrants, soft, nontender to palpation, no rebound, guarding or tenderness : Young placed to gravity Extremities: Normal inspection, no peripheral edema or erythema, calfs nontender to palpation Psych: Normal mood and affect Skin: no rash or erythema Results & Data Results & Data ([facility]) Vital Signs (Past 12 Hours) Vital Signs Temp Pulse Pulse Resp BP BP Pulse Ox 06/06/22 03:00 36.8 C 93 H 21 97 06/06/22 03:00 129/84 06/06/22 02:00 36.6 C 79 23 96 06/06/22 02:00 126/75 06/06/22 01:01 36.5 C 83 20 96 06/06/22 01:01 109/67 06/06/22 01:00 36.5 C 78 21 96 06/06/22 00:01 36.3 C L 80 8 L 98 06/06/22 00:01 139/80 06/06/22 00:00 36.3 C L 84 16 97 06/05/22 23:00 36.2 C L 80 15 98 06/05/22 23:00 126/73 06/06/22 00:00 79 06/05/22 21:00 06/05/22 20:00 95 H 06/05/22 22:00 36.1 C L 78 21 96 06/05/22 22:00 115/73 06/05/22 21:01 36.1 C L 83 18 97 06/05/22 21:01 101/76 06/05/22 21:00 36.1 C L 79 20 96 06/05/22 20:37 36.1 C L 82 20 97 06/05/22 20:37 112/68 06/05/22 20:00 36.0 C L 83 26 H 93 06/05/22 19:32 06/05/22 19:27 182/114 H 06/05/22 19:27 34.7 C L 92 H 18 06/05/22 19:09 93 H 21 06/05/22 18:00 70 22 98 06/05/22 17:00 79 21 97 06/05/22 16:54 77 21 97 06/05/22 16:54 118/67 06/05/22 17:55 74 23 118/67 97 Pulse Ox O2 Del Method O2 Del Method O2 Flow Rate O2 Flow Rate 06/06/22 03:00 06/06/22 03:00 06/06/22 02:00 06/06/22 02:00 06/06/22 01:01 06/06/22 01:01 06/06/22 01:00 06/06/22 00:01 06/06/22 00:01 06/06/22 00:00 06/05/22 23:00 06/05/22 23:00 06/06/22 00:00 06/05/22 21:00 Nasal Cannula 2 06/05/22 20:00 06/05/22 22:00 06/05/22 22:00 06/05/22 21:01 06/05/22 21:01 06/05/22 21:00 06/05/22 20:37 06/05/22 20:37 06/05/22 20:00 06/05/22 19:32 97 Nasal Cannula 2 06/05/22 19:27 06/05/22 19:27 06/05/22 19:09 06/05/22 18:00 06/05/22 17:00 06/05/22 16:54 06/05/22 16:54 06/05/22 17:55 Nasal Cannula 2 Laboratory Results Abnormal lab results 06/05/22 06/05/22 06/05/22 Range/Units 14:08 14:08 14:08 RBC 4.14 L (4.63-6.08) M/uL Hgb 12.8 L (14.0-18.0) g/dl Hct 36.2 L (40.1-51.0) % [place] # (Auto) 0.84 H (0.24-0.82) K/uL Immature Gran # (Auto) 0.03 H (0.00-0.02) K/uL VBG pH (7.36-7.41) Potassium 5.4 H (3.5-5.1) mmol/L Chloride 110 H (98-107) mmol/L Carbon Dioxide (21-32) mmol/L BUN 44 H (6-23) mg/dl Creatinine 1.45 H (0.6-1.4) mg/dl BUN/Creatinine Ratio 30.3 H (10-20) Glucose 101 H (70-99(Fasting)) mg/dl POC Glucose (70-99) mg/dl Total Bilirubin 1.2 H (0.2-1.0) mg/dl Total Creatine Kinase 588 H (30-223) U/L C-Reactive Protein (0-0.5) mg/dl Urine Protein (Negative) Urine Ketones (Negative) U Epithel Cells (Auto) (0-5) /lpf Salicylates < 3.0 L (3.0-30) mg/dl Acetaminophen < 3 L (10-30) ug/ml U Amphetamin/Meth Scrn (Neg) MDMA (Ecstasy) Screen (Neg) 06/05/22 06/05/22 06/05/22 Range/Units 15:26 15:26 16:35 RBC (4.63-6.08) M/uL Hgb (14.0-18.0) g/dl Hct (40.1-51.0) % [place] # (Auto) (0.24-0.82) K/uL Immature Gran # (Auto) (0.00-0.02) K/uL VBG pH 7.32 L (7.36-7.41) Potassium (3.5-5.1) mmol/L Chloride (98-107) mmol/L Carbon Dioxide (21-32) mmol/L BUN (6-23) mg/dl Creatinine (0.6-1.4) mg/dl BUN/Creatinine Ratio (10-20) Glucose (70-99(Fasting)) mg/dl POC Glucose (70-99) mg/dl Total Bilirubin (0.2-1.0) mg/dl Total Creatine Kinase (30-223) U/L C-Reactive Protein 5.24 H (0-0.5) mg/dl Urine Protein Trace H (Negative) Urine Ketones 1+ H (Negative) U Epithel Cells (Auto) 10-20 H (0-5) /lpf Salicylates (3.0-30) mg/dl Acetaminophen (10-30) ug/ml U Amphetamin/Meth Scrn (Neg) MDMA (Ecstasy) Screen (Neg) 06/05/22 06/05/22 06/05/22 Range/Units 16:35 19:58 20:40 RBC (4.63-6.08) M/uL Hgb (14.0-18.0) g/dl Hct (40.1-51.0) % [place] # (Auto) (0.24-0.82) K/uL Immature Gran # (Auto) (0.00-0.02) K/uL VBG pH (7.36-7.41) Potassium (3.5-5.1) mmol/L Chloride 112 H (98-107) mmol/L Carbon Dioxide 20 L (21-32) mmol/L BUN 39 H (6-23) mg/dl Creatinine (0.6-1.4) mg/dl BUN/Creatinine Ratio 41.1 H (10-20) Glucose 102 H (70-99(Fasting)) mg/dl POC Glucose 100 H (70-99) mg/dl Total Bilirubin (0.2-1.0) mg/dl Total Creatine Kinase (30-223) U/L C-Reactive Protein (0-0.5) mg/dl Urine Protein (Negative) Urine Ketones (Negative) U Epithel Cells (Auto) (0-5) /lpf Salicylates (3.0-30) mg/dl Acetaminophen (10-30) ug/ml U Amphetamin/Meth Scrn Pos H (Neg) MDMA (Ecstasy) Screen Pos H (Neg) 06/06/22 Range/Units 04:01 RBC (4.63-6.08) M/uL Hgb (14.0-18.0) g/dl Hct (40.1-51.0) % [place] # (Auto) (0.24-0.82) K/uL Immature Gran # (Auto) (0.00-0.02) K/uL VBG pH (7.36-7.41) Potassium (3.5-5.1) mmol/L Chloride (98-107) mmol/L Carbon Dioxide (21-32) mmol/L BUN (6-23) mg/dl Creatinine (0.6-1.4) mg/dl BUN/Creatinine Ratio (10-20) Glucose (70-99(Fasting)) mg/dl POC Glucose 107 H (70-99) mg/dl Total Bilirubin (0.2-1.0) mg/dl Total Creatine Kinase (30-223) U/L C-Reactive Protein (0-0.5) mg/dl Urine Protein (Negative) Urine Ketones (Negative) U Epithel Cells (Auto) (0-5) /lpf Salicylates (3.0-30) mg/dl Acetaminophen (10-30) ug/ml U Amphetamin/Meth Scrn (Neg) MDMA (Ecstasy) Screen (Neg) Diagnostic Findings Chest X-Ray 06/05/22 14:09 XR chest 1V portable CLINICAL HISTORY: AMS TECHNIQUE: Single frontal radiograph of the chest was obtained. Comparison: Comparison is made to chest radiograph 10/09/2019 FINDINGS: No lines and tubes are seen. Cardiomegaly is noted. Prominence and cephalization of the vasculature is seen. No evidence of pleural effusion or pneumothorax. IMPRESSION: Irregular with mild pulmonary edema. ACT 112: Negative or not required by law. Electronically signed by: Arnaud Ham M.D. 06/05/2022 3:[address] 06/05/22 14:09 CT SCAN OF THE BRAIN WITHOUT IV CONTRAST CLINICAL HISTORY: Change in mental status. COMPARISON STUDY: CT of the brain dated 03/30/2022. TECHNIQUE: Unenhanced axial CT scan of the brain is performed from the vertex to the skull base. A dose lowering technique was utilized adhering to the principles of ALARA. CT DOSE: 1523.61 mGy.cm FINDINGS: Brain parenchyma: The brain parenchyma is normal in appearance. There is no hemorrhage, mass effect, or evidence of acute territorial ischemia by CT criteria. Vanegas-white matter differentiation is preserved. No extra-axial fluid collection is seen. Ventricles, sulci, cisterns: Normal in configuration. Intracranial vasculature: The visualized intracranial vasculature at the skull base is normal in appearance. Calvarium: Unremarkable. Sinuses and mastoids: There is subtotal opacification of the frontal and ethmoid sinuses. Mucosal thickening seen within the maxillary antra, noting air fluid level left. There is trace mucosal thickening within the sphenoid sinuses. The mastoid air cells are well pneumatized. Orbits: The bony orbits are grossly intact. IMPRESSION: 1. No acute intracranial abnormality. 2. Pansinus disease as above. ACT 112: Negative or not required by law. Electronically signed by: Smooth Hernandez M.D. 06/05/2022 2:57 PM Coding Level of Care Code 38228 Subseq Hosp Care Lvl 3 Diagnoses Acute metabolic encephalopathy G93.41 Aggressive behavior R46.89 RICK (acute kidney injury) N17.9 Delirium R41.0 Chronic pain syndrome G89.4 Elevated LFTs R79.89 Alcoholism in remission F10.21 Elevated CK R74.8
[2022-06-06 06:32] LABS: Hematocrit (blood only) 32.8 % (40.1-51.0); Hemoglobin 11.3 g/dl (14.0-18.0); Mean Corpuscular Hemoglobin 30.7 pg (25.0-34.0); Mean Corpuscular Hgb Conc 34.5 g/dL (32.0-36.0); Mean Corpuscular Volume 89.1 fL (80.0-100.0); Mean Platelet Volume 10.2 fL (9.4-12.4); Platelet Count 230 K/uL (130-400); RDW Coefficient of Variation 12.8 % (11.5-14.5); Red Blood Count 3.68 M/uL (4.63-6.08); White Blood Count 5.16 K/ul (4.8-10.8)
[2022-06-06 07:10] LABS: Albumin Globulin Ratio 1.4 (0.9-2); Albumin Level 4.1 gm/dl (3.4-5.0); BUN Creatinine Ratio 45.9 (10-20); Bilirubin,Total 1.4 mg/dl (0.2-1.0); C Reactive Protein 5.61 mg/dl (0-0.5); Calcium 8.9 mg/dl (8.5-10.1); Creatinine Clr Calc Pharmacy 159.1 ml/min; Est GFR (African American) 125.8 ml/min; Est GFR (Non-African American) 108.5 ml/min; Globulin 2.9 gm/dl (2.5-4.0); Magnesium 2.1 mg/dl (1.7-2.4); Potassium 3.8 mmol/L (3.5-5.1)
--- NOTE | 2022-06-06 07:26 | Electrocardiogram Report ---
Test Reason : Blood Pressure : / mmHG Vent. Rate : 084 BPM Atrial Rate : 084 BPM P-R Int : 162 ms QRS Dur : 078 ms QT Int : 412 ms P-R-T Axes : 049 029 049 degrees QTc Int : 486 ms Sinus rhythm with occasional Premature ventricular complexes Abnormal ECG When compared with ECG of 05-JUN-2022 14:57, Fusion complexes are no longer Present Confirmed by Ang Richardson ([id number]) on 06/06/2022 7:25:54 AM Referred By: REFERRED SELF Confirmed By:Moses Richardson
[2022-06-06] MEDS: HEPARIN SOD 5,000 UNIT/0.5 ML VIAL SQ SCH (08:31)
[2022-06-06] MEDS ORDERED: MULTIVITAMIN TAB PO SCH (09:00)
[2022-06-06] MEDS ORDERED: DULoxetine HCL 20 MG CAP PO SCH (09:00)
[2022-06-06] MEDS ORDERED: FLUTICASONE PROPIONATE NA SPR 16 GM BTL SCH (09:00)
[2022-06-06] MEDS ORDERED: PANTOprazole 40 MG TAB PO SCH (09:00)
[2022-06-06] MEDS ORDERED: allopurinoL 300 MG TAB PO SCH (09:00)
--- NOTE | 2022-06-06 13:14 | Discharge Summary ---
Date of Service June 06, 2022 Admission HPI Per Admitting Provider This is a 62 yo M with past medical history significant for gout, history of chronic sinusitis, uncomplicated asthma, reflux esophagitis, chronic viral hepatitis C, BPH, degenerative disc disease, history of alcohol abuse, seems to be in remission, history of chronic pain syndrome, history of immunity to hepatitis B, history of cocaine abuse, who lives with his , presents with confusion, and symptoms of aggressive behavior. The patient was recently in the hospital on two occasions for similar presentations: the first in early March 09-2021 was with metabolic encephalopathy with aggressive behavior, and found to be in RICK, thought encephalopathy from RICK and possible with medications. On 03/16/2022 his baclofen was upped to 20 mg and he was also started on duloxetine. Baclofen was suspected to have worsened rhabdomyolysis. Patient represented on 03/31 and admitted through 04/03 with similar presentation with confusion, aggressive behavior, elevated CK and rhabdomyolysis and RICK. At that time neurology was consulted and EEG was performed on 04/01 without any evidence of focal slowing or epileptiform activity. Baclofen was then advised to again be avoided. I spoke with his , Jackelin today. About 2 weeks ago he was having issues with swallowing and was choking on foods and felt like food was stuck. After aspiration pneumonia was ruled out by his PCP it was deemed that he had bronc hitis. He had been taking robitussin, mucinex and tessalon pearls. Earlier on Wednesday noticed he was talking in his sleep and thought this was strange. His respiratory have overall improved, and he decided not following up with PCP on Wednesday from the cough. On Wednesday pt started drinking a lot more fluids. Today noticed he was sweating, increased confusion, yelling, uncomfortable and he starting drinking tons of fluid as he felt his muscles start cramping. He last slept Wednesday night. She reports he was hyperventilating, started getting agitated, and was screaming this morning. Neighbor called the police and reports it must have been very loud because doors and windows were shut. notes having her own Rx of baclofen and there are two 10 mg pills missing from her bottle and suspects that he took these. These medications were stopped im march due to suspected worsening rhabdomyolysis. She is unsure if he took his oxycodone or his other routine medications today. He did use the albuterol inhaler today as he has been more often due the cough previously mentioned. Admission Exam Per Admitting Provider General: Asleep, sedated, no apparent distress Head: Normocephalic, atraumatic ENT: PERRL, pupils are pinpoint, no pharyngeal exudate, mucous membranes dry Chest: + Snoring, clear to auscultation, on 2 LPM NC with O2 sats at 97%, no adventitious breath sounds Cardiac: Regular rate and rhythm, no murmur, no JVD, normal peripheral pulses, good capillary refill Abdominal: NABS x 4 quadrants, soft, nondistended, nontender to palpation, no rebound or guarding Extremities: Normal inspection, no peripheral edema or erythema, calfs nontender to palpation Skin: Diaphoretic to touch, reduced skin turgor Neuro: Asleep, sedated, strength and sensory unable to be assessed secondary to sedation and reduced consciousness Principal Diagnosis toxic encephalopathy likely secondary to baclofen Discharge Exam General: AAOx4 - a little annoyed about commitment but calm and cooperative Head: Normocephalic, atraumatic ENT: PERRL, pupils are pinpoint, no pharyngeal exudate, mucous membranes dry Chest: clear to auscultation, no wheezes or ronchi Cardiac: Regular rate and rhythm, no murmur, no JVD, normal peripheral pulses, good capillary refill Abdominal: NABS x 4 quadrants, soft, nondistended, nontender to palpation, no rebound or guarding Extremities: Normal inspection, no peripheral edema or erythema, calfs nontender to palpation Skin: Diaphoretic to touch, reduced skin turgor Neuro: AAOx4 moving all extremities and no focal abnormalities Psych: denies SI/HI, AAOx4, good thought process and judgement. Discharge Data Allergies Allergy/AdvReac Type Severity Reaction Status Date / Time hydrocodone Allergy Severe GI SYMPTOMS Verified 03/30/22 21:05 ketorolac Allergy Intermediate makes sick Verified 03/30/22 21:05 Penicillins Allergy Unknown HAPPENED Verified 03/30/22 21:05 A CHILD prednisone AdvReac Severe Confusion Verified 03/30/22 21:05 sulfamethoxazole AdvReac Severe confusion Verified 03/30/22 21:05 [From Bactrim] trimethoprim [From Bactrim] AdvReac Severe confusion Verified 03/30/22 21:05 tramadol AdvReac Intermediate vomiting Verified 03/30/22 21:05 NSAIDS (Non-Steroidal AdvReac Unknown D/T LIVER Verified 03/30/22 21:05 Anti-Inflamma ISSUES Consultations 06/05/22 15:31 ED Decision to Admit Stat 06/05/22 19:32 Consult Collision Mechanic Routine Ordered Studies 06/05/22 14:09 CT head/brain wo con Stat Hospital Course (1) Acute metabolic encephalopathy: (2) Aggressive behavior: (3) Rhabdomyolysis: (4) RICK (acute kidney injury): (5) Delirium: - admitted for agitation and AMS secondary to taking baclofen - has had admission similar in the past and advised to not take baclofen - reportedly took 2 baclofen from on day of admission and police called for aggressive behavior - sedated aggressively in ED - 302'd for aggressive behavior - supportive care and monitoring overnight in ICU = following morning patient AAOX4 and knows he took baclofen with aggressive behavior as a result - upset but understands the situation - 302 dispo'ed as patient denying SI/HI or psychiatric history - see by psych on previous admissions and psych history investigation without history of psychiatric illness - ok to return home today 06/06/2022 - spoke with who is also ok with plan - advised again to avoid baclofen - aware as well - continue duloxetine (6) Chronic pain syndrome: -Takes oxycodone at baseline, patient's cannot confirm if he took this medication today, await drug tox -Negative salicylate and Tylenol level (7) Elevated LFTs: -noted T bili of 1.2 -Trend with a.m. labs - mild elevation 1.4 - follow up with PCP (8) Alcoholism in remission: -History of such, stable, negative alcohol level Plan Discharge home with PCP follow up - advised continued avoidance of baclofen Total Time Total Time Spent Total Time Spent (In Minutes): 25 Total Time Includes: Examination of the Patient, Discharge Planning and Medication Reconciliation Discharge Plan Discharge Items Patient Disposition: Home - Self-Care Reason For Visit: RICK, METABOLIC ENCEPHALOPATHY Discharge Diagnosis: metabolic encephalopathy secondary to baclofen Activity: Resume your previous activity Non-emergency contact: Primary Care Provider Call non-emergency contact if: you have any medication questions and your symptoms worsen Follow-up/Referrals: Robbie Elizabeth, DO [Primary Care Provider] - Diet: Regular Addtl Attending Provider Instructions: You were admitted for altered mental status and agitation that required sedation and restraints. This is likely due to the combination of duloxetine and baclofen or baclofen alone and your reaction to it. You are advised to not take Baclofen at all and to avoid it in any circumstance. You should continue taking d uloxetine and follow up closely with your primary Care doctor. Pending Studies at Discharge: No Stand-Alone Forms: My [facility], Smoking Cessation Medications and DC Order Prescriptions: Continued albuterol sulfate 90 mcg/actuation HFA aerosol inhaler 2 puff INHALATION Q4 PRN (Reason: Shortness Of Breath Or Wheezing) fluticasone propionate [Flonase Allergy Relief] 50 mcg/actuation spray,suspension 2 spray INTRANASAL DAILY omeprazole 20 mg Capsule,Delayed Release(Dr/Ec) 20 mg PO QAM allopurinol 300 mg Tablet 300 mg PO QAM triamcinolone acetonide 0.025 % Cream 1 applic TOPICAL BID PRN (Reason: Itching) Rx Instructions: APPLY NEEDED AND DIRECTED TO LEGS oxycodone 10 mg tablet 10 mg PO Q6H PRN (Reason: Pain) duloxetine 20 mg capsule,delayed release(DR/EC) 20 mg PO QAM Men's Multivitamin 400-20-300 mcg Tablet 1 tab PO DAILY Discharge Orders: Discharge Order (Routine); Ordered 06/06/22 Ordered By: Anshul Quach/Other Patient Handouts: Understanding Deep Vein Thrombosis, DVT Complications, Preventing Deep Vein Thrombosis Admission Data Admit Date/Time: 06/05/22 16:20 Attending Provider: Anshul Pantoja Admit Provider: Lj An Primary Care Provider: Robbie Elizabeth Other Providers: Lj An ; Barrington Taylor Other Interventions: Discharge Summary Assessment (RN) Last Done: 06/06/22 11:32
[2022-06-06 13:31] LABS: A calco-baum cmplx NotReported Not Detected (NotDetected); Bact fragilis Not Reported Not Detected (NotDetected); C auris Not Reported Not Detected (NotDetected); Calbicans Not Reported Not Detected (NotDetected); Candida glabrata Not Reported Not Detected (NotDetected); Candida krusei Not Reported Not Detected (NotDetected); Cneoformans/gatti Not Reported Not Detected (NotDetected); Cparapsilosis Not Reported Not Detected (NotDetected); Ctropicalis Not Reported Not Detected (NotDetected); E cloacae compx Not Reported Not Detected (NotDetected); Efaecalis Not Reported Not Detected (NotDetected); Efaecium Not Reported Not Detected (NotDetected); Enterobacterales Not Reported Not Detected (NotDetected); Escherichia coli Not Reported Not Detected (NotDetected); H influenzae Not Reported Not Detected (NotDetected); K aerogenes Not Reported Not Detected (NotDetected); Koxytoca Not Reported Not Detected (NotDetected); Kpneumoniae grp Not Reported Not Detected (NotDetected); Lmonocyt Not Reported Not Detected (NotDetected); N meningitidis Not Reported Not Detected (NotDetected); P aeruginosa Not Reported Not Detected (NotDetected); Proteus spp Not Reported Not Detected (NotDetected); Salmonella spp Not Reported Not Detected (NotDetected); Smarcescens Not Reported Not Detected (NotDetected); Staph lugdunensis Not Reported Not Detected (NotDetected); Staph spp. Not Reported DETECTED (NotDetected); Staphaureus Not Reported Not Detected (NotDetected); Staphepi Not Reported Not Detected (NotDetected); Stenmaltophilia Not Reported Not Detected (NotDetected); Strep agal(GrpB) Not Reported Not Detected (NotDetected); Strep pneum Not Reported Not Detected (NotDetected); Strep pyog (GrpA) Not Reported Not Detected (NotDetected); Strep spp Not Reported Not Detected (NotDetected)
[2022-06-06 14:16] LABS: Staphylococcus spp. DETECTED (NotDetected)
--- NOTE | 2022-06-06 14:21 | Communication Note ---
Date of Service: June 06, 2022 Was alerted by lab that patient had positive blood culture of Staph spp in 1/4 bottles after patient was discharged home from the hospital. Patient admitted with altered mental status and blood cultures drawn as part of work up. PAtietn never received antibiotics, no elevation in WBC, was afebrile and hemodynamically stable during his admission. The blood cultures are thought to be a contaminant give Staph spp and clinical course. His mental status improved with monitoring and supportive care only, no antibiotic intervention. Etiology of AMS thought to be related to medications misuse of baclofen. Patients blood work remained unremarkable for infection and vital signs remained stable. After discharge, patient was called and made aware of the positive blood culture result and made aware of the risks. Informed that the most prudent thing would be to return and have his blood cultures redrawn despite suspicion of contaminant. Patient declined to return at this time. He was informed to seek medical attention immediately if he were to experience fevers or chills, n/v/d, lethargy, disorientation, or other symptoms that are out of the ordinary for him. He expressed his understanding and appreciation. Anshul Pantoja MD [facility]
[2022-06-10 17:56] LABS: Amphetamine Urine, Confirm 766 ng/mL (<250); MDA negative; MDEA negative; MDMA (Ecstasy) Urine, Confirm negative; Methamphetamine, Ur Confirm >15000 ng/mL (<250)
== END 2022-06-06 13:03 | disposition home or self-care (01) | DRG 917 ==
LOC: ED 13:57 → SUATTDRO 16:20 → 1E 16:20

== ENCOUNTER 2022-07-24 05:59 | Inpatient (IN) ==
[2022-07-24] MEDS ORDERED: LORazepam 1 MG/1 ML SYR IV PRN ×2 (06:10→09:14)
[2022-07-24] MEDS ORDERED: SODIUM CHLORIDE 0.9% 1000ML 1,000 ML IV SCH ×2 (06:15→08:23)
[2022-07-24 06:41] LABS: iSTAT Creatinine 0.8 mg/dl (0.6-1.3); iSTAT Hemoglobin 10.5 g/dl (14.0-18.0); iSTAT Ionized Calcium 1.21 mmol/l (1.12-1.32); iSTAT Potassium 3.9 mmol/L (3.3-5.0)
[2022-07-24] MEDS ORDERED: CEFEPIME 2,000 MG/20 ML VIAL IV STA (06:51)
[2022-07-24 06:57] LABS: Basophils # (auto) 0.02 K/uL (0-0.2); Basophils % (auto) 0.4 %; Eosinophils # (auto) 0.06 K/uL (0-0.50); Eosinophils % (auto) 1.1 %; Hemoglobin 10.1 g/dl (14.0-18.0); Immature Granulocytes # (auto) 0.01 K/uL (0.00-0.02); Immature Granulocytes % (auto) 0.2 %; Lymphocytes # (auto) 0.64 K/uL (1.2-3.4); Lymphocytes % (auto) 11.4 %; Mean Corpuscular Hemoglobin 30.4 pg (25.0-34.0); Mean Corpuscular Hgb Conc 33.7 g/dL (32.0-36.0); Mean Corpuscular Volume 90.4 fL (80.0-100.0); Mean Platelet Volume 10.2 fL (9.4-12.4); Monocytes # (auto) 0.65 K/uL (0.24-0.82); Monocytes % (auto) 11.6 %; Neutrophils # (auto) 4.22 K/uL (1.4-6.5); Neutrophils % (auto) 75.3 %; Platelet Count 201 K/uL (130-400); Red Blood Count 3.32 M/uL (4.63-6.08)
[2022-07-24 07:02] LABS: Albumin Level 4.1 gm/dl (3.4-5.0); BUN Creatinine Ratio 28.6 (10-20); Bilirubin Direct 0.3 mg/dl (0-0.2); Bilirubin,Total 1.5 mg/dl (0.2-1.0); Calcium 9.1 mg/dl (8.5-10.1); Creatinine Clr Calc Pharmacy 116.4 ml/min; Est GFR (African American) 110.3 ml/min; Est GFR (Non-African American) 95.2 ml/min; Magnesium 1.8 mg/dl (1.7-2.4); Potassium 3.9 mmol/L (3.5-5.1); Troponin I High Sensitivity 11.3 pg/ml (0-20)
--- NOTE | 2022-07-24 07:15 | Emergency Department Note ---
History of Present Illness General Chief complaint: Altered Mental Status Stated complaint: ALTERED MENTAL STATUS Time Seen by Provider: 07/24/22 06:07 Source: patient and EMS Mode of arrival: EMS Limitations: altered mental status History of Present Illness Provider complaint: Altered mental status, hallucination Maximum Pain Intensity: 8 This is a 62-year-old male brought in by EMS due to altered mental status. Patient seen walking outside in his shorts, and when approached appeared to be actively hallucinating. Per EMS [facility] was contacted and arrived on scene and called for EMS as a precaution. EMS stated patient was agitated over they were able to place an IV. They were able to give Xanax prior to transportation to help keep keep him calm. They state patient does have a history of drug abuse. Patient denies trauma or pain. Home Medications Medication Instructions Recorded Confirmed Type allopurinol 300 mg tablet 300 mg PO QAM 05/28/18 07/24/22 History omeprazole 20 mg capsule,delayed 40 mg PO BID 05/28/18 07/24/22 History release triamcinolone acetonide 0.025 % 1 applic topical BID PRN Itching 05/28/18 07/24/22 History topical cream albuterol sulfate 90 mcg/actuation 2 puff inhalation Q4 PRN Shortness 10/09/19 07/24/22 History aerosol inhaler Of Breath Or Wheezing fluticasone propionate 50 2 spray intranasal DAILY 10/09/19 07/24/22 History mcg/actuation nasal spray,suspension (Flonase Allergy Relief) oxycodone 10 mg tablet 10 mg PO Q6H PRN Pain 03/09/22 07/24/22 History duloxetine 20 mg capsule,delayed 20 mg PO QAM 03/30/22 07/24/22 History release mnmpqbfj-rewzldmt-tonat acid 400 1 tab PO DAILY 03/30/22 07/24/22 History mcg-vit K 20 mcg-lycop 300 mcg tablet (Men's Multivitamin) Allergies Allergy/AdvReac Type Severity Reaction Status Date / Time hydrocodone Allergy Severe GI SYMPTOMS Verified 03/30/22 21:05 ketorolac Allergy Intermediate makes sick Verified 03/30/22 21:05 Penicillins Allergy Unknown HAPPENED Verified 03/30/22 21:05 A CHILD prednisone AdvReac Severe Confusion Verified 03/30/22 21:05 sulfamethoxazole AdvReac Severe confusion Verified 03/30/22 21:05 [From Bactrim] trimethoprim [From Bactrim] AdvReac Severe confusion Verified 03/30/22 21:05 tramadol AdvReac Intermediate vomiting Verified 03/30/22 21:05 NSAIDS (Non-Steroidal AdvReac Unknown D/T LIVER Verified 03/30/22 21:05 Anti-Inflamma ISSUES 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 Arthritis Chronic pain syndrome Delirium Gout Hepatitis C Surgical History H/O hernia repair Hx of tooth extraction Family History Mother Diabetes Brother Liver disease Social History Smoking Status: Unknown if ever smoked Second Hand Exposure: No; Hx Alcohol Use: No Hx Substance Use: Yes Last Used Substance: Unknown Last Used Substance Other:: prescribed oxy QID Substance Use Type Other:: uds + for amphetamine/meth and MDMA Preferred Language: [place] Communication Ability: Impaired It Audit Manager Required: No Beliefs That Will Affect Care: None marital status: Current Living Situation: Spouse Current Living Situation Comment: Couldn't provide assessment information due to somulence. How many Children do You have: 2 Feels Safe at Home: Yes Assistive Devices: Cane and Walker Review of Systems A total of 10 systems reviewed and were otherwise negative All systems reviewed & are unremarkable except as noted in HPI & below Physical Exam Vital Signs Vital Signs - 24 hr 07/24/22 08:30 07/24/22 08:30 07/24/22 09:00 Pulse Rate 84 98 H Pulse Rate from SpO2 Sensor 94 H Respiratory Rate 21 21 Blood Pressure 113/75 Blood Pressure Mean 87 Pulse Oximetry 94 94 Oxygen Delivery Method Room Air 07/24/22 09:01 07/24/22 09:01 07/24/22 09:30 Pulse Rate 95 H Pulse Rate from SpO2 Sensor 92 H Respiratory Rate 26 H Blood Pressure 133/96 118/71 Blood Pressure Mean 108 86 Pulse Oximetry 100 Oxygen Delivery Method 07/24/22 09:30 Pulse Rate 79 Pulse Rate from SpO2 Sensor Respiratory Rate 21 Blood Pressure Blood Pressure Mean Pulse Oximetry Oxygen Delivery Method GENERAL: alert, well appearing, well nourished, no distress, non-toxic EYE EXAM: normal conjunctiva, PERRL and EOM's grossly intact OROPHARYNX: no exudate, no erythema, lips, buccal mucosa, and tongue normal and mucous membranes are moist NECK: supple, no nuchal rigidity, no adenopathy, non-tender LUNGS: Clear to auscultation. Normal chest wall mechanics, no w/r/r HEART: no murmurs, S1 normal and S2 normal ABDOMEN: abdomen soft, non-tender, normo-active bowel sounds, no masses, no rebound or guarding. BACK: Back is symmetrical on inspection and there is no deformity, no midline tenderness, no CVA tenderness. SKIN: no rashes and no bruising UPPER EXTREMITIES: upper extremities are grossly normal. FROM, nml pulses b/l. LOWER EXTREMITIES: No pitting edema. FROM, nml pulses b/l. Edema noted at left knee, no overlying erythema or ecchymosis, decreased ROM due to pain. No bony tenderness with palpation. Joint effusion noted at left knee. NEURO EXAM: confused, can answer a few questions, cranial nerves II-XII grossly intact, normal speech, no gross weakness of arms, no gross weakness of legs. Gross sensation intact. Course Administered Medications Doxycycline Hyclate 100 mg/ (Dextrose) 110 mls @ 50 mls/hr IV Q12H [facility] Stop: 07/31/22 09:59 Last Infusion: 07/24/22 23:17 Dose: 0 mls/hr Documented By: Admin: 07/24/22 21:56 Dose: 50 mls/hr Documented By: Infusion: 07/24/22 12:36 Dose: 0 mls/hr Documented By: Admin: 07/24/22 10:13 Dose: 50 mls/hr Documented By: MARILIN Cefepime HCl 2,000 mg/ Syringe 20 mls @ 5 mls/min IV Q8H [facility]; Protocol Stop: 07/31/22 15:29 Last Admin: 07/25/22 07:41 Dose: 5 mls/min Documented By: Admin: 07/24/22 23:11 Dose: 5 mls/min Documented By: Admin: 07/24/22 15:07 Dose: 5 mls/min Documented By: ROSSY Sodium Chloride (Nss 1000ml) 1,000 mls @ 150 mls/hr IV .Q6H40M [facility] Stop: 08/23/22 09:59 Last Admin: 07/25/22 05:37 Dose: 150 mls/hr Documented By: Infusion: 07/25/22 05:37 Dose: 150 mls/hr Documented By: Admin: 07/24/22 23:11 Dose: 150 mls/hr Documented By: Infusion: 07/24/22 22:50 Dose: 150 mls/hr Documented By: Admin: 07/24/22 16:09 Dose: 150 mls/hr Documented By: Infusion: 07/24/22 16:09 Dose: 150 mls/hr Documented By: Admin: 07/24/22 11:05 Dose: 150 mls/hr Documented By: ROSSY Pantoprazole Sodium (Pantoprazole 40 Mg Tab) 40 mg PO BID [facility] Stop: 08/23/22 20:59 Last Admin: 07/24/22 20:01 Dose: 40 mg Documented By: CELENA Discontinued Medications Sodium Chloride (Nss 1000ml) 1,000 mls @ 999 mls/hr IV .Q1H1M [facility] Stop: 07/24/22 07:15 Last Infusion: 07/24/22 07:30 Dose: 0 mls/hr Documented By: Admin: 07/24/22 06:38 Dose: 999 mls/hr Documented By: GLADIS Cefepime HCl (Maxipime) 2,000 mg in 20 mls @ 5 mls/min IV NOW STA; Protocol Stop: 07/24/22 06:54 Last Admin: 07/24/22 07:26 Dose: 5 mls/min Documented By: MARILIN Sodium Chloride (Nss 1000ml) 1,000 mls @ 999 mls/hr IV .Q1H1M [facility] Stop: 07/24/22 09:23 Last Infusion: 07/24/22 09:34 Dose: 0 mls/hr Documented By: Admin: 07/24/22 08:33 Dose: 999 mls/hr Documented By: MARILIN Influenza Virus Vaccine Quadrival (Fluarix Quadrivalent 0.5 Ml Syr) 0.5 ml IM .ONCE ONE Stop: 07/24/22 14:09 Last Admin: 07/25/22 07:40 Dose: Not Given Documented By: CMP Medical Decision Making Differential Diagnosis Differential diagnoses includes but is not limited to toxic, metabolic, infectious, traumatic, cardiac, neurologic, hematologic, psychiatric and inflammatory etiologies. Medical Records Attestation: I reviewed the patient's medical records. Home Medications Current Medication List: was personally reviewed by me Laboratory Data Attestation: I reviewed the patient's lab results. Result diagrams: 07/25/22 05:33 07/25/22 05:33 Lab Results 07/24/22 07/24/22 07/24/22 Range/Units 06:22 06:22 06:22 WBC 5.60 (4.8-10.8) K/ul RBC 3.32 L (4.63-6.08) M/uL Hgb 10.1 L (14.0-18.0) g/dl POC Hgb (14.0-18.0) g/dl Hct 30.0 L (40.1-51.0) % POC Hct (42-52) % MCV 90.4 (80.0-100.0) fL MCH 30.4 (25.0-34.0) pg MCHC 33.7 (32.0-36.0) g/dL RDW Std Deviation 43.0 (36.4-46.3) fL RDW Coeff of Bharat 13.0 (11.5-14.5) % Plt Count 201 (130-400) K/uL MPV 10.2 (9.4-12.4) fL Immature Gran % (Auto) 0.2 % Neut % (Auto) 75.3 % Lymph % (Auto) 11.4 % Aurora % (Auto) 11.6 % Eos % (Auto) 1.1 % Baso % (Auto) 0.4 % Neut # (Auto) 4.22 (1.4-6.5) K/uL Lymph # (Auto) 0.64 L (1.2-3.4) K/uL Aurora # (Auto) 0.65 (0.24-0.82) K/uL Eos # (Auto) 0.06 (0-0.50) K/uL Baso # (Auto) 0.02 (0-0.2) K/uL Immature Gran # (Auto) 0.01 (0.00-0.02) K/uL POC Sodium (135-144) mmol/L Sodium 137 (136-145) mmol/L POC Potassium (3.3-5.0) mmol/L Potassium 3.9 (3.5-5.1) mmol/L POC Chloride (101-112) mmol/L Chloride 106 (98-107) mmol/L Carbon Dioxide 24 (21-32) mmol/L POC Total CO2 (24-31) mmol/L Anion Gap 7 (3-11) POC Anion Gap (16-25) mmol/L POC BUN (7-18) mg/dl BUN 24 H (6-23) mg/dl Creatinine 0.84 (0.6-1.4) mg/dl POC Creatinine (0.6-1.3) mg/dl Est Cr Clr Drug Dosing 116.4 ml/min Est GFR ( Amer) 110.3 ml/min Est GFR (Non-Af Amer) 95.2 ml/min BUN/Creatinine Ratio 28.6 H (10-20) Glucose 119 H (70-99(Fasting)) mg/dl POC Glucose (other) (70-99) mg/dl Lactate 0.5 (0.4-2.0) mmol/L Uric Acid (2.6-7.2) mg/dl Calcium 9.1 (8.5-10.1) mg/dl POC Ioniz Calcium Amauri (1.12-1.32) mmol/l Magnesium 1.8 (1.7-2.4) mg/dl Total Bilirubin 1.5 H (0.2-1.0) mg/dl Direct Bilirubin 0.3 H (0-0.2) mg/dl AST 53 H (13-39) U/L ALT 35 (7-52) U/L Alkaline Phosphatase 52 (34-104) U/L Total Creatine Kinase (30-223) U/L Troponin I High Sens 11.3 D (0-20) pg/ml Total Protein 7.0 (6.0-8.3) gm/dl Albumin 4.1 (3.4-5.0) gm/dl Procalcitonin (0-0.5) ng/ml Ethyl Alcohol mg/dL (<10.0) mg/dl Adenovirus (PCR) (NotDetected) B. pertussis DNA (PCR) (NotDetected) B.parapertussis DNA PCR (NotDetected) C. pneumoniae DNA (PCR) (NotDetected) Coronavirus OC43 (PCR) (NotDetected) Coronavirus HKU1 (PCR) (NotDetected) Coronavirus 229E (PCR) (NotDetected) SARS-CoV-2 (PCR) (NotDetected) Coronavirus NL63 (PCR) (NotDetected) Human Metapneumovir PCR (NotDetected) Influenza Type A (PCR) (NotDetected) Influenza Type B (PCR) (NotDetected) M. pneumoniae (PCR) (NotDetected) Parainfluenza 1 (PCR) (NotDetected) Parainfluenza 2 (PCR) (NotDetected) Parainfluenza 3 (PCR) (NotDetected) Parainfluenza 4 (PCR) (NotDetected) RSV (PCR) (NotDetected) Entero/Rhino (PCR) (NotDetected) 07/24/22 07/24/22 07/24/22 Range/Units 06:22 06:22 06:29 WBC (4.8-10.8) K/ul RBC (4.63-6.08) M/uL Hgb (14.0-18.0) g/dl POC Hgb 10.5 L (14.0-18.0) g/dl Hct (40.1-51.0) % POC Hct 31 L (42-52) % MCV (80.0-100.0) fL MCH (25.0-34.0) pg MCHC (32.0-36.0) g/dL RDW Std Deviation (36.4-46.3) fL RDW Coeff of Bharat (11.5-14.5) % Plt Count (130-400) K/uL MPV (9.4-12.4) fL Immature Gran % (Auto) % Neut % (Auto) % Lymph % (Auto) % Aurora % (Auto) % Eos % (Auto) % Baso % (Auto) % Neut # (Auto) (1.4-6.5) K/uL Lymph # (Auto) (1.2-3.4) K/uL Aurora # (Auto) (0.24-0.82) K/uL Eos # (Auto) (0-0.50) K/uL Baso # (Auto) (0-0.2) K/uL Immature Gran # (Auto) (0.00-0.02) K/uL POC Sodium 138 (135-144) mmol/L Sodium (136-145) mmol/L POC Potassium 3.9 (3.3-5.0) mmol/L Potassium (3.5-5.1) mmol/L POC Chloride 105 (101-112) mmol/L Chloride (98-107) mmol/L Carbon Dioxide (21-32) mmol/L POC Total CO2 21 L (24-31) mmol/L Anion Gap (3-11) POC Anion Gap 17.0 (16-25) mmol/L POC BUN 23 H (7-18) mg/dl BUN (6-23) mg/dl Creatinine (0.6-1.4) mg/dl POC Creatinine 0.8 (0.6-1.3) mg/dl Est Cr Clr Drug Dosing ml/min Est GFR ( Amer) ml/min Est GFR (Non-Af Amer) ml/min BUN/Creatinine Ratio (10-20) Glucose (70-99(Fasting)) mg/dl POC Glucose (other) 120 H (70-99) mg/dl Lactate (0.4-2.0) mmol/L Uric Acid (2.6-7.2) mg/dl Calcium (8.5-10.1) mg/dl POC Ioniz Calcium Amauri 1.21 (1.12-1.32) mmol/l Magnesium (1.7-2.4) mg/dl Total Bilirubin (0.2-1.0) mg/dl Direct Bilirubin (0-0.2) mg/dl AST (13-39) U/L ALT (7-52) U/L Alkaline Phosphatase (34-104) U/L Total Creatine Kinase 826 H (30-223) U/L Troponin I High Sens (0-20) pg/ml Total Protein (6.0-8.3) gm/dl Albumin (3.4-5.0) gm/dl Procalcitonin 0.08 (0-0.5) ng/ml Ethyl Alcohol mg/dL (<10.0) mg/dl Adenovirus (PCR) (NotDetected) B. pertussis DNA (PCR) (NotDetected) B.parapertussis DNA PCR (NotDetected) C. pneumoniae DNA (PCR) (NotDetected) Coronavirus OC43 (PCR) (NotDetected) Coronavirus HKU1 (PCR) (NotDetected) Coronavirus 229E (PCR) (NotDetected) SARS-CoV-2 (PCR) (NotDetected) Coronavirus NL63 (PCR) (NotDetected) Human Metapneumovir PCR (NotDetected) Influenza Type A (PCR) (NotDetected) Influenza Type B (PCR) (NotDetected) M. pneumoniae (PCR) (NotDetected) Parainfluenza 1 (PCR) (NotDetected) Parainfluenza 2 (PCR) (NotDetected) Parainfluenza 3 (PCR) (NotDetected) Parainfluenza 4 (PCR) (NotDetected) RSV (PCR) (NotDetected) Entero/Rhino (PCR) (NotDetected) 07/24/22 07/24/22 07/24/22 Range/Units 06:58 07:32 07:32 WBC (4.8-10.8) K/ul RBC (4.63-6.08) M/uL Hgb (14.0-18.0) g/dl POC Hgb (14.0-18.0) g/dl Hct (40.1-51.0) % POC Hct (42-52) % MCV (80.0-100.0) fL MCH (25.0-34.0) pg MCHC (32.0-36.0) g/dL RDW Std Deviation (36.4-46.3) fL RDW Coeff of Bharat (11.5-14.5) % Plt Count (130-400) K/uL MPV (9.4-12.4) fL Immature Gran % (Auto) % Neut % (Auto) % Lymph % (Auto) % Aurora % (Auto) % Eos % (Auto) % Baso % (Auto) % Neut # (Auto) (1.4-6.5) K/uL Lymph # (Auto) (1.2-3.4) K/uL Aurora # (Auto) (0.24-0.82) K/uL Eos # (Auto) (0-0.50) K/uL Baso # (Auto) (0-0.2) K/uL Immature Gran # (Auto) (0.00-0.02) K/uL POC Sodium (135-144) mmol/L Sodium (136-145) mmol/L POC Potassium (3.3-5.0) mmol/L Potassium (3.5-5.1) mmol/L POC Chloride (101-112) mmol/L Chloride (98-107) mmol/L Carbon Dioxide (21-32) mmol/L POC Total CO2 (24-31) mmol/L Anion Gap (3-11) POC Anion Gap (16-25) mmol/L POC BUN (7-18) mg/dl BUN (6-23) mg/dl Creatinine (0.6-1.4) mg/dl POC Creatinine (0.6-1.3) mg/dl Est Cr Clr Drug Dosing ml/min Est GFR ( Amer) ml/min Est GFR (Non-Af Amer) ml/min BUN/Creatinine Ratio (10-20) Glucose (70-99(Fasting)) mg/dl POC Glucose (other) (70-99) mg/dl Lactate (0.4-2.0) mmol/L Uric Acid 4.9 (2.6-7.2) mg/dl Calcium (8.5-10.1) mg/dl POC Ioniz Calcium Amauri (1.12-1.32) mmol/l Magnesium (1.7-2.4) mg/dl Total Bilirubin (0.2-1.0) mg/dl Direct Bilirubin (0-0.2) mg/dl AST (13-39) U/L ALT (7-52) U/L Alkaline Phosphatase (34-104) U/L Total Creatine Kinase (30-223) U/L Troponin I High Sens (0-20) pg/ml Total Protein (6.0-8.3) gm/dl Albumin (3.4-5.0) gm/dl Procalcitonin (0-0.5) ng/ml Ethyl Alcohol mg/dL < 10.0 (<10.0) mg/dl Adenovirus (PCR) Not Detected (NotDetected) B. pertussis DNA (PCR) Not Detected (NotDetected) B.parapertussis DNA PCR Not Detected (NotDetected) C. pneumoniae DNA (PCR) Not Detected (NotDetected) Coronavirus OC43 (PCR) Not Detected (NotDetected) Coronavirus HKU1 (PCR) Not Detected (NotDetected) Coronavirus 229E (PCR) Not Detected (NotDetected) SARS-CoV-2 (PCR) Not Detected (NotDetected) Coronavirus NL63 (PCR) Not Detected (NotDetected) Human Metapneumovir PCR Not Detected (NotDetected) Influenza Type A (PCR) Not Detected (NotDetected) Influenza Type B (PCR) Not Detected (NotDetected) M. pneumoniae (PCR) Not Detected (NotDetected) Parainfluenza 1 (PCR) Not Detected (NotDetected) Parainfluenza 2 (PCR) Not Detected (NotDetected) Parainfluenza 3 (PCR) Not Detected (NotDetected) Parainfluenza 4 (PCR) Not Detected (NotDetected) RSV (PCR) Not Detected (NotDetected) Entero/Rhino (PCR) Not Detected (NotDetected) Imaging Data Radiologist's Impression: Chest X-Ray 07/24/22 06:08 XR chest 1V portable CLINICAL HISTORY: Sepsis TECHNIQUE: Single frontal radiograph of the chest was obtained. Comparison: None available at the time of this dictation. FINDINGS: No lines and tubes are seen. Cardiomegaly is noted. Multifocal airspace opacities are seen. No evidence of pleural effusion or pneumothorax. IMPRESSION: Multifocal airspace opacities may represent atelectasis, pneumonia, and/or aspiration. ACT 112: Negative or not required by law. Electronically signed by: Arnaud Ham M.D. 07/24/2022 7:[address] 07/24/22 06:14 CT head/brain wo con CLINICAL HISTORY: ams Technique: Contiguous axial CT images of the head were acquired from the base of the skull to the vertex without intravenous contrast administration. Images were viewed in brain, subdural and bone windows. Automated dose lowering techniques and/or adjustment according to patient size were utilized for this exam. Comparison: Comparison is made to CT head 06/05/2022 Findings: The ventricles, basal cisterns, and cerebral sulci are normal. There is no acute intracranial hemorrhage or evidence of acute territorial infarction. Neither mass effect, shift of the midline structures, nor abnormal extra-axial fluid collections are shown. Thickening of the ethmoid and frontal sinuses noted. The orbits appear normal. There are no acute fractures of the calvaria or scalp swelling. Impression: No acute intracranial hemorrhage, no evidence of acute territorial infarction or other acute intracranial disease process. ACT 112: Negative or not required by law. Electronically signed by: Arnaud Ham M.D. 07/24/2022 7:31 AM MDM Narrative An order was placed for continuous cardiac monitoring. The monitor shows a rate of _72__ with __normal sinus_ rhythm. This is a 62-year-old male brought in by EMS due to altered mental status and bizarre behavior. Patient with a history of several episodes of metabolic encephalopathy from alcohol abuse as well as other substance abuse. No reported trauma. Vital signs stable. Labs drawn and sent and patient sent for CT and x- ray imaging. No evidence of trauma on physical exam although he did have swelling noted at the left knee and pain with range of motion testing. Patient's labs reassuring, CT unremarkable. Chest x-ray however showed multifocal pneumonia. Patient was given IV antibiotics in addition to IV fluids. He was not overtly hypoxic and had no increased work of breathing. It was unclear if this was the sole cause of his confusion. On discussion with the hospitalist team, they did recommend addition of CK due to his history of rhabdomyolysis. This was found to be mildly elevated also. No evidence of RICK. Impression & Plan AMS (altered mental status), Acute metabolic encephalopathy, Elevated CK, Mult ifocal pneumonia Discharge Plan Visit Data Chief Complaint: Altered Mental Status Stated Complaint: ALTERED MENTAL STATUS ED Provider: Isabela Mcqueen Discharge Problem: AMS (altered mental status), Acute metabolic encephalopathy, Elevated CK, Multifocal pneumonia Patient Disposition: Admitted As Inpatient Discharge Instructions Interventions: ED Discharge Assessment Last Done: 07/24/22 10:24
--- NOTE | 2022-07-24 07:25 | XRay Report ---
XR chest 1V portable CLINICAL HISTORY: Sepsis TECHNIQUE: Single frontal radiograph of the chest was obtained. Comparison: None available at the time of this dictation. FINDINGS: No lines and tubes are seen. Cardiomegaly is noted. Multifocal airspace opacities are seen. No eviden ce of pleural effusion or pneumothorax. IMPRESSION: Multifocal airspace opacities may represent atelectasis, pneumonia, and/or aspiration. ACT 112: Negative or not required by law. Electronically signed by: Arnaud Ham M.D. 07/24/2022 7:23 AM
--- NOTE | 2022-07-24 07:32 | CT Scan Report ---
CT head/brain wo con CLINICAL HISTORY: ams Technique: Contiguous axial CT images of the head were acquired from the base of the skull to the ashli mihaela without intravenous contrast administration. Images were viewed in brain, subdural and bone [facility] . Automated dose lowering techniques and/or adjustment according to patient size were utilized for this exam. Comparison: Comparison is made to CT head 06/05/2022 Findings: The ventricles, basal cisterns, and cerebral sulci are normal. There is no acute intracranial hemorrh age or evidence of acute territorial infarction. Neither mass effect, shift of the midline structures , nor abnormal extra-axial fluid collections are shown. Thickening of the ethmoid and frontal sinuses noted. The orbits appear normal. There are no acute fr actures of the calvaria or scalp swelling. Impression: No acute intracranial hemorrhage, no evidence of acute territorial infarction or other acute intracra nial disease process. ACT 112: Negative or not required by law. Electronically signed by: Arnaud Ham M.D. 07/24/2022 7:31 AM
[2022-07-24 07:54] LABS: Adenovirus PCR Not Detected (NotDetected); Bordetella parapertussis PCR Not Detected (NotDetected); Bordetella pertussis PCR Not Detected (NotDetected); Chlamydia pneumoniae PCR Not Detected (NotDetected); Coronavirus 229E PCR Not Detected (NotDetected); Coronavirus CoV-2 (COVID19)PCR Not Detected (NotDetected); Coronavirus HKU1 PCR Not Detected (NotDetected); Coronavirus NL63 PCR Not Detected (NotDetected); Coronavirus OC43PCR Not Detected (NotDetected); Human Metapneumovirus PCR Not Detected (NotDetected); Influenza A PCR Not Detected (NotDetected); Influenza B PCR Not Detected (NotDetected); Mycoplasma pneumoniae PCR Not Detected (NotDetected); Parainfluenza Virus 1 PCR Not Detected (NotDetected); Parainfluenza Virus 2 PCR Not Detected (NotDetected); Parainfluenza Virus 3 PCR Not Detected (NotDetected); Parainfluenza Virus 4 PCR Not Detected (NotDetected); Respiratory Syncytial VirusPCR Not Detected (NotDetected); Rhinovirus/Enterovirus PCR Not Detected (NotDetected)
--- NOTE | 2022-07-24 08:23 | XRay Report ---
XR knee LT 3V CLINICAL HISTORY: edema, pain TECHNIQUE: 3 views of the left knee were obtained. Comparison: None available at the time of this dictation. FINDINGS: There is no evidence of an acute fracture. Degenerative changes are seen most prominently in the medi al compartment. A small suprapatellar effusion is seen. No soft tissue abnormality is seen. IMPRESSION: Small suprapatellar effusion and degenerative changes without evidence of acute fracture. ACT 112: Negative or not required by law. Electronically signed by: Arnaud Ham M.D. 07/24/2022 8:22 AM
--- NOTE | 2022-07-24 08:50 | History & Physical Report ---
Date of Service July 24, 2022 Assessment & Plan (1) Pneumonia: Plan: - Admit to PCU - Sputum culture, mucinex, duonebs QID and Q2H prn - Wean O2 prn, currently not requiring supplemental O2 - Influenza and COVID swab neg, MRSA swab pending - WBC at time of admission = 5.06 - BCx x 2, follow - Afebrile - Lactic acid = 0.05, Procalcitonin pending - CXR reviewed as above showing multifocal pneumonia - Continue antibiotic therapy with cefepime and doxycylcine IV (2) Acute metabolic encephalopathy: Plan: - Checking CK level as this has previously caused the patient to be in rhabdomyolysis and caused worsening hallucinations and confusions along with AMS ---? elevated at 826. Will continue hydration with NSS at 150 ml/hr - Check ammonia - If becomes hypoxic will obtain ABG - Continue antibiotics as above - Straight cath x 1 for drug urine to and urine culture - Follow blood cultures - Check lymes, anaplasmosis with left knee swelling and pain - Obtained EEG and MRI of the brain during last admission, if no improvement consider re-scanning, can also consider neurology consultation (3) Aggressive behavior: (4) Combative behavior: Plan: - Hx of such, recieved versed in the field prior to arrival to the hospital - Consult psych medicine- Hx of alcohol abuse in remission - multiple family members with psychiatric history with visual hallucinations and hx of father who committed suicide due to hallucinations - Hold cymbalta and oxycodone with acute encephalopathy, per pt has not gotten oxycodone administration in several days - Haldol and ativan on board prn for agitation with instructions to call provider prior to administration (5) Chronic pain syndrome: Plan: - Chronic back pain, holding oxycodone presently, PDMP reviewed DVT ppx: - teds, scds CODE: Full code Dispo: From home, likely to remain in the hospital x 1-2 days Awaiting callback from patient's , Jackelin, left voicemail on her phone at ~9:30 AM History of Present Illness Chief Complaint: AMS Primary Care Provider: Robbie Elizabeth DO This is a 62 yo M with past medical history significant for gout, history of chronic sinusitis, uncomplicated asthma, reflux esophagitis, esosinophilic esophagitis, chronic viral hepatitis C, BPH, degenerative disc disease, history of alcohol abuse in remission, history of chronic pain syndrome, history of immunity to hepatitis B, history of cocaine abuse, who lives with his , presents with confusion, and symptoms of aggressive behavior. He reports being in some sort of doctors office, cannot Tell me the date, the year or what happened yesterday. I attempted to call his , Jackelin and left a voicemail on her cell phone at 9:33 AM. He denies having any acute symptoms, denies feeling short of breath, cough, sputum production, chest pain, abdominal complaints. Per report the patient recieved Versed in the field by EMS due to agitated behavior. He was found outside walking around in shorts where police were notified and picked him up at some point time early this morning. It is noticed that he has a swollen left knee, no open abrasions, redness or lacerations. He has been previously admitted in March and then again at the end of May for altered mental status where he was found to be in RICK and rhabdomyolysis. Today it is noted on his chest x-ray that he has a multifocal pneumonia. Update: Discussion with Jackelin was held at 11:45 am via phone call. She states that Lira behavior changes started on Wednesday with altered mental status and hallucinations. She reports that he was seeing people who were not really there, and that he described that they had a gun earlier this week and yelled at them to leave his house. Another hallucination he described was a girl sleeping on a bed. These things seemed to improve intermittently in the middle of the week. Overnight last night he was up to the bathroom several times. He was found yelling this morning in her basement that there was pipe broken. called maintenance and there was not a broken pipe, but the gas outside their house was turned off and Jacky was outside earlier in shorts and flip flops screaming at his to get out of the house because of the supposed gas leaking and wanted her to be safe. called the sign manufacturer to help get him more under control, and they brought him here. She denies that he has been taking meds inaccurately. He has not been getting oxycodone because she controls it for him, and due to his behavior and confusion hasn't been asking for it. He has been sweating profusely over the past few days even in shorts and flip flops outside without a shirt on. He has not complained of shortness of breath, chest pain or cough. She did not notice any respiratory issues. Father and brother both with history of hallucinations and alcohol abuse. His father hung himself at age 58 due to seeing the hallucinations. Brother at age 58 due to breathing issues after alcohol intoxication. She is very concerned that the patient is exhibiting symptoms like his brothers and father. Allergies Allergy/AdvReac Type Severity Reaction Status Date / Time hydrocodone Allergy Severe GI SYMPTOMS Verified 03/30/22 21:05 ketorolac Allergy Intermediate makes sick Verified 03/30/22 21:05 Penicillins Allergy Unknown HAPPENED Verified 03/30/22 21:05 A CHILD prednisone AdvReac Severe Confusion Verified 03/30/22 21:05 sulfamethoxazole AdvReac Severe confusion Verified 03/30/22 21:05 [From Bactrim] trimethoprim [From Bactrim] AdvReac Severe confusion Verified 03/30/22 21:05 tramadol AdvReac Intermediate vomiting Verified 03/30/22 21:05 NSAIDS (Non-Steroidal AdvReac Unknown D/T LIVER Verified 03/30/22 21:05 Anti-Inflamma ISSUES Home Medications Medication Instructions Recorded Confirmed Type allopurinol 300 mg tablet 300 mg PO QAM 05/28/18 07/24/22 History omeprazole 20 mg capsule,delayed 40 mg PO BID 05/28/18 07/24/22 History release triamcinolone acetonide 0.025 % 1 applic topical BID PRN Itching 05/28/18 07/24/22 History topical cream albuterol sulfate 90 mcg/actuation 2 puff inhalation Q4 PRN Shortness 10/09/19 07/24/22 History aerosol inhaler Of Breath Or Wheezing fluticasone propionate 50 2 spray intranasal DAILY 10/09/19 07/24/22 History mcg/actuation nasal spray,suspension (Flonase Allergy Relief) oxycodone 10 mg tablet 10 mg PO Q6H PRN Pain 03/09/22 07/24/22 History duloxetine 20 mg capsule,delayed 20 mg PO QAM 03/30/22 07/24/22 History release pwjhgjkq-unerflvb-cfqmk acid 400 1 tab PO DAILY 03/30/22 07/24/22 History mcg-vit K 20 mcg-lycop 300 mcg tablet (Men's Multivitamin) 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 Arthritis Chronic pain syndrome Delirium Gout Hepatitis C Surgical History H/O hernia repair Hx of tooth extraction Family History Mother Diabetes Brother Liver disease Social History Smoking Status: Unknown if ever smoked Second Hand Exposure: No; Hx Alcohol Use: No Hx Substance Use: Yes Last Used Substance: Unknown Last Used Substance Other:: prescribed oxy QID Substance Use Type Other:: uds + for amphetamine/meth and MDMA Preferred Language: Comoran Communication Ability: Impaired Coremaker Experimental Required: No Beliefs That Will Affect Care: None marital status: Current Living Situation: Spouse Current Living Situation Comment: Couldn't provide assessment information due to somulence. How many Children do You have: 2 Feels Safe at Home: Yes Assistive Devices: Cane and Walker Review of Systems Review of Systems: Constitutional: No fever, sweats or chills Eyes: No diplopia, no worsening or blurred vision ENT: normal hearing, no trouble swallowing Respiratory: No cough, sputum, dyspnea at rest or on exertion Cardiovascular: No chest pain, tightness or palpitations Abdomen: No pain, nausea, vomiting, diarrhea or constipation Musculoskeletal: No joint pain, calf pain, swelling Neurologic: No weakness, numbness/tingling, or balance problems Psychiatric: No anxiety or depression Skin: No rash or itch Physical Exam Physical Exam: General: awakens after multiple stimuli with talking loudly, light sternal run, drifts off to sleep easily, jittery when awake Head: Normocephalic, atraumatic ENT: PERRL, EOMI, no pharyngeal exudate, mucous membranes dry, endentulous. Chest: + Coarse breath sounds in bases bilaterally but worse in the RLL with some expiratory wheezing, on room air with O2 sats 94% Cardiac: Regular rate and rhythm, no murmur, no JVD, normal peripheral pulses, good capillary refill Abdominal: NABS x 4 quadrants, soft, nondistended, nontender to palpation, no rebound or guarding Extremities: Left knee edematous, no surrounding erythema, laceration or abraision, ice pack in place, otherwise normal inspection, no peripheral edema or erythema, calfs nontender to palpation Psych:Confused, Neuro: Awake, alert but is not oriented to date, place. He knows his name. Pt strength intact bilaterally and rated 5/5, no motor deficits, speech is clear, no peripheral sensory deficits, + slightly shakey when awakens fully Results & Data Results & Data ([facility]) Vital Signs (Past 12 Hours) Vital Signs Temp Pulse Resp BP Pulse Ox O2 Del Method 07/24/22 08:30 84 21 94 Room Air 07/24/22 08:30 113/75 07/24/22 08:00 94 H 25 H 94 Room Air 07/24/22 08:00 120/86 07/24/22 07:40 94 H 28 H 93 Room Air 07/24/22 07:30 96 H 28 H 140/93 93 Room Air 07/24/22 07:10 95 H 27 H 92 07/24/22 07:09 127/70 07/24/22 07:09 94 H 23 92 07/24/22 07:00 89 26 H 92 07/24/22 06:50 97 H 27 H 92 07/24/22 06:40 95 H 26 H 92 07/24/22 06:30 97 H 22 92 07/24/22 06:20 97 H 31 H 07/24/22 06:12 99 H 27 H 95 07/24/22 06:38 92 Room Air 07/24/22 06:38 Room Air 07/24/22 05:34 37.4 C 98 H 25 H 134/58 L 94 Room Air Laboratory Results 07/24/22 06:25 Aerobic Blood Culture - Pending Blood Anaerobic Blood Culture - Pending 07/24/22 06:20 Aerobic Blood Culture - Pending Blood Anaerobic Blood Culture - Pending 07/24/22 07/24/22 07/24/22 07:32 07:32 06:58 WBC RBC Hgb POC Hgb Hct POC Hct MCV MCH MCHC RDW Std Deviation RDW Coeff of Bharat Plt Count MPV Immature Gran % (Auto) Neut % (Auto) Lymph % (Auto) Armstrong % (Auto) Eos % (Auto) Baso % (Auto) Neut # (Auto) Lymph # (Auto) Armstrong # (Auto) Eos # (Auto) Baso # (Auto) Immature Gran # (Auto) POC Sodium Sodium POC Potassium Potassium POC Chloride Chloride Carbon Dioxide POC Total CO2 Anion Gap POC Anion Gap POC BUN BUN Creatinine POC Creatinine Est Cr Clr Drug Dosing Est GFR ( Amer) Est GFR (Non-Af Amer) BUN/Creatinine Ratio Glucose POC Glucose (other) Lactate Uric Acid 4.9 Calcium POC Ioniz Calcium Amauri Magnesium Total Bilirubin Direct Bilirubin AST ALT Alkaline Phosphatase Total Creatine Kinase Troponin I High Sens Total Protein Albumin Procalcitonin Ethyl Alcohol mg/dL < 10.0 Adenovirus (PCR) Not Detected B. pertussis DNA (PCR) Not Detected B.parapertussis DNA PCR Not Detected C. pneumoniae DNA (PCR) Not Detected Coronavirus OC43 (PCR) Not Detected Coronavirus HKU1 (PCR) Not Detected Coronavirus 229E (PCR) Not Detected SARS-CoV-2 (PCR) Not Detected Coronavirus NL63 (PCR) Not Detected Human Metapneumovir PCR Not Detected Influenza Type A (PCR) Not Detected Influenza Type B (PCR) Not Detected M. pneumoniae (PCR) Not Detected Parainfluenza 1 (PCR) Not Detected Parainfluenza 2 (PCR) Not Detected Parainfluenza 3 (PCR) Not Detected Parainfluenza 4 (PCR) Not Detected RSV (PCR) Not Detected Entero/Rhino (PCR) Not Detected 07/24/22 07/24/22 07/24/22 06:29 06:22 06:22 WBC RBC Hgb POC Hgb 10.5 L Hct POC Hct 31 L MCV MCH MCHC RDW Std Deviation RDW Coeff of Bharat Plt Count MPV Immature Gran % (Auto) Neut % (Auto) Lymph % (Auto) Armstrong % (Auto) Eos % (Auto) Baso % (Auto) Neut # (Auto) Lymph # (Auto) Armstrong # (Auto) Eos # (Auto) Baso # (Auto) Immature Gran # (Auto) POC Sodium 138 Sodium POC Potassium 3.9 Potassium POC Chloride 105 Chloride Carbon Dioxide POC Total CO2 21 L Anion Gap POC Anion Gap 17.0 POC BUN 23 H BUN Creatinine POC Creatinine 0.8 Est Cr Clr Drug Dosing Est GFR ( Amer) Est GFR (Non-Af Amer) BUN/Creatinine Ratio Glucose POC Glucose (other) 120 H Lactate Uric Acid Calcium POC Ioniz Calcium Amauri 1.21 Magnesium Total Bilirubin Direct Bilirubin AST ALT Alkaline Phosphatase Total Creatine Kinase 826 H Troponin I High Sens Total Protein Albumin Procalcitonin 0.08 Ethyl Alcohol mg/dL Adenovirus (PCR) B. pertussis DNA (PCR) B.parapertussis DNA PCR C. pneumoniae DNA (PCR) Coronavirus OC43 (PCR) Coronavirus HKU1 (PCR) Coronavirus 229E (PCR) SARS-CoV-2 (PCR) Coronavirus NL63 (PCR) Human Metapneumovir PCR Influenza Type A (PCR) Influenza Type B (PCR) M. pneumoniae (PCR) Parainfluenza 1 (PCR) Parainfluenza 2 (PCR) Parainfluenza 3 (PCR) Parainfluenza 4 (PCR) RSV (PCR) Entero/Rhino (PCR) 07/24/22 07/24/22 07/24/22 06:22 06:22 06:22 WBC 5.60 RBC 3.32 L Hgb 10.1 L POC Hgb Hct 30.0 L POC Hct MCV 90.4 MCH 30.4 MCHC 33.7 RDW Std Deviation 43.0 RDW Coeff of Bharat 13.0 Plt Count 201 MPV 10.2 Immature Gran % (Auto) 0.2 Neut % (Auto) 75.3 Lymph % (Auto) 11.4 Armstrong % (Auto) 11.6 Eos % (Auto) 1.1 Baso % (Auto) 0.4 Neut # (Auto) 4.22 Lymph # (Auto) 0.64 L Armstrong # (Auto) 0.65 Eos # (Auto) 0.06 Baso # (Auto) 0.02 Immature Gran # (Auto) 0.01 POC Sodium Sodium 137 POC Potassium Potassium 3.9 POC Chloride Chloride 106 Carbon Dioxide 24 POC Total CO2 Anion Gap 7 POC Anion Gap POC BUN BUN 24 H Creatinine 0.84 POC Creatinine Est Cr Clr Drug Dosing 116.4 Est GFR ( Amer) 110.3 Est GFR (Non-Af Amer) 95.2 BUN/Creatinine Ratio 28.6 H Glucose 119 H POC Glucose (other) Lactate 0.5 Uric Acid Calcium 9.1 POC Ioniz Calcium Amauri Magnesium 1.8 Total Bilirubin 1.5 H Direct Bilirubin 0.3 H AST 53 H ALT 35 Alkaline Phosphatase 52 Total Creatine Kinase Troponin I High Sens 11.3 D Total Protein 7.0 Albumin 4.1 Procalcitonin Ethyl Alcohol mg/dL Adenovirus (PCR) B. pertussis DNA (PCR) B.parapertussis DNA PCR C. pneumoniae DNA (PCR) Coronavirus OC43 (PCR) Coronavirus HKU1 (PCR) Coronavirus 229E (PCR) SARS-CoV-2 (PCR) Coronavirus NL63 (PCR) Human Metapneumovir PCR Influenza Type A (PCR) Influenza Type B (PCR) M. pneumoniae (PCR) Parainfluenza 1 (PCR) Parainfluenza 2 (PCR) Parainfluenza 3 (PCR) Parainfluenza 4 (PCR) RSV (PCR) Entero/Rhino (PCR) Diagnostic Findings Chest X-Ray 07/24/22 06:08 XR chest 1V portable CLINICAL HISTORY: Sepsis TECHNIQUE: Single frontal radiograph of the chest was obtained. Comparison: None available at the time of this dictation. FINDINGS: No lines and tubes are seen. Cardiomegaly is noted. Multifocal airspace opacities are seen. No evidence of pleural effusion or pneumothorax. IMPRESSION: Multifocal airspace opacities may represent atelectasis, pneumonia, and/or aspiration. ACT 112: Negative or not required by law. Electronically signed by: Arnaud Ham M.D. 07/24/2022 7:[address] 07/24/22 06:14 CT head/brain wo con CLINICAL HISTORY: ams Technique: Contiguous axial CT images of the head were acquired from the base of the skull to the vertex without intravenous contrast administration. Images were viewed in brain, subdural and bone windows. Automated dose lowering techniques and/or adjustment according to patient size were utilized for this exam. Comparison: Comparison is made to CT head 06/05/2022 Findings: The ventricles, basal cisterns, and cerebral sulci are normal. There is no acute intracranial hemorrhage or evidence of acute territorial infarction. Neither mass effect, shift of the midline structures, nor abnormal extra-axial fluid collections are shown. Thickening of the ethmoid and frontal sinuses noted. The orbits appear normal. There are no acute fractures of the calvaria or scalp swelling. Impression: No acute intracranial hemorrhage, no evidence of acute territorial infarction or other acute intracranial disease process. ACT 112: Negative or not required by law. Electronically signed by: Arnaud Ham M.D. 07/24/2022 7:31 AM Knee X-Ray 07/24/22 07:20 XR knee LT 3V CLINICAL HISTORY: edema, pain TECHNIQUE: 3 views of the left knee were obtained. Comparison: None available at the time of this dictation. FINDINGS: There is no evidence of an acute fracture. Degenerative changes are seen most prominently in the medial compartment. A small suprapatellar effusion is seen. No soft tissue abnormality is seen. IMPRESSION: Small suprapatellar effusion and degenerative changes without evidence of acute fracture. ACT 112: Negative or not required by law. Electronically signed by: Arnaud Ham M.D. 07/24/2022 8:22 AM ECG Additional Comments: 24-JUL-2022 06:10:23 [facility]-EDSTAT ROUTINE RETRIEVAL Normal sinus rhythm Normal ECG When compared with ECG of 06-JUN-2022 06:20, Premature ventricular complexes are no longer Present Criteria for Septal infarct are no longer Present 25mm/s10mm/[id number] 241 HDCID: 12Unconfirmed Vent. rate 96 BPM MT interval 146 ms QRS duration 76 ms QT/QTc 356/449 ms Code Status & VTE Plan Code Status Full code Supervising Physician Co-Signing Physician Notes Attending Addendum: care coordinated with RE Snow please refer to her notes for full details, I agree with her notes patient seen and examined, records reviewed by myself as well on exam, patient seen sleeping but easily awakened Oriented x2 Intermittently gets confused But answers most questions appropriately States he feels okay overall just tired Denies shortness of breath, cough, fevers or chills, chest pain Denies any pain in his body no other symptoms VS noted and reviewed oriented x2 , not in distress, speaks in sentences with no effort nor accessory muscle use normal rate, regular rhythm, no murmurs Rhonchi bilaterally, no wheezing non distended, soft, nontender no bipedal edema, erythema, warmth no focal neuro deficits Labs and imaging noted and reviewed ASSESSMENT AND PLAN Acute metabolic encephalopathy, likely secondary to underlying bilateral pneumonia Possible delirium, possible drug use, alcoholism Follow-up blood cultures Sputum culture Continue cefepime plus doxycycline Follow-up urine drug screen Alcohol withdrawal protocol ordered Psychiatry service recommendations noted other diagnoses and plan of care as per RE Snow's notes Alexander Bowen MD
[2022-07-24] MEDS ORDERED: HALOPERIDOL LACTATE 5 MG/ML 1 ML VIAL IV PRN ×2 (09:14→14:26)
[2022-07-24] MEDS: DOXYCYCLINE HYCLATE 100 MG in DEXTROSE 5% 100 ML IV SCH ×2 (10:13→21:56)
[2022-07-24] MEDS ORDERED: ALBUTEROL HFA 8 GM INHALER INH PRN (10:53)
[2022-07-24] MEDS ORDERED: ACETAMINOPHEN 325 MG TAB PO PRN (10:53)
[2022-07-24] MEDS: SODIUM CHLORIDE 0.9% 1000ML 1,000 ML IV SCH ×3 (11:05→23:11)
[2022-07-24 13:03] LABS: Lyme Ab IgG w/WB Rflx Negative (Negative); Lyme Ab IgM w/WB Rflx Negative (Negative)
--- NOTE | 2022-07-24 13:26 | Psychiatric Consultation ---
Date of Consultation July 24, 2022 Impression / Recommendations Impression Diagnostically consistent with encephalopathy/delirium with similar presentations in the past. Does not seem consistent with primary psychiatric condition given history of rapid mental status improvement during previous admissions for delirium with stability between episodes of decompensation. Given acute delirium does not have decision making capacity to leave AMA. (1) Metabolic encephalopathy: (2) Elevated CK: (3) Aggressive behavior: Plan -Continue medical workup to rule out and treat any underlying causes contributing to potential delirium, avoid or limit use of deliriogenic medications (benzodiazepines, opioids, anticholinergics) -Continue with delirium prevention measures: raising blinds during the day, closing at night, frequent re-orientation, contact with family/friends, explaining procedures/nursing care measures prior to physical contact, correct any hearing and visual impairments -For behavioral emergency: haldol 2.5mg q6h prn IV or IM (Do not exceed 10mg in 24 hours and monitor QTc closely especially if IV used) and ativan 2mg IV or IM q4h prn. -Consider UDS and passive AWSS given history of substance use in past, including amphetamine use as recently as May 2022 per chart review and no prescribed stimulants per PDMP review and AST ~2x ALT (though does have Hep C) Psych History Identifying Data 62 man with history of encephalopathy, CKD, alcohol use disorder in sustained remission, history of cocaine use, Hep C admitted medically for altered mental status. Psychiatry consulted for recommendations. Chief Complaint "Yeah in the hospital". History of Present Illness Jacky presented to the hospital for multiple days of odd behavior with visual hallucinations, agitation and delusions about a pipe being broken in their house/concern that there was a natural gas leak causing him to flee outside in shorts/flip flogs distraught and requiring police assistance due to his level of agitation and distress. He is known to our service for similar presentations of acute delirium in context of [facility]. Presents this time with elevated CK concerning for rhabdomyolysis. No evidence for recent alcohol use. Unable to participate in interview as speech is remarkably mumbled and incoherent but is able to respond to his name and can say he is in the hospital. Further collateral from patient's , via psych liason, as Jacky gave permission for us to get more information from her: "Talked to patient's Jackelin, she states that patient's symptoms started Wednesday and they remind her heavily of both his father and brother before they deteriorated from alcoholism, patient does have a history of drinking but quit in 2008 and now "rarely has some rum", however - he has been seeing people and fighting with people in the house and outside who are not there - Jackelin states that Jacky turned their natural gas off after chasing people out of their house who were not there so she called EMS, he has no psych history and she is confident he has not been drinking with any regularity, she is worried about her but in unsure what could have precipitated his altered mental status." Allergies Allergy/AdvReac Type Severity Reaction Status Date / Time hydrocodone Allergy Severe GI SYMPTOMS Verified 03/30/22 21:05 ketorolac Allergy Intermediate makes sick Verified 03/30/22 21:05 Penicillins Allergy Unknown HAPPENED Verified 03/30/22 21:05 A CHILD prednisone AdvReac Severe Confusion Verified 03/30/22 21:05 sulfamethoxazole AdvReac Severe confusion Verified 03/30/22 21:05 [From Bactrim] trimethoprim [From Bactrim] AdvReac Severe confusion Verified 03/30/22 21:05 tramadol AdvReac Intermediate vomiting Verified 03/30/22 21:05 NSAIDS (Non-Steroidal AdvReac Unknown D/T LIVER Verified 03/30/22 21:05 Anti-Inflamma ISSUES Home Medications Medication Instructions Recorded Confirmed Type allopurinol 300 mg tablet 300 mg PO QAM 05/28/18 07/24/22 History omeprazole 20 mg capsule,delayed 40 mg PO BID 05/28/18 07/24/22 History release triamcinolone acetonide 0.025 % 1 applic topical BID PRN Itching 05/28/18 07/24/22 History topical cream albuterol sulfate 90 mcg/actuation 2 puff inhalation Q4 PRN Shortness 10/09/19 07/24/22 History aerosol inhaler Of Breath Or Wheezing fluticasone propionate 50 2 spray intranasal DAILY 10/09/19 07/24/22 History mcg/actuation nasal spray,suspension (Flonase Allergy Relief) oxycodone 10 mg tablet 10 mg PO Q6H PRN Pain 03/09/22 07/24/22 History duloxetine 20 mg capsule,delayed 20 mg PO QAM 03/30/22 07/24/22 History release nfspocgm-cnpyhfwe-lnpug acid 400 1 tab PO DAILY 03/30/22 07/24/22 History mcg-vit K 20 mcg-lycop 300 mcg tablet (Men's Multivitamin) Personal History Living Arrangements: Home Marital Status: Beliefs That Will Affect Care: None Patient History Medical History 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 Arthritis Chronic pain syndrome Delirium Gout Hepatitis C Surgical History H/O hernia repair Hx of tooth extraction Family History Mother Diabetes Brother Liver disease Social History Smoking Status: Unknown if ever smoked Second Hand Exposure: No; Hx Alcohol Use: No Hx Substance Use: Yes Last Used Substance: Unknown Last Used Substance Other:: prescribed oxy QID Substance Use Type Other:: uds + for amphetamine/meth and MDMA Preferred Language: Turkish Communication Ability: Effective Agricultural Consultant Required: No Beliefs That Will Affect Care: None marital status: Current Living Situation: Spouse Current Living Situation Comment: Couldn't provide assessment information due to somulence. How many Children do You have: 2 Feels Safe at Home: Yes Assistive Devices: Cane, Denture - Upper, Denture - Lower and Glasses Physical Exam Psychiatric: Orientation: alert, oriented to person and oriented to place; + not oriented to time Apperance: + disheveled Eye Contact: + poor eye contact Motor Behavior: no abnormal motor movements Speech: + abnormal rate/rhythm/volume of speech (mumbled, incoherent) Affect: + anxious affect Mood: + irritable mood Thought Process: + looseness of associations Thought Content: + preoccupation Cognition: + recent memory not intact, + attention not intact and + language not intact Insight: + severely impaired insight Judgement: + severely impaired judgement Vital Signs (Past 24 Hours): Last Vital Signs Temp 36.8 C 07/24/22 10:45 Pulse 82 07/24/22 10:53 Resp 28 H 07/24/22 10:00 BP 149/86 H 07/24/22 10:00 Pulse Ox 99 07/24/22 10:00 O2 Del Method 07/24/22 10:53 Review of Systems Unobtainable due to cognitive status Results & Data (PSY) Medications Administered Doxycycline Hyclate 100 mg/ (Dextrose) 110 mls @ 50 mls/hr IV Q12H [facility] Stop: 07/31/22 09:59 Last Infusion: 07/24/22 12:36 Dose: 0 mls/hr Documented By: Admin: 07/24/22 10:13 Dose: 50 mls/hr Documented By: MARILIN Sodium Chloride (Nss 1000ml) 1,000 mls @ 150 mls/hr IV .Q6H40M [facility] Stop: 08/23/22 09:59 Last Admin: 07/24/22 11:05 Dose: 150 mls/hr Documented By: ROSSY Coding Level of Care Code 41282 Inpt Consult Level 3 Diagnoses Metabolic encephalopathy G93.41 Elevated CK R74.8 Aggressive behavior R46.89
--- NOTE | 2022-07-24 13:33 | Electrocardiogram Report ---
Test Reason : Blood Pressure : / mmHG Vent. Rate : 096 BPM Atrial Rate : 096 BPM P-R Int : 146 ms QRS Dur : 076 ms QT Int : 356 ms P-R-T Axes : -04 011 038 degrees QTc Int : 449 ms Normal sinus rhythm Normal ECG When compared with ECG of 06-JUN-2022 06:20, Premature ventricular complexes are no longer Present Confirmed by Giovani Kennedy ([id number]) on 07/24/2022 1:33:01 PM Referred By: Confirmed By:Giovani Kennedy
[2022-07-24] MEDS ORDERED: FLUARIX QUADRIVALENT 0.5 ML SYR IM ONE (14:08)
[2022-07-24] MEDS ORDERED: LORazepam 1 MG TAB PO PRN (14:26)
[2022-07-24] MEDS: CEFEPIME 2,000 MG in SYRINGE 0 ML IV SCH ×2 (15:07→23:11)
[2022-07-24 16:01] LABS: Appearance Urine Clear (Clear); Bacteria Urine Automated Negative (Negative); Bilirubin Urine Negative (Negative); Blood Urine Trace (Negative); Cast Urine Automated 0 /lpf (0-5); Color Urine Dark Yellow; Glucose Urine UA Negative (Negative); Ketones Urine Trace (Negative); Leukocyte Esterase Urine Negative (Negative); Nitrite Urine Negative (Negative); Protein Urine Trace (Negative); Specific Gravity Urine 1.028 (1.000-1.030); Urobilinogen Urine Negative (Negative); pH Urine 5.5 (4.5-7.5)
[2022-07-24 16:39] LABS: Amphetamines+Metham, Urine Pos (Neg); Barbiturates, Urine Neg (Neg); Benzodiazepine, Urine Pos (Neg); Cocaine, Urine Neg (Neg); MDMA (Ecstacy), Urine Pos (Neg); Methadone, Urine Neg (Neg); Opiate, Urine Neg (Neg); Phencyclidine, Urine Neg (Neg)
[2022-07-24] MEDS: PANTOprazole 40 MG TAB PO SCH (20:01)
[2022-07-25] MEDS: SODIUM CHLORIDE 0.9% 1000ML 1,000 ML IV SCH ×2 (05:37→15:59)
[2022-07-25 05:51] LABS: Hematocrit (blood only) 29.3 % (40.1-51.0); Hemoglobin 10.1 g/dl (14.0-18.0); Mean Corpuscular Hemoglobin 31.3 pg (25.0-34.0); Mean Corpuscular Hgb Conc 34.5 g/dL (32.0-36.0); Mean Corpuscular Volume 90.7 fL (80.0-100.0); Mean Platelet Volume 9.7 fL (9.4-12.4); Platelet Count 173 K/uL (130-400); RDW Coefficient of Variation 12.9 % (11.5-14.5); RDW Standard Deviation 42.7 fL (36.4-46.3); Red Blood Count 3.23 M/uL (4.63-6.08); White Blood Count 3.79 K/ul (4.8-10.8)
[2022-07-25 06:24] LABS: Albumin Globulin Ratio 1.2 (0.9-2); Albumin Level 3.4 gm/dl (3.4-5.0); BUN Creatinine Ratio 20.3 (10-20); Bilirubin,Total 0.8 mg/dl (0.2-1.0); Calcium 8.5 mg/dl (8.5-10.1); Creatinine Clr Calc Pharmacy 165.3 ml/min; Est GFR (African American) 127.5 ml/min; Globulin 2.8 gm/dl (2.5-4.0); Magnesium 1.9 mg/dl (1.7-2.4); Phosphorus 2.8 mg/dl (2.5-4.9); Potassium 3.5 mmol/L (3.5-5.1); Total Protein 6.2 gm/dl (6.0-8.3)
[2022-07-25] MEDS: CEFEPIME 2,000 MG in SYRINGE 0 ML IV SCH ×3 (07:41→23:02)
[2022-07-25] MEDS: allopurinoL 300 MG TAB PO SCH (08:56)
[2022-07-25] MEDS: FLUTICASONE PROPIONATE NA SPR 16 GM BTL SCH (08:56)
[2022-07-25] MEDS: PANTOprazole 40 MG TAB PO SCH ×2 (08:56→20:52)
[2022-07-25] MEDS: DOXYCYCLINE HYCLATE 100 MG in DEXTROSE 5% 100 ML IV SCH ×2 (09:32→20:52)
--- NOTE | 2022-07-25 13:24 | Communication Note ---
Date of Service: July 25, 2022 UDS initial screen came back positive for amp/meth and previous confirmatory testing (as recently as 06/05/22) came back positive in the past. Suspect po sitive MDMA is due to duloxetine use and previous confirmatory testing for this has been negative. Benzo positive likely from benzo used when EMS responded due to agitation on route to ED. 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 Per chart review Jacky's mental status is improving. Psych liason offering substance use resources including option for IOP dual diagnosis substance use resources which Jacky said he would consider. CM could make referral for residential substance use treatment if he becomes interested in this.
--- NOTE | 2022-07-25 15:21 | Hospitalist Progress Note ---
Date of Service July 25, 2022 Assessment & Plan (1) Pneumonia: Plan: For RE Snow notes with addendum: - Sputum culture, mucinex, duonebs QID and Q2H prn - Wean O2 prn, currently not requiring supplemental O2 - Influenza and COVID swab neg, MRSA swab pending - WBC at time of admission = 5.06 - BCx x 2, follow - Afebrile - Lactic acid = 0.05, Procalcitonin pending - CXR reviewed as above showing multifocal pneumonia - Continue antibiotic therapy with cefepime and doxycylcine IV 07/25 Afebrile, no hypoxia Sputum culture: Pending Blood culture: Negative so far Continue ceftriaxone plus doxycycline Flutter valve (2) Acute metabolic encephalopathy: Plan: - Checking CK level as this has previously caused the patient to be in rhabdomyolysis and caused worsening hallucinations and confusions along with AMS ---? elevated at 826. Will continue hydration with NSS at 150 ml/hr - Check ammonia - If becomes hypoxic will obtain ABG - Continue antibiotics as above - Straight cath x 1 for drug urine to and urine culture - Follow blood cultures - Check lymes, anaplasmosis with left knee swelling and pain - Obtained EEG and MRI of the brain during last admission, if no improvement consider re-scanning, can also consider neurology consultation 07/25 Likely secondary to drug use-amphetamine, marijuana -- UDS positive for amphetamine, marijuana MDMA likely secondary to duloxetine Benzodiazepine likely secondary to baseline such in the field Also likely secondary to pneumonia -- Mental status back to baseline Psychiatry service consulted, patient referred to outpatient services for drug use -- Monitor closely (3) Aggressive behavior: (4) Combative behavior: Plan: - Hx of such, recieved versed in the field prior to arrival to the hospital - Consult psych medicine- Hx of alcohol abuse in remission - multiple family members with psychiatric history with visual hallucinations and hx of father who committed suicide due to hallucinations - Hold cymbalta and oxycodone with acute encephalopathy, per pt has not gotten oxycodone administration in several days - Haldol and ativan on board prn for agitation with instructions to call provider prior to administration 07/25 Calm and cooperative no Management per above (5) Chronic pain syndrome: Plan: - Chronic back pain, holding oxycodone presently, PDMP reviewed DVT ppx: - teds, scds CODE: Full code Dispo: From home, likely to remain in the hospital x 1-2 days Admission and Anticipated Discharge Date Admission Date: July 24, 2022 Subjective Follow-up for acute metabolic encephalopathy, bilateral pneumonia, etc Seen resting in bed, sleeping but easily awakened Oriented x3 questions appropriately States he feels okay overall just tired Has productive cough, chest pain, shortness of breath No fevers or chills no Abdominal pain, nausea vomiting No other symptom Review of Systems Review of Systems: all noted and negative except for above Physical Exam Physical Exam: General- oriented x 3, not in distress, speaks in sentences with no effort or accessory muscle use Eyes- anicteric Neck- no JVD Lungs-rhonchi bilaterally No wheezing, good air entry bilaterally Heart- normal rate, regular rhythm; no murmurs Abdomen- normal bowel sounds, nondistended, soft, nontender Extremities- no pretibial edema, no calf tenderness Neuro- alert, oriented x 3; no gross focal neurologic deficits Skin- warm & dry Results & Data Results & Data ([facility]) Vital Signs (Past 12 Hours) Vital Signs Temp Pulse Resp BP Pulse Ox O2 Del Method 07/25/22 08:00 Room Air 07/25/22 06:52 36.7 C 79 18 150/86 H 96 Room Air 07/25/22 04:00 36.6 C 80 19 145/86 H 94 Room Air all noted and reviewed including below
[2022-07-25] MEDS: oxyCODONE HCL IR 5 MG TAB (IMMEDIATE RELEASE) PO PRN (22:23)
[2022-07-26] MEDS: oxyCODONE HCL IR 5 MG TAB (IMMEDIATE RELEASE) PO PRN ×3 (04:05→21:28)
[2022-07-26] MEDS: CEFEPIME 2,000 MG in SYRINGE 0 ML IV SCH ×3 (05:56→21:28)
[2022-07-26] MEDS: FLUTICASONE PROPIONATE NA SPR 16 GM BTL SCH (08:16)
[2022-07-26] MEDS: PANTOprazole 40 MG TAB PO SCH ×2 (08:16→19:54)
[2022-07-26] MEDS: allopurinoL 300 MG TAB PO SCH (08:16)
[2022-07-26] MEDS: SODIUM CHLORIDE 0.9% 1000ML 1,000 ML IV SCH (09:08)
[2022-07-26] MEDS: DOXYCYCLINE HYCLATE 100 MG in DEXTROSE 5% 100 ML IV SCH ×2 (09:42→19:55)
[2022-07-26] MEDS ORDERED: amLODIPine BESYLATE 5 MG TAB PO ONE (12:00)
--- NOTE | 2022-07-26 13:55 | Hospitalist Progress Note ---
Date of Service July 26, 2022 Assessment & Plan (1) Pneumonia: Plan: For RE Snow notes with addendum: - Sputum culture, mucinex, duonebs QID and Q2H prn - Wean O2 prn, currently not requiring supplemental O2 - Influenza and COVID swab neg, MRSA swab pending - WBC at time of admission = 5.06 - BCx x 2, follow - Afebrile - Lactic acid = 0.05, Procalcitonin pending - CXR reviewed as above showing multifocal pneumonia - Continue antibiotic therapy with cefepime and doxycylcine IV 07/26 improving daily remains Afebrile, no hypoxia Sputum culture: Pending collection Blood culture: Negative so far Continue cefepime plus doxycycline Flutter valve (2) Acute metabolic encephalopathy: Plan: - Checking CK level as this has previously caused the patient to be in rhabdomyolysis and caused worsening hallucinations and confusions along with AMS ---? elevated at 826. Will continue hydration with NSS at 150 ml/hr - Check ammonia - If becomes hypoxic will obtain ABG - Continue antibiotics as above - Straight cath x 1 for drug urine to and urine culture - Follow blood cultures - Check lymes, anaplasmosis with left knee swelling and pain - Obtained EEG and MRI of the brain during last admission, if no improvement consider re-scanning, can also consider neurology consultation 07/26 Likely secondary to drug use-amphetamine, marijuana -- UDS positive for amphetamine, marijuana MDMA likely secondary to duloxetine Benzodiazepine likely secondary to baseline such in the field Also likely secondary to pneumonia -- Mental status back to baseline Psychiatry service consulted, patient referred to outpatient services for drug use -- Monitor closely Hypertension -- BP not at goal -- Amlodipine 5mg po daily started (3) Aggressive behavior: (4) Combative behavior: Plan: - Hx of such, recieved versed in the field prior to arrival to the hospital - Consult psych medicine- Hx of alcohol abuse in remission - multiple family members with psychiatric history with visual hallucinations and hx of father who committed suicide due to hallucinations - Hold cymbalta and oxycodone with acute encephalopathy, per pt has not gotten oxycodone administration in several days - Haldol and ativan on board prn for agitation with instructions to call provider prior to administration 07/26 Calm and cooperative Management per above (5) Chronic pain syndrome: Plan: - Chronic back pain, holding oxycodone presently, PDMP reviewed DVT ppx: - teds, scds CODE: Full code Dispo: From home, likely to remain in the hospital x 1-2 days Admission and Anticipated Discharge Date Admission Date: July 24, 2022 Subjective ff up for pneumonia, encephalopathy, etc seen resting in bed, comfortable states he feels improving overall oriented x 3 , calm breathing improving still has productive cough no chest pain, fever/chills no other symptoms Review of Systems 2 Review of Systems: all noted and negative except for above Physical Exam Physical Exam: General- oriented x 3, not in distress, speaks in sentences with no effort or accessory muscle use Eyes- anicteric Neck- no JVD Lungs- mild rhonchi BL Heart- normal rate, regular rhythm; no murmurs Abdomen- normal bowel sounds, nondistended, soft, nontender Extremities- no pretibial edema, no calf tenderness Neuro- alert, oriented x 3; no gross focal neurologic deficits Skin- warm & dry Results & Data Results & Data ([facility]) Vital Signs (Past 12 Hours) Vital Signs Temp Pulse Resp BP Pulse Ox O2 Del Method 07/26/22 12:26 36.9 C 82 16 153/85 H 96 Room Air 07/26/22 08:00 Room Air 07/26/22 08:00 37.0 C 87 20 160/83 H 97 Room Air 07/26/22 03:45 37.0 C 78 20 189/104 H 97 Room Air all noted and reviewed including below
[2022-07-27] MEDS ORDERED: oxyCODONE HCL IR 5 MG TAB (IMMEDIATE RELEASE) PO STA (00:32)
[2022-07-27] MEDS: oxyCODONE HCL IR 5 MG TAB (IMMEDIATE RELEASE) PO PRN ×4 (01:00→12:20)
[2022-07-27] MEDS ORDERED: MELATONIN 3 MG TAB PO PRN (03:44)
[2022-07-27] MEDS ORDERED: amLODIPine BESYLATE 5 MG TAB PO SCH ×2 (03:45→09:00)
[2022-07-27] MEDS: PANTOprazole 40 MG TAB PO SCH (08:24)
[2022-07-27] MEDS: allopurinoL 300 MG TAB PO SCH (08:24)
[2022-07-27] MEDS: FLUTICASONE PROPIONATE NA SPR 16 GM BTL SCH (08:24)
[2022-07-27] MEDS: CEFEPIME 2,000 MG in SYRINGE 0 ML IV SCH (08:31)
[2022-07-27] MEDS: DOXYCYCLINE HYCLATE 100 MG in DEXTROSE 5% 100 ML IV SCH (09:53)
--- NOTE | 2022-07-27 11:49 | Hospitalist Progress Note ---
Date of Service July 27, 2022 Assessment & Plan (1) Pneumonia: Plan: For RE Snow notes with addendum: - Sputum culture, mucinex, duonebs QID and Q2H prn - Wean O2 prn, currently not requiring supplemental O2 - Influenza and COVID swab neg - WBC at time of admission = 5.06 - Afebrile - Lactic acid = 0.05, Procalcitonin pending - CXR reviewed as above showing multifocal pneumonia 07/27 Patient given 4 days of cefepime plus doxycycline Flutter valve also given Patient significantly improved Mental status back to baseline Cough mostly resolved remains Afebrile, no hypoxia Sputum culture: Unable to be collected Blood culture: Negative so far Discharged on: Cefdinir 300 mg twice daily, doxycycline 100 mg twice daily x6 more days to complete 10-day course (2) Acute metabolic encephalopathy: Plan: 07/27 Likely secondary to drug use-amphetamine, marijuana -- UDS positive for amphetamine, marijuana MDMA positive likely secondary to duloxetine Benzodiazepine likely secondary to benzodiazepine received from EMS Also likely secondary to pneumonia -- Mental status back to baseline Psychiatry service consulted, patient referred to outpatient services for drug use --Patient strongly advised not to use any illicit drugs, he verbalized understanding and agreement --Please reevaluate fitness for driving up during follow-up with PCP Hypertension -- BP elevated up to 170s while admitted -- Amlodipine 10 mg po daily (3) Aggressive behavior: (4) Combative behavior: Plan: - Hx of such, recieved versed in the field prior to arrival to the hospital - Consult psych medicine- Hx of alcohol abuse in remission - multiple family members with psychiatric history with visual hallucinations and hx of father who committed suicide due to hallucinations - Hold cymbalta and oxycodone with acute encephalopathy, per pt has not gotten oxycodone administration in several days - Haldol and ativan on board prn 07/27 Resolved Calm and cooperative Resume duloxetine, advised to discontinue oxycodone (5) Chronic pain syndrome: Plan: - Chronic back pain - Advised to hold oxycodone DVT ppx: - teds, scds CODE: Full code Dispo: Discharge to home Follow-up with PCP in 1 week Admission and Anticipated Discharge Date Admission Date: July 24, 2022 Subjective Follow-up for metabolic encephalopathy, pneumonia, etc. Seen resting in bed, comfortable, not in distress States she feels much better overall No shortness of breath, minimal cough, no chest pain No fevers or chills Patient is oriented x3, answers all questions appropriately States he is ambulating in the point with no problems No other symptoms States that he is ready for discharge today Review of Systems Review of Systems: all noted and negative except for above Physical Exam Physical Exam: General- oriented x 3, not in distress, speaks in sentences with no effort or accessory muscle use Eyes- anicteric Neck- no JVD Lungs- clear breath sounds bilaterally, no crackles or wheezing Heart- normal rate, regular rhythm; no murmurs Abdomen- normal bowel sounds, nondistended, soft, no tenderness Extremities- no pretibial edema, no calf tenderness Neuro- alert, oriented x 3; no gross focal neurologic deficits Skin- warm & dry Results & Data Results & Data ([facility]) Vital Signs (Past 12 Hours) Vital Signs Temp Pulse Pulse Pulse Pulse Resp Resp 07/27/22 11:13 36.8 C 75 20 07/27/22 10:09 101 H 97 H 94 H 20 07/27/22 06:53 37.1 C 68 20 07/27/22 03:43 37.5 C 80 20 Resp Resp BP Pulse Ox Pulse Ox Pulse Ox Pulse Ox 07/27/22 11:13 151/87 H 98 07/27/22 10:09 18 18 95 98 98 07/27/22 06:53 165/83 H 97 07/27/22 03:43 170/98 H 97 O2 Del Method 07/27/22 11:13 Room Air 07/27/22 10:09 07/27/22 06:53 Room Air 07/27/22 03:43 Room Air all noted and reviewed including below
--- NOTE | 2022-07-27 13:44 | Discharge Summary ---
Discharge Summary Date of Service July 27, 2022 Notes For Next Care Provider Please evaluate for driving fitness upon follow-up with PCP this coming week Medication Changes From Visit Cefdinir 300 mg twice daily x6 days Doxycycline 100 mg twice daily x6 days Admission HPI Per Admitting Provider This is a 62 yo M with past medical history significant for gout, history of chronic sinusitis, uncomplicated asthma, reflux esophagitis, esosinophilic esophagitis, chronic viral hepatitis C, BPH, degenerative disc disease, history of alcohol abuse in remission, history of chronic pain syndrome, history of immunity to hepatitis B, history of cocaine abuse, who lives with his , presents with confusion, and symptoms of aggressive behavior. He reports being in some sort of doctors office, cannot Tell me the date, the year or what happened yesterday. I attempted to call his , Jackelin and left a voicemail on her cell phone at 9:33 AM. He denies having any acute symptoms, denies feeling short of breath, cough, sputum production, chest pain, abdominal complaints. Per report the patient recieved Versed in the field by EMS due to agitated behavior. He was found outside walking around in shorts where police were notified and picked him up at some point time early this morning. It is noticed that he has a swollen left knee, no open abrasions, redness or lacerations. He has been previously admitted in March and then again at the end of May for altered mental status where he was found to be in RICK and rhabdomyolysis. Today it is noted on his chest x-ray that he has a multifocal pneumonia. Update: Discussion with Jackelin was held at 11:45 am via phone call. She states that Lira behavior changes started on Wednesday with altered mental status and hallucinations. She reports that he was seeing people who were not really there, and that he described that they had a gun earlier this week and yelled at them to leave his house. Another hallucination he described was a girl sleeping on a bed. These things seemed to improve intermittently in the middle of the week. Overnight last night he was up to the bathroom several times. He was found yelling this morning in her basement that there was pipe broken. called maintenance and there was not a broken pipe, but the gas outside their house was turned off and Jacky was outside earlier in shorts and flip flops screaming at his to get out of the house because of the supposed gas leaking and wanted her to be safe. called the marketing pr intern to help get him more under control, and they brought him here. She denies that he has been taking meds inaccurately. He has not been getting oxycodone because she controls it for him, and due to his behavior and confusion hasn't been asking for it. He has been sweating profusely over the past few days even in shorts and flip flops outside without a shirt on. He has not complained of shortness of breath, chest pain or cough. She did not notice any respiratory issues. Father and brother both with history of hallucinations and alcohol abuse. His father hung himself at age 58 due to seeing the hallucinations. Brother at age 58 due to breathing issues after alcohol intoxication. She is very concerned that the patient is exhibiting symptoms like his brothers and father. Admission Exam Per Admitting Provider General: awakens after multiple stimuli with talking loudly, light sternal run, drifts off to sleep easily, jittery when awake Head: Normocephalic, atraumatic ENT: PERRL, EOMI, no pharyngeal exudate, mucous membranes dry, endentulous. Chest: + Coarse breath sounds in bases bilaterally but worse in the RLL with some expiratory wheezing, on room air with O2 sats 94% Cardiac: Regular rate and rhythm, no murmur, no JVD, normal peripheral pulses, good capillary refill Abdominal: NABS x 4 quadrants, soft, nondistended, nontender to palpation, no rebound or guarding Extremities: Left knee edematous, no surrounding erythema, laceration or abraision, ice pack in place, otherwise normal inspection, no peripheral edema or erythema, calfs nontender to palpation Psych:Confused, Neuro: Awake, alert but is not oriented to date, place. He knows his name. Pt strength intact bilaterally and rated 5/5, no motor deficits, speech is clear, no peripheral sensory deficits, + slightly shakey when awakens fully Principal Dx & Hospital Course #1 = Principal Diagnosis (1) Pneumonia: - CXR reviewed as above showing multifocal pneumonia - Influenza and COVID swab neg 07/27 Patient given 4 days of cefepime plus doxycycline Flutter valve also given Patient significantly improved Mental status back to baseline Cough mostly resolved remains Afebrile, no hypoxia Sputum culture: Unable to be collected Blood culture: Negative so far Discharged on: Cefdinir 300 mg twice daily, doxycycline 100 mg twice daily x6 more days to complete 10-day course (2) Acute metabolic encephalopathy: 07/27 Likely secondary to drug use-amphetamine, marijuana -- UDS positive for amphetamine, marijuana MDMA positive likely secondary to duloxetine Benzodiazepine likely secondary to benzodiazepine received from EMS Also likely secondary to pneumonia -- Mental status back to baseline Psychiatry service consulted, patient referred to outpatient services for drug use --Patient strongly advised not to use any illicit drugs, he verbalized understanding and agreement --Please reevaluate fitness for driving up during follow-up with PCP Hypertension -- BP elevated up to 170s while admitted -- Amlodipine 10 mg po daily (3) Aggressive behavior: (4) Combative behavior: - Hx of such, recieved versed in the field prior to arrival to the hospital - Consult psych medicine- Hx of alcohol abuse in remission - multiple family members with psychiatric history with visual hallucinations and hx of father who committed suicide due to hallucinations - Hold cymbalta and oxycodone with acute encephalopathy, per pt has not gotten oxycodone administration in several days - Haldol and ativan on board prn 07/27 Resolved Calm and cooperative Resume duloxetine, advised to discontinue oxycodone (5) Chronic pain syndrome: - Chronic back pain - Advised to hold oxycodone DVT ppx: - teds, scds CODE: Full code Dispo: Discharge to home Follow-up with PCP in 1 week Discharge Exam General- oriented x 3, not in distress, speaks in sentences with no effort or accessory muscle use Eyes- anicteric Neck- no JVD Lungs- clear breath sounds bilaterally, no crackles or wheezing Heart- normal rate, regular rhythm; no murmurs Abdomen- normal bowel sounds, nondistended, soft, no tenderness Extremities- no pretibial edema, no calf tenderness Neuro- alert, oriented x 3; no gross focal neurologic deficits Skin- warm & dry Updated Medication List Medication Instructions Recorded Confirmed Type allopurinol 300 mg tablet 300 mg PO QAM 05/28/18 07/24/22 History omeprazole 20 mg capsule,delayed 40 mg PO BID 05/28/18 07/24/22 History release triamcinolone acetonide 0.025 % 1 applic topical BID PRN Itching 05/28/18 07/24/22 History topical cream albuterol sulfate 90 mcg/actuation 2 puff inhalation Q4 PRN Shortness 10/09/19 07/24/22 History aerosol inhaler Of Breath Or Wheezing fluticasone propionate 50 2 spray intranasal DAILY 10/09/19 07/24/22 History mcg/actuation nasal spray,suspension (Flonase Allergy Relief) duloxetine 20 mg capsule,delayed 20 mg PO QAM 03/30/22 07/24/22 History release ljsuwdgf-tqgmprom-libzz acid 400 1 tab PO DAILY 03/30/22 07/24/22 History mcg-vit K 20 mcg-lycop 300 mcg tablet (Men's Multivitamin) amlodipine 5 mg tablet (Norvasc) 10 mg PO QAM 30 days #60 tabs 07/27/22 Rx cefdinir 300 mg capsule 300 mg PO BID 6 days #12 caps 07/27/22 Rx doxycycline hyclate 100 mg capsule 100 mg PO BID 6 days #12 caps 07/27/22 Rx Hospital Stay Data Consultations 07/24/22 08:42 ED Decision to Admit Stat 07/24/22 10:53 Consult Psychiatry Routine Diagnostic Imagining Performed Chest X-Ray 07/24/22 06:08 XR chest 1V portable CLINICAL HISTORY: Sepsis TECHNIQUE: Single frontal radiograph of the chest was obtained. Comparison: None available at the time of this dictation. FINDINGS: No lines and tubes are seen. Cardiomegaly is noted. Multifocal airspace opacities are seen. No evidence of pleural effusion or pneumothorax. IMPRESSION: Multifocal airspace opacities may represent atelectasis, pneumonia, and/or aspiration. ACT 112: Negative or not required by law. Electronically signed by: Arnaud Ham M.D. 07/24/2022 7:[address] 07/24/22 06:14 CT head/brain wo con CLINICAL HISTORY: ams Technique: Contiguous axial CT images of the head were acquired from the base of the skull to the vertex without intravenous contrast administration. Images were viewed in brain, subdural and bone windows. Automated dose lowering techniques and/or adjustment according to patient size were utilized for this exam. Comparison: Comparison is made to CT head 06/05/2022 Findings: The ventricles, basal cisterns, and cerebral sulci are normal. There is no acute intracranial hemorrhage or evidence of acute territorial infarction. Neither mass effect, shift of the midline structures, nor abnormal extra-axial fluid collections are shown. Thickening of the ethmoid and frontal sinuses noted. The orbits appear normal. There are no acute fractures of the calvaria or scalp swelling. Impression: No acute intracranial hemorrhage, no evidence of acute territorial infarction or other acute intracranial disease process. ACT 112: Negative or not required by law. Electronically signed by: Arnaud Ham M.D. 07/24/2022 7:31 AM Knee X-Ray 07/24/22 07:20 XR knee LT 3V CLINICAL HISTORY: edema, pain TECHNIQUE: 3 views of the left knee were obtained. Comparison: None available at the time of this dictation. FINDINGS: There is no evidence of an acute fracture. Degenerative changes are seen most prominently in the medial compartment. A small suprapatellar effusion is seen. No soft tissue abnormality is seen. IMPRESSION: Small suprapatellar effusion and degenerative changes without evidence of acute fracture. ACT 112: Negative or not required by law. Electronically signed by: Arnaud Ham M.D. 07/24/2022 8:22 AM Pending Results Patient Have Any Pending Studies at Discharge: No Discharge Instructions Given to Patient (Per Discharging Provider) PLEASE REFER TO YOUR NEW MEDICATION LIST AND FOLLOW INSTRUCTIONS CAREFULLY. YOUR NEW MEDICATIONS INCLUDE: Cefdinir, doxycycline-antibiotics for pneumonia Amlodipine-to control blood pressure Drink plenty of water daily. Take probiotics daily x1 month. No alcohol, smoking, illicit drugs. No driving until reevaluated in lab by primary care physician. PLEASE CALL YOUR PRIMARY CARE PHYSICIAN OR RETURN TO THE ER IF WITH WORSENING OF SYMPTOMS, INCLUDING Shortness of breath, fevers or chills, cough, shortness of breath, Chest pain, dizziness, weakness, etc. FOLLOW UP WITH PRIMARY CARE PHYSICIAN OUTLINED ABOVE. Total Time Total Time Spent Total Time Spent (In Minutes): >30 minutes
[2022-07-28 13:42] LABS: Babesia microti DNA Not Detected (Not Detected)
[2022-07-30 13:00] LABS: 7-Aminoclonaz, Confirm NEGATIVE ng/mL (<25); Amphetamine Urine, Confirm 1580 ng/mL (<250); Hydro-Alp Ur, GC/MS NEGATIVE ng/mL (<25); Hydroxyethylflurazepam, Conf NEGATIVE ng/mL (<50); Hydroxymidazolam Ur, GC/MS 1540 ng/mL (<50); Hydroxytriazolam NEGATIVE ng/mL (<50); Lorazepam, Ur GC/MS NEGATIVE ng/mL (<50); MDA negative; MDEA negative; MDMA (Ecstasy) Urine, Confirm negative; Marijuana Quant, GCMS Urine 41 ng/mL (<5); Methamphetamine, Ur Confirm >15000 ng/mL (<250); Nordiazepam, Confirm NEGATIVE ng/mL (<50); Oxazepam Ur, GC/MS NEGATIVE ng/mL (<50); Temazepam, Confirm NEGATIVE ng/mL (<50)
== END 2022-07-27 13:54 | disposition home or self-care (01) | DRG 193 ==
LOC: ED 05:59 → 4W 09:38